=== PATIENT | female | born 1950 | race Caucasian/White ===

== ENCOUNTER 2022-04-29 16:12 | Inpatient (IN) | payer OTHER ==
--- OUTSIDE RECORDS SUMMARY | 2022-04-29 16:15 | XMS REPORT | Continuity of Care Document ---
:1950 Author Organization [facility] t Address [address] [place] [address] Care Team Providers Name Role Phone ZORAIDA FAM Primary Care Physician Unavailable Lab, Ang - Db Attending Clinician Unavailable Zoraida Fam MD Attending Clinician ZORAIDA FAM Attending Clinician Unavailable KARRI MATTA Attending Clinician Unavailable Karri Matta MD Attending Clinician SARINA Attending Clinician Unavailable Matti Cormier MD Attending Clinician MATTI CORMIER Attending Clinician Unavailable ELDER ROMERO Attending Clinician Unavailable YVETTE HANKS Attending Clinician Unavailable A_Bywilbur Attending Clinician Unavailable KARRI MATTA Admitting Clinician Unavailable SARINA Admitting Clinician Unavailable YVETTE HANKS Admitting Clinician Unavailable A_Santo Admitting Clinician Unavailable Payers Payer Name Policy Type Policy Number Effective Date Expiration Date S roberto [employer] MEDICARE PPO [id number] 00:00:00 [employer] (MEDICARE [id number] REPLACEMENT PPO) 00:00:00 Problems Condition Condition Condition Status Onset Resolution Last Treating Co mments Source Name Details Category Date Date Treatment Clinician Date Hip pain Hip Pain Problem Active 2018-04 [place] 0-15 da 00:00: Medical 00 Group No known No known Disease Unive rs active active ity of problems problems [facility] Allergies, Adverse Reactions, Alerts Allergy Allergy Status Severity Reaction(s) Onset Inactive Treating Comm ents Source Name Type Date Date Clinician Vidyai Propensi Active Unknown - 2020-04 Uni vers l ty to See comments 2-14 ity of adverse 00:00: [place] reaction 00 Medical s Branch Codeine Propensi Active Unknown - 2020-04 Univ ers ty to See comments 2-14 ity of adverse 00:00: [place] reaction 00 Medical s Branch QUINAPRI DRUG Active Low Unknown-Cmnt 2020-04 Un juno L INGREDI 2-14 ity of 00:00: [place] 00 Medical Branch CODEINE DRUG Active Low Unknown-Cmnt 2020-04 Uni vers INGREDI 2-14 ity of 00:00: [place] 00 Medical Branch Amlodipi Allergy Active [place] to da substanc Medical e Group Budesoni Allergy Active [place] to da [facility] Codeine Allergy Active [place] to [facility] e [facility] Formoter Allergy Active [place] to da substanc Medical e Group Hydrochl Allergy Active [place] orothiaz to da arianna substanc Medical e Group Olmesart Allergy Active [place] an to da substanc Medical e Group Quinapri Allergy Active [place] l to da substanc Medical e Group Social History Social Habit Start Date Stop Date Quantity Comments Source Exposure to 2022-03-28 2022-04-07 Not sure [facility]-CoV-2 00:00:00 15:11:00 [facility] (event) [place] Alcohol intake 2022-03-27 2022-03-27 Ex-drinker [facility] 00:00:00 00:00:00 (finding) [facility] Tobacco use and 2021-03-31 2021-03-31 Smokeless tobacco Un iversity of exposure 00:00:00 00:00:00 non-user [facility] History of 2001-03-31 Cigarette Smoker Universi ty of tobacco use 00:00:00 [facility] Sex Ass[birth year] At [birth year] Universit y of 00:00:00 00:00:00 [facility] Smoking Status Start Date Stop Date Source Ex-smoker 2021-03-31 00:00:00 2021-03-31 00:00:00 Universi [facility] [place] Medications Ordered Filled Start Stop Current Ordering Indication Dosage Frequency Signature Comments Components Source Medication Medication Date Date Medication? Clinician (SIG) Name Name cefTRIAXone 2021-04- No 1000mg 1,000 mg, Univers (ROCEPHIN) 2-10 12-10 IV ity of 1,000 mg in 23:00: 23:15 [place], [place] NaCl 0.9% 00 :00 ONCE, 1 Medical (NS) 50 mL dose, On Branc h MINI-BAG 03/27/22 at 1700, Administer over 30 Minutes, 50 mL
Reas on for Anti-Infec tive: Documented Infection< br>Documen eduardo Infection Site: Urine<br&g t;Duration of Therapy: Other (see Comments) KCL 20 2021-04- No 40meq 40 mEq, Univer s mEq/15 mL 2-10 12-10 Oral, ity of solution 40 22:30: 21:33 [place] 1 [place] mEq 00 :00 dose, On Medical Sat Branch 03/27/22 at 1630, Routine ondansetron 2021-04- No 4mg 4 mg, Slow Univers (ZOFRAN 2-10 12-10 IV Push, ity of (PF)) 21:00: 21:20 ONCE, 1 [place] injection 4 00 :00 dose, On Medi nick mg [facility] Branch 03/27/22 at 1500, FANI cefdinir 2021-04 Yes [id number] 300mg Take 1 Un juno 300 mg 2-10 capsule by ity of capsule 00:00: mouth in [place] 00 the Medical morning Branch and 1 capsule in the evening. cefdinir 2021-04- No [id number] 300mg Take 1 U nivers 300 mg 2-10 12-21 capsule by ity of capsule 00:00: 00:00 mouth in [place] 00 :00 the Medical morning Branch and 1 capsule in the evening. cefdinir 2021-04- No [id number] 300mg Take 1 U nivers 300 mg 2-10 12-21 capsule by ity of capsule 00:00: 00:00 mouth in [place] 00 :00 the Medical morning Branch and 1 capsule in the evening. Armodafinil 2020-04 Yes 250mg 250 mg Uni vers 250 mg Tab 2-14 daily. ity of 13:42: [address] potassium 2020-04 Yes 10meq 10 mEq Unive rs chloride 10 2-14 daily. ity of mEq CR 13:42: [address] Armodafinil 2020-04 Yes 250mg 250 mg Uni vers 250 mg Tab 2-14 daily. ity of 13:42: [address] potassium 2020-04 Yes 10meq 10 mEq Unive rs chloride 10 2-14 daily. ity of mEq CR 13:42: [address] Armodafinil 2020-04 Yes 250mg 250 mg Uni vers 250 mg Tab 2-14 daily. ity of 13:42: [address] potassium 2020-04 Yes 10meq 10 mEq Unive rs chloride 10 2-14 daily. ity of mEq CR 13:42: [address] Armodafinil 2020-04 Yes 250mg 250 mg Uni vers 250 mg Tab 2-14 daily. ity of 13:42: [address] potassium 2020-04 Yes 10meq 10 mEq Unive rs chloride 10 2-14 daily. ity of mEq CR 13:42: [address] Armodafinil 2020-04 Yes 250mg 250 mg Uni vers 250 mg Tab 2-14 daily. ity of 13:42: [address] potassium 2020-04 Yes 10meq 10 mEq Unive rs chloride 10 2-14 daily. ity of mEq CR 13:42: [address] Armodafinil 2020-04 Yes 250mg 250 mg Uni vers 250 mg Tab 2-14 daily. ity of 13:42: [address] potassium 2020-04 Yes 10meq 10 mEq Unive rs chloride 10 2-14 daily. ity of mEq CR 13:42: [address] amLODIPine 2020-04 Yes 5mg 5 mg Univers 5 mg tablet 2-05 daily. ity of 00:00: [facility] atorvastati 2020-04 Yes 80mg Take 80 mg Univers n 80 mg 2-05 by mouth ity of tablet 00:00: daily. [facility] buPROPion 2020-04 Yes 300mg Take 300 Uni vers XL 300 mg 2-05 mg by ity of 24 hr 00:00: mouth [place] tablet 00 daily. [facility] Branch ezetimibe 2020-04 Yes 10mg Take 10 mg Un juno 10 mg 2-05 by mouth. ity of tablet 00:00: [place] [facility] famotidine 2020-04 Yes 20mg 20 mg Univer s 20 mg 2-05 daily. ity of tablet 00:00: [place] [facility] furosemide 2020-04 Yes 40mg Take 40 mg U nivers 40 mg 2-05 by mouth ity of tablet 00:00: daily. [place] [address] Medical Branch OLANZapine 2020-04 Yes 10mg Take 10 mg U nivers 10 mg 2-05 by mouth ity of tablet 00:00: daily. [place] [address] Medical Branch amLODIPine 2020-04 Yes 5mg 5 mg Univers 5 mg tablet 2-05 daily. ity of 00:00: [place] [facility] atorvastati 2020-04 Yes 80mg Take 80 mg Univers n 80 mg 2-05 by mouth ity of tablet 00:00: daily. [place] [address] Medical Branch buPROPion 2020-04 Yes 300mg Take 300 Uni vers XL 300 mg 2-05 mg by ity of 24 hr 00:00: mouth [place] tablet 00 daily. Medical Branch ezetimibe 2020-04 Yes 10mg Take 10 mg Un juno 10 mg 2-05 by mouth. ity of tablet 00:00: [place] [facility] famotidine 2020-04 Yes 20mg 20 mg Univer s 20 mg 2-05 daily. ity of tablet 00:00: [place] [address] Medical Branch furosemide 2020-04 Yes 40mg Take 40 mg U nivers 40 mg 2-05 by mouth ity of tablet 00:00: daily. [place] [address] Medical Branch OLANZapine 2020-04 Yes 10mg Take 10 mg U nivers 10 mg 2-05 by mouth ity of tablet 00:00: daily. [place] [address] Medical Branch amLODIPine 2020-04 Yes 5mg 5 mg Univers 5 mg tablet 2-05 daily. ity of 00:00: [place] [address] Medical Branch atorvastati 2020-04 Yes 80mg Take 80 mg Univers n 80 mg 2-05 by mouth ity of tablet 00:00: daily. [place] [address] Medical Branch buPROPion 2020-04 Yes 300mg Take 300 Uni vers XL 300 mg 2-05 mg by ity of 24 hr 00:00: mouth [place] tablet 00 daily. Medical Branch ezetimibe 2020-04 Yes 10mg Take 10 mg Un juno 10 mg 2-05 by mouth. ity of tablet 00:00: [place] [facility] famotidine 2020-04 Yes 20mg 20 mg Univer s 20 mg 2-05 daily. ity of tablet 00:00: [place] [facility] furosemide 2020-04 Yes 40mg Take 40 mg U nivers 40 mg 2-05 by mouth ity of tablet 00:00: daily. [address] Branch OLANZapine 2020-04 Yes 10mg Take 10 mg U nivers 10 mg 2-05 by mouth ity of tablet 00:00: daily. [address] Branch amLODIPine 2020-04 Yes 5mg 5 mg Univers 5 mg tablet 2-05 daily. ity of 00:00: [place] [facility] atorvastati 2020-04 Yes 80mg Take 80 mg Univers n 80 mg 2-05 by mouth ity of tablet 00:00: daily. [address] Branch buPROPion 2020-04 Yes 300mg Take 300 Uni vers XL 300 mg 2-05 mg by ity of 24 hr 00:00: mouth [place] tablet 00 daily. Medical Branch ezetimibe 2020-04 Yes 10mg Take 10 mg Un juno 10 mg 2-05 by mouth. ity of tablet 00:00: [address] Branch famotidine 2020-04 Yes 20mg 20 mg Univer s 20 mg 2-05 daily. ity of tablet 00:00: [place] [address] Medical Branch furosemide 2020-04 Yes 40mg Take 40 mg U nivers 40 mg 2-05 by mouth ity of tablet 00:00: daily. [address] Branch OLANZapine 2020-04 Yes 10mg Take 10 mg U nivers 10 mg 2-05 by mouth ity of tablet 00:00: daily. [address] Branch amLODIPine 2020-04 Yes 5mg 5 mg Univers 5 mg tablet 2-05 daily. ity of 00:00: [place] [address] Medical Branch atorvastati 2020-04 Yes 80mg Take 80 mg Univers n 80 mg 2-05 by mouth ity of tablet 00:00: daily. [address] Branch buPROPion 2020-04 Yes 300mg Take 300 Uni vers XL 300 mg 2-05 mg by ity of 24 hr 00:00: mouth [place] tablet 00 daily. Medical Branch ezetimibe 2020-04 Yes 10mg Take 10 mg Un juno 10 mg 2-05 by mouth. ity of tablet 00:00: [address] Branch famotidine 2020-04 Yes 20mg 20 mg Univer s 20 mg 2-05 daily. ity of tablet 00:00: [address] Branch furosemide 2020-04 Yes 40mg Take 40 mg U nivers 40 mg 2-05 by mouth ity of tablet 00:00: daily. [address] OLANZapine 2020-04 Yes 10mg Take 10 mg U nivers 10 mg 2-05 by mouth ity of tablet 00:00: daily. [address] Branch amLODIPine 2020-04 Yes 5mg 5 mg Univers 5 mg tablet 2-05 daily. ity of 00:00: [address] Branch atorvastati 2020-04 Yes 80mg Take 80 mg Univers n 80 mg 2-05 by mouth ity of tablet 00:00: daily. [address] buPROPion 2020-04 Yes 300mg Take 300 Uni vers XL 300 mg 2-05 mg by ity of 24 hr 00:00: mouth [place] tablet 00 daily. Medical Branch ezetimibe 2020-04 Yes 10mg Take 10 mg Un juno 10 mg 2-05 by mouth. ity of tablet 00:00: [address] famotidine 2020-04 Yes 20mg 20 mg Univer s 20 mg 2-05 daily. ity of tablet 00:00: [address] furosemide 2020-04 Yes 40mg Take 40 mg U nivers 40 mg 2-05 by mouth ity of tablet 00:00: daily. [address] OLANZapine 2020-04 Yes 10mg Take 10 mg U nivers 10 mg 2-05 by mouth ity of tablet 00:00: daily. [address] Advil 200 Advil 200 No 1 Q6H Advil 200 [place] mg tablet mg tablet mg tablet da Take 1 Take 1 Take 1 Medical tablet tablet tablet Group every 6 every 6 every 6 hours by hours by hours by oral route. oral route. oral route. Nicole-Chade Nicole-Seltze No Nicole-Selalfonzo [place] [facility] amlodipine amlodipine No amlodipine [place] 5mg 5mg 5mg da Medical Group armodafinil armodafinil No 1 Q1D armodafini [place] 250 mg 250 mg l 250 mg da tablet Take tablet Take tablet Medical 1 tablet 1 tablet Take 1 Group every day every day tablet by oral by oral every day route. route. by oral route. Azo Azo No Azo [place] B12 5000mg B12 5000mg No B12 5000mg [facility] bupropion bupropion No bupropion [place] HBr 300mg HBr 300mg HBr 300mg da Medical Group famotidine famotidine No famotidine [place] 40mg 40mg 40mg da Medical Group furosemide furosemide No 1 Q1D furosemide [place] 40 mg 40 mg 40 mg da tablet Take tablet Take tablet Medical 1 tablet 1 tablet Take 1 Group every day every day tablet by oral by oral every day route. route. by oral route. gabapentin gabapentin No gabapentin [place] 800mg bid 800mg bid 800mg bid da Medical Group Gaviscon Gaviscon No Gaviscon [place] [facility] hydrocodone hydrocodone No 1 Q12H hydrocodon [place] 5 5 e 5 da mg-acetamin mg-acetamin mg-acetami Medical ophen 325 ophen 325 nophen 325 Group mg tablet mg tablet mg tablet Take 1 Take 1 Take 1 tablet tablet tablet every 12 every 12 every 12 hours by hours by hours by oral route. oral route. oral take as take as route. needed for needed for take as pain pain needed for pain olanzapine olanzapine No olanzapine [place] 5mg 5mg 5mg da Medical Group Senokot Senokot No Senokot [place] [facility] Vitamin D Vitamin D No Vitamin D [place] vitamin d vitamin d vitamin d da 12 weekly 12 weekly 12 weekly Medical Group Zantac 150 Zantac 150 No 1 BID Zantac 150 [place] mg tablet mg tablet mg tablet da Take 1 Take 1 Take 1 Medical tablet tablet tablet Group twice a day twice a day twice a by oral by oral day by route. route. oral route. zolpidem 5 zolpidem 5 No 1 Q1D zolpidem 5 [place] mg tablet mg tablet mg tablet da Take 1 Take 1 Take 1 Medical tablet tablet tablet Group every day every day every day by oral by oral by oral route. route. route. Immunizations Ordered Filled Immunization Date Status Comments [facility] e Immunization Name Name Influenza Virus 2022-04-07 Completed Universit y of Vaccine,quad 00:00:00 [place] [facility],preserve Free Branch 65+ Influenza Virus 2022-04-07 Completed Universit y of Vaccine,quad 00:00:00 [place] [facility] Im,preserve Free Branch 65+ Influenza Virus 2022-04-07 Completed Universit y of Vaccine,quad 00:00:00 [place] [facility] Im,preserve Free Branch 65+ Vital Signs Vital Name Observation Time Observation Value Comments Source Systolic blood 2022-04-07 21:25:00 110 mm[Hg] Univer sity of pressure [place] [facility] [place] Diastolic blood 2022-04-07 21:25:00 67 mm[Hg] Unive rsity of pressure [facility] Heart rate 2022-04-07 21:25:00 90 /min Universi ty of [facility] Body temperature 2022-04-07 21:25:00 36.56 Erin Univ ersity of [place] [facility] [place] Body height 2022-04-07 21:25:00 162.6 cm Universi ty of [place] [facility] [place] Body weight 2022-04-07 21:25:00 74.39 kg Universi ty of [place] [facility] BMI 2022-04-07 21:25:00 28.15 kg/m2 Universi ty of [place] [facility] Oxygen saturation in 2022-04-07 21:25:00 98 /min University of Arterial blood by [place] [employer] nick Pulse oximetry Branch Systolic blood 2022-03-27 23:00:00 118 mm[Hg] Univer sity of pressure [place] [facility] [place] Diastolic blood 2022-03-27 23:00:00 68 mm[Hg] Unive rsity of pressure [place] [facility] [place] Heart rate 2022-03-27 23:00:00 82 /min Universi ty of [place] [facility] Respiratory rate 2022-03-27 23:00:00 16 /min Univ ersity of [facility] Oxygen saturation in 2022-03-27 23:00:00 99 /min University of Arterial blood by [place] [employer] Pulse oximetry Branch Body temperature 2022-03-27 20:11:00 36.56 Erin Univ ersity of [place] [facility] Body height 2022-03-27 20:11:00 162.6 cm Universi ty of [place] [facility] [place] Body weight 2022-03-27 20:11:00 72.576 kg Universi ty of [facility] BMI 2022-03-27 20:11:00 27.46 kg/m2 Universi [facility] Systolic blood 2021-03-31 19:39:00 115 mm[Hg] Univer sity pressure [facility] Diastolic blood 2021-03-31 19:39:00 76 mm[Hg] Unive [facility] Heart rate 2021-03-31 19:39:00 85 /min [facility] Body height 2021-03-31 19:39:00 162.6 cm [facility] Body weight 2021-03-31 19:39:00 77.565 kg [facility] BMI 2021-03-31 19:39:00 29.35 kg/m2 [facility] BP Diastolic 2019-01-30 00:00:00 71 mm[Hg] [facility] Height 2019-01-30 00:00:00 64 [facility]_i[facility] BMI (Body Mass 2019-01-30 00:00:00 35.7 kg/m2 [facility] fulfillment 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 (NA, K, CL, CO2, Medical Branch GLUCOSE, BUN, CREATININE, CA) CBC WITH DIFF 2022-04-07 21:58:00 Zoraida Fam darrion [facility] FLU 2022-04-07 21:38:[facility] VACC([id number]),65+YR,0 Medical Branch .5 ML,IM,ADJUVANTED,QUAD(F LUAD) CT ABDOMEN PELVIS WO 2022-03-27 22:24:15 Karri Matta [facility] CONTRAST [facility] Branch XR CHEST 1 VW 2022-03-27 21:31:00 Karri Matta [facility] URINALYSIS 2022-03-27 21:15:00 Karri Matta [facility] MAGNESIUM 2022-03-27 21:01:00 Karri Matta [facility] TROPONIN I 2022-03-27 21:01:00 Karri Matta [facility] COMP. METABOLIC PANEL 2022-03-27 21:01:00 Karri Matta [facility] ([id number]) [facility] CBC WITH DIFF 2022-03-27 21:01:00 Karri Matta [facility] N-TERMINAL PRO-BNP 2022-03-27 21:01:00 Karri Matta [facility] XR KNEE 3 VW LEFT 2021-04-08 20:08:00 Matti Cormier [facility] XR, hip, unilateral 2019-01-30 00:00:00 [facility] K[facility] Procedure on Wrist [facility] Hysterectomy [facility] Encounters Start End Encounter Admission Attending Care Care Encounter Source Date/Time Date/Time Type Type Clinicians Facility Department ID 2021-10-26 Outpatient [facility] [id number] [place] 06:31:51 [id number] [facility] 2021-10-14 Outpatient [facility] [id number] PA 10:31:44 [id number] [facility] 2022-04-07 2022-04-07 Safety Scientist Lab, Ang - [place] [facility] [id number] Univers 15:45:00 16:00:00 Visit Zroaida Fam [facility] [id number] [facility] [id number] Miguel as BILLIE?BLEA [id number] [address] MEDICAL OFFICE BUILDING 2022-04-07 2022-04-07 Outpatient R [facility] [id number] [facility] 15:15:00 15:47:59 ZORAIDA [facility] 2022-04-07 2022-04-07 [facility] [id number] Univers 15:15:00 15:47:59 Visit [facility] [id number] it y of Oscar MEZA [id number] Miguel as BILLIE?BLEA [id number] Mn karoline ALAMO 044 [place] MEDICAL OFFICE [facility] 2022-03-27 2022-03-27 Emergency [facility] [id number] Univers 14:09:00 17:18:00 KARRI ity [facility] 2022-03-27 2022-03-27 Emergency [facility] [id number] Univers 14:09:00 17:18:00 Nhomid Adali [place] [id number] ity of [facility] [id number] [place] [facility] [id number] [facility] 084 [place] 2021-11-19 2021-11-19 Outpatient SADIQ_MICHELET PAELIEZER [facility] [id number] [place] 00:00:00 00:00:00 _CORINE 0804 da [facility] Outreac h Program 2021-04-08 2021-04-08 [facility] [id number] Univers 13:58:04 23:59:00 Encounter [facility] [id number] ity moses [place] [id number] Miguel as BILLIE?BLEA [id number] Mn nicolabrooklyn ALAMO 809 [place] MEDICAL OFFICE [facility] 2021-04-08 2021-04-08 [facility] [id number] Univers 13:30:00 14:30:16 MATTI patricia [facility] 2021-04-08 2021-04-08 Outpatient R [facility] [id number] Univers 14:00:00 14:00:00 MATTI [id number] [facility] 2021-04-02 2021-04-02 Outpatient [facility] [id number] Univers 09:45:00 09:45:00 ELDER [id number] [facility] 2021-04-02 2021-04-02 [facility]patient [facility] [id number] Univers 09:45:00 09:45:00 ELDER urias [facility] 2021-03-31 2021-03-31 Outpatient R [facility] [id number] Univers 13:30:00 13:58:43 ZORAIDA urias [facility] 2021-03-31 2021-03-31 Office Marylin [facility] [id number] Univers 13:21:58 13:51:58 Visit [facility] [id number] it y of Oscar [facility] [id number] Miguel as BILLIE?BLEA [id number] [address] MEDICAL OFFICE [facility] 2020-12-29 2020-12-30 Outpatient E [facility]ON[facility] [id number] [facility] 16:13:00 12:27:00 YVETTE 2020-03-05 2020-03-05 Outpatient Phan [facility] [id number] [place] 02:19:00 02:19:00 1118 Medical Group 2019-01-30 2019-01-30 You Melendrez [facility] [place] - [id number] M at[place] 00:00:00 00:00:00 MD Santo: [address] Group [facility] - [address], [facility] [address] , Ph. Results Test Description Test Time Test Comments Results Result Comments Source BASIC METABOLIC PANEL (NA, K, CL, CO2, GLUCOSE, BUN, 2022-03 08:56:09 CREATININE, CA) Test Item Value Reference Range Interpretation Comme nts NA (test code = 7683693533) 138 mmol/L 135-145 K (test code = 5629810373) 4.0 mmol/L 3.5-5.0 CL (test code = 6611788344) 99 mmol/L 98-108 CO2 TOTAL (test code = 6477429743) 29 mmol/L 23-31 AGAP (test code = 8628386201) 2-16 BUN (test code = 7281400862) 22 mg/dL 7-23 GLUCOSE (test code = 3762528311) 101 mg/dL 70-110 CREATININE (test code = 2.00 mg/dL 0.50-1.04 H 7094654536) CALCIUM (test code = 1554367270) 9.4 mg/dL 8.6-10.6 eGFR (test code = 1219369258) mL/min/1.73m2 LINDA (test code = LINDA) Association of Glomerular Filtration Rate (GFR) and Staging of Kidney Disease* + +-------- + ------+| GFR (mL/min/1.73 m2) ?| With Kidney Damage ?| ?Without Kidney Damage+ +-- + +| ?>90 ?| ?Stage one ?| ? Normal ?+ +------- + -------+| ?60-89 ?| ?Stage two ?| ? Decreased GFR ? + +-------- + ------+| ?30-59 ?| ?Stage three ?| ? Stage three ? + +-------- + ------+| ?15-29 ?| ?Stage four ? | ? Stage four ?+ +------- + -------+| ?<15 (or dialysis) ? ?| ?Stage five ? | ? Stage five ?+ +------- + -------+ *Each stage assumes the associated GFR level has been in effect for at least three months. ?Stages 1 to 5, with or without kidney disease, indicate chronic kidney disease. Notes: Determination of stages one and two (with eGFR >59mL/min/1.73 m2) requires estimation of kidney damage for at least three months as defined by structural or functional abnormalities of the kidney, manifested by either:Pathological abnormalities or Markers of kidney damage (including abnormalities in the composition of the blood or urine or abnormalities in imaging tests). Lab Interpretation (test code = Abnormal 58345-9) [facility] METABOLIC PANEL (NA, K, CL, CO2, GLUCOSE, BUN, CREATININE, CA)2022-04-08 08:56:09 Test Item Value Reference Range Interpretation Comments NA (test code = 138 mmol/L 135-145 [id number]) K (test code = 4.0 mmol/L 3.5-5.0 5805798217) CL (test code = 99 mmol/L 98-108 3270968151) CO2 TOTAL (test code = 29 mmol/L 23-31 4184039291) AGAP (test code = 2-16 4860590292) BUN (test code = 22 mg/dL 7-23 5705623504) GLUCOSE (test code = 101 mg/dL 70-110 3690352280) CREATININE (test code = 2.00 mg/dL 0.50-1.04 H 6186176114) CALCIUM (test code = 9.4 mg/dL 8.6-10.6 2741771611) eGFR (test code = mL/min/1.73m2 [id number]) LINDA (test code = LINDA) Association of Glomerular Filtration Rate (GFR) and Staging of Kidney Disease* + --+ --+ ------+| GFR (mL/min/1.73 m2) ?| With Kidney Damage ?| ?Without Kidney Damage+ --------+ --------+ +| ?>90 ?| ?Stage one ?| ? Normal ?+ ---+ ---+ -------+| ?60-89 ?| ?Stage two ?| ? Decreased GFR ? + --+ --+ ------+| ?30-59 ?| ?Stage three ?| ? Stage three ? + --+ --+ ------+| ?15-29 ?| ?Stage four ? | ? Stage four ?+ ---+ ---+ -------+| ?<15 (or dialysis) ? ?| ?Stage five ? | ? Stage five ?+ ---+ ---+ -------+ *Each stage assumes the associated GFR level has been in effect for at least three months. ?Stages 1 to 5, with or without kidney disease, indicate chronic kidney disease. Notes: Determination of stages one and two (with eGFR >59mL/min/1.73 m2) requires estimation of kidney damage for at least three months as defined by structural or functional abnormalities of the kidney, manifested by either:Pathological abnormalities or Markers of kidney damage (including abnormalities in the composition of the blood or urine or abnormalities in imaging tests). Lab Interpretation Abnormal (test code = 52995-8) [facility] WITH [id number] 08:15:22 Test Item Value Reference Range Interpretation Comments WBC (test code = See_Comment [Automated 1090-2) message] The sy stem which generated this result transmitted reference range : 4.30 - 11.10 10*3/?L. The reference range was not used to interpret this result as normal/abnormal . RBC (test code = See_Comment [Automated 789-8) message] The sy stem which generated this result transmitted reference range : 3.93 - 5.25 10*6/?L. The reference range was not used to interpret this result as normal/abnormal . HGB (test code = 11.7 g/dL 11.6-15.0 718-7) HCT (test code = 37.4 % 35.7-45.2 4544-3) MCV (test code = 95.2 fL 80.6-95.5 787-2) MCH (test code = 29.8 pg 25.9-32.8 785-6) MCHC (test code = 31.3 g/dL 31.6-35.1 L 786-4) RDW-SD (test code = 49.2 fL 39.0-49.9 86941-5) RDW-CV (test code = 14.4 % 12.0-15.5 788-0) PLT (test code = See_Comment [Automated 777-3) message] The sy stem which generated this result transmitted reference range : 166 - 358 10*3/ ?L. The reference r paty was not used to interpret this result as normal/abnormal . MPV (test code = 9.4 fL 9.5-12.9 L 69743-8) NRBC/100 WBC (test See_Comment [Automat ed code = 5752549023) message] The system which generated this result transmitted reference range : 0.0 - 10.0 /100 WBCs. The refer ence range was not u sed to interpret th is result as normal/abnormal . NRBC x10^3 (test code See_Comment [Auto mated = 1737505714) message] The s ystem which generated this result transmitted reference range : 10*3/?L. The reference range was not used to interpret this result as normal/abnormal . GRAN MAT (NEUT) % 80.0 % (test code = 770-8) IMM GRAN % (test code 0.20 % = 3343433139) LYMPH % (test code = 13.9 % 736-9) MONO % (test code = 5.4 % 5905-5) EOS % (test code = 0.2 % 713-8) BASO % (test code = 0.3 % 706-2) GRAN MAT x10^3(ANC) 4.89 10*3/uL 1.88-7.09 (test code = 6411677595) IMM GRAN x10^3 (test 0.00-0.06 code = 6702637758) LYMPH x10^3 (test code 0.85 10*3/uL 1.32-3.29 L = 731-0) MONO x10^3 (test code 0.33 10*3/uL 0.33-0.92 = 742-7) EOS x10^3 (test code = 0.03-0.39 L 711-2) BASO x10^3 (test code 0.01-0.07 = 704-7) Lab Interpretation Abnormal (test code = 29269-4) [facility] WITH [id number] 08:15:22 Test Item Value Reference Range Interpretation Comments WBC (test code = See_Comment [Automated 6690-2) message] The sy stem which generated this result transmitted reference range : 4.30 - 11.10 10*3/?L. The reference range was not used to interpret this result as normal/abnormal . RBC (test code = See_Comment [Automated 789-8) message] The sy stem which generated this result transmitted reference range : 3.93 - 5.25 10*6/?L. The reference range was not used to interpret this result as normal/abnormal . HGB (test code = 11.7 g/dL 11.6-15.0 718-7) HCT (test code = 37.4 % 35.7-45.2 4544-3) MCV (test code = 95.2 fL 80.6-95.5 787-2) MCH (test code = 29.8 pg 25.9-32.8 785-6) MCHC (test code = 31.3 g/dL 31.6-35.1 L 786-4) RDW-SD (test code = 49.2 fL 39.0-49.9 13384-1) RDW-CV (test code = 14.4 % 12.0-15.5 788-0) PLT (test code = See_Comment [Automated 777-3) message] The sy stem which generated this result transmitted reference range : 166 - 358 10*3/ ?L. The reference r apty was not used to interpret this result as normal/abnormal . MPV (test code = 9.4 fL 9.5-12.9 L 86919-5) NRBC/100 WBC (test See_Comment [Automat ed code = 1992160108) message] The system which generated this result transmitted reference range : 0.0 - 10.0 /100 WBCs. The refer ence range was not u sed to interpret th is result as normal/abnormal . NRBC x10^3 (test code See_Comment [Auto mated = 2415256369) message] The s ystem which generated this result transmitted reference range : 10*3/?L. The reference range was not used to interpret this result as normal/abnormal . GRAN MAT (NEUT) % 80.0 % (test code = 770-8) IMM GRAN % (test code 0.20 % = 0689649289) LYMPH % (test code = 13.9 % 736-9) MONO % (test code = 5.4 % 5905-5) EOS % (test code = 0.2 % 713-8) BASO % (test code = 0.3 % 706-2) GRAN MAT x10^3(ANC) 4.89 10*3/uL 1.88-7.09 (test code = 3653302320) IMM GRAN x10^3 (test 0.00-0.06 code = 8751787940) LYMPH x10^3 (test code 0.85 10*3/uL 1.32-3.29 L = 731-0) MONO x10^3 (test code 0.33 10*3/uL 0.33-0.92 = 742-7) EOS x10^3 (test code = 0.03-0.39 L 711-2) BASO x10^3 (test code 0.01-0.07 = 704-7) Lab Interpretation Abnormal (test code = 44175-2) [id number] Test Item Value Reference Interpretation Comments Range TROPONIN I (test 0.005 ng/mL See_Comment [Automated code = 9356167768) message] The system which generated this result transmitted reference range : <=0.034. The reference range was not used to interpret this result as normal/abnormal . LINDA (test code = Reference (Normal) LINDA) Range (defined by the 99th percentile reference limit): <= 0.034 ng/mL Note: Cardiac troponin begins to rise 3-4 hours after the onset of ischemia. Repeat in 4-6 hours if the sample was drawn within 3-4 hours of the onset of the symptom and found normal. Diagnosis of myocardial injury is made with acute changes in cTn concentrations with at least one serial sample above the 99th percentile upper reference limit (URL), taken together with the patient's clinical presentation. Biotin has been reported to cause a negative bias, interpret results relative to patient's use of biotin. Lab Interpretation Normal (test code = 61619-5) [id number] 21:52:11 Test Item Value Reference Range Interpretation Comments NT-proBNP (test code 122 pg/mL See_Comment [Autom ated = 0801785031) message] The system which generated this result transmitted reference range : <=125. The reference range was not used to interpret this result as normal/abnormal . LINDA (test code = LINDA) Biotin has been reported to cause a negative bias, interpret results relative to patient's use of biotin. Lab Interpretation Normal (test code = 31441-0) [facility] ([id number] 21:29:29 Test Item Value Reference Range Interpretation Comments NA (test code = 136 mmol/L 135-145 1655763136) K (test code = 3.1 mmol/L 3.5-5.0 L 6292186541) CL (test code = 96 mmol/L 98-108 L 2933694966) CO2 TOTAL (test code = 20 mmol/L 23-31 L 4991499527) AGAP (test code = 2-16 H 1405516995) BUN (test code = 31 mg/dL 7-23 H 7234976974) GLUCOSE (test code = 129 mg/dL 70-110 H 1624185874) CREATININE (test code = 1.93 mg/dL 0.50-1.04 H 7060894022) TOTAL BILI (test code = 1.0 mg/dL 0.1-1.4 6925914177) CALCIUM (test code = 9.4 mg/dL 8.6-10.6 2287709360) T PROTEIN (test code = 6.6 g/dL 6.3-8.2 1996451255) ALBUMIN (test code = 4.6 g/dL 3.5-5.0 9787140661) ALK PHOS (test code = 96 U/L 34-122 5473738806) ALTv (test code = 36 U/L 5-35 H 1742-6) AST(SGOT) (test code = 36 U/L 13-40 0876389024) eGFR (test code = mL/min/1.73m2 3265224023) LINDA (test code = LINDA) Association of Glomerular Filtration Rate (GFR) and Staging of Kidney Disease* + --+ --+ ------+| GFR (mL/min/1.73 m2) ?| With Kidney Damage ?| ?Without Kidney Damage+ --------+ --------+ +| ?>90 ?| ?Stage one ?| ? Normal ?+ ---+ ---+ -------+| ?60-89 ?| ?Stage two ?| ? Decreased GFR ? + --+ --+ ------+| ?30-59 ?| ?Stage three ?| ? Stage three ? + --+ --+ ------+| ?15-29 ?| ?Stage four ? | ? Stage four ?+ ---+ ---+ -------+| ?<15 (or dialysis) ? ?| ?Stage five ? | ? Stage five ?+ ---+ ---+ -------+ *Each stage assumes the associated GFR level has been in effect for at least three months. ?Stages 1 to 5, with or without kidney disease, indicate chronic kidney disease. Notes: Determination of stages one and two (with eGFR >59mL/min/1.73 m2) requires estimation of kidney damage for at least three months as defined by structural or functional abnormalities of the kidney, manifested by either:Pathological abnormalities or Markers of kidney damage (including abnormalities in the composition of the blood or urine or abnormalities in imaging tests). Lab Interpretation Abnormal (test code = 64323-2) [facility]:23[facility]30 Test Item Value Reference Range Interpretation Comments MAGNESIUM (test code = 3206955936) 2.0 mg/dL 1.7-2.4 Lab Interpretation (test code = Normal 31641-8) [facility] WITH [id number] 21:11:09 Test Item Value Reference Range Interpretation Comments WBC (test code = See_Comment [Automated 6690-2) message] The sy stem which generated this result transmitted reference range : 4.30 - 11.10 10*3/?L. The reference range was not used to interpret this result as normal/abnormal . RBC (test code = See_Comment L [Automated 789-8) message] The sy stem which generated this result transmitted reference range : 3.93 - 5.25 10*6/?L. The reference range was not used to interpret this result as normal/abnormal . HGB (test code = 11.5 g/dL 11.6-15.0 L 718-7) HCT (test code = 36.3 % 35.7-45.2 4544-3) MCV (test code = 94.8 fL 80.6-95.5 787-2) MCH (test code = 30.0 pg 25.9-32.8 785-6) MCHC (test code = 31.7 g/dL 31.6-35.1 786-4) RDW-SD (test code = 46.5 fL 39.0-49.9 36532-9) RDW-CV (test code = 13.6 % 12.0-15.5 788-0) PLT (test code = See_Comment [Automated 777-3) message] The sy stem which generated this result transmitted reference range : 166 - 358 10*3/ ?L. The reference r paty was not used to interpret this result as normal/abnormal . MPV (test code = 8.8 fL 9.5-12.9 L 16054-4) NRBC/100 WBC (test See_Comment [Automat ed code = 3274489946) message] The system which generated this result transmitted reference range : 0.0 - 10.0 /100 WBCs. The refer ence range was not u sed to interpret th is result as normal/abnormal . NRBC x10^3 (test code See_Comment [Auto mated = 1160138653) message] The s ystem which generated this result transmitted reference range : 10*3/?L. The reference range was not used to interpret this result as normal/abnormal . GRAN MAT (NEUT) % 88.6 % (test code = 770-8) IMM GRAN % (test code 0.40 % = 9265670305) LYMPH % (test code = 6.4 % 736-9) MONO % (test code = 4.4 % 5905-5) EOS % (test code = 0.0 % 713-8) BASO % (test code = 0.2 % 706-2) GRAN MAT x10^3(ANC) 9.53 10*3/uL 1.88-7.09 H (test code = 8757373149) IMM GRAN x10^3 (test 0.04 10*3/uL 0.00-0.06 code = 1707207651) LYMPH x10^3 (test code 0.69 10*3/uL 1.32-3.29 L = 731-0) MONO x10^3 (test code 0.47 10*3/uL 0.33-0.92 = 742-7) EOS x10^3 (test code = 0.03-0.39 L 711-2) BASO x10^3 (test code 0.01-0.07 = 704-7) Lab Interpretation Abnormal (test code = 59829-5) [facility]"
[2022-04-29 17:14] LABS: Urine Blood Negative (Negative); Urine Glucose Negative (Negative); Urine Protein Negative (Negative)
[2022-04-29 17:29] LABS: Urine Bacteria <20 /HPF (<20); Urine Mucus Slight /HPF (None Seen)
[2022-04-29 17:39] LABS: Absolute Lymphocytes (CBC) 0.8 K/uL (0.7-4.9); Hematocrit 32.9 % (36.0-45.0); Lymphocytes % 12.7 % (15.3-44.8); MCV 90.5 fL (80-100); MPV 8.2 fL (7.6-11.3); RBC Red Blood Cell Count 3.64 M/uL (3.86-4.86)
[2022-04-29 17:42] LABS: Albumin 3.5 g/dL (3.4-5.0); Bilirubin Total 0.7 mg/dL (0.2-1.0); Potassium 3.1 mmol/L (3.5-5.1); Protein, Total 6.2 g/dL (6.4-8.2)
[2022-04-29 17:45] LABS: SARS-COV-2 RT PCR NEGATIVE (NEGATIVE)
[2022-04-29] MEDS ORDERED: POTASSIUM CL SA 10 MEQ TAB PO ONE (18:04)
--- NOTE | 2022-04-29 18:38 | RAD REPORT ---
EXAM DESCRIPTION: CTAbdomen Pelvis Wo Contrast - 04/29/2022 6:17 pm CLINICAL HISTORY: decreased appetite COMPARISON: No comparisons TECHNIQUE: CT of the abdomen and pelvis was performed. All CT scans are performed using dose optimization technique as appropriate and may include automated exposure control or mA/KV adjustment according to patient size. FINDINGS: Lower chest: Calcified nodule in the right lower lobe. Mild circumferential thickened dist al esophagus. This could reflect esophagitis. Endoscopy could confirm. Liver: No acute abnormality or suspicious lesions. Biliary: No biliary ductal dilatation. Stomach: No significant focal abnormality. Duodenum: No significant focal abnormality. Pancreas: No significant abnormality. Spleen: No significant abnormality. Adrenal: No suspicious lesions. Kidney/ureter: No hydronephrosis. No renal calculi. Retroperitoneum: No retroperitoneal adenopathy. Vascular: No aneurysm. Atherosclerosis Bowel: Moderate formed stool within the ascending and transverse colon which could indicate constipat ion.. Diverticulosis without diverticulitis. Peritoneum: No ascites or free air. Bladder: Grossly unremarkable. Reproductive: No adnexal masses. Hysterectomy. Bones: No acute fracture. Grade 1 anterolisthesis of L3 on L4. Remote appearing T12 and L2 compressio n fractures. Intramedullary aravind in the right femur. Other: n/a IMPRESSION: No acute intra-abdominal or pelvic finding. Incidental findings as noted above.
--- NOTE | 2022-04-29 18:50 | EDPHYS ---
Physician Documentation [facility] Name: Joyce Saha Age: 72 yrs Sex: Female : 1950 Arrival Date: 04/29/2022 Time: 16:16 Bed 16 Private MD: ED Physician Redd Miranda HPI: 04/29 17:27 This 72 yrs old Female presents to ER via EMS with complaints of decreaseda ppetite. kb 17:27 Pt reports decreased appetite for 4 days, now having weakness. Onset: The kb symptoms/episode began/occurred 4 day(s) ago. Severity of symptoms: At their worst the symptoms were moderate in the emergency department the symptoms are unchanged. The patient has not experienced similar symptoms in the past. The patient has not recently seen a physician. Historical: - Allergies: 16:19 Codeine; ld1 16:19 acutane; ld1 - PMHx: 16:19 Hypertensive disorder; Osteoarthritis; ld1 - PSHx: 16:19 None; ld1 - Immunization history:: Adult Immunizations up to date, Client reports receiving the 2nd dose of the Covid vaccine. - Social history:: Smoking status: Patient denies any tobacco usage or history of. Patient/guardian denies using alcohol. ROS: 17:27 Cardiovascular: Negative for chest pain, palpitations, and edema. kb 17:27 Constitutional: Positive for poor PO intake. 17:27 Neuro: Positive for weakness. 17:27 All other systems are negative. Exam: 17:27 Constitutional: This is a well developed, well nourished patient who is awake, alert, kb and in no acute distress. Head/Face: Normocephalic, atraumatic. ENT: Moist Mucous membranes Cardiovascular: Regular rate and rhythm with a normal S1 and S2. No gallops, murmurs, or rubs. No pulse deficits. Respiratory: Respirations even and unlabored. No increased work of breathing. Talking in full sentences Abdomen/GI: Soft, non-tender. No distention Skin: Warm, dry with normal turgor. Normal color. MS/ Extremity: Pulses equal, no cyanosis. Neurovascular intact. Full, normal range of motion. Neuro: Awake and alert, GCS 15, oriented to person, place, time, and situation. Moves all extremities. Normal gait. Vital Signs: 16:17 BP 130 / 68; Pulse 75; Resp 18; Temp 97.6(A); Pulse Ox 99% on R/A; Weight 72.57 kg; ld1 Height 5 ft. 2 in. (157.48 cm); Pain 0/10; 17:14 BP 100 / 67; Pulse 69; Resp 18; Pulse Ox 100% on R/A; Pain 0/10; ld1 18:06 BP 120 / 63; Pulse 83; Resp 18; Pulse Ox 100% on R/A; Pain 0/10; ld1 18:39 BP 106 / 90; Pulse 80; Resp 18; Pulse Ox 100% on R/A; Pain 0/10; ld1 04/30 20:29 BP 116 / 92; Pulse 18; Temp 97.7; tw5 04/29 16:17 Body Mass Index 29.26 (72.57 kg, 157.48 cm) ld1 MDM: 04/29 16:17 Patient medically screened. kb 17:30 Data reviewed: vital signs, nurses notes. Historians other than the Patient: EMS: [facility]. 17:30 Differential Diagnosis flu, covid, UTI. kb 18:47 Management of patient was discussed with the following: Hospitalist: Jen LEVIN accepts kb pt for admission under Dr Joya. Counseling: I had a detailed discussion with the patient and/or guardian regarding: the historical points, exam findings, and any diagnostic results supporting the discharge/admit diagnosis, lab results, radiology results, the need for further work-up and treatment in the hospital. ED course: Discussed case with DR Miranda, recommends admission. 04/29 16:18 Order name: CBC with Diff; Complete Time: 17:44 kb 04/29 16:18 Order name: CMP; Complete Time: 17:44 kb 04/29 16:18 Order name: Lipase; Complete Time: 17:44 kb 04/29 16:18 Order name: Urine Microscopic Only; Complete Time: 17:30 kb 04/29 16:18 Order name: COVID-19/FLU A+B; Complete Time: 17:46 kb 04/29 17:14 Order name: Urine Dipstick-Ancillary; Complete Time: 17:17 EDMS 04/29 17:34 Order name: Urine Culture EDMS 04/30 02:50 Order name: CBC with Automated Diff; Complete Time: 18:35 EDMS 04/30 03:26 Order name: Comprehensive Metabolic Panel; Complete Time: 18:35 EDMS 04/30 03:26 Order name: Phosphorus; Complete Time: 18:36 EDMS 04/30 03:26 Order name: Lipid Profile; Complete Time: 18:36 EDMS 04/30 03:26 Order name: Magnesium; Complete Time: 18:36 EDMS 04/30 03:26 Order name: Thyroid Stimulating Hormone; Complete Time: 18:36 EDMS 04/30 03:26 Order name: Transferrin Sat/Iron Binding; Complete Time: 18:36 EDMS 04/29 16:18 Order name: IV Saline Lock; Complete Time: 17:14 kb 04/29 16:18 Order name: Labs collected and sent; Complete Time: 17:14 kb 04/29 16:18 Order name: Urine Dipstick-Ancillary (obtain specimen); Complete Time: 17:14 kb 04/29 17:47 Order name: CT Abd/Pelvis - Without Contrast; Complete Time: 18:39 kb 04/30 04:24 Order name: Vitamin B12 Level; Complete Time: 18:36 EDMS Administered Medications: 17:14 Drug: NS 0.9% 1000 ml Route: IV; Rate: 1 bolus; Site: right antecubital; ld1 18:06 Follow up: Response: No adverse reaction; IV Status: Completed infusion; IV Intake: ld1 1000ml 18:05 Drug: Potassium Chloride 40 mEq Route: PO; ld1 18:06 Follow up: Response: No adverse reaction ld1 18:59 Drug: NS 0.9% 1000 ml Route: IV; Rate: 75 ml/hr; Site: right antecubital; ld1 Disposition Summary: 04/29/22 18:49 Hospitalization Ordered Hospitalization Status: Observation kb Provider: Joel Joya Condition: Stable kb Problem: new kb Symptoms: are unchanged kb Bed/Room Type: Standard kb Location: Telemetry/MedSurg (observation)(04/30/22 19:44) Room Assignment: 204(04/30/22 19:57) Diagnosis - Dehydration kb - Weakness kb Forms: - Medication Reconciliation Form kb - SBAR form kb Signatures: Dispatcher [employer] EDMS Krystle Zamora, Lilibeth Rodgesr RN RN mw Woody, Diana, RN RN dw Ashleigh Elmoer, RN RN ld1 Elizabeth Villela, PAKandis PAKandis sb4 Corrections: (The following items were deleted from the chart) 18:49 Telemetry/MedSurg (observation) kb 18:49 kb dw 04/30 19:44 04/29 19:31 [facility] ER HOLD [facility] 04/30 19:44 04/29 19:31 [facility]- [facility] 04/30 19:57 19:44 mw mw
--- NOTE | 2022-04-29 18:50 | ER ---
Nurse's Notes [facility] Name: Joyce Saha Age: 72 yrs Sex: Female : 1950 Arrival Date: 04/29/2022 Time: 16:16 Bed 16 Private MD: Diagnosis: Dehydration;Weakness Presentation: 04/29 16:17 Chief complaint: EMS states: toned out to decreased appetite. Coronavirus screen: At ld1 this time, the client does not indicate any symptoms associated with coronavirus-19. Ebola Screen: No symptoms or risks identified at this time. Initial Sepsis Screen: Does the patient meet any 2 criteria? No. Patient's initial sepsis screen is negative. Does the patient have a suspected source of infection? No. Patient's initial sepsis screen is negative. Risk Assessment: Do you want to hurt yourself or someone else? Patient reports no desire to harm self or others. Onset of symptoms. 16:17 Method Of Arrival: EMS: [facility] ld1 16:17 Acuity: VALERIY 3 ld1 Triage Assessment: 16:19 General: Appears in no apparent distress. comfortable, Behavior is calm, cooperative, ld1 appropriate for age. Pain: Denies pain. EENT: No signs and/or symptoms were reported regarding the EENT system. Neuro: Level of Consciousness is awake, alert, obeys commands, Oriented to person, place, time, situation. Cardiovascular: Capillary refill < 3 seconds Patient's skin is warm and dry. Respiratory: Airway is patent Respiratory effort is even, unlabored. GI: Abdomen is flat, non-distended. GI: Reports intolerance of food. : No signs and/or symptoms were reported regarding the genitourinary system. Derm: No signs and/or symptoms reported regarding the dermatologic system. Musculoskeletal: No signs and/or symptoms reported regarding the musculoskeletal system. Historical: - Allergies: 16:19 Codeine; ld1 16:19 acutane; ld1 - PMHx: 16:19 Hypertensive disorder; Osteoarthritis; ld1 - PSHx: 16:19 None; ld1 - Immunization history:: Adult Immunizations up to date, Client reports receiving the 2nd dose of the Covid vaccine. - Social history:: Smoking status: Patient denies any tobacco usage or history of. Patient/guardian denies using alcohol. Screenin:[facility] ED Fall Risk Assessment (Adult) History of falling in the last 3 months, ld1 including since admission No falls in past 3 months (0 pts). Abuse screen: Denies threats or abuse. Denies injuries from another. Nutritional screening: No deficits noted. Tuberculosis screening: No symptoms or risk factors identified. Assessment: 16:22 Reassessment: See triage assessment. ld1 17:14 Reassessment: Patient appears in no apparent distress at this time. Patient and/or ld1 family updated on plan of care and expected duration. Pain level reassessed. Patient is alert, oriented x 3, equal unlabored respirations, skin warm/dry/pink. 18:06 Reassessment: Patient appears in no apparent distress at this time. Patient and/or ld1 family updated on plan of care and expected duration. Pain level reassessed. Patient is alert, oriented x 3, equal unlabored respirations, skin warm/dry/pink. Patient denies pain at this time. 04/30 20:15 General: Appears in no apparent distress. Behavior is calm, cooperative, appropriate tw5 for age, weak. General: Patient states " I have not had an appetite for the past three months." Patient struggles with getting out of bed without assistance. Weak and wobbly when standing. . Vital Signs: 04/29 16:17 BP 130 / 68; Pulse 75; Resp 18; Temp 97.6(A); Pulse Ox 99% on R/A; Weight 72.57 kg; ld1 Height 5 ft. 2 in. (157.48 cm); Pain 0/10; 17:14 BP 100 / 67; Pulse 69; Resp 18; Pulse Ox 100% on R/A; Pain 0/10; ld1 18:06 BP 120 / 63; Pulse 83; Resp 18; Pulse Ox 100% on R/A; Pain 0/10; ld1 18:39 BP 106 / 90; Pulse 80; Resp 18; Pulse Ox 100% on R/A; Pain 0/10; ld1 04/30 20:29 BP 116 / 92; Pulse 18; Temp 97.7; tw5 04/29 16:17 Body Mass Index 29.26 (72.57 kg, 157.48 cm) ld1 ED Course: 04/29 16:16 Patient arrived in ED. ld1 16:16 Maintain EMS IV. Dressing intact. Good blood return noted. Site clean \\T\\ dry. Gauge \\T\\ ld 1 site: 20G RAC. 16:17 [facility] Zam[facility]C [facility]. kb 16:17 Redd Miranda MD is Attending Physician. kb 16:19 Triage completed. ld1 16:19 Arm band placed on right wrist. ld1 16:22 No provider procedures requiring assistance completed. ld1 16:22 Patient has correct armband on for positive identification. Placed in gown. Bed in low ld1 position. Call light in reach. Side rails up X2. Pulse ox on. NIBP on. Door closed. Noise minimized. Warm blanket given. 16:46 COVID-19/FLU A+B Sent. ld1 17:14 Ashleigh Emlore, RED is Primary Nurse. ld1 17:14 COVID-19/FLU A+B Sent. ld1 17:14 Urine Microscopic Only Sent. ld1 18:19 CT Abd/Pelvis - Without Contrast In Process Unspecified. EDMS 18:48 Joel Joya is Hospitalizing Provider. kb 04/30 20:15 Patient admitted, IV remains in place. tw5 Administered Medications: 04/29 17:14 Drug: NS 0.9% 1000 ml Route: IV; Rate: 1 bolus; Site: right antecubital; ld1 18:06 Follow up: Response: No adverse reaction; IV Status: Completed infusion; IV Intake: ld1 1000ml 18:05 Drug: Potassium Chloride 40 mEq Route: PO; ld1 18:06 Follow up: Response: No adverse reaction ld1 18:59 Drug: NS 0.9% 1000 ml Route: IV; Rate: 75 ml/hr; Site: right antecubital; ld1 Medication: 16:22 VIS not applicable for this client. ld1 Intake: 18:06 IV: 1000ml; Total: 1000ml. ld1 Outcome: 18:49 Decision to Hospitalize by Provider. kb 04/30 20:14 Admitted to Med/surg Report called to Attempted to call report. Was told that Myrtle coleen will be the receiving nurse. She is currently busy at the moment and will have to call back. Condition: stable Instructed on the need for admit. 20:34 Admitted to Med/surg tw5 20:37 Admitted to Med/surg Report called to Attempted to call report to Tala MOON. Placed tw5 on hold for 4 min. 20:54 Admitted to Med/surg tw5 20:54 Condition: stable 20:54 Instructed on 20:55 Patient left the ED. tw5 Signatures: Dispatcher [employer] EDKrystle Banerjee, MANUFACTURING ENGINEER MACHINING-C MANUFACTURING ENGINEER MACHINING-Ashleigh Spears, RN RN ld1 Abigail Lozoya tw5 Corrections: (The following items were deleted from the chart) 04/29 19:03 18:39 BP 106 / 9; Pulse 80bpm; Resp 18bpm; Pulse Ox 100% RA; Pain 0/10; ld1 ld1
[2022-04-29] MEDS ORDERED: NA CHLORIDE 0.9% 1,000 ML ONE (18:54)
--- NOTE | 2022-04-29 19:54 | P.HP ---
Certification for Inpatient Patient admitted to: Observation With expected LOS: <2 Midnights Patient will require the following post-hospital care: None Practitioner: I am a practitioner with admitting privileges, knowledge of patient current condition, hospital course, and medical plan of care. Services: Services provided to patient in accordance with Admission requirements found in Title 42 Section 412.3 of the Code of Federal Regulations Patient History Date of Service: 04/29/22 Primary Care Provider: Cristel Reason for admission: Dehydration, Weakness History of Present Illness: Patient is a 72 year old female with past medical history of hypertension and osteoperosis who presented to the emergency department via EMS with complaints of generalized weakness. Patient reports that she has had little to no appetite over the past 4 days and has not been eating or drinking. She denies abdominal pain, nausea, vomiting, medication/major life changes. Her labs are significant for hgb 11, hct 32, sodium 133, potassium 3.1, chloride 96, BUN 20, Cr 1.5, glucose 73. CT abdomen pelvis negative. covid/flu negative. She received 2L fluid and 40 meq potassium in the ED. ED provider wishes to admit patient for observation. Home medications list reviewed: Yes - Past Medical/Surgical History Diabetic: No -: Hypertension -: Osteoperosis -: Total hysterectomy -: Right Femur Psychosocial/ Personal History: Patient lives at home alone. - Family History Father -: Heart disease - Social History Smoking Status: Former smoker Alcohol use: No CD- Drugs: No Caffeine use: Yes Place of Residence: Home Review of Systems General: Weakness, Other (Decreased appetite) Physical Examination - Vital Signs Temperature: 97.6 F Blood Pressure: 106/90 Pulse: 80 Respirations: 18 Pulse Ox (%): 100 - Physical Exam General: Alert, In no apparent distress HEENT: Atraumatic, PERRLA, Other (Dry mucous membranes ), EOMI Neck: Supple, 2+ carotid pulse no bruit Respiratory: Clear to auscultation bilaterally, Normal air movement Cardiovascular: Regular rate/rhythm, Normal S1 S2 Gastrointestinal: Normal bowel sounds, No tenderness Musculoskeletal: No tenderness Integumentary: No rashes Neurological: Normal speech, Sensation intact, Normal affect - Studies Laboratory Data (last 24 hrs) 04/29/22 17:07: Sodium 133 L, Potassium 3.1 L, BUN 20 H, Creatinine 1.50 H, Glucose 73 L, Total Bilirubin 0.7, AST 36, ALT 26, Alkaline Phosphatase 81, Lipase 106 04/29/22 17:07: WBC 6.10, Hgb 11.0 L, Hct 32.9 L, Plt Count 210 Assessment and Plan - Problems (Diagnosis) (1) Dehydration Current Visit: Yes Status: Acute (2) Generalized weakness Current Visit: Yes Status: Acute (3) Hypertension Current Visit: Yes Status: Chronic Qualifiers: Hypertension type: primary hypertension Qualified Code(s): I10 - Essential (primary) hypertension (4) Age related osteoporosis Current Visit: Yes Status: Chronic Qualifiers: Presence of current pathological fracture: without current pathological fracture Qualified Code(s): M81.0 - Age-related osteoporosis without current pathological fracture - Plan Patient is admitted for observation for further treatment of dehydration and generalized weakness. Continue IV hydration with D51/2 + KCl as patient is borderline hypoglycemia and hypokalemic. Encourage PO intake. Dietitian & physical therapy consult. Labs/electrolytes suggestive of dehydration. Continue with treatment and recheck in morning. Patient lives at home alone. She may need placement on dispo. It appears that she has some mild undiagnosed dementia. Check lipid panel, TSH, iron panel, folic acid. Monitor and replete electrolytes per protocol. Reconcile and continue home medications. VTE prophylaxis. Full code. Discharge Plan: Home Plan to discharge in: 24 Hours - Advance Directives Does patient have a Living Will: No Does patient have a Durable POA for Healthcare: No - Code Status/Comfort Care Code Status Assessed: Yes Code Status: Full Code Critical Care: No Time Spent Managing Pts Care (In Minutes): 50
[2022-04-29] MEDS ORDERED: ACETAMINOPHEN 500 MG TAB PO PRN (22:41)
[2022-04-29] MEDS ORDERED: ONDANSETRON 4 MG/2 ML VIAL IV PRN (22:41)
[2022-04-29 22:49] VITALS: BMI 29.2
[2022-04-29] MEDS: D5.45NS W/KCL 20MEQ 1,000 ML IV SCH (23:00)
[2022-04-30 02:44] LABS: Absolute Lymphocytes (CBC) 0.5 K/uL (0.7-4.9); Hematocrit 29.5 % (36.0-45.0); Lymphocytes % 10.5 % (15.3-44.8); MCV 90.7 fL (80-100); MPV 8.1 fL (7.6-11.3); RBC Red Blood Cell Count 3.26 M/uL (3.86-4.86)
[2022-04-30 03:22] LABS: ALT/SGPT 22 U/L (13-56); AST/SGOT 31 U/L (15-37); Alkaline Phosphatase 68 U/L (45-117); BUN Blood Urea Nitrogen 17 mg/dL (7-18); Bicarbonate 20 mmol/L (21-32); Bilirubin Total 0.5 mg/dL (0.2-1.0); Glomerular Filtration Rate 49 ml/min (=/>90); Glucose Level 57 mg/dL (74-106); HDL Cholesterol 61 mg/dL (40-60); LDL Cholesterol, Calculated 65 mg/dL (<130); Magnesium 1.6 mg/dL (1.6-2.4); Phosphorus 1.8 mg/dL (2.5-4.9); Potassium 3.5 mmol/L (3.5-5.1); Protein, Total 5.3 g/dL (6.4-8.2); Sodium Level 138 mmol/L (136-145); Transferrin 121 mg/dL (200-360)
[2022-04-30] MEDS: CEFTRIAXONE 1,000 MG in NA CHLORIDE 0.9% 50 ML IVPB SCH ×2 (05:00→09:00)
[2022-04-30] MEDS ORDERED: NA CHLORIDE 0.9% 100 ML IV ONE (05:42)
[2022-04-30] MEDS ORDERED: CEFTRIAXONE 1000 MG/VIAL ONE (05:42)
[2022-04-30] MEDS ORDERED: D5.45NS W/KCL 20MEQ 1,000 ML IV ONE ×2 (05:43→15:53)
[2022-04-30] MEDS: D5.45NS W/KCL 20MEQ 1,000 ML IV SCH ×2 (08:41→18:41)
--- NOTE | 2022-04-30 20:00 | P.PN ---
Subjective Date of Service: 04/30/22 Primary Care Provider: Cristel Chief Complaint: Dehydration, Weakness Patient reports loss of appetite. She did not eat any of her meals today. She only drank Ensure. She has no other complaint. Physical Examination - Vital Signs Temperature: 97.4 F Blood Pressure: 116/69 Pulse: 66 Respirations: 16 Pulse Ox (%): 97 Assessment And Plan - Current Problems (Diagnosis) (1) Acute renal failure Current Visit: Yes Status: Acute (2) Anorexia Current Visit: Yes Status: Acute (3) Dehydration Current Visit: Yes Status: Acute (4) Generalized weakness Current Visit: Yes Status: Acute - Plan Physical Exam General: Alert, In no apparent distress Neck: Supple, 2+ carotid pulse no bruit Respiratory: Clear to auscultation bilaterally, Normal air movement Cardiovascular: Regular rate/rhythm, Normal S1 S2 Gastrointestinal: Normal bowel sounds, No tenderness Musculoskeletal: No tenderness Integumentary: No rashes Neurological: Normal speech, Sensation intact, Normal affect. Plan: Patient with poor oral intake. She was slightly hypoglycemic today. Urine culture shows no growth. Cause of anorexia is unclear. Trial of antacid for possible gastritis. Nutritional supplementation. Diet as tolerated. Renal function is improved with IV fluid Continue D5 IV She could only sidestep during PT. Continue PT Monitor renal function. Anticipating disposition to SNF
[2022-05-01] MEDS: D5.45NS W/KCL 20MEQ 1,000 ML IV SCH ×2 (05:19→15:35)
[2022-05-01] MEDS: CEFTRIAXONE 1,000 MG in NA CHLORIDE 0.9% 50 ML IVPB SCH (08:16)
--- NOTE | 2022-05-01 11:48 | P.PN ---
Subjective Date of Service: 05/01/22 Primary Care Provider: Cristel Chief Complaint: Dehydration, Weakness Patient has no new complaint. She is awake and alert. She was seen eating yogurt. She stated she is able to eat soft diet better. Physical Examination - Vital Signs Temperature: 98.0 F Blood Pressure: 109/49 Pulse: 66 Respirations: 16 Pulse Ox (%): 99 - Studies Microbiology Data (last 24 hrs): 04/29/22 16:18 Clean Catch Urine [place] Count - Final No growth. 04/29/22 16:18 Clean Catch Urine - Final No growth. Assessment And Plan - Current Problems (Diagnosis) (1) Acute renal failure Current Visit: Yes Status: Acute (2) Anorexia Current Visit: Yes Status: Acute (3) Dehydration Current Visit: Yes Status: Acute (4) Generalized weakness Current Visit: Yes Status: Acute - Plan Physical Exam General: Alert, In no apparent distress Neck: Supple Respiratory: Clear to auscultation bilaterally, Normal air movement Cardiovascular: Regular rate/rhythm, Normal S1 S2 Gastrointestinal: Normal bowel sounds, No tenderness Musculoskeletal: No tenderness Integumentary: No rashes Neurological: No focal motor deficit Plan: Patient with poor oral intake. Urine culture shows no growth. Cause of anorexia is unclear. Antacid for possible gastritis. Nutritional supplementation. Diet as tolerated. Continue D5 IV. Change diet to soft consistency. She could only sidestep during PT. Continue PT Monitor renal function. Anticipating disposition to SNF
[2022-05-01 13:25] LABS: Hematocrit 29.3 % (36.0-45.0); MCV 90.2 fL (80-100); RBC Red Blood Cell Count 3.25 M/uL (3.86-4.86)
[2022-05-01 13:26] LABS: Absolute Lymphocytes (CBC) 0.4 K/uL (0.7-4.9); Lymphocytes % 8.1 % (15.3-44.8); MPV 7.8 fL (7.6-11.3)
[2022-05-01 14:00] LABS: Blood Morphology Comment NOT SEEN (NOT SEEN); Platelet Estimate DECR; White Blood Cell Scan OK (OK)
[2022-05-01 15:28] LABS: Potassium 3.1 mmol/L (3.5-5.1)
[2022-05-02] MEDS: D5.45NS W/KCL 20MEQ 1,000 ML IV SCH ×2 (04:16→14:46)
[2022-05-02 04:33] LABS: Absolute Lymphocytes (CBC) 0.6 K/uL (0.7-4.9); Hematocrit 28.7 % (36.0-45.0); Lymphocytes % 21.5 % (15.3-44.8); MCV 91.4 fL (80-100); MPV 8.1 fL (7.6-11.3); RBC Red Blood Cell Count 3.14 M/uL (3.86-4.86)
[2022-05-02 04:48] LABS: Potassium 3.3 mmol/L (3.5-5.1)
[2022-05-02] MEDS ORDERED: POTASSIUM 25 MEQ EFFERV TAB PO ONE (05:07)
[2022-05-02 05:26] LABS: Magnesium 1.6 mg/dL (1.6-2.4); Phosphorus 1.3 mg/dL (2.5-4.9)
[2022-05-02] MEDS ORDERED: MAGNESIUM SULFATE 1 gm IVPB 1 GM/100 ML BAG IV ONE (06:29)
[2022-05-02] MEDS: POTASS/SODIUM PHOSPHATE 1 PKT POWD.PACK PO SCH ×3 (06:40→09:19)
--- NOTE | 2022-05-02 12:05 | P.PN ---
Subjective Date of Service: 05/02/22 Primary Care Provider: Cristel Chief Complaint: Dehydration, Weakness Patient has no new complaint. She is awake and alert. She was seen eating yogurt. She is not eating much apart from yogurt. Physical Examination - Vital Signs Temperature: 97.3 F Blood Pressure: 101/52 Pulse: 73 Respirations: 16 Pulse Ox (%): 96 - Studies Laboratory Data (last 24 hrs) 05/01/22 12:56: Sodium 139, Potassium 3.1 L, BUN 9, Creatinine 1.10 H, Glucose 137 H 05/01/22 12:56: WBC 4.50, Hgb 10.0 L, Hct 29.3 L, Plt Count 142 L Microbiology Data (last 24 hrs): 04/29/22 16:18 Clean Catch Urine [place] Count - Final No growth. 04/29/22 16:18 Clean Catch Urine - Final No growth. Assessment And Plan - Current Problems (Diagnosis) (1) Acute renal failure Current Visit: Yes Status: Acute (2) Anorexia Current Visit: Yes Status: Acute (3) Dehydration Current Visit: Yes Status: Acute (4) Generalized weakness Current Visit: Yes Status: Acute - Plan Physical Exam General: Alert, In no apparent distress Neck: Supple Respiratory: Clear to auscultation bilaterally, Normal air movement Cardiovascular: Regular rate/rhythm, Normal S1 S2 Gastrointestinal: Normal bowel sounds, No tenderness Musculoskeletal: No tenderness Integumentary: No rashes Neurological: No focal motor deficit Plan: Patient with poor oral intake. Urine culture shows no growth. Cause of anorexia is unclear. Antacid for possible gastritis. Nutritional supplementation. Diet as tolerated. She is no longer hypoglycemic. Continue D5 IV. Change diet to soft consistency. Patient with generalized weakness and impaired mobility. Continue PT. Acute renal failure resolved. Anticipating disposition to SNF
[2022-05-02] MEDS: FAMOTIDINE 20 MG TAB PO SCH (19:52)
[2022-05-03] MEDS: D5.45NS W/KCL 20MEQ 1,000 ML IV SCH ×2 (02:14→06:41)
[2022-05-03 03:45] LABS: Absolute Lymphocytes (CBC) 0.6 K/uL (0.7-4.9); Hematocrit 26.2 % (36.0-45.0); Lymphocytes % 21.7 % (15.3-44.8); MCV 90.9 fL (80-100); RBC Red Blood Cell Count 2.88 M/uL (3.86-4.86)
[2022-05-03 04:06] LABS: Potassium 4.4 mmol/L (3.5-5.1)
[2022-05-03 04:55] LABS: Magnesium 1.8 mg/dL (1.6-2.4); Phosphorus 1.8 mg/dL (2.5-4.9)
[2022-05-03] MEDS ORDERED: MAGNESIUM SULFATE 1 gm IVPB 1 GM/100 ML BAG IV ONE (05:05)
[2022-05-03] MEDS: POTASS/SODIUM PHOSPHATE 1 PKT POWD.PACK PO SCH ×3 (06:25→09:22)
[2022-05-03] MEDS: FAMOTIDINE 20 MG TAB PO SCH ×2 (08:42→20:12)
--- NOTE | 2022-05-03 12:42 | P.PN ---
Subjective Date of Service: 05/03/22 Primary Care Provider: Cristel Chief Complaint: Dehydration, Weakness Patient states she is eating better today. She is awake and alert. Physical Examination - Vital Signs Temperature: 97.5 F Blood Pressure: 118/64 Pulse: 78 Respirations: 14 Pulse Ox (%): 99 Assessment And Plan - Current Problems (Diagnosis) (1) Acute renal failure Current Visit: Yes Status: Acute (2) Anorexia Current Visit: Yes Status: Acute (3) Dehydration Current Visit: Yes Status: Acute (4) Generalized weakness Current Visit: Yes Status: Acute - Plan Physical Exam General: Alert, In no apparent distress Neck: Supple Respiratory: Clear to auscultation bilaterally, Normal air movement Cardiovascular: Regular rate/rhythm, Normal S1 S2 Gastrointestinal: Normal bowel sounds, No tenderness Musculoskeletal: No tenderness Integumentary: No rashes Neurological: No focal motor deficit Plan: Oral intake is improving Urine culture shows no growth. Cause of anorexia is unclear. Trial of antacid for possible gastritis-seems to be helping. Nutritional supplementation. Diet as tolerated. She is no longer hypoglycemic. Acute renal failure resolved. Discontinue D5 IV. Patient with generalized weakness and impaired mobility. Continue PT. Anticipating disposition to SNF
--- NOTE | 2022-05-03 18:29 | P.PN ---
Date of Service: 05/04/22 Subjective: ROS: A complete review of systems was performed and is negative except as mentioned above Physical Exam: Gen: NAD, AOx3 HEENT: normal conjunctiva, sclera anicteric CV: regular rate & rhythm, no edema Pulm: non-labored respirations, clear bilaterally Abd: soft, non-tender, non-distended Skin: no rashes, no lesions Neuro: normal speech, normal affect, moves all extremities vitals reviewed Problem List LEAH secondary to dehydration; prerenal Anorexia, dehydration; moderate protein calorie malnutrition Generalized weakness HTN Gastritis / Esophagitis LEAH resolved with IVF - now dc'd PO intake improving possibly gastritis/esophagitis that lead to anorexia CT on admission noted possible esophagitis findings continue pepcid continue ensure per exercise equipment repair technician recommendations diet as tolerated Patient with generalized weakness and impaired mobility. Continue PT awaiting disposition to SNF VTE: ambulatory Code: Full Dispo: SNF, pending auth/approval initiated 05/03
[2022-05-03] MEDS: ENSURE ENLIVE 237 ML CAN PO SCH (20:14)
[2022-05-04 03:59] VITALS: O2SAT 98
[2022-05-04 06:12] LABS: Magnesium 2.1 mg/dL (1.6-2.4); Potassium 4.4 mmol/L (3.5-5.1)
[2022-05-04] MEDS: ENSURE ENLIVE 237 ML CAN PO SCH (09:31)
[2022-05-04] MEDS: FAMOTIDINE 20 MG TAB PO SCH (09:31)
[2022-05-04 12:53] VITALS: TEMP 98.2
--- NOTE | 2022-05-04 15:49 | P.DS ---
Admission Date: 05/01/22 Discharge Date: 05/04/22 Primary Care Provider: Cristel Disposition: TRANSFER TO SNF - REHAB Discharge Condition: GOOD Reason for Admission: Dehydration, Weakness Brief History of Present Illness: 72yo F, PMH: HTN, Osteoporosis Presented to the emergency department via EMS with complaints of generalized weakness. Patient reports that she has had little to no appetite over the past 4 days and has not been eating or drinking. She denies abdominal pain, nausea, vomiting, medication/major life changes. CT abdomen pelvis negative. covid/flu negative. She received 2L fluid and 40 meq potassium in the ED. Hospital Course: Problem List LEAH secondary to dehydration; prerenal Anorexia, dehydration; moderate protein calorie malnutrition Generalized weakness HTN Gastritis / Esophagitis Patient presented to ER with dehydration and decreased oral intake. CT abd/pelvis on admission noted some local changes concerning for possible esophagitis / gastritis. Patient had improvement of her symptoms with IV fluids and pepcid. Suspected that her symptoms were secondary to esophagitis. She did continue with some generalized weakness and some slight unsteadiness. For these reasons, patient was discharged to SNF for further physical therapy prior to discharge home. Continue pepcid, and diet as tolerated. Supplement with Ensure. Vital Signs/Physical Exam: Temp Pulse Resp BP Pulse Ox 98.2 F 72 16 103/62 99 05/04/22 12:00 05/04/22 12:00 05/04/22 12:00 05/04/22 12:00 05/04/22 12:00 Physical Exam: Gen: NAD, AOx3 HEENT: normal conjunctiva, sclera anicteric CV: regular rate & rhythm, no edema Pulm: non-labored respirations, clear bilaterally Abd: soft, non-tender, non-distended Neuro: normal speech, normal affect, generalized weakness Laboratory Data at Discharge: WBC 3.00 K/uL (4.3-10.9) L 05/03/22 02:48 Hgb 8.7 g/dL (12.0-15.0) L 05/03/22 02:48 Hct 26.2 % (36.0-45.0) L 05/03/22 02:48 Plt Count 119 K/uL (152-406) L 05/03/22 02:48 Sodium 142 mmol/L (136-145) 05/04/22 05:47 Potassium 4.4 mmol/L (3.5-5.1) 05/04/22 05:47 BUN 4 mg/dL (7-18) L 05/04/22 05:47 Creatinine 0.78 mg/dL (0.55-1.02) 05/04/22 05:47 Glucose 104 mg/dL (74-106) 05/04/22 05:47 Phosphorus 1.8 mg/dL (2.5-4.9) L 05/03/22 02:48 Magnesium 2.1 mg/dL (1.6-2.4) 05/04/22 05:47 Total Bilirubin 0.5 mg/dL (0.2-1.0) 04/30/22 02:28 AST 31 U/L (15-37) 04/30/22 02:28 ALT 22 U/L (13-56) 04/30/22 02:28 Alkaline Phosphatase 68 U/L (45-117) 04/30/22 02:28 Triglycerides 59 mg/dL (<150) 04/30/22 02:28 Cholesterol 138 mg/dL (<200) 04/30/22 02:28 HDL Cholesterol 61 mg/dL (40-60) H 04/30/22 02:28 Cholesterol/HDL Ratio 2.26 04/30/22 02:28 Lipase 106 U/L (73-393) 04/29/22 17:07 Home Medications: Ensure Enlive 237 ml PO BID can 05/04/22 Famotidine [Pepcid*] 20 mg PO BID tab 05/04/22 Physician Discharge Instructions: Patient presented to ER with dehydration and decreased oral intake. CT abd/pelvis on admission noted some local changes concerning for possible esophagitis / gastritis. Patient had improvement of her symptoms with IV fluids and pepcid. Suspected that her symptoms were secondary to esophagitis. She did continue with some generalized weakness and some slight unsteadiness. For these reasons, patient was discharged to SNF for further physical therapy prior to discharge home. Continue pepcid, and diet as tolerated. Supplement with Ensure. Followup: NONE,NONE [Primary Care Provider] - Time spent managing pt's care (in minutes): 45
[2022-05-04 16:48] VITALS: BP 128/67
== END 2022-05-04 20:10 | DRG 683 ==
LOC: ER 16:12 → ERHOLD 19:50 → 2ND 04-30 20:13 → OBSVTOIN 05-01 14:03
PROVIDERS: ADMIT Internal Medicine; ATTEND Hospitalist
DX: N17.9 Acute kidney failure, unspecified (principal); E44.0 Moderate protein-calorie malnutrition; K20.90 Esophagitis, unspecified without bleeding; E86.0 Dehydration; E16.2 Hypoglycemia, unspecified; I10 Essential (primary) hypertension; E87.6 Hypokalemia; K29.70 Gastritis, unspecified, without bleeding; M81.0 Age-related osteoporosis without current pathological fracture; M19.90 Unspecified osteoarthritis, unspecified site; F03.90 Unspecified dementia, unspecified severity, without behavioral disturbance, psychotic disturbance, mood disturbance, and anxiety; R63.0 Anorexia; Z60.2 Problems related to living alone; Z88.5 Allergy status to narcotic agent; Z88.8 Allergy status to other drugs, medicaments and biological substances; Z68.29 Body mass index [BMI] 29.0-29.9, adult; Z90.710 Acquired absence of both cervix and uterus; Z87.891 Personal history of nicotine dependence; Z20.822 Contact with and (suspected) exposure to COVID-19
CPT/HCPCS: 0240U; 36415; 74176; 80048; 80053; 80061; 81003; 81015; 82607; 82747; 83540; 83690; 83735; 84100; 84132; 84443; 84466; 85025; 87086; 87088; 96360; 97110; 97116; 97161; 97530; 99285; G0378; J3475; J7030

== ENCOUNTER 2023-12-06 09:59 | Emergency (ER) | payer OTHER ==
--- NOTE | 2023-12-06 10:42 | RAD REPORT ---
EXAM DESCRIPTION: CT - Head C Spine Cap Wo Con - 12/06/2023 10:24 am CLINICAL HISTORY: Trauma, head and neck injury. Chest, abdomen and pelvis pain. fall, head injury, back pain COMPARISON: Abdomen Pelvis Wo Contrast dated 04/29/2022 TECHNIQUE: CT head without contrast. CT cervical spine without contrast with coronal and sagittal reformatted images. CT chest, abdomen and pelvis without contrast with coronal and sagittal reformatted images of the spi ne. All CT scans are performed using dose optimization technique as appropriate and may include automated exposure control or mA/KV adjustment according to patient size. FINDINGS: CT HEAD WITHOUT CONTRAST: No intracranial hemorrhage, hydrocephalus or extra-axial fluid collection. Mild brain atrophy. No are as of brain edema or midline shift. The paranasal sinuses and mastoids are clear. The calvarium is intact. CT CERVICAL SPINE WITHOUT CONTRAST: No fracture or subluxation. Moderate upper cervical degenerative changes. The prevertebral soft tissu es are normal in thickness. CT CHEST, ABDOMEN, PELVIS WITHOUT CONTRAST: NOTE: Lack of contrast is a significant limitation in the assessment of trauma related findings. Spec ifically, solid organ, vascular and bowel evaluation is significantly limited. Vague ill-defined opacity is seen superior segment left lower, nonspecific. No aggressive pulmonary a bnormality seen. No pneumothorax or pericardial/pleural fluid. No evidence of intra-abdominal visceral injury, free fluid or free air is seen within the above detai led limitations. Prominent stool is present throughout the colon. The appendix is not identified as a discrete structure, however, no secondary findings of appendicitis are identified. Compression deformity is seen T12 vertebral body, chronic in appearance. There is prominent lower lum bar degenerative vacuum disc degeneration posterior bulging of disc material. No acute spinal fractur e seen. No fractures. Hardware is present right femur. IMPRESSION: Negative for acute traumatic findings within the above detailed limitations.
--- NOTE | 2023-12-06 10:53 | EDPHYS ---
Physician Documentation [facility] Name: Joyce Saha Age: 73 yrs Sex: Female : 1950 Arrival Date: 12/06/2023 Time: 09:59 Bed 6 Private MD: ED Physician John Brooks HPI: 12/05 10:49 This 73 yrs old Female presents to ER via EMS with complaints of Fall Injury. rn 10:49 Details of fall: The patient fell from an upright position. Onset: The symptoms/episode rn began/occurred just prior to arrival. Associated injuries: The patient sustained injury to the head, upper back injury, injury to the low back. Severity of symptoms: At their worst the symptoms were mild, in the emergency department the symptoms are unchanged. The patient has experienced similar episodes in the past. The patient has not recently seen a physician. Historical: - Allergies: 10:14 acutane; tm6 10:14 Codeine; tm6 10:14 Allopurinol; tm6 - PMHx: 10:14 Hypertensive disorder; osteoarthritis; Osteoporosis; Hypertensive disorder; Congestive tm6 heart failure; Hypercholesterolemia; Depressive disorder; Gastroesophageal reflux disease; - PSHx: 10:14 wrist surgery; knee surgery; shoulder surergy; tm6 - Immunization history:: Client reports receiving the 2nd dose of the Covid vaccine. - Infectious Disease History:: Denies. - Social history:: Smoking status: Patient/guardian denies using tobacco, the patient reports quitting approximately 22 years ago, Patient uses alcohol, occasionally. - Family history:: not pertinent. - Hospitalizations: : No recent hospitalization is reported. ROS: 10:49 Constitutional: Negative for fever, chills, and weight loss, Neck: Negative for injury, rn pain, and swelling, Cardiovascular: Negative for chest pain, palpitations, and edema, Respiratory: Negative for shortness of breath, cough, wheezing, and pleuritic chest pain, Abdomen/GI: Negative for abdominal pain, nausea, vomiting, diarrhea, and constipation, Back: Positive for back pain MS/Extremity: Negative for injury and deformity, Skin: Negative for injury, rash, and discoloration, Neuro: Positive for mild headache, negative for focal neurological complaint Exam: 10:49 Constitutional: This is a well developed, well nourished patient who is awake, alert, rn and in no acute distress. Head/Face: Normocephalic, atraumatic. Neck: No midline cervical tenderness Chest/axilla: No rib tenderness or crepitus Cardiovascular: Regular rate and rhythm. No pulse deficits. Respiratory: No increased work of breathing, no retractions or nasal flaring. Abdomen/GI: Soft, non-tender Back: No midline spinal tenderness MS/ Extremity: Pulses equal, no cyanosis. Neurovascular intact. Full, normal range of motion. Equal circumference. Neuro: Awake and alert, GCS 15, oriented to person, place, time, and situation. Cranial nerves II-XII grossly intact. Motor strength 5/5 in all extremities. Sensory grossly intact. Cerebellar exam normal. Vital Signs: 10:12 BP 109 / 70; Pulse 77; Resp 19; Temp 97.8(O); Pulse Ox 97% on R/A; Weight 79.83 kg; tm6 Height 5 ft. 4 in. ; Pain 0/10; 11:09 BP 136 / 71; Pulse 67; Resp 19; Temp 97.8; Pulse Ox 96% on R/A; Pain 0/10; tm6 10:12 Body Mass Index 30.21 (79.83 kg, 162.56 cm) tm6 10:12 Pain Scale: Adult tm6 11:09 Pain Scale: Adult tm6 MDM: 10:03 Patient medically screened. rn 10:49 Differential diagnosis: closed head injury, contusion, fracture, sprain, strain. Data rn reviewed: vital signs, nurses notes, radiologic studies, CT scan, and as a result, I will discharge patient. Counseling: I had a detailed discussion with the patient and/or guardian regarding the historical points, exam findings, and any diagnostic results supporting the discharge/admit diagnosis, radiology results, the need for outpatient follow up, to return to the emergency department if symptoms worsen or persist or if there are any questions or concerns that arise at home. Special discussion: I discussed with the patient/guardian in detail that at this point there is no indication for admission to the hospital. It is understood, however, that if the symptoms persist or worsen the patient needs to return immediately for re-evaluation. 12/05 10:04 Order name: CT Traumagram (Head C Spine CAP wo con); Complete Time: 10:48 rn Administered Medications: No medications were administered Disposition Summary: 12/06/23 10:52 Discharge Ordered Notes: Location: Home rn Problem: new rn Symptoms: have improved rn Condition: Stable rn Diagnosis - Fall on same level, unspecified rn - Unspecified injury of head, initial encounter rn - Contusion of lower back and pelvis rn - Contusion of back wall of thorax rn Followup: rn - With: Private Physician - When: As needed - Reason: Recheck today's complaints, Re-evaluation by your physician Discharge Instructions: - Discharge Summary Sheet rn - Contusion rn - Head Injury, Adult rn - Fall Prevention in the Home, Adult rn Forms: - Medication Reconciliation Form rn - Antibiotic e learning developer - Prescription Opioid Use rn - Patient Portal Instructions rn - Leadership Thank You Letter rn Signatures: Dispatcher [employer] EDJohn Pimentel MD MD rn Zabrina Marin RN RN tm6 Corrections: (The following items were deleted from the chart) 10:04 10:04 Head C Spine Cap Wo Con+CT.RAD.BRZ ordered. EDMS EDMS
--- NOTE | 2023-12-06 10:53 | ER ---
Nurse's Notes [facility] Name: Joyce Saha Age: 73 yrs Sex: Female : 1950 Arrival Date: 12/06/2023 Time: 09:59 Bed 6 Private MD: Diagnosis: Fall on same level, unspecified;Unspecified injury of head, initial encounter;Contusion of lower back and pelvis;Contusion of back wall of thorax Presentation: 12/05 10:12 Chief complaint: EMS states: fell in the bathroom, as she missed the grab bar. Patient tm6 states she hit her head, but did not pass out. Patient complaining of back pain. 30mg toradol IM given by EMS. Patient states she does not have pain if she lies still. Coronavirus screen: Vaccine status: Patient reports receiving the 2nd dose of the covid vaccine. Ebola Screen: Patient negative for fever greater than or equal to 101.5 degrees Fahrenheit, and additional compatible Ebola Virus Disease symptoms Patient denies exposure to infectious person. Patient denies travel to an Ebola-affected area in the 21 days before illness onset. No symptoms or risks identified at this time. Initial Sepsis Screen: Does the patient meet any 2 criteria? No. Patient's initial sepsis screen is negative. Does the patient have a suspected source of infection? No. Patient's initial sepsis screen is negative. Risk Assessment: Do you want to hurt yourself or someone else? Patient reports no desire to harm self or others. Onset of symptoms was December 06, 2023 at 09:15. Care prior to arrival: Medication(s) given: Toradol 30mg IM. 10:12 Method Of Arrival: EMS: [facility] tm6 10:12 Acuity: VALERIY 3 tm6 Triage Assessment: 10:14 General: Appears uncomfortable, Behavior is calm, cooperative. Pain: Complains of pain tm6 in back Pain does not radiate. Pain currently is 0 out of 10 on a pain scale. at worst was 10 out of 10 on a pain scale. Pain began 1 hour ago. Aggravated by increased activity, repositioning. EENT: No signs and/or symptoms were reported regarding the EENT system. Neuro: Level of Consciousness is awake, alert, obeys commands, Oriented to person, place, time, situation. Cardiovascular: Patient's skin is warm and dry. Respiratory: Airway is patent Respiratory effort is even, unlabored, Respiratory pattern is regular, symmetrical. GI: No signs and/or symptoms were reported involving the gastrointestinal system. Abdomen is round non-distended. : No signs and/or symptoms were reported regarding the genitourinary system. Derm: No signs and/or symptoms reported regarding the dermatologic system. Musculoskeletal: Reports pain in back since one hour ago after fall. Historical: - Allergies: 10:14 acutane; tm6 10:14 Codeine; tm6 10:14 Allopurinol; tm6 - PMHx: 10:14 Hypertensive disorder; osteoarthritis; Osteoporosis; Hypertensive disorder; Congestive tm6 heart failure; Hypercholesterolemia; Depressive disorder; Gastroesophageal reflux disease; - PSHx: 10:14 wrist surgery; knee surgery; shoulder surergy; tm6 - Immunization history:: Client reports receiving the 2nd dose of the Covid vaccine. - Infectious Disease History:: Denies. - Social history:: Smoking status: Patient/guardian denies using tobacco, the patient reports quitting approximately 22 years ago, Patient uses alcohol, occasionally. - Family history:: not pertinent. - Hospitalizations: : No recent hospitalization is reported. Screenin:19 [facility] ED Fall Risk Assessment (Adult) History of falling in the last 3 months, tm6 including since admission Yes- fall prone (multiple falls) (3 pts) Confusion or Disorientation No (0 pts) Intoxicated or Sedated No (0 pts) Impaired Gait No (0 pts) Mobility Assist Device Used No (0 pt) Altered Elimination No (0 pt) Score/Fall Risk Level 3 or more points = High Risk Oriented to surroundings, Maintained a safe environment, Educated pt \T\ family on fall prevention, incl call for assistance when getting out of bed, Assessed \T\ reinforced patient's understanding of fall precautions, Provided non-skid footwear. Abuse screen: Denies threats or abuse. Denies injuries from another. Nutritional screening: No deficits noted. Tuberculosis screening: No symptoms or risk factors identified. Assessment: :19 Reassessment: see triage assessment. tm6 11:10 Reassessment: Patient appears in no apparent distress at this time. Patient and/or tm6 family updated on plan of care and expected duration. Pain level reassessed. Patient is alert, oriented x 3, equal unlabored respirations, skin warm/dry/pink. Vital Signs: 10:12 BP 109 / 70; Pulse 77; Resp 19; Temp 97.8(O); Pulse Ox 97% on R/A; Weight 79.83 kg; tm6 Height 5 ft. 4 in. ; Pain 0/10; 11:09 BP 136 / 71; Pulse 67; Resp 19; Temp 97.8; Pulse Ox 96% on R/A; Pain 0/10; tm6 10:12 Body Mass Index 30.21 (79.83 kg, 162.56 cm) tm6 10:12 Pain Scale: Adult tm6 11:09 Pain Scale: Adult tm6 ED Course: 10:03 Patient arrived in ED. rn 10:03 John Brooks MD is Attending Physician. rn 10:11 Zabrina Marin RN is Primary Nurse. tm6 10:14 Triage completed. tm6 10:14 Arm band placed on. tm6 10:19 Patient has correct armband on for positive identification. Bed in low position. Call tm6 light in reach. Side rails up X2. Provided Education on: use of call guy. Client placed on continuous cardiac and pulse oximetry monitoring. NIBP monitoring applied. Pulse ox on. NIBP on. Door closed. Noise minimized. Warm blanket given. Pillow given. 10:26 CT Traumagram (Head C Spine CAP wo con) In Process Unspecified. EDMS 11:10 No provider procedures requiring assistance completed. Patient did not have IV access tm6 during this emergency room visit. Administered Medications: No medications were administered Medication: 10:19 VIS not applicable for this client. tm6 Outcome: 10:52 Discharge ordered by . rn 11:10 Discharged to home via wheelchair, tm6 11:10 Condition: stable 11:10 Discharge instructions given to patient, Instructed on discharge instructions, follow up and referral plans. Demonstrated understanding of instructions, follow-up care, 11:10 Patient left the ED. tm6 Signatures: Dispatcher [employer] EDMS John Brooks MD MD rn Masterson, Tawney, RN RN tm6
[2023-12-06 11:22] VITALS: BP 136/71; TEMP 97.8; O2SAT 96
--- OUTSIDE RECORDS SUMMARY | 2023-12-06 14:43 | XMS REPORT | Continuity of Care Document ---
Author Name Unknown Address [address] [facility] [address] [place] [address] [facility] [address] [facility] [address] [place] [address] Care Team Providers Care [employer] Name Role Phone Zoraida Coulter MD Primary Care Physician Zoraida Coulter MD Attending Clinician + [phone] ARIELA SAMANO Attending Clinician Unavailable Ariela Samano DO Attending Clinician [phone] TIMMY_VIVEK_Yonathan_Aquilino Attending Clinician Unavailable Doctor Unassigned, [place] Attending Clinician U navailable Lab, Ang - Db Attending Clinician Unavailable ZORAIDA COULTER Attending Clinician UnaKARRI Farley Attending Clinician Unavailable Karri Levin MD Attending Clinician [phone] SARINA Attending Clinician UnavailMatti Higginbotham MD Attending Clinician [phone] MATTI CEE Attending Clinician UnavailELDER Medina Attending Clinician Unavailable Jackson_Santo Attending Clinician Unavailable ARIELA SAMANO Admitting Clinician Unavailable KAYLAN_Duyen Admitting Clinician Unavailable KARRI LEVIN Admitting Clinician Unavailable SARINA Admitting Clinician Unavailjackson Chisholm Admitting Clinician Unavailable Payers Payer Name Policy Type Policy Number Effective Date Expirati on Date Source [employer]ET[employer] MEDICARE PPO [id number] 00:00:00 AETNA (PPO) [id number] 2022 00:00:00 [employer] (MEDICARE REPLACEMENT PPO) [id number] 2015 00:00:00 Problems Condition Name Condition Details Condition Category Status Onset Date Resolution Date Last Treatment Date Treating Clinician Comments Source Seen in shelter Seen in [facility] Problem Active 205 00:00: 00 [facility] Hypercoagu lability state Hypercoagu lability State Problem Active 05-18 00:00: 00 [facility] Seasonal allergy Seasonal Allergy Problem Active 05-18 00:00: 00 [facility] Hypomagnes emia Hypomagnes emia Problem Active 05-18 00:00: 00 [facility] Anemia Anemia Problem Active 05-18 00:00: 00 [facility] Peripheral vascular disease Peripheral Vascular Disease Problem Active 05-12 00:00: 00 [facility] Recurrent falls Recurrent Falls Problem Active 05-12 00:00: 00 [facility] Decline in functional status Decline in Functional Status Problem Active 05-12 00:00: 00 [facility] Hyperlipid emia Hyperlipid emia Problem Active 05-07 00:00: 00 [facility] Hypertensi ve heart disease Hypertensi ve Heart Disease Problem Active 05-07 00:00: 00 [facility] Cardiac arrhythmia Cardiac Arrhythmia Problem Active 05-07 00:00: 00 [facility] Gastro-eso phageal reflux disease with esophagiti s Gastro-eso phageal Reflux Disease with Esophagiti s Problem Active 05-07 00:00: 00 [facility] Muscle weakness Muscle Weakness Problem Active 05-07 00:00: 00 [facility] Loss of appetite Loss of Appetite Problem Active 05-07 00:00: 00 [facility] History of fall History of Fall Problem Active 05-07 00:00: 00 [facility] Dementia Dementia Problem Active 05-07 00:00: 00 [facility] Hypoalbumi nemia due to protein calorie malnutriti on Hypoalbumi nemia Due to Protein Calorie Malnutriti on Problem Active 05-07 00:00: 00 [facility] Hip pain Hip Pain Problem Active 2018-04 0-15 00:00: 00 [facility] No known active problems No known active problems Disease [facility] Allergies, Adverse Reactions, Alerts Allergy Name Allergy Type Status Severity Reaction(s) Onset Date Inactive Date Treating Clinician Comments Source Quinapri l Propensi ty to adverse reaction s Active Unknown - See comments 2020-04 00:00: 00 [facility] Codeine Propensi ty to adverse reaction s Active Unknown - See comments 2020-04 00:00: 00 [facility] QUINAPRI L DRUG INGREDI Active Low Unknown-Cmnt 2020-04 00:00: 00 [facility] CODEINE DRUG INGREDI Active Low Unknown-Cmnt 2020-04 00:00: 00 [facility] Budesoni de Allergy to substanc e Active [facility] Codeine Allergy to substanc e Active [facility] Formoter ol Allergy to substanc e Active [facility] Hydrochl orothiaz arianna Allergy to substanc e Active [facility] [place] an Allergy to substanc e Active [facility] Quinapri l Allergy to substanc e Active [facility] Amlodipi ne Allergy to substanc e Active [facility] Social History Social Habit Start Date Stop Date Quantity Comments [facility] 2022-09-04 00:00:00 2022-09-04 00:00:00 Ex-drinker (finding) [facility] Exposure to SARS-CoV-2 (event) 2022-08-23 00:00:00 2022-09-02 18:16:00 Not sure [facility] History of Social function 2022-04-07 00:00:00 2022-04-07 00:00:00 [facility] Tobacco use and exposure 2021-03-31 00:00:00 2021-03-31 00:00:00 Smokeless tobacco non-user [facility] History of tobacco use 2001-03-31 00:00:00 Cigarette Smoker [facility] Sex Assigned At 1950 00:00:00 1950 00:00:00 [facility] Smoking Status Start Date Stop Date Source Never Smoker [facility] Ex-smoker 2021-03-31 00:00:00 2021-03-31 00:00:00 U [facility] Medications Ordered Medication Name Filled Medication Name Start Date Stop Date Current Medication? Ordering Clinician Indication Dosage Frequency Signature (SIG) Comments Components Source amLODIPine 5 mg tablet 2022-04 00:00: 00 Yes [id number] TAKE ONE TABLET BY MOUTH DAILY IN THE MORNING [facility] famotidine 20 mg tablet 2022-04 00:00: 00 Yes [id number] TAKE ONE TABLET BY MOUTH TWICE DAILY IN THE MORNING AND IN THE EVENING [facility] famotidine 20 mg tablet 2022-04 00:00: 00 Yes [id number] TAKE ONE TABLET BY MOUTH TWICE DAILY IN THE MORNING AND IN THE EVENING [facility] amLODIPine 5 mg tablet 2022-04 00:00: 00 Yes [id number] TAKE ONE TABLET BY MOUTH DAILY IN THE MORNING [facility] iopamidol (ISOVUE 370-500 mL) injection 85 mL 09-03 01:00: 00 09-03 01:00 :00 No [id number] 85mL 85 mL, Intravenou s, ONCE, 1 dose, On [facility] 09/02/22 at 2000, Routine [facility] FENTanyl PF (SUBLIMAZE (PF)) injection 50 mcg 09-02 23:30: 00 09-03 00:02 :00 No 50ug 50 mcg, Slow IV Push, ONCE, 1 dose, On [facility] 09/02/22 at 1830, Routine [facility] lidocaine 5 % (700 mg/patch) patch 09-02 00:00: 00 09-03 04:59 :00 No [id number] 1{patch } Apply 1 Patch to area(s) once now for 1 dose. [facility] potassium chloride 10 mEq CR capsule 05-31 08:50: 16 05-31 00:00 :00 No 10meq 10 mEq daily. [facility] atorvastati n 80 mg tablet 05-31 00:00: 00 Yes [id number] 80mg Take 1 tablet by mouth in the morning. [facility] ezetimibe 10 mg tablet 05-31 00:00: 00 Yes [id number] 10mg Take 1 tablet by mouth in the morning. [facility] potassium chloride 10 mEq CR capsule 05-31 00:00: 00 Yes [id number] 10meq Take 1 capsule by mouth in the morning. [facility] OLANZapine 10 mg tablet 05-31 00:00: 00 Yes [id number] 10mg Take 1 tablet by mouth in the morning. [facility] furosemide 40 mg tablet 05-31 00:00: 00 Yes [id number] 40mg Take 1 tablet by mouth in the morning. [facility] buPROPion XL 300 mg 24 hr tablet 05-31 00:00: 00 Yes [id number] 300mg Take 1 tablet by mouth in the morning. [facility] amLODIPine 5 mg tablet 05-31 00:00: 00 01-28 00:00 :00 No [id number] 5mg Take 1 tablet by mouth in the morning. [facility] famotidine 20 mg tablet 05-31 00:00: 00 01-28 00:00 :00 No [id number] 20mg Take 1 tablet by mouth in the morning and 1 tablet in the evening. [facility] famotidine 20 mg tablet 05-27 00:00: 00 Yes [id number] 20mg Take 1 tablet by mouth in the morning and 1 tablet in the evening. [facility] atorvastati n 80 mg tablet 05-27 00:00: 00 Yes [id number] 80mg Take 1 tablet by mouth in the morning. [facility] amLODIPine 5 mg tablet 05-27 00:00: 00 Yes [id number] 5mg Take 1 tablet by mouth in the morning. [facility] cefTRIAXone (ROCEPHIN) 1,000 mg in NaCl 0.9% (NS) 50 mL MINI-BAG 2021-04 23:00: 00 03-27 23:15 :00 No 1000mg 1,000 mg, IV Piggyback, ONCE, 1 dose, On 03/27/22 at 1700, Administer over 30 Minutes, 50 mL
Reas on for Anti-Infec tive: Documented Infection< br>Documen eduardo Infection Site: Urine
D uration of Therapy: Other (see Comments) [facility] KCL 20 mEq/15 mL solution 40 mEq 2021-04 22:30: 00 03-27 21:33 :00 No 40meq 40 mEq, Oral, ONCE, 1 dose, On 03/27/22 at 1630, Routine [facility] ondansetron (ZOFRAN (PF)) injection 4 mg 2021-04 21:00: 00 03-27 21:20 :00 No 4mg 4 mg, Slow IV Push, ONCE, 1 dose, On 03/27/22 at 1500, FANI [facility] cefdinir 300 mg capsule 2021-04 00:00: 00 04-07 00:00 :00 No [id number] 300mg Take 1 capsule by mouth in the morning and 1 capsule in the evening. [facility] Armodafinil 250 mg Tab 2020-04 13:42: 27 Yes 250mg 250 mg daily. [facility] potassium chloride 10 mEq CR capsule 2020-04 13:42: 27 Yes 10meq 10 mEq daily. [facility] buPROPion XL 300 mg 24 hr tablet 2020-04 00:00: 00 05-31 00:00 :00 No 300mg Take 300 mg by mouth daily. [facility] furosemide 40 mg tablet 2020-04 00:00: 00 05-31 00:00 :00 No 40mg Take 40 mg by mouth daily. [facility] OLANZapine 10 mg tablet 2020-04 00:00: 00 05-31 00:00 :00 No 10mg Take 10 mg by mouth daily. [facility] amLODIPine 5 mg tablet 2020-04 00:00: 00 05-27 00:00 :00 No 5mg 5 mg daily. [facility] atorvastati n 80 mg tablet 2020-04 00:00: 00 05-27 00:00 :00 No 80mg Take 80 mg by mouth daily. [facility] famotidine 20 mg tablet 2020-04 00:00: 00 05-27 00:00 :00 No 20mg 20 mg daily. [facility] Adult Low Dose Aspirin 81 mg tablet,zoila yed release Take 1 tablet every day by oral route. Adult Low Dose Aspirin 81 mg tablet,zoila yed release Take 1 tablet every day by oral route. No 1 Q1D Adult Low Dose Aspirin 81 mg tablet,del ayed release Take 1 tablet every day by oral route. [facility] alendronate 70 mg tablet TAKE ONE TABLET BY MOUTH EVERY WEEK DIRECTED alendronate 70 mg tablet TAKE ONE TABLET BY MOUTH EVERY WEEK DIRECTED No alendronat e 70 mg tablet TAKE ONE TABLET BY MOUTH EVERY WEEK DIRECTED [facility] atorvastati n 80 mg tablet Take 1 tablet every day by oral route. atorvastati n 80 mg tablet Take 1 tablet every day by oral route. No 1 Q1D atorvastat in 80 mg tablet Take 1 tablet every day by oral route. [facility] Ensure Give 237 ml by mouth twice a day. Ensure Give 237 ml by mouth twice a day. No Ensure Give 237 ml by mouth twice a day. [facility] Iron (ferrous sulfate) 325 mg (65 mg iron) tablet Take 1 tablet every day by oral route. Iron (ferrous sulfate) 325 mg (65 mg iron) tablet Take 1 tablet every day by oral route. No 1 Q1D Iron (ferrous sulfate) 325 mg (65 mg iron) tablet Take 1 tablet every day by oral route. [facility] magnesium 200 mg (as magnesium oxide) tablet Take 1 tablet twice a day by oral route. magnesium 200 mg (as magnesium oxide) tablet Take 1 tablet twice a day by oral route. No 1 BID magnesium 200 mg (as magnesium oxide) tablet Take 1 tablet twice a day by oral route. [facility] Adult Low Dose Aspirin 81 mg tablet,zoila yed release Take 1 tablet every day by oral route. Adult Low Dose Aspirin 81 mg tablet,zoila yed release Take 1 tablet every day by oral route. No 1 Q1D Adult Low Dose Aspirin 81 mg tablet,del ayed release Take 1 tablet every day by oral route. [facility] alendronate 70 mg tablet TAKE ONE TABLET BY MOUTH EVERY WEEK DIRECTED alendronate 70 mg tablet TAKE ONE TABLET BY MOUTH EVERY WEEK DIRECTED No alendronat e 70 mg tablet TAKE ONE TABLET BY MOUTH EVERY WEEK DIRECTED [facility] atorvastati n 80 mg tablet Take 1 tablet every day by oral route. atorvastati n 80 mg tablet Take 1 tablet every day by oral route. No 1 Q1D atorvastat in 80 mg tablet Take 1 tablet every day by oral route. [facility] Ensure Give 237 ml by mouth twice a day. Ensure Give 237 ml by mouth twice a day. No Ensure Give 237 ml by mouth twice a day. [facility] ezetimibe 10 mg tablet TAKE 1 TABLET BY MOUTH EVERY DAY ezetimibe 10 mg tablet TAKE 1 TABLET BY MOUTH EVERY DAY No ezetimibe 10 mg tablet TAKE 1 TABLET BY MOUTH EVERY DAY [facility] Iron (ferrous sulfate) 325 mg (65 mg iron) tablet Take 1 tablet every day by oral route. Iron (ferrous sulfate) 325 mg (65 mg iron) tablet Take 1 tablet every day by oral route. No 1 Q1D Iron (ferrous sulfate) 325 mg (65 mg iron) tablet Take 1 tablet every day by oral route. [facility] magnesium 200 mg (as magnesium oxide) tablet Take 1 tablet twice a day by oral route. magnesium 200 mg (as magnesium oxide) tablet Take 1 tablet twice a day by oral route. No 1 BID magnesium 200 mg (as magnesium oxide) tablet Take 1 tablet twice a day by oral route. [facility] Adult Low Dose Aspirin 81 mg tablet,zoila yed release Take 1 tablet every day by oral route. Adult Low Dose Aspirin 81 mg tablet,zoila yed release Take 1 tablet every day by oral route. No 1 Q1D Adult Low Dose Aspirin 81 mg tablet,del ayed release Take 1 tablet every day by oral route. [facility] alendronate 70 mg tablet TAKE ONE TABLET BY MOUTH EVERY WEEK DIRECTED alendronate 70 mg tablet TAKE ONE TABLET BY MOUTH EVERY WEEK DIRECTED No alendronat e 70 mg tablet TAKE ONE TABLET BY MOUTH EVERY WEEK DIRECTED [facility] atorvastati n 80 mg tablet Take 1 tablet every day by oral route. atorvastati n 80 mg tablet Take 1 tablet every day by oral route. No 1 Q1D atorvastat in 80 mg tablet Take 1 tablet every day by oral route. [facility] Ensure Give 237 ml by mouth twice a day. Ensure Give 237 ml by mouth twice a day. No Ensure Give 237 ml by mouth twice a day. [facility] ezetimibe 10 mg tablet TAKE 1 TABLET BY MOUTH EVERY DAY ezetimibe 10 mg tablet TAKE 1 TABLET BY MOUTH EVERY DAY No ezetimibe 10 mg tablet TAKE 1 TABLET BY MOUTH EVERY DAY [facility] Adult Low Dose Aspirin 81 mg tablet,zoila yed release Take 1 tablet every day by oral route. Adult Low Dose Aspirin 81 mg tablet,zoila yed release Take 1 tablet every day by oral route. No 1 Q1D Adult Low Dose Aspirin 81 mg tablet,del ayed release Take 1 tablet every day by oral route. [facility] alendronate 70 mg tablet TAKE ONE TABLET BY MOUTH EVERY WEEK DIRECTED alendronate 70 mg tablet TAKE ONE TABLET BY MOUTH EVERY WEEK DIRECTED No alendronat e 70 mg tablet TAKE ONE TABLET BY MOUTH EVERY WEEK DIRECTED [facility] atorvastati n 80 mg tablet Take 1 tablet every day by oral route. atorvastati n 80 mg tablet Take 1 tablet every day by oral route. No 1 Q1D atorvastat in 80 mg tablet Take 1 tablet every day by oral route. [facility] Ensure Give 237 ml by mouth twice a day. Ensure Give 237 ml by mouth twice a day. No Ensure Give 237 ml by mouth twice a day. [facility] ezetimibe 10 mg tablet TAKE 1 TABLET BY MOUTH EVERY DAY ezetimibe 10 mg tablet TAKE 1 TABLET BY MOUTH EVERY DAY No ezetimibe 10 mg tablet TAKE 1 TABLET BY MOUTH EVERY DAY [facility] Advil 200 mg tablet Take 1 tablet every 6 hours by oral route. Advil 200 mg tablet Take 1 tablet every 6 hours by oral route. No 1 Q6H Advil 200 mg tablet Take 1 tablet every 6 hours by oral route. [facility] Nicole-Seltze r Heartburn Nicole-Seltze r Heartburn No Nicole-Seltz er Heartburn [facility] amlodipine 5mg amlodipine 5mg No amlodipine 5mg [facility] armodafinil 250 mg tablet Take 1 tablet every day by oral route. armodafinil 250 mg tablet Take 1 tablet every day by oral route. No 1 Q1D armodafini l 250 mg tablet Take 1 tablet every day by oral route. [facility] Azo Azo No Azo [facility] B12 5000mg B12 5000mg No B12 5000mg [facility] bupropion HBr 300mg bupropion HBr 300mg No bupropion HBr 300mg [facility] famotidine 40mg famotidine 40mg No famotidine 40mg [facility] furosemide 40 mg tablet Take 1 tablet every day by oral route. furosemide 40 mg tablet Take 1 tablet every day by oral route. No 1 Q1D furosemide 40 mg tablet Take 1 tablet every day by oral route. [facility] gabapentin 800mg bid gabapentin 800mg bid No gabapentin 800mg bid [facility] Gaviscon Gaviscon No Gaviscon [facility] hydrocodone 5 mg-acetamin ophen 325 mg tablet Take 1 tablet every 12 hours by oral route. take as needed for pain hydrocodone 5 mg-acetamin ophen 325 mg tablet Take 1 tablet every 12 hours by oral route. take as needed for pain No 1 Q12H hydrocodon e 5 mg-acetami nophen 325 mg tablet Take 1 tablet every 12 hours by oral route. take as needed for pain [facility] olanzapine 5mg olanzapine 5mg No olanzapine 5mg [facility] Senokot Senokot No Senokot [facility] Vitamin D vitamin d 12 weekly Vitamin D vitamin d 12 weekly No Vitamin D vitamin d 12 weekly [facility] Zantac 150 mg tablet Take 1 tablet twice a day by oral route. Zantac 150 mg tablet Take 1 tablet twice a day by oral route. No 1 BID Zantac 150 mg tablet Take 1 tablet twice a day by oral route. [facility] zolpidem 5 mg tablet Take 1 tablet every day by oral route. zolpidem 5 mg tablet Take 1 tablet every day by oral route. No 1 Q1D zolpidem 5 mg tablet Take 1 tablet every day by oral route. [facility] Immunizations Ordered Immunization Name Filled Immunization Name Date Status Comments Source Influenza vaccine, quadrivalent, adjuvanted Influenza vaccine, quadrivalent, adjuvanted 2022-04-07 00:00:00 Completed [facility] influenza nasal, unspecified formulation influenza nasal, unspecified formulation 2022-04-07 00:00:00 Completed [facility] Influenza vaccine, quadrivalent, adjuvanted Influenza vaccine, quadrivalent, adjuvanted 2022-04-07 00:00:00 Completed [facility] influenza nasal, unspecified formulation influenza nasal, unspecified formulation 2022-04-07 00:00:00 Completed [facility] Influenza vaccine, quadrivalent, adjuvanted Influenza vaccine, quadrivalent, adjuvanted 2022-04-07 00:00:00 Completed [facility] influenza nasal, unspecified formulation influenza nasal, unspecified formulation 2022-04-07 00:00:00 Completed [facility] Influenza vaccine, quadrivalent, adjuvanted Influenza vaccine, quadrivalent, adjuvanted 2022-04-07 00:00:00 Completed [facility] influenza nasal, unspecified formulation influenza nasal, unspecified formulation 2022-04-07 00:00:00 Completed [facility] Influenza Virus Vaccine,quad Im,preserve Free 65+ 2022-04-07 00:00:00 Completed [facility] Influenza Virus Vaccine,quad Im,preserve Free 65+ 2022-04-07 00:00:00 Completed [facility] Influenza Virus Vaccine,quad Im,preserve Free 65+ 2022-04-07 00:00:00 Completed [facility] Influenza Virus Vaccine,quad Im,preserve Free 65+ 2022-04-07 00:00:00 Completed [facility] Influenza Virus Vaccine,quad Im,preserve Free 65+ 2022-04-07 00:00:00 Completed [facility] Influenza Virus Vaccine,quad Im,preserve Free 65+ 2022-04-07 00:00:00 Completed [facility] Influenza Virus Vaccine,quad Im,preserve Free 65+ 2022-04-07 00:00:00 Completed [facility] Influenza Virus Vaccine,quad Im,preserve Free 65+ 2022-04-07 00:00:00 Completed [facility] Influenza Virus Vaccine,quad Im,preserve Free 65+ (FLUAD) Unknown Completed [facility] Influenza Virus Vaccine,quad Im,preserve Free 65+ (FLUAD) Unknown Completed [facility] Influenza Virus Vaccine,quad Im,preserve Free 65+ (FLUAD) Unknown Completed [facility] Influenza Virus Vaccine,quad Im,preserve Free 65+ (FLUAD) Unknown Completed [facility] Vital Signs Vital Name Observation Time Observation Value Comments Adali mejia Systolic blood pressure 2022-09-03 02:00:00 133 mm[Hg] [facility] Diastolic blood pressure 2022-09-03 02:00:00 75 mm[Hg] [facility] Heart rate 2022-09-03 02:00:00 70 /min [facility] Body temperature 2022-09-03 02:00:00 36.22 Erin [facility] Respiratory rate 2022-09-03 02:00:00 20 /min [facility] Oxygen saturation in Arterial blood by Pulse oximetry 2022-09-03 02:00:00 98 /min [facility] Body height 2022-09-02 23:17:00 162.6 cm [facility] Body weight 2022-09-02 23:17:00 75.297 kg [facility] BMI 2022-09-02 23:17:00 28.49 kg/m2 [facility] BP Diastolic 2022-05-18 00:00:00 78 mm[Hg] [facility] Height 2022-05-18 00:00:00 62 [in_i] [facility] BMI (Body Mass Index) 2022-05-18 00:00:00 28.7 kg/m2 [facility] BP Systolic 2022-05-18 00:00:00 134 mm[Hg] [facility] Body Weight 2022-05-18 00:00:00 2512 [oz_av] [facility] BP Diastolic 2022-05-12 00:00:00 69 mm[Hg] [facility] Height 2022-05-12 00:00:00 62 [in_i] [facility] BMI (Body Mass Index) 2022-05-12 00:00:00 28.7 kg/m2 [facility] BP Systolic 2022-05-12 00:00:00 115 mm[Hg] [facility] Body Weight 2022-05-12 00:00:00 2512 [oz_av] [facility] BP Diastolic 2022-05-07 00:00:00 74 mm[Hg] [facility] Height 2022-05-07 00:00:00 62 [in_i] [facility] BMI (Body Mass Index) 2022-05-07 00:00:00 28.9 kg/m2 [facility] BP Systolic 2022-05-07 00:00:00 134 mm[Hg] [facility] Body Weight 2022-05-07 00:00:00 2528 [oz_av] [facility] Systolic blood pressure 2022-04-07 21:25:00 110 mm[Hg] [facility] Diastolic blood pressure 2022-04-07 21:25:00 67 mm[Hg] [facility] hospital Heart rate 2022-04-07 21:25:00 90 /min [facility] Body temperature 2022-04-07 21:25:00 36.56 Erin [facility] Body height 2022-04-07 21:25:00 162.6 cm [facility] Body weight 2022-04-07 21:25:00 74.39 kg [facility] BMI 2022-04-07 21:25:00 28.15 kg/m2 [facility] Oxygen saturation in Arterial blood by Pulse oximetry 2022-04-07 21:25:00 98 /min [facility] Systolic blood pressure 2022-03-27 23:00:00 118 mm[Hg] [facility] Diastolic blood pressure 2022-03-27 23:00:00 68 mm[Hg] [facility] Heart rate 2022-03-27 23:00:00 82 /min [facility] Respiratory rate 2022-03-27 23:00:00 16 /min [facility] Oxygen saturation in Arterial blood by Pulse oximetry 2022-03-27 23:00:00 99 /min [facility] Body temperature 2022-03-27 20:11:00 36.56 Erin [facility] Body height 2022-03-27 20:11:00 162.6 cm [facility] Body weight 2022-03-27 20:11:00 72.576 kg [facility] BMI 2022-03-27 20:11:00 27.46 kg/m2 [facility] Systolic blood pressure 2021-03-31 19:39:00 115 mm[Hg] [facility] hospital Diastolic blood pressure 2021-03-31 19:39:00 76 mm[Hg] [facility] hospital Heart rate 2021-03-31 19:39:00 85 /min [facility] Body height 2021-03-31 19:39:00 162.6 cm [facility] [facility] Body weight 2021-03-31 19:39:00 77.565 kg [facility] BMI 2021-03-31 19:39:00 29.35 kg/m2 [facility] BP Diastolic 2019-01-30 00:00:00 71 mm[Hg] [facility] Height 2019-01-30 00:00:00 64 [in_i] [facility] BMI (Body Mass Index) 2019-01-30 00:00:00 35.7 kg/m2 [facility] BP Systolic 2019-01-30 00:00:00 109 mm[Hg] [facility] Body Weight 2019-01-30 00:00:00 3328 [oz_av] [facility] Procedures Procedure Date / Time Performed Performing Clinician Source NOTICE OF PRIVACY PRACTICES 2022-09-03 00:53:01 Doctor Unassigned, [place] [facility] CONSENT/REFUSAL FOR DIAGNOSIS AND TREATMENT 2022-09-03 00:52:28 Doctor Unassigned, [place] [facility] XR CHEST 1 VW 2022-09-03 00:06:19 Ariela Samano [facility] COMP. METABOLIC PANEL ([id number]) 2022-09-02 23:25:00 Ariela Samano [facility] CBC WITH DIFF 2022-09-02 23:25:00 Ariela Samano [facility] LACTIC ACID WHOLE BLOOD 2022-09-02 23:25:00 Waqar Samano [facility] MEDICATION CORRESPONDENCE 2022-05-26 06:01:00 Do ctor Unassigned, [place] [facility] BASIC METABOLIC PANEL (NA, K, CL, CO2, GLUCOSE, BUN, CREATININE, CA) 2022-04-07 21:58:00 Zoraida Coulter [facility] CBC WITH DIFF 2022-04-07 21:58:00 Amrit Coulter darrion [facility] FLU VACC(),65+YR,0.5 ML,IM,ADJUVANTED,QUAD(FLU AD) 2022-04-07 21:38:51 Zoraida Coulter [facility] CT ABDOMEN PELVIS WO CONTRAST 2022-03-27 22:24:15 Karri Levin [facility] XR CHEST 1 VW 2022-03-27 21:31:00 Karri Levin [facility] URINALYSIS 2022-03-27 21:15:00 Karri Levin [facility] MAGNESIUM 2022-03-27 21:01[facility]00 [facility] 2022-03-27 21:01:00 Karri Levin [facility] COMP. METABOLIC PANEL (77220) 2022-03-27 21:01:00 Karri Levin [facility] CBC WITH DIFF 2022-03-27 21:01:00 Karri Levin [facility] N-TERMINAL PRO-BNP 2022-03-27 21:01:00 Karri Levin [facility] XR KNEE 3 VW LEFT 2021-04-08 20:08:00 Matti Cee [facility] XR, hip, unilateral 2019-01-30 00:00:00 [facility] Open Reduction of Fracture of Femur [facility] Knee Surgery [facility] Procedure on Wrist [facility] Encounters Start Date/Time End Date/Time Encounter Type Admission Type Attending Clinicians Care Facility Care Department Encounter ID Source 2022-06-09 15:26:16 Outpatient [facility] [id number] [facility] 2021-10-26 06:31:51 Outpatient [facility] [id number] [facility] 2021-10-14 10:31:44 Outpatient [facility] [id number] [facility] 2023-06-22 00:00:00 2023-06-22 00:00:00 [facility] 1..840.114 350.1.13.10 4.2.7.2.686 [id number] [facility] 2023-06-01 00:00:00 2023-06-01 00:00:00 [facility]ill [facility] 1..840.114 350.1.13.10 4.2.7.2.686 [id number] [facility] 2023-03-19 00:00:00 2023-03-19 00:00:00 [facility] 1.840.114 350.1.13.10 4.2.7.2.686 [id number] [facility] 2023-01-28 00:00:00 2023-01-28 00:00:00 [facility] 1.2840.114 350.1.13.10 4.2.7.2.686 [id number] [facility] 2022-09-02 18:18:00 2022-09-02 22:00:00 Emergency X ARIELA SAMANO [facility] ERT [id number] [facility] 2022-09-02 18:18:00 2022-09-02 22:00:00 Emergency Ariela Samano [facility] 1.840.114 350.1.13.10 4.2.7.2.686 [id number] [facility] 2022-06-07 00:00:00 2022-06-07 00:00:00 Outpatient GC_BAHC_Tod d_J [facility] [id number] [facility] 2022-05-27 00:00:00 2022-05-27 00:00:00 Refill Cristel [facility] 1.2.840.114 350.1.13.10 4.2.7.2.686 [id number] [facility] 2022-05-27 00:00:00 2022-05-27 00:00:00 Telephone Cristel [facility] 1.2.840.114 350.1.13.10 4.2.7.2.686 [id number] [facility] 2022-05-26 00:00:00 2022-05-26 00:00:00 Telephone Cristel [facility] 1..840.114 350.1.13.10 4.2.7.2.686 [id number] [facility] 2022-05-26 00:00:00 2022-05-26 00:00:00 Orders Only Doctor Unassigned, [place] [facility] 1.2.840.114 350.1.13.10 4.2.7.2.686 [id number] [facility] 2022-05-19 00:00:00 2022-05-19 00:00:00 Outpatient GC_BAHC_Tod d_J [facility] PRIV [id number] [facility] 2022-05-19 00:00:00 2022-05-19 00:00:00 Outpatient GC_BAHC_Tod d_J [facility] [id number] [facility] 2022-05-19 00:00:00 2022-05-19 00:00:00 Outpatient GC_BAHC_Tod d_J PRIV PRIV [id number] [facility] 2022-05-19 00:00:00 2022-05-19 00:00:00 Outpatient GC_BAHC_Tod d_J PRIV PRIV [id number] [facility] 2022-05-19 00:00:00 2022-05-19 00:00:00 Outpatient GC_BAHC_Tod d_J PRIV PRIV [id number] [facility] 2022-05-19 00:00:00 2022-05-19 00:00:00 Outpatient GC_BAHC_Tod d_J PRIV PRIV [id number] [facility] 2022-05-19 00:00:00 2022-05-19 00:00:00 Outpatient GC_BAHC_Tod d_J PRIV PRIV [id number] [facility] 2022-05-19 00:00:00 2022-05-19 00:00:00 Outpatient GC_BAHC_Tod d_J PRIV PRIV [id number] [facility] 2022-05-19 00:00:00 2022-05-19 00:00:00 Outpatient GC_BAHC_Tod d_J PRIV PRIV [id number] [facility] 2022-05-19 00:00:00 2022-05-19 00:00:00 Outpatient GC_BAHC_Tod d_J PRIV PRIV [id number] [facility] 2022-05-19 00:00:00 2022-05-19 00:00:00 Outpatient GC_BAHC_Tod d_J PRIV PRIV [id number] [facility] 2022-05-19 00:00:00 2022-05-19 00:00:00 Outpatient GC_BAHC_Tod d_J PRIV PRIV [id number] [facility] 2022-05-19 00:00:00 2022-05-19 00:00:00 Outpatient GC_BAHC_Tod d_J PRIV PRIV [id number] [facility] 2022-05-19 00:00:00 2022-05-19 00:00:00 Outpatient GC_BAHC_Tod d_J PRIV PRIV [id number] [facility] 2022-05-19 00:00:00 2022-05-19 00:00:00 Outpatient GC_BAHC_Tod d_J [facility] [id number] [facility] 2022-05-18 00:00:00 2022-05-18 00:00:00 Jeffry Parrish MD: [address] [place] [phone] , Ph. [facility] GC_BAHC_Lak [facility] [id number] [facility] 2022-05-12 00:00:00 2022-05-12 00:00:00 POONAM Anderson: [address] [place] [phone] , Ph. [facility] GC_BAHC_Lak [facility] [id number] [facility] 2022-05-07 00:00:00 2022-05-07 00:00:00 Outpatient GC_BAHC_Tod d_J [facility] [id number] [facility] 2022-05-07 00:00:00 2022-05-07 00:00:00 Outpatient GC_BAHC_Tod d_J [facility] [id number] [facility] 2022-05-07 00:00:00 2022-05-07 00:00:00 Outpatient GC_BAHC_Tod d_J [facility] [id number] [facility] 2022-05-07 00:00:00 2022-05-07 00:00:00 POONAM Anderson: [address] [place] [phone] , Ph. [facility] GC_BAHC_Lak [facility] [id number] [facility] 2022-05-06 00:00:00 2022-05-06 00:00:00 Outpatient GC_BAHC_Tod d_J PRIV [facility] [id number] [facility] 2022-04-07 15:45:00 2022-04-07 16:00:00 Cant Gang Sawyer Visit Lab, Kiko Coulter [facility] 1..840.114 350.1.13.10 4.2.7.2.686 [id number] [facility] 2022-04-07 15:15:00 2022-04-07 15:47:59 Outpatient R OXANABASIM [facility] [id number] [facility] 2022-04-07 15:15:00 2022-04-07 15:47:59 Office Visit Oxanabasim [facility] 1..840.114 350.1.13.10 4.2.7.2.686 [id number] [facility] 2022-03-27 14:09:00 2022-03-27 17:18:00 Emergency X KARRI LEVIN [facility] ERT [id number] [facility] 2022-03-27 14:09:00 2022-03-27 17:18:00 Emergency Karri Levin S [facility] ..840.114 350.1.13.10 4.2.7.2.686 [id number] [facility] 2021-11-19 00:00:00 2021-11-19 00:00:00 Outpatient ANIL MCCOLLUM NMELIEZER [id number] Viral clemons [facility] 2021-04-08 13:58:04 2021-04-08 23:59:00 Hospital Encounter Matti Cee [facility] 1..840.114 350.1.13.10 4.2.7.2.686 [id number] [facility] 2021-04-08 13:30:00 2021-04-08 14:30:16 Outpatient MATTI GOMEZ [facility] [id number] [facility] 2021-04-08 14:00:00 2021-04-08 14:00:00 Outpatient MATTI GOMEZ [facility] [id number] [facility] 2021-04-02 09:45:00 2021-04-02 09:45:00 Outpatient Bernadine ROMERO ELDER [facility] [id number] [facility] 2021-04-02 09:45:00 2021-04-02 09:45:00 Outpatient Bernadine ROMERO ELDER [facility] [id number] [facility] 2021-03-31 13:30:00 2021-03-31 13:58:43 Outpatient ZORAIDA AYOUB [facility] [id number] [facility] 2021-03-31 13:21:58 2021-03-31 13:51:58 Office Visit Zoraida Coulter [facility] 1.2.840.114 350.1.13.10 4.2.7.2.686 [id number] [facility] 2020-03-05 02:19:00 2020-03-05 02:19:00 Outpatient Phan [facility] 8 [facility] 2019-01-30 00:00:00 2019-01-30 00:00:00 You Blanchard MD: [address] [place] [address] [address], [place] [address] , Ph. [facility] [id number] [facility] Results Test Description Test Time Test Comments Results Result Co mments Source [facility] (58552)2022-09-02 23:55:53* Test Item Value Reference Range Interpretation Comme nts NA (test code = 9398416514) 127 mmol/L 135-145 L K (test code = 2961701440) 3.9 mmol/L 3.5-5.0 CL (test code = 1140889635) 90 mmol/L 98-108 L CO2 TOTAL (test code = 3637602573) 27 mmol/L 23-31 AGAP (test code = 8413322445) 10 2-16 BUN (test code = 9789040213) 16 mg/dL 7-23 GLUCOSE (test code = 1294392059) 103 mg/dL 70-110 CREATININE (test code = 4814907265) 1.20 mg/dL 0.50-1.04 H TOTAL BILI (test code = 6148354925) 0.6 mg/dL 0.1-1.1 CALCIUM (test code = 3591774146) 8.8 mg/dL 8.6-10.6 T PROTEIN (test code = 6759863688) 6.2 g/dL 6.3-8.2 L ALBUMIN (test code = 7480966970) 4.0 g/dL 3.5-5.0 ALK PHOS (test code = 9065319543) 72 U/L 34-122 ALTv (test code = 1742-6) 22 U/L 5-35 AST(SGOT) (test code = 4830179585) 29 U/L 13-40 eGFR (test code = 1851002556) 44.0 mL/min/1.73m2 LINDA (test code = LINDA) Association [...] imaging tests). Lab Interpretation (test code = 62853-7) Abnormal [facility] Whole [id number] 23:38:13* Test Item Value Reference Range Interpretation Comme nts LACTIC ACID (test code = 6050793956) 1.80 mmol/L 0.50-2.20 Lab Interpretation (test cod e = 84712-0) Normal [facility] (NA, K, CL, CO2, GLUCOSE, BUN, CREATININE, CA)2022-04-08 08:56:09* Test Item Value Reference Range Interpretation Comme nts NA (test code = 1791298456) 138 mmol/L 135-145 K (test code = 7093283099) 4.0 mmol/L 3.5-5.0 CL (test code = 9750597038) 99 mmol/L 98-108 CO2 TOTAL (test code = 3299146621) 29 mmol/L 23-31 AGAP (test code = 3719334493) 2-16 BUN (test code = 3855009863) 22 mg/dL 7-23 GLUCOSE (test code = 6724183413) 101 mg/dL 70-110 CREATININE (test code = 5155195087) 2.00 mg/dL 0.50-1.04 H CALCIUM (test code = 0428678556) 9.4 mg/dL 8.6-10.6 eGFR (test code = 3769492944) mL/min/1.73m2 LINDA (test code = LINDA) Association [...] imaging tests). Lab Interpretation (test code = 02920-7) Abnormal [facility] METABOLIC PANEL (NA, K, CL, CO2, GLUCOSE, BUN, CREATININE, CA)2022-04-08 08:56:09* Test Item Value Reference Range Interpretation Comme nts NA (test code = 3435917068) 138 mmol/L 135-145 K (test code = 8470075932) 4.0 mmol/L 3.5-5.0 CL (test code = 8063087703) 99 mmol/L 98-108 CO2 TOTAL (test code = 0455867459) 29 mmol/L 23-31 AGAP (test code = 9301002454) 2-16 BUN (test code = 2535516487) 22 mg/dL 7-23 GLUCOSE (test code = 9362238303) 101 mg/dL 70-110 CREATININE (test code = 9335764454) 2.00 mg/dL 0.50-1.04 H CALCIUM (test code = 6346568089) 9.4 mg/dL 8.6-10.6 eGFR (test code = 7663518949) mL/min/1.73m2 LINDA (test code = LINDA) Association [...] imaging tests). Lab Interpretation (test code = 96729-8) Abnormal [facility] WITH [id number] 08:15:22* Test Item Value Reference Range Interpretation Comme nts WBC (test code = 6690-2) See_Comment [Automated [employer]] The system which generated this result transmitted reference range: 4.30 - 11.10 10*3/?L. The reference range was not used to interpret this result as normal/abnormal. RBC (test code = 789-8) See_Comment [Automated [employer]] The system which generated this result transmitted reference range: 3.93 - 5.25 10*6/?L. The reference range was not used to interpret this result as normal/abnormal. HGB (test code = 718-7) 11.7 g/dL 11.6-15.0 HCT (test code = 4544-3) 37.4 % 35.7-45.2 MCV (test code = 787-2) 95.2 fL 80.6-95.5 MCH (test code = 785-6) 29.8 pg 25.9-32.8 MCHC (test code = 786-4) 31.3 g/dL 31.6-35.1 L RDW-SD (test code = 81041-8) 49.2 fL 39.0-49.9 RDW-CV (test code = 788-0) 14.4 % 12.0-15.5 PLT (test code = 777-3) See_Comment [Automated messa ge] The system which generated this result transmitted reference range: 166 - 358 10*3/?L. The reference range was not used to interpret this result as normal/abnormal. MPV (test code = 91937-2) 9.4 fL 9.5-12.9 L NRBC/100 WBC (test code = 1046652686) See_Comment [Automated [employer]] The system which generated this result transmitted reference range: 0.0 - 10.0 /100 WBCs. The reference range was not used to interpret this result as normal/abnormal. NRBC x10^3 (test code = 8991517428) See_Comment [Automated [employer]] The system which generated this result transmitted reference range: 10*3/?L. The reference range was not used to interpret this result as normal/abnormal. GRAN MAT (NEUT) % (test code = 770-8) 80.0 % IMM GRAN % (test code = 2704650785) 0.20 % LYMPH % (test code = 736-9) 13.9 % MONO % (test code = 5905-5) 5.4 % EOS % (test code = 713-8) 0.2 % BASO % (test code = 706-2) 0.3 % GRAN MAT x10^3(ANC) (test code = 2427180289) 4.89 10*3/uL 1.88-7.09 IMM GRAN x10^3 (test code = 7139635025) 0.00-0.06 LYMPH x10^3 (test code = 731-0) 0.85 10*3/uL 1.32-3.29 L MONO x10^3 (test code = 742-7) 0.33 10*3/uL 0.33-0.92 EOS x10^3 (test code = 711-2) 0.03-0.39 L BASO x10^3 (test code = 704-7) 0.01-0.07 Lab Interpretation (test code = 73967-9) Abnormal [facility] WITH [id number] 08:15:22* Test Item Value Reference Range Interpretation Comme nts WBC (test code = 6690-2) See_Comment [Automated [employer]] The system which generated this result transmitted reference range: 4.30 - 11.10 10*3/?L. The reference range was not used to interpret this result as normal/abnormal. RBC (test code = 789-8) See_Comment [Automated [employer]] The system which generated this result transmitted reference range: 3.93 - 5.25 10*6/?L. The reference range was not used to interpret this result as normal/abnormal. HGB (test code = 718-7) 11.7 g/dL 11.6-15.0 HCT (test code = 4544-3) 37.4 % 35.7-45.2 MCV (test code = 787-2) 95.2 fL 80.6-95.5 MCH (test code = 785-6) 29.8 pg 25.9-32.8 MCHC (test code = 786-4) 31.3 g/dL 31.6-35.1 L RDW-SD (test code = 87194-3) 49.2 fL 39.0-49.9 RDW-CV (test code = 788-0) 14.4 % 12.0-15.5 PLT (test code = 777-3) See_Comment [Automated [employer]] The system which generated this result transmitted reference range: 166 - 358 10*3/?L. The reference range was not used to interpret this result as normal/abnormal. MPV (test code = 71009-7) 9.4 fL 9.5-12.9 L NRBC/100 WBC (test code = 3653027227) See_Comment [Automated me ssage] The system which generated this result transmitted reference range: 0.0 - 10.0 /100 WBCs. The reference range was not used to interpret this result as normal/abnormal. NRBC x10^3 (test code = 0876005124) See_Comment [Automated messa ge] The system which generated this result transmitted reference range: 10*3/?L. The reference range was not used to interpret this result as normal/abnormal. GRAN MAT (NEUT) % (test code = 770-8) 80.0 % IMM GRAN % (test code = 0753526427) 0.20 % LYMPH % (test code = 736-9) 13.9 % MONO % (test code = 5905-5) 5.4 % EOS % (test code = 713-8) 0.2 % BASO % (test code = 706-2) 0.3 % GRAN MAT x10^3(ANC) (test code = 0152681065) 4.89 10*3/uL 1.88-7.09 IMM GRAN x10^3 (test code = 5259358182) 0.00-0.06 LYMPH x10^3 (test code = 731-0) 0.85 10*3/uL 1.32-3.29 L MONO x10^3 (test code = 742-7) 0.33 10*3/uL 0.33-0.92 EOS x10^3 (test code = 711-2) 0.03-0.39 L BASO x10^3 (test code = 704-7) 0.01-0.07 Lab Interpretation (test code = 56013-3) Abnormal [facility] [id number] 21:55:12* Test Item Value Reference Range Interpretation Comments TROPONIN I (test code = 1118399096) 0.005 ng/mL See_Comment [Automated message] The system which generated this result transmitted reference range: <=0.034. The reference range was not used to interpret this result as normal/abnormal. LINDA (test code = LINDA) Reference (Normal) Range (defined by the 99th percentile reference [...] to patient's use of biotin. Lab Interpretation (test code = 03978-2) Normal [facility] [id number] 21:52:11* Test Item Value Reference Range Interpretation Comme nts NT-proBNP (test code = 1793727311) 122 pg/mL See_Comment [Automated message] The system which generated this result transmitted reference range: <=125. The reference range was not used to interpret this result as normal/abnormal. LINDA (test code = LINDA) Biotin has been reported to cause a negative bias, interpret results relative to patient's use of biotin. Lab Interpretation (test code = 90819-1) Normal [facility]OLIC PAN[facility] (06540)2022-03-27 21:29:29* Test Item Value Reference Range Interpretation Comme nts NA (test code = 2440439407) 136 mmol/L 135-145 K (test code = 8127759565) 3.1 mmol/L 3.5-5.0 L CL (test code = 5872839000) 96 mmol/L 98-108 L CO2 TOTAL (test code = 8520565251) 20 mmol/L 23-31 L AGAP (test code = 1445888490) 2-16 H BUN (test code = 8748140907) 31 mg/dL 7-23 H GLUCOSE (test code = 0249528157) 129 mg/dL 70-110 H CREATININE (test code = 7392468874) 1.93 mg/dL 0.50-1.04 H TOTAL BILI (test code = 7789470561) 1.0 mg/dL 0.1-1.1 CALCIUM (test code = 1077051674) 9.4 mg/dL 8.6-10.6 T PROTEIN (test code = 9906221900) 6.6 g/dL 6.3-8.2 ALBUMIN (test code = 4368310784) 4.6 g/dL 3.5-5.0 ALK PHOS (test code = 7004930104) 96 U/L 34-122 ALTv (test code = 1742-6) 36 U/L 5-35 H AST(SGOT) (test code = 2500723432) 36 U/L 13-40 eGFR (test code = 0196475131) mL/min/1.73m2 LINDA (test code = LINDA) Association [...] imaging tests). Lab Interpretation (test code = 56404-8) Abnormal [facility] 21:23:30* Test Item Value Reference Range Interpretation Comme nts MAGNESIUM (test code = 9530601601) 2.0 mg/dL 1.7-2.4 Lab Interpretation (test cod e = 48769-7) Normal [facility] WITH [id number] 21:11:09* Test Item Value Reference Range Interpretation Comme nts WBC (test code = 6690-2) See_Comment [Automated messa ge] The system which generated this result transmitted reference range: 4.30 - 11.10 10*3/?L. The reference range was not used to interpret this result as normal/abnormal. RBC (test code = 789-8) See_Comment L [Automated messa ge] The system which generated this result transmitted reference range: 3.93 - 5.25 10*6/?L. The reference range was not used to interpret this result as normal/abnormal. HGB (test code = 718-7) 11.5 g/dL 11.6-15.0 L HCT (test code = 4544-3) 36.3 % 35.7-45.2 MCV (test code = 787-2) 94.8 fL 80.6-95.5 MCH (test code = 785-6) 30.0 pg 25.9-32.8 MCHC (test code = 786-4) 31.7 g/dL 31.6-35.1 RDW-SD (test code = 24865-6) 46.5 fL 39.0-49.9 RDW-CV (test code = 788-0) 13.6 % 12.0-15.5 PLT (test code = 777-3) See_Comment [Automated messa ge] The system which generated this result transmitted reference range: 166 - 358 10*3/?L. The reference range was not used to interpret this result as normal/abnormal. MPV (test code = 24780-6) 8.8 fL 9.5-12.9 L NRBC/100 WBC (test code = 7001547680) See_Comment [Automated [employer]] The system which generated this result transmitted reference range: 0.0 - 10.0 /100 WBCs. The reference range was not used to interpret this result as normal/abnormal. NRBC x10^3 (test code = 0369457953) See_Comment [Automated messa ge] The system which generated this result transmitted reference range: 10*3/?L. The reference range was not used to interpret this result as normal/abnormal. GRAN MAT (NEUT) % (test code = 770-8) 88.6 % IMM GRAN % (test code = [id number]) 0.40 % LYMPH % (test code = 736-9) 6.4 % MONO % (test code = 5905-5) 4.4 % EOS % (test code = 713-8) 0.0 % BASO % (test code = 706-2) 0.2 % GRAN MAT x10^3(ANC) (test code = [id number]) 9.53 10*3/uL 1.88-7.09 H IMM GRAN x10^3 (test code = [id number]) 0.04 10*3/uL 0.00-0.06 LYMPH x10^3 (test code = 731-0) 0.69 10*3/uL 1.32-3.29 L MONO x10^3 (test code = 742-7) 0.47 10*3/uL 0.33-0.92 EOS x10^3 (test code = 711-2) 0.03-0.39 L BASO x10^3 (test code = 704-7) 0.01-0.07 Lab Interpretation (test code = 15276-6) Abnormal [facility]"
== END 2023-12-06 11:10 | disposition home or self-care (01) ==
LOC: ER 09:59
DX: S09.90XA Unspecified injury of head, initial encounter (principal); S20.229A Contusion of unspecified back wall of thorax, initial encounter; S30.0XXA Contusion of lower back and pelvis, initial encounter; W18.30XA Fall on same level, unspecified, initial encounter; I10 Essential (primary) hypertension; I50.9 Heart failure, unspecified
CPT/HCPCS: 70450; 71250; 72125

== ENCOUNTER 2024-01-20 13:07 | Inpatient (IN) | payer OTHER ==
--- OUTSIDE RECORDS SUMMARY | 2024-01-20 13:10 | XMS REPORT | Continuity of Care Document ---
Author Name Unknown Address [address] [facility] [address] [place] [address] [facility] Address [address] [facility] 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 Name Role Phone Zoraida Coulter MD Primary Care Physician Zoraida Coulter MD Attending Clinician + [phone] ARIELA SAMANO Attending Clinician Unavailable Ariela Samano DO Attending Clinician [phone] Frances Attending Clinician Unavailable Doctor Unassigned, [place] Attending Clinician U navailable Lab, Ang - Db Attending Clinician Unavailable ZORAIDA COULTER Attending Clinician UnaKARRI Farley Attending Clinician Unavailable Karri Levin MD Attending Clinician [phone] SARINA Attending Clinician UnavailMatti Higginbotham MD Attending Clinician [phone] MATTI CEE Attending Clinician UnavailELDER Medina Attending Clinician Unavailable YVETTE HANKS Attending Clinician Unav ailable A_Byrd Attending Clinician Unavailable ARIELA SAMANO Admitting Clinician Unavailable Frances Admitting Clinician Unavailable KARRI LEVIN Admitting Clinician Unavailable SARINA Admitting Clinician UnavailYVETTE Calhoun Admitting Clinician Unav ailable A_Byrd Admitting Clinician Unavailable Payers Payer Name Policy Type Policy Number Effective Date Expirati on Date Source AET[employer] MEDICARE PPO [id number] 00:00:00 AETNA (PPO) [id number] 2022 00:00:00 [employer]ET[employer] (MEDICARE REPLACEMENT PPO) [id number] 2015 00:00:00 Problems Condition Name Condition Details Condition Category Status Onset Date Resolution Date Last Treatment Date Treating Clinician Comments Source Seen in intermediate Seen in Group Home Problem Active 205 00:00: 00 [facility] [...] Pain Problem Active 2018-04 0-15 00:00: 00 [facility] No known active problems No known active problems Disease [facility] Allergies, Adverse Reactions, Alerts Allergy Name Allergy Type Status Severity Reaction(s) Onset Date Inactive Date Treating Clinician Comments Source Quinapri l Propensi ty to adverse reaction s Active Unknown - See comments 2020-04 00:00: 00 [facility] Codeine Propensi ty to adverse reaction s Active Unknown - See comments 2020-04 00:00: 00 [facility] QUINAPRI L DRUG INGREDI Active Low Unknown-Cmnt 2020-04 00:00: 00 [facility] CODEINE DRUG INGREDI Active Low Unknown-Cmnt 2020-04 00:00: 00 [facility] Amlodipi ne Allergy to substanc e Active [facility] Budesoni de Allergy to substanc e Active [facility] Codeine Allergy to substanc e Active [facility] Formoter ol Allergy to substanc e Active [facility] Hydrochl orothiaz arianna Allergy to substanc e Active [facility] [place] an Allergy to substanc e Active [facility] Quinapri l Allergy to substanc e Active [facility] Social History Social Habit Start Date Stop Date Quantity Comments Source [facility] 2022-09-04 00:00:00 2022-09-04 00:00:00 Ex-drinker (finding) [facility] Exposure to SARS-CoV-2 (event) 2022-08-23 00:00:00 2022-09-02 18:16:00 Not sure [facility] History of Social function 2022-04-07 00:00:00 2022-04-07 00:00:00 [facility] Tobacco use and exposure 2021-03-31 00:00:00 2021-03-31 00:00:00 Smokeless tobacco non-user [facility] History of tobacco use 2001-03-31 00:00:00 Cigarette Smoker [facility] Sex Assigned At 1950 00:00:00 1950 00:00:00 [facility] Smoking Status Start Date Stop Date Source Never Smoker [facility] Ex-smoker 2021-03-31 00:00:00 2021-03-31 00:00:[address] [facility]ations Ordered Medication Name Filled Medication Name Start Date Stop Date Current Medication? Ordering Clinician Indication Dosage Frequency Signature (SIG) Comments Components Source amLODIPine 5 mg tablet 2022-04 00:00: 00 Yes [id number] TAKE ONE TABLET BY MOUTH DAILY IN THE MORNING [facility] famotidine 20 mg tablet 2022-04 00:00: 00 Yes [id number] TAKE ONE TABLET BY MOUTH TWICE DAILY IN THE MORNING AND IN THE EVENING [facility] famotidine 20 mg tablet 2022-04 00:00: 00 Yes [id number] TAKE ONE TABLET BY MOUTH TWICE DAILY IN THE MORNING AND IN THE EVENING [facility] amLODIPine 5 mg tablet 2022-04 00:00: 00 Yes [id number] TAKE ONE TABLET BY MOUTH DAILY IN THE MORNING [facility] iopamidol (ISOVUE 370-500 mL) injection 85 mL 09-03 01:00: 00 09-03 01:00 :00 No [id number] 85mL 85 mL, Intravenou s, ONCE, 1 dose, On Tue09/02/22 at 2000, Routine [facility] FENTanyl PF (SUBLIMAZE (PF)) injection 50 mcg 09-02 23:30: 00 09-03 00:02 :00 No 50ug 50 mcg, Slow IV Push, ONCE, 1 dose, On Tue09/02/22 at 1830, Routine [facility] lidocaine 5 % (700 mg/patch) patch 09-02 00:00: 00 09-03 04:59 :00 No [id number] 1{patch } Apply 1 Patch to area(s) once now for 1 dose. [facility] potassium chloride 10 mEq CR capsule 05-31 08:50: 16 05-31 00:00 :00 No 10meq 10 mEq daily. [facility] atorvastati n 80 mg tablet 05-31 00:00: 00 Yes [id number] 80mg Take 1 tablet by mouth in the morning. [facility] ezetimibe 10 mg tablet 05-31 00:00: 00 Yes [id number] 10mg Take 1 tablet by mouth in the morning. [facility] potassium chloride 10 mEq CR capsule 05-31 00:00: 00 Yes [id number] 10meq Take 1 capsule by mouth in the morning. [facility] OLANZapine 10 mg tablet 05-31 00:00: 00 Yes [id number] 10mg Take 1 tablet by mouth in the morning. [facility] furosemide 40 mg tablet 05-31 00:00: 00 Yes [id number] 40mg Take 1 tablet by mouth in the morning. [facility] buPROPion XL 300 mg 24 hr tablet 05-31 00:00: 00 Yes [id number] 300mg Take 1 tablet by mouth in the morning. [facility] amLODIPine 5 mg tablet 05-31 00:00: 00 01-28 00:00 :00 No [id number] 5mg Take 1 tablet by mouth in the morning. [facility] famotidine 20 mg tablet 05-31 00:00: 00 01-28 00:00 :00 No [id number] 20mg Take 1 tablet by mouth in the morning and 1 tablet in the evening. [facility] famotidine 20 mg tablet 05-27 00:00: 00 Yes [id number] 20mg Take 1 tablet by mouth in the morning and 1 tablet in the evening. [facility] atorvastati n 80 mg tablet 05-27 00:00: 00 Yes [id number] 80mg Take 1 tablet by mouth in the morning. [facility] amLODIPine 5 mg tablet 2023-0 2-09 00:00: 00 Yes [id number] 5mg Take 1 tablet by mouth in the morning. [facility] cefTRIAXone (ROCEPHIN) 1,000 mg in NaCl 0.9% (NS) 50 mL MINI-BAG 2021-04 23:00: 00 03-27 23:15 :00 No 1000mg 1,000 mg, IV Piggyback, ONCE, 1 dose, On 03/27/22 at 1700, Administer over 30 Minutes, 50 mL
Reas on for Anti-Infec tive: Documented Infection< br>Documen eduardo Infection Site: Urine
D uration of Therapy: Other (see Comments) [facility] KCL 20 mEq/15 mL solution 40 mEq 2021-04 22:30: 00 03-27 21:33 :00 No 40meq 40 mEq, Oral, ONCE, 1 dose, On 03/27/22 at 1630, Routine [facility] ondansetron (ZOFRAN (PF)) injection 4 mg 2021-04 21:00: 00 03-27 21:20 :00 No 4mg 4 mg, Slow IV Push, ONCE, 1 dose, On 03/27/22 at 1500, FANI [facility] cefdinir 300 mg capsule 2021-04 00:00: 00 04-07 00:00 :00 No [id number] 300mg Take 1 capsule by mouth in the morning and 1 capsule in the evening. [facility] Armodafinil 250 mg Tab 2020-04 13:42: 27 Yes 250mg 250 mg daily. [facility] potassium chloride 10 mEq CR capsule 2020-04 13:42: 27 Yes 10meq 10 mEq daily. [facility] buPROPion XL 300 mg 24 hr tablet 2020-04 00:00: 00 05-31 00:00 :00 No 300mg Take 300 mg by mouth daily. [facility] furosemide 40 mg tablet 2020-04 00:00: 00 05-31 00:00 :00 No 40mg Take 40 mg by mouth daily. [facility] OLANZapine 10 mg tablet 2020-04 2 00:00: 00 05-31 00:00 :00 No 10mg Take 10 mg by mouth daily. [facility] amLODIPine 5 mg tablet 2020-04 00:00: 00 05-27 00:00 :00 No 5mg 5 mg daily. [facility] atorvastati n 80 mg tablet 2020-04 00:00: 00 05-27 00:00 :00 No 80mg Take 80 mg by mouth daily. [facility] famotidine 20 mg tablet 2020-04 00:00: 05-27 00:00 :00 No 20mg 20 mg daily. [facility] Adult Low Dose Aspirin 81 mg tablet,zoila yed release Take 1 tablet every day by oral route. Adult Low Dose Aspirin 81 mg tablet,zoila yed release Take 1 tablet every day by oral route. No 1 Q1D Adult Low Dose Aspirin 81 mg tablet,del ayed release Take 1 tablet every day by oral route. [facility] alendronate 70 mg tablet TAKE ONE TABLET BY MOUTH EVERY WEEK DIRECTED alendronate 70 mg tablet TAKE ONE TABLET BY MOUTH EVERY WEEK DIRECTED No alendronat e 70 mg tablet TAKE ONE TABLET BY MOUTH EVERY WEEK DIRECTED [facility] atorvastati n 80 mg tablet Take 1 tablet every day by oral route. atorvastati n 80 mg tablet Take 1 tablet every day by oral route. No 1 Q1D atorvastat in 80 mg tablet Take 1 tablet every day by oral route. [facility] Ensure Give 237 ml by mouth twice a day. Ensure Give 237 ml by mouth twice a day. No Ensure Give 237 ml by mouth twice a day. [facility] Iron (ferrous sulfate) 325 mg (65 mg iron) tablet Take 1 tablet every day by oral route. Iron (ferrous sulfate) 325 mg (65 mg iron) tablet Take 1 tablet every day by oral route. No 1 Q1D Iron (ferrous sulfate) 325 mg (65 mg iron) tablet Take 1 tablet every day by oral route. [facility] magnesium 200 mg (as magnesium oxide) tablet Take 1 tablet twice a day by oral route. magnesium 200 mg (as magnesium oxide) tablet Take 1 tablet twice a day by oral route. No 1 BID magnesium 200 mg (as magnesium oxide) tablet Take 1 tablet twice a day by oral route. [facility] Adult Low Dose Aspirin 81 mg tablet,zoila yed release Take 1 tablet every day by oral route. Adult Low Dose Aspirin 81 mg tablet,zoila yed release Take 1 tablet every day by oral route. No 1 Q1D Adult Low Dose Aspirin 81 mg tablet,del ayed release Take 1 tablet every day by oral route. [facility] alendronate 70 mg tablet TAKE ONE TABLET BY MOUTH EVERY WEEK DIRECTED alendronate 70 mg tablet TAKE ONE TABLET BY MOUTH EVERY WEEK DIRECTED No alendronat e 70 mg tablet TAKE ONE TABLET BY MOUTH EVERY WEEK DIRECTED [facility] atorvastati n 80 mg tablet Take 1 tablet every day by oral route. atorvastati n 80 mg tablet Take 1 tablet every day by oral route. No 1 Q1D atorvastat in 80 mg tablet Take 1 tablet every day by oral route. [facility] Ensure Give 237 ml by mouth twice a day. Ensure Give 237 ml by mouth twice a day. No Ensure Give 237 ml by mouth twice a day. [facility] ezetimibe 10 mg tablet TAKE 1 TABLET BY MOUTH EVERY DAY ezetimibe 10 mg tablet TAKE 1 TABLET BY MOUTH EVERY DAY No ezetimibe 10 mg tablet TAKE 1 TABLET BY MOUTH EVERY DAY [facility] Iron (ferrous sulfate) 325 mg (65 mg iron) tablet Take 1 tablet every day by oral route. Iron (ferrous sulfate) 325 mg (65 mg iron) tablet Take 1 tablet every day by oral route. No 1 Q1D Iron (ferrous sulfate) 325 mg (65 mg iron) tablet Take 1 tablet every day by oral route. [facility] magnesium 200 mg (as magnesium oxide) tablet Take 1 tablet twice a day by oral route. magnesium 200 mg (as magnesium oxide) tablet Take 1 tablet twice a day by oral route. No 1 BID magnesium 200 mg (as magnesium oxide) tablet Take 1 tablet twice a day by oral route. [facility] Adult Low Dose Aspirin 81 mg [...] ONE TABLET BY MOUTH EVERY WEEK DIRECTED [facility] atorvastati n 80 mg tablet Take 1 tablet every day by oral route. atorvastati n 80 mg tablet Take 1 tablet every day by oral route. No 1 Q1D atorvastat in 80 mg tablet Take 1 tablet every day by oral route. [facility] Ensure Give 237 ml by mouth twice a day. Ensure Give 237 ml by mouth twice a day. No Ensure Give 237 ml by mouth twice a day. [facility] ezetimibe 10 mg tablet TAKE 1 TABLET BY MOUTH EVERY DAY ezetimibe 10 mg tablet TAKE 1 TABLET BY MOUTH EVERY DAY No ezetimibe 10 mg tablet TAKE 1 TABLET BY MOUTH EVERY DAY [facility] Adult Low Dose Aspirin 81 mg tablet,zoila yed release Take 1 tablet every day by oral route. Adult Low Dose Aspirin 81 mg tablet,zoila yed release Take 1 tablet every day by oral route. No 1 Q1D Adult Low Dose Aspirin 81 mg tablet,del ayed release Take 1 tablet every day by oral route. [facility] alendronate 70 mg tablet TAKE ONE TABLET BY MOUTH EVERY WEEK DIRECTED alendronate 70 mg tablet TAKE ONE TABLET BY MOUTH EVERY WEEK DIRECTED No alendronat e 70 mg tablet TAKE ONE TABLET BY MOUTH EVERY WEEK DIRECTED [facility] atorvastati n 80 mg tablet Take 1 tablet every day by oral route. atorvastati n 80 mg tablet Take 1 tablet every day by oral route. No 1 Q1D atorvastat in 80 mg tablet Take 1 tablet every day by oral route. [facility] Ensure Give 237 ml by mouth twice a day. Ensure Give 237 ml by mouth twice a day. No Ensure Give 237 ml by mouth twice a day. [facility] ezetimibe 10 mg tablet TAKE 1 TABLET BY MOUTH EVERY DAY ezetimibe 10 mg tablet TAKE 1 TABLET BY MOUTH EVERY DAY No ezetimibe 10 mg tablet TAKE 1 TABLET BY MOUTH EVERY DAY [facility] Advil 200 mg tablet Take 1 tablet every 6 hours by oral route. Advil 200 mg tablet Take 1 tablet every 6 hours by oral route. No 1 Q6H Advil 200 mg tablet Take 1 tablet every 6 hours by oral route. [facility] Nicole-Seltze r Heartburn Nicole-Seltze r Heartburn No Nicole-Seltz er Heartburn [facility] amlodipine 5mg amlodipine 5mg No amlodipine 5mg [facility] armodafinil 250 mg tablet Take 1 tablet every day by oral route. armodafinil 250 mg tablet Take 1 tablet every day by oral route. No 1 Q1D armodafini l 250 mg tablet Take 1 tablet every day by oral route. [facility] Azo Azo No Azo [facility] B12 5000mg B12 5000mg No B12 5000mg [facility] bupropion HBr 300mg bupropion HBr 300mg No bupropion HBr 300mg [facility] famotidine 40mg famotidine 40mg No famotidine 40mg [facility] furosemide 40 mg tablet Take 1 tablet every day by oral route. furosemide 40 mg tablet Take 1 tablet every day by oral route. No 1 Q1D furosemide 40 mg tablet Take 1 tablet every day by oral route. [facility] gabapentin 800mg bid gabapentin 800mg bid No gabapentin 800mg bid [facility] Gaviscon Gaviscon No Gaviscon [facility] hydrocodone 5 mg-acetamin ophen 325 mg tablet [...] oral route. take as needed for pain [facility] olanzapine 5mg olanzapine 5mg No olanzapine 5mg [facility] Senokot Senokot No Senokot [facility] Vitamin D vitamin d 12 weekly Vitamin D vitamin d 12 weekly No Vitamin D vitamin d 12 weekly [facility] Zantac 150 mg tablet Take 1 tablet twice a day by oral route. Zantac 150 mg tablet Take 1 tablet twice a day by oral route. No 1 BID Zantac 150 mg tablet Take 1 tablet twice a day by oral route. [facility] zolpidem 5 mg tablet Take 1 tablet every day by oral route. zolpidem 5 mg tablet Take 1 tablet every day by oral route. No 1 Q1D zolpidem 5 mg tablet Take 1 tablet every day by oral route. [facility] Immunizations Ordered Immunization Name Filled Immunization Name [...] influenza nasal, unspecified formulation 2022-04-07 00:00:00 Completed [facility] Influenza Virus Vaccine,quad Im,preserve Free 65+ 2022-04-07 00:00:00 Completed [facility] Influenza Virus Vaccine,quad Im,preserve Free 65+ 2022-04-07 00:00:00 Completed [facility] Influenza Virus Vaccine,quad Im,preserve Free 65+ 2022-04-07 00:00:00 Completed [facility] Influenza Virus Vaccine,quad Im,preserve Free 65+ 2022-04-07 00:00:00 Completed [facility] Influenza Virus Vaccine,quad Im,preserve Free 65+ 2022-04-07 00:00:00 Completed [facility] Influenza Virus Vaccine,quad Im,preserve Free 65+ 2022-04-07 00:00:00 Completed [facility] Influenza Virus Vaccine,quad Im,preserve Free 65+ 2022-04-07 00:00:00 Completed [facility] Influenza Virus Vaccine,quad Im,preserve Free 65+ (FLUAD) Unknown Completed [facility] Influenza Virus Vaccine,quad Im,preserve Free 65+ (FLUAD) Unknown Completed [facility] Influenza Virus Vaccine,quad Im,preserve Free 65+ (FLUAD) Unknown Completed [facility] Influenza Virus Vaccine,quad Im,preserve Free 65+ (FLUAD) Unknown Completed [facility] Vital Signs Vital Name Observation Time Observation Value Comments S ource Systolic blood pressure 2022-09-03 02:00:00 133 mm[Hg] [facility] Diastolic blood pressure 2022-09-03 02:00:00 75 mm[Hg] [facility] Heart rate 2022-09-03 02:00:00 70 /min [facility] Body temperature 2022-09-03 02:00:00 36.22 Erin [facility] Respiratory rate 2022-09-03 02:00:00 20 /min [facility] Oxygen saturation in Arterial blood by Pulse oximetry 2022-09-03 02:00:00 98 /min [facility] Body height 2022-09-02 23:17:00 162.6 cm [facility] Body weight 2022-09-02 23:17:00 75.297 kg [facility] BMI 2022-09-02 23:17:00 28.49 kg/m2 [facility] BP Diastolic 2022-05-18 00:00:00 78 mm[Hg] Caty [...] Systolic blood pressure 2022-04-07 21:25:00 110 mm[Hg] [facility] Diastolic blood pressure 2022-04-07 21:25:00 67 mm[Hg] [facility] Heart rate 2022-04-07 21:25:00 90 /min [facility] Body temperature 2022-04-07 21:25:00 36.56 Erin [facility] Body height 2022-04-07 21:25:00 162.6 cm [facility] Body weight 2022-04-07 21:25:00 74.39 kg [facility] BMI 2022-04-07 21:25:00 28.15 kg/m2 [facility] Oxygen saturation in Arterial blood by Pulse oximetry 2022-04-07 21:25:00 98 /min [facility] Systolic blood pressure 2022-03-27 23:00:00 118 mm[Hg] [facility] Diastolic blood pressure 2022-03-27 23:00:00 68 mm[Hg] [facility] Heart rate 2022-03-27 23:00:00 82 /min [facility] Respiratory rate 2022-03-27 23:00:00 16 /min [facility] Oxygen saturation in Arterial blood by Pulse oximetry 2022-03-27 23:00:00 99 /min [facility] Body temperature 2022-03-27 20:11:00 36.56 Erin [facility] Body height 2022-03-27 20:11:00 162.6 cm [facility] Body weight 2022-03-27 20:11:00 72.576 kg [facility] BMI 2022-03-27 20:11:00 27.46 kg/m2 [facility] Systolic blood pressure 2021-03-31 19:39:00 115 mm[Hg] [facility] Diastolic blood pressure 2021-03-31 19:39:00 76 mm[Hg] [facility] Heart rate 2021-03-31 19:39:00 85 /min [facility] Body height 2021-03-31 19:39:00 162.6 cm [facility] Body weight 2021-03-31 19:39:00 77.565 kg [facility] BMI 2021-03-31 19:39:00 29.35 kg/m2 [facility] BP Diastolic 2019-01-30 00:00:00 71 mm[Hg] [facility] Height 2019-01-30 00:00:00 64 [in_i] [facility] BMI (Body Mass Index) 2019-01-30 00:00:00 35.7 kg/m2 [facility] BP Systolic 2019-01-30 00:00:00 109 mm[Hg] [facility] Body Weight 2019-01-30 00:00:00 3328 [oz_av] [facility] Procedures Procedure Date / Time Performed Performing Clinician Source NOTICE OF PRIVACY PRACTICES 2022-09-03 00:53:01 Doctor Unassigned, [place] [facility] CONSENT/REFUSAL FOR DIAGNOSIS AND TREATMENT 2022-09-03 00:52:28 Doctor Unassigned, [place] [facility] XR CHEST 1 VW 2022-09-03 00:06:19 Ariela Samano [facility] COMP. METABOLIC PANEL ([id number]) 2022-09-02 23:25:00 Ariela Samano [facility] CBC WITH DIFF 2022-09-02 23:25:00 Ariela Samano [facility] LACTIC ACID WHOLE BLOOD 2022-09-02 23:25:00 Waqar Samano [facility] MEDICATION CORRESPONDENCE 2022-05-26 06:01:00 Do ctor Unassigned, [place] [facility] BASIC METABOLIC PANEL (NA, K, CL, CO2, GLUCOSE, BUN, CREATININE, CA) 2022-04-07 21:58:00 Zoraida Coulter [facility] CBC WITH DIFF 2022-04-07 21:58:00 Amrit Coulter darrion [facility] FLU VACC(),65+YR,0.5 ML,IM,ADJUVANTED,QUAD(FLU AD) 2022-04-07 21:38:51 Zoraida Coulter [facility] CT ABDOMEN PELVIS WO CONTRAST 2022-03-27 22:24:15 Karri Levin [facility] XR CHEST 1 VW 2022-03-27 21:31:00 Karri Levin [facility] URINALYSIS 2022-03-27 21:15:00 Karri Levin [facility] MAGNESIUM 2022-03-27 21:01[facility] 2022-03-27 21:01:00 Karri Levin [facility] COMP. METABOLIC PANEL ([id number]) 2022-03-27 21:01:00 Karri Levin [facility] CBC WITH DIFF 2022-03-27 21:01:00 Karri Levin [facility] N-TERMINAL PRO-BNP 2022-03-27 21:01:00 Karri Levin [facility] XR KNEE 3 VW LEFT 2021-04-08 20:08:00 Matti Cee [facility] XR, hip, unilateral 2019-01-30 00:00:00 [facility] Open Reduction of Fracture of Femur [facility] Hyste[facility] Oophorectomy [facility] Knee Surgery [facility] Procedure on Wrist [facility] Encounters Start Date/Time End Date/Time Encounter Type Admission Type Attending Clinicians Care Facility Care Department Encounter ID Source 2022-06-09 15:26:[address] [facility] [id number] [facility] 2021-10-26 06:31:[address] [facility] [id number] [facility] 2021-10-14 10:31:[address] [facility] [id number] [facility] 2023-06-22 00:00:00 2023-06-22 00:00:00 RefZoraida King [facility] BILLIE?[facility] [id number] [facility] 2023-06-01 00:00:00 2023-06-01 00:00:00 Refrisa Coulter [facility] BILLIE?[facility] [id number] [facility] 2023-03-19 00:00:00 2023-03-19 00:00:00 RefZoraida King [facility] BILLIE?[facility] [id number] [facility] 2023-01-28 00:00:00 2023-01-28 00:00:00 Refill [facility] [facility] BILLIE?[facility] BUILD[facility] 1.2.840.114 350.1.13.10 4.2.7.2.686 [id number] [facility] 2022-09-02 18:18:00 2022-09-02 22:00:00 Emergency X ARIELA SAMANO [facility] ERT [id number] [facility] 2022-09-02 18:18:00 2022-09-02 22:00:00 Emergency Ariela Samano [facility] 1.2840.114 350.1.13.10 4.2.7.2.686 [id number] [facility] 2022-06-07 00:00:00 2022-06-07 00:00:00 Outpatient GC_BAHC_Tod d_J PRIV PRIV [id number] [facility] 2022-05-27 00:00:00 2022-05-27 00:00:00 Refill Marylin [facility] MEDICAL OFFICE [facility] 1.2.840.114 350.1.13.10 4.2.7.2.686 [id number] [facility] 2022-05-27 00:00:00 2022-05-27 00:00:00 Telephone Marylin [facility] MEDICAL OFFICE [facility] 1.2840.114 350.1.13.10 4.2.7.2.686 [id number] [facility] 2022-05-26 00:00:00 2022-05-26 00:00:00 Telephone Marylin [facility] 1.2840.114 350.1.13.10 4.2.7.2.686 [id number] [facility] 2022-05-26 00:00:00 2022-05-26 00:00:00 Orders Only Doctor Unassigned, [place] [facility] 1.2840.114 350.1.13.10 4.2.7.2.686 [id number] [facility] 2022-05-19 00:00:00 2022-05-19 00:00:00 Outpatient GC_BAHC_Tod d_J PRIV PRIV [id number] [facility] 2022-05-19 00:00:00 2022-05-19 00:00:00 Outpatient GC_BAHC_Tod d_J PRIV PRIV [id number] [facility] 2022-05-19 00:00:00 2022-05-19 00:00:00 Outpatient GC_BAHC_Tod d_J PRIV PRIV [id number] [facility] 2022-05-19 00:00:00 2022-05-19 00:00:00 Outpatient GC_BAHC_Tod d_J PRIV PRIV [id number] [facility] 2022-05-19 00:00:00 2022-05-19 00:00:00 Outpatient GC_BAHC_Tod d_J PRIV PRIV [id number] [facility] 2022-05-19 00:00:00 2022-05-19 00:00:00 Outpatient GC_BAHC_Tod d_J PRIV PRIV [id number] [facility] 2022-05-19 00:00:00 2022-05-19 00:00:00 Outpatient GC_BAHC_Tod d_J PRIV PRIV [id number] [facility] 2022-05-19 00:00:00 2022-05-19 00:00:00 Outpatient GC_BAHC_Tod d_J PRIV PRIV [id number] [facility] 2022-05-19 00:00:00 2022-05-19 00:00:00 Outpatient GC_BAHC_Tod d_J PRIV PRIV [id number] [facility] 2022-05-19 00:00:00 2022-05-19 00:00:00 Outpatient GC_BAHC_Tod d_J PRIV PRIV [id number] [facility] 2022-05-19 00:00:00 2022-05-19 00:00:00 Outpatient GC_BAHC_Tod d_J PRIV PRIV [id number] [facility] 2022-05-19 00:00:00 2022-05-19 00:00:00 Outpatient GC_BAHC_Tod d_J PRIV PRIV [id number] [facility] 2022-05-19 00:00:00 2022-05-19 00:00:00 Outpatient GC_BAHC_Tod d_J PRIV PRIV [id number] [facility] 2022-05-19 00:00:00 2022-05-19 00:00:00 Outpatient GC_BAHC_Tod d_J PRIV PRIV [id number] [facility] 2022-05-19 00:00:00 2022-05-19 00:00:00 Outpatient GC_BAHC_Tod d_J PRIV PRIV [id number] [facility] 2022-05-18 00:00:00 2022-05-18 00:00:00 Jeffry Parrish MD: [address] [place] [phone] , Ph. [facility] GC_BAHC_[facility] [id number] [facility] 2022-05-12 00:00:00 2022-05-12 00:00:00 POONAM Anderson: [address] [place] [phone] , Ph. [facility] GC[facility] [id number] [facility] 2022-05-07 00:00:00 2022-05-07 00:00:00 Outpatient GC_BAHC_Tod d_J [facility] [id number] [facility] 2022-05-07 00:00:00 2022-05-07 00:00:00 Outpatient GC_BAHC_Tod d_J [facility] [id number] [facility] 2022-05-07 00:00:00 2022-05-07 00:00:00 Outpatient GC_BAHC_Tod d_J [facility] [id number] [facility] 2022-05-07 00:00:00 2022-05-07 00:00:00 POONAM Anderson: [address] [place] [phone] , Ph. [facility] - GC_BAHC_[facility] [id number] [facility] 2022-05-06 00:00:00 2022-05-06 00:00:00 Outpatient GC_BAHC_Tod d_J [facility] [id number] [facility] 2022-04-07 15:45:00 2022-04-07 16:00:00 Lining Printer Visit Lab, K[facility] - [place] [facility] OFF[facility] BUILD[facility] 1.2.840.114 350.1.13.10 4.2.7.2.686 [id number] [facility] 2022-04-07 15:15:00 2022-04-07 15:47:59 Outpatient R [facility] [id number] [facility] 2022-04-07 15:15:00 2022-04-07 15:47:59 Office Visit Maryiln [facility]ILD[facility] 1.2.840.114 350.1.13.10 4.2.7.2.686 [id number] [facility] 2022-03-27 14:09:00 2022-03-27 17:18:00 Emergency X CLARISSARUPERTOLIANAKARRI [facility] ERT [id number] [facility] 2022-03-27 14:09:00 2022-03-27 17:18:00 Emergency Karri Levin S [facility] 1.2.840.114 350.1.13.10 4.2.7.2.686 [id number] [facility] 2021-11-19 00:00:00 2021-11-19 00:00:00 Outpatient ANIL MCCOLLUM [facility] [id number] [facility] 2021-04-08 13:58:04 2021-04-08 23:59:00 Hospital Encounter Matti Cee [facility] 1.2.840.114 350.1.13.10 4.2.7.2.686 [id number] [facility] 2021-04-08 13:30:00 2021-04-08 14:30:16 Outpatient R MATTI CEE [facility] [id number] [facility] 2021-04-08 14:00:00 2021-04-08 14:00:00 Outpatient R MATTI CEE [facility] [id number] [facility] 2021-04-02 09:45:00 2021-04-02 09:45:00 Outpatient Bernadine ROMERO ELDER [facility] [id number] [facility] 2021-04-02 09:45:00 2021-04-02 09:45:00 Outpatient ELDER BRANTLEY [facility] [id number] [facility] 2021-03-31 13:30:00 2021-03-31 13:58:43 Outpatient ZORAIDA AYOUB [facility] [id number] [facility] 2021-03-31 13:21:58 2021-03-31 13:51:58 Office Visit Marylin Zoraida Oscar [facility] 1.2.840.114 350.1.13.10 4.2.7.2.686 [id number] [facility] 2020-12-29 16:13:00 2020-12-30 12:27:00 Outpatient YVETTE DEYR [facility] [id number] [facility] 2020-03-05 02:19:00 2020-03-05 02:19:00 Outpatient Phan ARAGON [facility] [id number] [facility] 2019-01-30 00:00:00 2019-01-30 00:00:00 You Blanchard MD: [address] [place] [address] [place] [address], [place] [address] , Ph. [facility] [place] [facility] [id number] [facility] Results Test Description Test Time Test Comments Results Result Co mments Source [facility]. METABOLIC PANEL (89851)2022-09-02 23:55:53* Test Item Value Reference Range Interpretation Comme nts NA (test code = 3652540295) 127 mmol/L 135-145 L K (test code = 6094168657) 3.9 mmol/L 3.5-5.0 CL (test code = 2129788713) 90 mmol/L 98-108 L CO2 TOTAL (test code = 7026304285) 27 mmol/L 23-31 AGAP (test code = 2695746816) 10 2-16 BUN (test code = 8397120485) 16 mg/dL 7-23 GLUCOSE (test code = 3585171693) 103 mg/dL 70-110 CREATININE (test code = 1047796485) 1.20 mg/dL 0.50-1.04 H TOTAL BILI (test code = 0386525981) 0.6 mg/dL 0.1-1.1 CALCIUM (test code = 3058412815) 8.8 mg/dL 8.6-10.6 T PROTEIN (test code = 7375693072) 6.2 g/dL 6.3-8.2 L ALBUMIN (test code = 8045678491) 4.0 g/dL 3.5-5.0 ALK PHOS (test code = 9727223384) 72 U/L 34-122 ALTv (test code = 1742-6) 22 U/L 5-35 AST(SGOT) (test code = 0393830298) 29 U/L 13-40 eGFR (test code = 9479503314) 44.0 mL/min/1.73m2 LINDA (test code = LINDA) [...] imaging tests). Lab Interpretation (test code = 72967-1) [facility] [id number] 23:38:13* Test Item Value Reference Range Interpretation Comme nts LACTIC ACID (test code = 6526563995) 1.80 mmol/L 0.50-2.20 Lab Interpretation (test cod e = 43939-2) Normal [facility] (NA, K, CL, CO2, GLUCOSE, BUN, CREATININE, CA)2022-04-08 08:56:09* Test Item Value Reference Range Interpretation Comme nts NA (test code = 1629377683) 138 mmol/L 135-145 K (test code = 2779700305) 4.0 mmol/L 3.5-5.0 CL (test code = 9106651894) 99 mmol/L 98-108 CO2 TOTAL (test code = 1797113923) 29 mmol/L 23-31 AGAP (test code = 9631923376) 2-16 BUN (test code = 0837026992) 22 mg/dL 7-23 GLUCOSE (test code = 7261534419) 101 mg/dL 70-110 CREATININE (test code = 2669025959) 2.00 mg/dL 0.50-1.04 H CALCIUM (test code = 7506121961) 9.4 mg/dL 8.6-10.6 eGFR (test code = 9933416400) mL/min/1.73m2 LINDA (test code = LINDA) Association [...] imaging tests). Lab Interpretation (test code = 49826-2) [facility]normal [facility] (NA, K, CL, CO2, GLUCOSE, BUN, CREATININE, CA)2022-04-08 08:56:09* Test Item Value Reference Range Interpretation Comme nts NA (test code = 2546494334) 138 mmol/L 135-145 K (test code = 9880652082) 4.0 mmol/L 3.5-5.0 CL (test code = 6045209153) 99 mmol/L 98-108 CO2 TOTAL (test code = 5489867575) 29 mmol/L 23-31 AGAP (test code = 1814418141) 2-16 BUN (test code = 8178626083) 22 mg/dL 7-23 GLUCOSE (test code = 5594693671) 101 mg/dL 70-110 CREATININE (test code = 2917165298) 2.00 mg/dL 0.50-1.04 H CALCIUM (test code = 2727121340) 9.4 mg/dL 8.6-10.6 eGFR (test code = 2903763867) mL/min/1.73m2 LINDA (test code = LINDA) Association [...] imaging tests). Lab Interpretation (test code = 68052-7) Abnormal [facility] WITH [id number] 08:15:22* Test Item Value Reference Range Interpretation Comme nts WBC (test code = 6690-2) See_Comment [Automated [employer]inx] The system which generated this result transmitted reference range: 4.30 - 11.10 10*3/?L. The reference range was not used to interpret this result as normal/abnormal. RBC (test code = 789-8) See_Comment [Automated messa ge] The system which [...] g/dL 31.6-35.1 L RDW-SD (test code = 96109-8) 49.2 fL 39.0-49.9 RDW-CV (test code = 788-0) 14.4 % 12.0-15.5 PLT (test code = 777-3) See_Comment [Automated messa ge] The system which generated this result transmitted reference range: 166 - 358 10*3/?L. The reference range was not used to interpret this result as normal/abnormal. MPV (test code = 96212-1) 9.4 fL 9.5-12.9 L NRBC/100 WBC (test code = 6770743962) See_Comment [Automated [employer] ssage] The system which generated this result transmitted reference range: 0.0 - 10.0 /100 WBCs. The reference range was not used to interpret this result as normal/abnormal. NRBC x10^3 (test code = 1416967972) See_Comment [Automated messa ge] The system which generated this result transmitted reference range: 10*3/?L. The reference range was not used to interpret this result as normal/abnormal. GRAN MAT (NEUT) % (test code = 770-8) 80.0 % IMM GRAN % (test code = 8674746742) 0.20 % LYMPH % (test code = 736-9) 13.9 % MONO % (test code = 5905-5) 5.4 % EOS % (test code = 713-8) 0.2 % BASO % (test code = 706-2) 0.3 % GRAN MAT x10^3(ANC) (test code = 8349757753) 4.89 10*3/uL 1.88-7.09 IMM GRAN x10^3 (test code = 4838996021) 0.00-0.06 LYMPH x10^3 (test code = 731-0) 0.85 10*3/uL 1.32-3.29 L MONO x10^3 (test code = 742-7) 0.33 10*3/uL 0.33-0.92 EOS x10^3 (test code = 711-2) 0.03-0.39 L BASO x10^3 (test code = 704-7) 0.01-0.07 Lab Interpretation (test code = 14290-9) Abnormal [facility] WITH [id number] 08:15:22* Test Item Value Reference Range Interpretation Comme nts WBC (test code = 6690-2) See_Comment [Automated [employer] ge] The system which generated this result transmitted reference range: 4.30 - 11.10 10*3/?L. The reference range was not used to interpret this result as normal/abnormal. RBC (test code = 789-8) See_Comment [Automated [employer]] The system which generated this result [...] g/dL 31.6-35.1 L RDW-SD (test code = 82755-2) 49.2 fL 39.0-49.9 RDW-CV (test code = 788-0) 14.4 % 12.0-15.5 PLT (test code = 777-3) See_Comment [Automated messa ge] The system which generated this result transmitted reference range: 166 - 358 10*3/?L. The reference range was not used to interpret this result as normal/abnormal. MPV (test code = 57187-1) 9.4 fL 9.5-12.9 L NRBC/100 WBC (test code = 5747610823) See_Comment [Automated me ssage] The system which generated this result transmitted reference range: 0.0 - 10.0 /100 WBCs. The reference range was not used to interpret this result as normal/abnormal. NRBC x10^3 (test code = 3552601991) See_Comment [Automated messa ge] The system which generated this result transmitted reference range: 10*3/?L. The reference range was not used to interpret this result as normal/abnormal. GRAN MAT (NEUT) % (test code = 770-8) 80.0 % IMM GRAN % (test code = 6394507919) 0.20 % LYMPH % (test code = 736-9) 13.9 % MONO % (test code = 5905-5) 5.4 % EOS % (test code = 713-8) 0.2 % BASO % (test code = 706-2) 0.3 % GRAN MAT x10^3(ANC) (test code = 0189896265) 4.89 10*3/uL 1.88-7.09 IMM GRAN x10^3 (test code = 9013430862) 0.00-0.06 LYMPH x10^3 (test code = 731-0) 0.85 10*3/uL 1.32-3.29 L MONO x10^3 (test code = 742-7) 0.33 10*3/uL 0.33-0.92 EOS x10^3 (test code = 711-2) 0.03-0.39 L BASO x10^3 (test code = 704-7) 0.01-0.07 Lab Interpretation (test code = 00944-4) Abnormal [facility] [id number] 21:55:12* Test Item Value Reference Range Interpretation Comments TROPONIN I (test code = 2235028137) 0.005 ng/mL See_Comment [Automated message] The system [...] of biotin. Lab Interpretation (test code = 51020-3) Normal [facility]-[id number] 21:52:11* Test Item Value Reference Range Interpretation Comme nts NT-proBNP (test code = 3664686176) 122 pg/mL See_Comment [Automated message] The system which generated this result transmitted reference range: <=125. The reference range was not used to interpret this result as normal/abnormal. LINDA (test code = LINDA) Biotin has been reported to cause a negative bias, interpret results relative to patient's use of biotin. Lab Interpretation (test code = 06131-2) Normal [facility]OLIC PANEL (97214)2022-03-27 21:29:29* Test Item Value Reference Range Interpretation Comme nts NA (test code = 5375803162) 136 mmol/L 135-145 K (test code = 2248663920) 3.1 mmol/L 3.5-5.0 L CL (test code = 7993079664) 96 mmol/L 98-108 L CO2 TOTAL (test code = 3529003579) 20 mmol/L 23-31 L AGAP (test code = 2424244532) 2-16 H BUN (test code = 6874995068) 31 mg/dL 7-23 H GLUCOSE (test code = 2342980975) 129 mg/dL 70-110 H CREATININE (test code = 9140549131) 1.93 mg/dL 0.50-1.04 H TOTAL BILI (test code = 5260710833) 1.0 mg/dL 0.1-1.1 CALCIUM (test code = 3350143829) 9.4 mg/dL 8.6-10.6 T PROTEIN (test code = 8513669968) 6.6 g/dL 6.3-8.2 ALBUMIN (test code = 4273857224) 4.6 g/dL 3.5-5.0 ALK PHOS (test code = 8957891486) 96 U/L 34-122 ALTv (test code = 1742-6) 36 U/L 5-35 H AST(SGOT) (test code = 4571346239) 36 U/L 13-40 eGFR (test code = 3634456674) mL/min/1.73m2 LINDA (test code = LINDA) Association [...] imaging tests). Lab Interpretation (test code = 04560-8) [facility] 21:23:30* Test Item Value Reference Range Interpretation Comme nts MAGNESIUM (test code = 6800519859) 2.0 mg/dL 1.7-2.4 Lab Interpretation (test cod e = 83081-0) Normal [facility] WITH [id number] 21:11:09* Test Item Value Reference Range Interpretation [...] 31.7 g/dL 31.6-35.1 RDW-SD (test code = 55145-5) 46.5 fL 39.0-49.9 RDW-CV (test code = 788-0) 13.6 % 12.0-15.5 PLT (test code = 777-3) See_Comment [Automated messa ge] The system which generated this result transmitted reference range: 166 - 358 10*3/?L. The reference range was not used to interpret this result as normal/abnormal. MPV (test code = 27184-6) 8.8 fL 9.5-12.9 L NRBC/100 WBC (test code = 5719760374) See_Comment [Automated [employer] ssage] The system which generated this result transmitted reference range: 0.0 - 10.0 /100 WBCs. The reference range was not used to interpret this result as normal/abnormal. NRBC x10^3 (test code = 3872279662) See_Comment [Automated messa ge] The system which generated this result transmitted reference range: 10*3/?L. The reference range was not used to interpret this result as normal/abnormal. GRAN MAT (NEUT) % (test code = 770-8) 88.6 % IMM GRAN % (test code = 3813986477) 0.40 % LYMPH % (test code = 736-9) 6.4 % MONO % (test code = 5905-5) 4.4 % EOS % (test code = 713-8) 0.0 % BASO % (test code = 706-2) 0.2 % GRAN MAT x10^3(ANC) (test code = 2611578255) 9.53 10*3/uL 1.88-7.09 H IMM GRAN x10^3 (test code = 0753227581) 0.04 10*3/uL 0.00-0.06 LYMPH x10^3 (test code = 731-0) 0.69 10*3/uL 1.32-3.29 L MONO x10^3 (test code = 742-7) 0.47 10*3/uL 0.33-0.92 EOS x10^3 (test code = 711-2) 0.03-0.39 L BASO x10^3 (test code = 704-7) 0.01-0.07 Lab Interpretation (test code = 06744-3) Abnormal [facility]"
[2024-01-20 13:44] LABS: Absolute Lymphocytes (CBC) 0.4 K/uL (0.7-4.9); Absolute Monocytes 0.4 K/uL (0.1-1.3); Absolute Neutrophil 4.2 K/uL (1.8-8.0); Basophils % 0.6 % (0-1.3); Eosinophils % 0.2 % (0-4.4); Hemoglobin 11.7 g/dL (12.0-15.0); Lymphocytes % 7.6 % (15.3-44.8); MCH 30.7 pg (27.0-35.0); MCHC 33.4 g/dL (32.0-36.0); MPV 7.7 fL (7.6-11.3); Monocytes % 8.7 % (3.3-12.3); Neutrophils % 82.9 % (41.7-73.7); PT Prothrombin Time 11.8 SECONDS (9.4-12.5); Platelets 155 thou/uL (152-406); Protime INR 1.06; Red Cell Distribution Width 14.7 % (12.1-15.2)
[2024-01-20 13:58] LABS: Albumin 3.4 g/dL (3.4-5.0); Albumin/Globulin Ratio 0.9 (1.1-1.8); Anion Gap 11.6 mEq/L (5.0-15.0); Bilirubin Direct 0.5 mg/dL (0-0.2); Bilirubin Indirect, Calculated 0.9 mg/dL (0.2-0.8); Bilirubin Total 1.4 mg/dL (0.2-1.0); Globulin 3.6 g/dL (2.3-3.5); Magnesium 1.9 mg/dL (1.6-2.4); Troponin High Sensitivity 13.7 pg/mL (<58.9)
[2024-01-20 14:00] LABS: Potassium 2.6 mEq/L (3.5-5.1)
[2024-01-20 14:04] LABS: Specific Gravity 1.009 (1.005-1.030); Sqamous Epithelial None Seen /HPF (None Seen); Transitional Epithelial <5 /HPF (None Seen); Urine Bacteria 20-50 /HPF (<20); Urine Bilirubin NEGATIVE (Negative); Urine Blood Negative (Negative); Urine Clarity Extremely Turbid (Clear); Urine Color Light-Yellow (Yellow); Urine Culture Reflex Order REFLEXED; Urine Glucose NEGATIVE (Negative); Urine Ketones NEGATIVE (Negative); Urine Microscopic Reflex YN ORDER UMIC; Urine Mucus Slight /HPF (None Seen); Urine Nitrite NEGATIVE (Negative); Urine Protein TRACE (Negative); Urine RBC <5 /HPF (None Seen); Urine Urobilinogen Normal (Normal); Urine WBC >50 /HPF (<5); Urine pH 7.5 (5.0-7.0)
--- NOTE | 2024-01-20 14:23 | RAD REPORT ---
EXAMINATION: ONE VIEW CHEST XR CLINICAL INDICATION: COUGH TECHNIQUE: Frontal chest projection is submitted. Examination is limited by patient positioning and t echnique. COMPARISON: No prior exam. FINDINGS: The lungs are well inflated and clear. The heart is normal in size. No displaced fractures identified . IMPRESSION: No acute intrathoracic abnormalities.
[2024-01-20] MEDS ORDERED: CEFTRIAXONE 1000 MG/VIAL ONE (14:29)
[2024-01-20] MEDS ORDERED: POTASSIUM 25 MEQ EFFERV TAB ONE (14:30)
--- NOTE | 2024-01-20 14:53 | RAD REPORT ---
EXAM: CT brain without contrast HISTORY: TRAUMA COMPARISON: 12/06/2023 TECHNIQUE: Multiple contiguous axial images were obtained and a CT of the brain without contrast. Sag ittal and coronal reformats were performed. One or more of the following dose reduction techniques were used: Automated exposure control, adjust ment of the mA and/or kV according to patient size, and/or iterative reconstruction. FINDINGS: No evidence of hydrocephalus, intracranial hemorrhage, or extra-axial fluid collection. The brain is normal in morphology. No evidence of midline shift or areas of brain edema. The calvarium is intact. The visualized paranasal sinuses and mastoid air cells are essentially clear . IMPRESSION: No evidence of acute intracranial abnormality. EXAM: CT of the cervical spine without contrast HISTORY: Neck yang, injury [facility] MAIN Y TRAUMA Bed Name: 15 COMPARISON: None TECHNIQUE: Multiple contiguous axial images were obtained in a CT of the cervical spine without contr ast. Sagittal and coronal reformats were performed. FINDINGS: 3 mm degenerative retrolisthesis of C2 on C3 is noted. One MM degenerative retrolisthesis o f C3 on 4 is seen. No evidence of acute fracture or subluxation.. Mild mid and lower calcified disc/osteophyte complexes are present compatible spondylosis. No prevertebral soft tissue swelling i s seen. The posterior facets are well aligned. Normal alignment of the skull base with the cervical spine is seen. Carotid atherosclerosis bilaterally. The lung apices are unremarkable. IMPRESSION: No evidence of acute osseous abnormality of the cervical spine.
--- NOTE | 2024-01-20 15:00 | RAD REPORT ---
EXAM: CT CHEST, ABDOMEN AND PELVIS WITHOUT CONTRAST CLINICAL INDICATION: PAIN TECHNIQUE: CT chest, abdomen and pelvis was performed without contrast, as per department protocol. A xial, sagittal and coronal reconstructions were obtained. One or more of the following dose reduction techniques were used: Automated exposure control, adjustment of the mA and/or kV according to patient size, and/or iterative reconstruction. Unless otherwise specified, incidental findings do not require dedicated imaging follow-up. Examination is limited by the lack of intravenous contrast material. COMPARISON: 04/29/2022, 12/06/2023 FINDINGS: LUNGS: Several benign calcified granulomata noted. No worrisome lung lesion or nodule. No infiltrate seen. PLEURA: No pleural effusion. No pneumothorax. MEDIASTINUM AND LYMPH NODES: No mediastinal mass or fluid collection. Normal size mediastinal, hilar, and axillary lymph nodes. OSSEOUS STRUCTURES AND CHEST WALL: Evidence of healed prior sternal fracture noted with sclerosis. LIVER: Normal in size and contour. No focal lesion or biliary dilatation. PANCREAS: No mass, ductal dilation, or polly-pancreatic fluid. SPLEEN: Normal size. No focal lesion. ADRENALS: Normal; no mass. KIDNEYS: Punctate calculus inferior right kidney. No hydronephrosis bilaterally. URINARY BLADDER: Normal contour. GASTROINTESTINAL TRACT: No bowel obstruction, free air, significant free fluid or abscess. There is mild diverticulosis coli of the sigmoid colon without diverticulitis. APPENDIX: Appendix not visualized, but no inflammatory changes in region of appendix. LYMPH NODES: No lymphadenopathy. MUSCULOSKELETAL: Multiple wedge compression deformities affect the thoracic and lumbar vertebral leve ls with a diffuse pattern of osteopenia. These are probably subacute or chronic in timeframe. OTHER: Aortic atherosclerosis. IMPRESSION: No acute findings demonstrated. Multiple additional findings are fully detailed above.
[2024-01-20] MEDS ORDERED: NS KCL 20MEQ 1,000 ML IV ONE (16:46)
[2024-01-20] MEDS ORDERED: NA CHLORIDE 0.9% 1,000 ML ONE (16:46)
--- NOTE | 2024-01-20 16:52 | EDPHYS ---
Physician Documentation [facility] Name: Joyce Saha Age: 73 yrs Sex: Female : 1950 Arrival Date: 01/20/2024 Time: 13:07 Bed 15 Private MD: ED Physician Redd Miranda HPI: 01/19 16:39 This 73 yrs old Female presents to ER via EMS with complaints of Fall Injury ana - frequent falls. 16:39 Details of fall: The patient fell from an upright position, while walking. Onset: The ana symptoms/episode began/occurred 5 day(s) ago. Associated injuries: The patient sustained no obvious injury. Severity of symptoms: At their worst the symptoms were moderate, in the emergency department the symptoms are unchanged. The patient has experienced similar episodes in the past, multiple times. Historical: - Allergies: 13:14 acutane; ap3 13:14 Allopurinol; ap3 13:14 Codeine; ap3 13:14 amlodipine; ap3 13:14 budesonide; ap3 13:14 Hydrochlorothiazide; ap3 13:14 formoterol fumarate; ap3 - PMHx: 13:14 Congestive heart failure; depressive disorder; Gastroesophageal reflux disease; ap3 Hypercholesterolemia; Hypertensive disorder; Hypertensive disorder; osteoarthritis; Osteoporosis; - Immunization history:: Client reports having NOT received the Covid vaccine. - Infectious Disease History:: Denies. - Social history:: Smoking status: Patient/guardian denies using tobacco. ROS: 16:40 Constitutional: Negative for fever, chills, and weight loss, Eyes: Negative for injury, ana pain, redness, and discharge, ENT: Negative for injury, pain, and discharge, Neck: Negative for injury, pain, and swelling, Cardiovascular: Negative for chest pain, palpitations, and edema, Respiratory: Negative for shortness of breath, cough, wheezing, and pleuritic chest pain, Abdomen/GI: Negative for abdominal pain, nausea, vomiting, diarrhea, and constipation, Back: Negative for injury and pain, : Negative for injury, bleeding, discharge, and swelling, MS/Extremity: Negative for injury and deformity, Skin: Negative for injury, rash, and discoloration, Psych: Negative for depression, anxiety, suicide ideation, homicidal ideation, and hallucinations, Allergy/Immunology: Negative for hives, rash, and allergies, Endocrine: Negative for neck swelling, polydipsia, polyuria, polyphagia, and marked weight changes, Hematologic/Lymphatic: Negative for swollen nodes, abnormal bleeding, and unusual bruising, 16:40 Neuro: Positive for tremor, weakness, Exam: 16:40 Constitutional: This is a well developed, well nourished patient who is awake, alert, ana and in no acute distress. Head/Face: Normocephalic, atraumatic. Eyes: Pupils equal round and reactive to light, extra-ocular motions intact. Lids and lashes normal. Conjunctiva and sclera are non-icteric and not injected. Cornea within normal limits. Periorbital areas with no swelling, redness, or edema. ENT: Nares patent. No nasal discharge, no septal abnormalities noted. Tympanic membranes are normal and external auditory canals are clear. Oropharynx with no redness, swelling, or masses, exudates, or evidence of obstruction, uvula midline. Mucous membranes moist. Neck: Trachea midline, no thyromegaly or masses palpated, and no cervical lymphadenopathy. Supple, full range of motion without nuchal rigidity, or vertebral point tenderness. No Meningismus. Chest/axilla: Normal chest wall appearance and motion. Nontender with no deformity. No lesions are appreciated. Cardiovascular: Regular rate and rhythm with a normal S1 and S2. No gallops, murmurs, or rubs. Normal PMI, no JVD. No pulse deficits. Respiratory: Lungs have equal breath sounds bilaterally, clear to auscultation and percussion. No rales, rhonchi or wheezes noted. No increased work of breathing, no retractions or nasal flaring. Abdomen/GI: Soft, non-tender, with normal bowel sounds. No distension or tympany. No guarding or rebound. No evidence of tenderness throughout. Back: No spinal tenderness. No costovertebral tenderness. Full range of motion. Female : Normal external genitalia. Skin: Warm, dry with normal turgor. Normal color with no rashes, no lesions, and no evidence of cellulitis. MS/ Extremity: Pulses equal, no cyanosis. Neurovascular intact. Full, normal range of motion. Psych: Awake, alert, with orientation to person, place and time. Behavior, mood, and affect are within normal limits. 16:40 ECG was reviewed by the Attending Physician. 16:40 Neuro: Orientation: is normal, appropriate for stated age, no acute changes, Mentation: is normal, appropriate for stated age, no acute changes, Memory: appropriate for stated age, no acute changes, Cranial nerves: grossly normal, is grossly normal based on the patient's age, no acute changes, Cerebellar function: is grossly normal, is grossly normal based on the patient's age, no acute changes, Motor: no acute changes, moves all fours, strength is normal, strength is 5/5 in all extremities, Sensation: is normal, no obvious gross deficits, appropriate no acute changes, Gait: not applicable Babinski testing is normal, seizure activity, is not displayed by the patient, Vital Signs: 13:13 BP 104 / 77; Pulse 87; Resp 17; Temp 97.8(O); Pulse Ox 96% on R/A; Weight 74.84 kg; ap3 Height 5 ft. 4 in. ; 14:55 BP 118 / 69; Pulse 86; Resp 16 S; Pulse Ox 99% on R/A; ss 15:30 BP 109 / 69; Pulse 89; Resp 16 S; Pulse Ox 98% on R/A; aa5 16:30 BP 102 / 68; Pulse 85; Resp 18 S; Temp 98(O); Pulse Ox 99% on R/A; aa5 17:00 BP 131 / 68; Pulse 83; Resp 18 S; Pulse Ox 100% on R/A; aa5 17:30 BP 124 / 72; Pulse 82; Resp 16 S; Pulse Ox 99% on R/A; aa5 18:30 BP 107 / 41; Pulse 81; Resp 18 S; Temp 98(O); Pulse Ox 98% on R/A; aa5 19:28 BP 113 / 68; Pulse 84; Resp 18; Pulse Ox 96% on R/A; kj2 13:13 Body Mass Index 28.32 (74.84 kg, 162.56 cm) ap3 MDM: 13:16 Patient medically screened. ana 16:44 Differential Diagnosis altered mental status, sepsis, flu. Differential diagnosis: ana closed head injury, contusion, fracture, multiple trauma, sprain, strain. Data reviewed: vital signs, nurses notes, lab test result(s), EKG, radiologic studies, plain films. Consideration of Admission/Observation Patient was admitted/placed on observation. Escalation of care including admission/observation considered. I considered the following discharge prescriptions or medication management in the emergency department Medications were administered in the Emergency Department. See MAR. Independent interpretation of the following test(s) in the Emergency Department EKG: See my EKG interpretation above. Test considered but Not performed: MRI: no mri brain. Care significantly affected by the following chronic conditions: Hypertension, Congestive Heart Failure, depression, gerd, high chlesterol. 01/19 13:18 Order name: Basic Metabolic Panel; Complete Time: 14:15 ana 01/19 13:18 Order name: CBC with Diff; Complete Time: 14:15 ana 01/19 13:18 Order name: LFT's; Complete Time: 14:15 ana 01/19 13:18 Order name: Magnesium; Complete Time: 14:15 ana 01/19 13:18 Order name: NT PRO-BNP; Complete Time: 14:15 ana 01/19 13:18 Order name: PT-INR; Complete Time: 14:15 ana 01/19 13:18 Order name: Troponin HS; Complete Time: 14:15 ana 01/19 13:18 Order name: Lipase; Complete Time: 14:15 ana 01/19 13:18 Order name: Urinalysis w/ reflexes; Complete Time: 14:15 ana 01/19 14:07 Order name: Urine Culture EDMS 01/19 17:33 Order name: Basic Metabolic Panel EDMS 01/19 17:33 Order name: Urinalysis w/ reflexes EDMS 01/19 17:33 Order name: Basic Metabolic Panel EDMS 01/19 17:33 Order name: Basic Metabolic Panel EDMS 01/19 17:33 Order name: Basic Metabolic Panel EDMS 01/19 17:33 Order name: Basic Metabolic Panel EDMS 01/19 17:33 Order name: Basic Metabolic Panel EDMS 01/19 17:33 Order name: Basic Metabolic Panel EDMS 01/19 17:33 Order name: CBC with Automated Diff EDMS 01/19 17:33 Order name: CBC with Automated Diff EDMS 01/19 17:33 Order name: CBC with Automated Diff EDMS 01/19 17:33 Order name: CBC with Automated Diff EDMS 01/19 17:33 Order name: CBC with Automated Diff EDMS 01/19 17:33 Order name: CBC with Automated Diff EDMS 01/19 17:33 Order name: Magnesium EDMS 01/19 17:33 Order name: Magnesium EDMS 01/19 17:33 Order name: Magnesium EDMS 01/19 17:33 Order name: Magnesium EDMS 01/19 17:33 Order name: Magnesium EDMS 01/19 17:33 Order name: Magnesium EDMS 01/19 17:33 Order name: Phosphorus EDMS 01/19 17:33 Order name: Phosphorus EDMS 01/19 17:33 Order name: Phosphorus EDMS 01/19 17:33 Order name: Phosphorus EDMS 01/19 17:33 Order name: Phosphorus EDMS 01/19 17:33 Order name: Phosphorus EDMS 01/19 17:33 Order name: Troponin High Sensitivity EDMS 01/19 17:33 Order name: Troponin High Sensitivity EDMS 01/19 17:33 Order name: Troponin High Sensitivity EDMS 01/19 13:18 Order name: XRAY Chest (1 view); Complete Time: 15:46 [facility] [place] 01/19 13:18 Order name: CT Head C Spine; Complete Time: 15:46 [facility] [place] 01/19 13:18 Order name: CT Chest Abdomen Pelvis W/O Contrast; Complete Time: 15:46 [facility] [place] 01/19 17:33 Order name: ERT ORTHOSTATIC V/S EDMS 01/19 17:33 Order name: Physical Therapy Consult EDKY 01/19 13:18 Order name: Cardiac monitoring; Complete Time: 13:24 [facility] [place] 01/19 13:18 Order name: EKG - Nurse/Tech; Complete Time: 13:48 [facility] [place] 01/19 13:18 Order name: IV Saline Lock; Complete Time: 13:27 [facility] [place] 01/19 13:18 Order name: Labs collected and sent; Complete Time: 13:48 [facility] [place] 01/19 13:18 Order name: O2 Per Protocol; Complete Time: 13:19 [facility] [place] 01/19 13:18 Order name: O2 Sat Monitoring; Complete Time: 13:19 [facility] [place] EC:40 Rate is 82 beats/min. Rhythm is regular. QRS [place] is Normal. DC interval is normal. QRS ana interval is normal. QT interval is normal. No Q waves. T waves are Normal. No ST changes noted. Clinical impression: Abnormal EKG without significant change and No evidence of ischemia. Interpreted by me. Reviewed by me. Administered Medications: 14:57 Drug: Potassium PO Effervescent Tablet 50 mEq PO once; dissolve in 4 ounces of water or ss juice Route: PO; 15:30 Follow up: Response: No adverse reaction aa5 14:57 Drug: Rocephin IV 1 grams IV at per protocol once; Given slow IV push per pharmacy ss instructions Route: IV; Rate: per protocol; Site: left antecubital; 15:00 Follow up: IV Status: Completed infusion aa5 15:30 Follow up: Response: No adverse reaction aa5 16:58 Drug: NS 0.9% IV 1000 ml IV at 1 bolus Per protocol; 1000 mL bolus Route: IV; Rate: 1 aa5 bolus; Site: left antecubital; 18:00 Follow up: IV Status: Completed infusion; IV Intake: 1000ml aa5 16:58 Drug: NS 0.9% with KCl IV 20 mEq/L 1000 ml IV at 125 ml/hr continuous Route: IV; Rate: aa5 125 ml/hr; Site: left antecubital; 18:54 Follow up: IV Status: Infusion continued upon admission aa5 Disposition Summary: 01/20/24 16:51 Hospitalization Ordered Notes: Hospitalization Status: Inpatient Admission ana Provider: Shantell Booker cha Location: Telemetry/[facility]Sur (Inpatient) ana Condition: Fair ana Problem: new ana Symptoms: have improved ana Bed/Room Type: Standard ana Room Assignment: 405(01/20/24 18:27) mb4 Diagnosis - Dehydration ana - UTI/ Urinary tract infection, site not specified ana - Hypokalemia ana - Acute kidney failure, unspecified - on chronic ana - Weakness ana - Other specified forms of tremor ana Forms: - Medication Reconciliation Form ana - SBAR form ana - Leadership Thank You Letter ana Signatures: Dispatcher [employer] EDRedd Mcmanus MD MD cha Calderon, Audri, RN RN aa5 Carolina Anton RN RN Lisset Strickland RN RN ap3 Nusrat Argueta mb4 Corrections: (The following items were deleted from the chart) 13:19 13:19 BASIC METABOLIC PANEL+C.LAB.BRZ ordered. EDMS EDMS 13:19 13:19 CBC+H.LAB.BRZ ordered. EDMS EDMS 13:19 13:19 HEPATIC FUNCTION+C.LAB.BRZ ordered. EDMS EDMS 13:19 13:19 MAGNESIUM+C.LAB.BRZ ordered. EDMS EDMS 13:19 13:19 PROBNP+C.LAB.BRZ ordered. EDMS EDMS 13:19 13:19 PROTIME (+INR)+COAG.LAB.BRZ ordered. EDMS EDMS 13:19 13:19 Troponin High Sensitivity+C.LAB.BRZ ordered. EDMS EDMS 13:19 13:19 LIPASE+C.LAB.BRZ ordered. EDMS EDMS 13:19 13:19 Urinalysis+U.LAB.BRZ ordered. EDMS EDMS 13:19 13:19 Chest Single View+RAD.RAD.BRZ ordered. EDMS EDMS 13:19 13:19 Head C Spine MPR Wo Con+CT.RAD.BRZ ordered. EDMS EDMS 13:19 13:19 Chest Abdomen Pelvis Wo Con+CT.RAD.BRZ ordered. EDMS EDMS 17:42 16:51 ana mb4 18:27 17:42 403 mb4 mb4
--- NOTE | 2024-01-20 16:52 | ER ---
Nurse's Notes [facility] Name: Joyce Saha Age: 73 yrs Sex: Female : 1950 Arrival Date: 01/20/2024 Time: 13:07 Bed 15 Private MD: Diagnosis: Dehydration;UTI/ Urinary tract infection, site not specified;Hypokalemia;Acute kidney failure, unspecified-on chronic;Weakness;Other specified forms of tremor Presentation: 01/19 13:13 Chief complaint: EMS states: patient has been having an increase in falls and had ap3 positive orthostatic blood pressures. patient also reports tremors when ambulating. Coronavirus screen: At this time, the client does not indicate any symptoms associated with coronavirus-19. Ebola Screen: No symptoms or risks identified at this time. Initial Sepsis Screen: Does the patient meet any 2 criteria? No. Patient's initial sepsis screen is negative. Does the patient have a suspected source of infection? No. Patient's initial sepsis screen is negative. Risk Assessment: Do you want to hurt yourself or someone else? Patient reports no desire to harm self or others. Onset of symptoms is unknown. 13:13 Method Of Arrival: EMS: [facility] ap3 13:13 Acuity: VALERIY 3 ap3 13:23 Care prior to arrival: Medication(s) given: Normal saline infusion, 500 mL, IV ap3 initiated. 20 GA, in the left antecubital area. Triage Assessment: 13:16 General: Appears in no apparent distress. Behavior is calm, cooperative, appropriate ap3 for age. Pain: Denies pain. Neuro: Level of Consciousness is awake, alert, obeys commands, Oriented to person, place, time, situation, Speech is normal. Neuro: Reports frequent falls. Cardiovascular: Patient's skin is warm and dry. Respiratory: Airway is patent Respiratory effort is even, unlabored, Respiratory pattern is regular, symmetrical. Historical: - Allergies: 13:14 acutane; ap3 13:14 Allopurinol; ap3 13:14 Codeine; ap3 13:14 amlodipine; ap3 13:14 budesonide; ap3 13:14 Hydrochlorothiazide; ap3 13:14 formoterol fumarate; ap3 - PMHx: 13:14 Congestive heart failure; depressive disorder; Gastroesophageal reflux disease; ap3 Hypercholesterolemia; Hypertensive disorder; Hypertensive disorder; osteoarthritis; Osteoporosis; - Immunization history:: Client reports having NOT received the Covid vaccine. - Infectious Disease History:: Denies. - Social history:: Smoking status: Patient/guardian denies using tobacco. Screenin:18 Abuse screen: Denies threats or abuse. Nutritional screening: No deficits noted. ap3 Tuberculosis screening: No symptoms or risk factors identified. 13:49 [facility] ED Fall Risk Assessment (Adult) History of falling in the last 3 months, ss including since admission Yes- fall prone (multiple falls) (3 pts) Confusion or Disorientation No (0 pts) Intoxicated or Sedated No (0 pts) Impaired Gait Yes (1 pt) Mobility Assist Device Used No (0 pt) Altered Elimination No (0 pt) Score/Fall Risk Level 0 - 2 = Low Risk. Assessment: 13:49 General: Appears in no apparent distress. comfortable, Behavior is calm, cooperative. ss Neuro: Level of Consciousness is awake, alert, obeys commands, Oriented to person, place, time, situation. Respiratory: Airway is patent Respiratory effort is even, unlabored, Respiratory pattern is regular, symmetrical. GI: Abdomen is non-distended. : No signs and/or symptoms were reported regarding the genitourinary system. EENT: Oral mucosa is moist. Derm: Skin is pink, warm \T\ dry. normal. 14:38 Reassessment: Pt in radiology . ss 14:55 General: Appears comfortable, Behavior is calm, cooperative. Pain: Denies pain. Neuro: aa5 Level of Consciousness is awake, alert, obeys commands, Oriented to person, place, time, situation, Reports generalized weakness and tremors when ambulating. . Cardiovascular: Heart tones S1 S2 present Rhythm is sinus rhythm. Respiratory: Airway is patent Respiratory effort is even, unlabored, Respiratory pattern is regular, symmetrical. GI: Abdomen is round non-distended, Bowel sounds present X 4 quads. Abd is soft and non tender X 4 quads. : No signs and/or symptoms were reported regarding the genitourinary system. EENT: No signs and/or symptoms were reported regarding the EENT system. Derm: Skin is pink, warm \T\ dry. Musculoskeletal: Reports she ambulates using walker at home. 14:57 Reassessment: Patient is alert, oriented x 3, equal unlabored respirations, skin ss warm/dry/pink. 15:30 Reassessment: Patient is alert, oriented x 3, equal unlabored respirations, skin aa5 warm/dry/pink. 16:18 Reassessment: Dr. Miranda at bedside . aa5 16:30 Reassessment: Patient is alert, oriented x 3, equal unlabored respirations, skin aa5 warm/dry/pink. 17:20 Reassessment: Hospitalist at bedside. . aa5 17:20 Reassessment: Patient is alert, oriented x 3, equal unlabored respirations, skin aa5 warm/dry/pink. 18:30 Reassessment: Patient is alert, oriented x 3, equal unlabored respirations, skin aa5 warm/dry/pink. 18:51 Reassessment: Awaiting room 403 to be clean. . aa5 18:51 Reassessment: Report faxed to admitting nurse . aa5 19:27 Reassessment: Patient appears in no apparent distress at this time. Patient and/or kj2 family updated on plan of care and expected duration. Pain level reassessed. Patient is alert, oriented x 3, equal unlabored respirations, skin warm/dry/pink. 19:28 Reassessment: report received from RED Milligan. kj2 Vital Signs: 13:13 BP 104 / 77; Pulse 87; Resp 17; Temp 97.8(O); Pulse Ox 96% on R/A; Weight 74.84 kg; ap3 Height 5 ft. 4 in. ; 14:55 BP 118 / 69; Pulse 86; Resp 16 S; Pulse Ox 99% on R/A; ss 15:30 BP 109 / 69; Pulse 89; Resp 16 S; Pulse Ox 98% on R/A; aa5 16:30 BP 102 / 68; Pulse 85; Resp 18 S; Temp 98(O); Pulse Ox 99% on R/A; aa5 17:00 BP 131 / 68; Pulse 83; Resp 18 S; Pulse Ox 100% on R/A; aa5 17:30 BP 124 / 72; Pulse 82; Resp 16 S; Pulse Ox 99% on R/A; aa5 18:30 BP 107 / 41; Pulse 81; Resp 18 S; Temp 98(O); Pulse Ox 98% on R/A; aa5 19:28 BP 113 / 68; Pulse 84; Resp 18; Pulse Ox 96% on R/A; kj2 13:13 Body Mass Index 28.32 (74.84 kg, 162.56 cm) ap3 ED Course: 13:13 Patient arrived in ED. ap3 13:14 Triage completed. ap3 13:16 Redd Miranda MD is Attending Physician. [facility] 13:18 Arm band placed on right wrist. ap3 13:18 Patient has correct armband on for positive identification. Bed in low position. Call ap3 light in reach. Side rails up X2. Provided Education on: call light education. 13:24 Farnaz Ritter, RN is Primary Nurse. aa5 13:24 Client placed on continuous cardiac and pulse oximetry monitoring. NIBP monitoring ap3 applied. prosthodontist on. Pulse ox on. NIBP on. 13:25 Maintain EMS IV. Dressing intact. Good blood return noted. Site clean \T\ dry. Gauge \T\ ss site: 20 gauge in L AC. Flushed with 10 mL NS IV is patent, with good blood return. 13:48 Straight cath inserted, using sterile technique, 16 Fr. Specimen obtained. Returned 220 ss mL out. Patient tolerated well. 14:01 Notified ED physician of a critical lab result(s). potassium of 2.6. ap3 14:08 X-ray completed. Patient tolerated procedure well. 1 14:15 XRAY Chest (1 view) In Process Unspecified. EDMS 14:31 CT Head C Spine In Process Unspecified. EDMS 14:31 CT Chest Abdomen Pelvis W/O Contrast In Process Unspecified. EDMS 16:49 Shantell Booker MD is Hospitalizing Provider. [facility] 19:00 Report given to RED Wall. aa5 20:10 No provider procedures requiring assistance completed. Patient admitted, IV remains in kj2 place. Administered Medications: 14:57 Drug: Potassium PO Effervescent Tablet 50 mEq PO once; dissolve in 4 ounces of water or ss juice Route: PO; 15:30 Follow up: Response: No adverse reaction aa5 14:57 Drug: Rocephin IV 1 grams IV at per protocol once; Given slow IV push per pharmacy ss instructions Route: IV; Rate: per protocol; Site: left antecubital; 15:00 Follow up: IV Status: Completed infusion aa5 15:30 Follow up: Response: No adverse reaction aa5 16:58 Drug: NS 0.9% IV 1000 ml IV at 1 bolus Per protocol; 1000 mL bolus Route: IV; Rate: 1 aa5 bolus; Site: left antecubital; 18:00 Follow up: IV Status: Completed infusion; IV Intake: 1000ml aa5 16:58 Drug: NS 0.9% with KCl IV 20 mEq/L 1000 ml IV at 125 ml/hr continuous Route: IV; Rate: aa5 125 ml/hr; Site: left antecubital; 18:54 Follow up: IV Status: Infusion continued upon admission aa5 Medication: 13:49 VIS not applicable for this client. ss Intake: 18:00 IV: 1000ml; Total: 1000ml. aa5 Outcome: 16:51 Decision to Hospitalize by Provider. ana 20:15 Admitted to Med/surg kj2 20:15 Condition: stable 20:15 Instructed on the need for admit, Demonstrated understanding of 20:18 Patient left the ED. ty Signatures: Dispatcher [employer] EDMS Redd Miranda MD MD cha Harvey, Martha 1 Farnaz Ritter, RN RN aa5 Carolina Anton, RN RN Lisset Strickland RN RN dejah3 Liang Quesada Krystal, RN RN kj2 Corrections: (The following items were deleted from the chart) 18:51 18:20 Reassessment: Awaiting room 403 to be clean. . aa5 aa5
[2024-01-20] MEDS ORDERED: ACETAMINOPHEN 325 MG TABLET PO PRN (17:25)
--- NOTE | 2024-01-20 17:34 | P.HP ---
Certification for Inpatient Patient admitted to: Inpatient With expected LOS: >2 Midnights Patient will require the following post-hospital care: None Practitioner: I am a practitioner with admitting privileges, knowledge of patient current condition, hospital course, and medical plan of care. Services: Services provided to patient in accordance with Admission requirements found in Title 42 Section 412.3 of the Code of Federal Regulations Patient History Date of Service: 01/20/24 Reason for admission: UTI, Frequent falls History of Present Illness: Joyce Saha is a 74 year old female with Pmhx CHF, Depressive disorder, GERD, hypercholesterolemia, HTN, osteoarthritis, and osteoporosis who presents to the ED with chief complaint of weakness and frequent falls. She reports intermittent falling for 2-3 weeks. She states she lives alone and uses a walker when she feels like she needs it. She denies LOC and dizziness but feels her legs are weak. Laboratory evaluation, UA is positive for infectious process, BUN/creatinine 28/2.01, GFR 26. On evaluation, she is conversing well, Alert and oriented x3, hemodynamically stable, no abdominal pain, denies fever, chills, and dizziness. Initial vitals BP 104 / 77; Pulse 87; Resp 17; Temp 97.8(O); Pulse Ox 96% on R/A EKG preliminary report " Rate is 82 beats/min. Rhythm is regular. QRS [place] is N ormal. [place] interval is normal. QRS interval is normal. QT interval is normal. No Q waves. T waves are Normal. No ST changes noted. Clinical impression: Abnormal EKG without significant change and No evidence of ischemia." CT brain and cervical spine w/o reports "Brain: No evidence of acute intracranial abnormality. Cervical Spine: 3 mm degenerative retrolisthesis of C2 on C3 is noted. One MM degenerative retrolisthesis of C3 on 4 is seen. No evidence of acute fracture or subluxation. Mild mid and lower calcified disc/osteophyte complexes are present compatible spondylosis. No prevertebral so ft tissue swelling is seen. Impression: No evidence of acute osseous abnormality of the cervical spine, Carotid atherosclerosis bilaterally" Chest xray reports "The lungs are well inflated and clear. The heart is normal in size. No displaced fractures identified. IMPRESSION: No acute intrathoracic abnormalities." CT CAP reports "No acute findings demonstrated. KIDNEYS:Punctate calculus inferior right kidney. No hydronephrosis bilaterally MUSCULOSKELETAL: Multiple wedge compression deformities affect the thoracic and lumbar vertebral levels with a diffuse pattern of osteopenia. These are probably subacute or chronic in timeframe. Aortic atherosclerosis." Joyce will be admitted to hospitalist service for further evaluation and treatment of UTI and frequent falls. Allergies codeine Allergy (Mild, Verified 04/29/22 22:55) Itching formoterol Allergy (Unknown, Verified 04/30/22 05:54) Itching hydrochlorothiazide Allergy (Unknown, Verified 04/30/22 05:54) Itching olmesartan Allergy (Unknown, Verified 04/30/22 05:54) Itching budesonide Allergy (Verified 04/30/22 05:51) Itching quinapril Allergy (Verified 04/30/22 05:54) Itching acutane Allergy (Unknown, Uncoded 04/29/22 22:56) Hives Home Medications: Ensure Enlive 237 ml PO BID can 05/04/22 Famotidine [Pepcid*] 20 mg PO BID tab 05/04/22 - Past Medical/Surgical History Diabetic: No -: Hypertension -: Osteoperosis -: Depressive disorder -: hypercholesterolemia -: GERD -: CHF -: Total hysterectomy -: Right Femur Psychosocial/ Personal History: Patient lives at home alone. - Family History Father -: Heart disease - Social History Smoking Status: Former smoker Alcohol use: No CD- Drugs: No Caffeine use: No Review of Systems General: Weakness Musculoskeletal: Other (Weak legs) Physical Examination - Physical Exam General: Alert, In no apparent distress, Oriented x3 HEENT: Atraumatic, Normocephalic Neck: Supple, 2+ carotid pulse no bruit Respiratory: Clear to auscultation bilaterally, Normal air movement Cardiovascular: No edema, Normal pulses, Regular rate/rhythm, Normal S1 S2 Capillary refill: <2 Seconds Gastrointestinal: Normal bowel sounds, Soft and benign, No tenderness Musculoskeletal: No clubbing Integumentary: No rashes Neurological: Normal speech, Normal tone - Studies Laboratory Data (last 24 hrs) 01/20/24 01/20/24 01/20/24 13:31 13:31 13:31 WBC 5.00 Hgb 11.7 L Hct 35.0 L Plt Count 155 PT 11.8 INR 1.06 Sodium 137 Potassium 2.6 L* BUN 28 H Creatinine 2.01 H Glucose 99 Magnesium 1.9 Total Bilirubin 1.4 H AST 27 ALT 21 Alkaline Phosphatase 104 Lipase 41 Assessment and Plan - Plan Imaging: CT brain and cervical spine w/o reports "FINDINGS: 3 mm degenerative retrolisthesis of C2 on C3 is noted. One MM degenerative retrolisthesis of C3 on 4 is seen. No evidence of acute fracture or subluxation. Mild mid and lower calcified disc/osteophyte complexes are present compatible spondylosis. No prevertebral soft tissue swelling is seen. Impression: No evidence of acute osseous abnormality of the cervical spine, Carotid atherosclerosis bilaterally" Chest xray reports "The lungs are well inflated and clear. The heart is normal in size. No displaced fractures identified. IMPRESSION: No acute intrathoracic abnormalities." CT CAP reports "No acute findings demonstrated. KIDNEYS:Punctate calculus inferior right kidney. No hydronephrosis bilaterally MUSCULOSKELETAL: Multiple wedge compression deformities affect the thoracic and lumbar vertebral levels with a diffuse pattern of osteopenia. These are probably subacute or chronic in timeframe. Aortic atherosclerosis." Assessment and Plan UTI Weakness with frequent falls -EKG preliminary report " Rate is 82 beats/min. Rhythm is regular. QRS [place] is Normal. [place] interval is normal. QRS interval is normal. QT interval is normal. No Q waves. T waves are Normal. No ST changes noted. Clinical impression: Abnormal EKG without significant change and No evidence of ischemia." -Rocephin -Physical therapy -Follow urine culture -orthostatic vitals LEAH suspected 2/2 dehydration Decreased PO intake Hypokalemia -BUN/creatinine 28/2.01, GFR 26, K 2.6 -Replaced in the ED, repeat BMP tonight -IVF -monitor in the AM labs Elevated liver enzymes -Tbili 1.4, D bili 0.5, Indirect Bili 0.9 -IVF -Monitor in AM labs HTN Hypercholesterolemia Depressive disorder osteoporosis osteoarthritis CHF -Conitnue home medications 3 mm degenerative retrolisthesis C2/C3 MM degenerative retrolisthesis C3/C4 Spondylosis Punctate calculus inferior right kidney Aortic atherosclerosis -As seen on CT imaging -Follow up outpatient DVT ppx SCD Full code LOS 2 days Discharge Plan: Home Plan to discharge in: 48 Hours - Advance Directives Does patient have a Living Will: No Does patient have a Durable POA for Healthcare: No
[2024-01-20] MEDS: NA CHLORIDE 0.9% 1,000 ML IV SCH (20:14)
[2024-01-20 21:18] VITALS: BMI 28.3
[2024-01-20 23:21] LABS: Specific Gravity 1.009 (1.005-1.030); Sqamous Epithelial <5 /HPF (None Seen); Urine Bacteria <20 /HPF (<20); Urine Bilirubin NEGATIVE (Negative); Urine Blood Negative (Negative); Urine Clarity Extremely Turbid (Clear); Urine Color Light-Yellow (Yellow); Urine Crystals Unidentified Few /HPF (None Seen); Urine Culture Reflex Order REFLEXED; Urine Glucose NEGATIVE (Negative); Urine Ketones NEGATIVE (Negative); Urine Microscopic Reflex YN ORDER UMIC; Urine Mucus Slight /HPF (None Seen); Urine Nitrite NEGATIVE (Negative); Urine Protein NEGATIVE (Negative); Urine RBC <5 /HPF (None Seen); Urine Urobilinogen Normal (Normal); Urine WBC >50 /HPF (<5)
[2024-01-21 05:46] LABS: Absolute Lymphocytes (CBC) 0.5 K/uL (0.7-4.9); Absolute Monocytes 0.3 K/uL (0.1-1.3); Absolute Neutrophil 2.5 K/uL (1.8-8.0); Eosinophils % 1.4 % (0-4.4); Hematocrit 29.7 % (36.0-45.0); Hemoglobin 10.2 g/dL (12.0-15.0); Lymphocytes % 15.3 % (15.3-44.8); MCH 31.4 pg (27.0-35.0); MCHC 34.5 g/dL (32.0-36.0); MCV 91.1 fL (80-100); MPV 7.3 fL (7.6-11.3); Monocytes % 9.6 % (3.3-12.3); Neutrophils % 72.7 % (41.7-73.7); Nucleated Red Blood Cells % 0.2 % (0-0); Platelets 153 thou/uL (152-406); RBC Red Blood Cell Count 3.26 M/uL (3.86-4.86); Red Cell Distribution Width 14.9 % (12.1-15.2)
[2024-01-21 06:11] LABS: Anion Gap 8.3 mEq/L (5.0-15.0); Magnesium 1.8 mg/dL (1.6-2.4); Phosphorus 2.1 mg/dL (2.5-4.9); Potassium 3.3 mEq/L (3.5-5.1); Troponin High Sensitivity 25.4 pg/mL (<58.9)
[2024-01-21] MEDS: POTASS/SODIUM PHOSPHATE 1 PKT POWD.PACK PO SCH (08:54)
[2024-01-21] MEDS: POTASSIUM 25 MEQ EFFERV TAB PO SCH (08:56)
[2024-01-21] MEDS: MAGNESIUM SULFATE 1 gm IVPB 1 GM/100 ML BAG IV SCH (08:58)
[2024-01-21] MEDS: CEFTRIAXONE 1,000 MG in NA CHLORIDE 0.9% 50 ML IVPB SCH (08:59)
[2024-01-21] MEDS: FUROSEMIDE 40 MG TABLET PO SCH (10:59)
[2024-01-21] MEDS: FAMOTIDINE 20 MG TAB PO SCH (10:59)
[2024-01-21] MEDS: EZETIMIBE 10 MG TAB PO SCH (11:01)
[2024-01-21] MEDS: BUPROPION HCL XL 150 MG TAB PO SCH (11:01)
[2024-01-21] MEDS: NA CHLORIDE 0.9% 1,000 ML IV SCH (11:08)
--- NOTE | 2024-01-21 11:26 | P.PN ---
Date of Service: 01/21/24 Subjective Awake eating breakfast in bed Feeling well this AM no new complaints ROS 10 point ROS as noted above, otherwise negative Physical Exam General: Alert and Oriented x3, NAD HEENT: Atraumatic, Normocephalic Neck: Supple, 2+ carotid pulse no bruit Respiratory: Clear to auscultation bilaterally, Normal air movement, on Room air Cardiovascular: No edema, Normal pulses, RRR, Normal S1 S2 Capillary refill: <2 Seconds Gastrointestinal: Normal bowel sounds, Soft and benign on palpation, No tenderness Musculoskeletal: No clubbing, peripheral pulses present Integumentary: No rashes Neurological: Normal speech, Normal tone Vitals Reviewed Problem list UTI Weakness with frequent falls LEAH suspected 2/2 dehydration Decreased PO intake Hypokalemia Elevated liver enzymes HTN Hypercholesterolemia Depressive disorder osteoporosis osteoarthritis CHF 3 mm degenerative retrolisthesis C2/C3 MM degenerative retrolisthesis C3/C4 Spondylosis Punctate calculus inferior right kidney Aortic atherosclerosis Assessment and Plan UTI Weakness with frequent falls -EKG preliminary report " Rate is 82 beats/min. Rhythm is regular. QRS [place] is Normal. [place] interval is normal. QRS interval is normal. QT interval is normal. No Q waves. T waves are Normal. No ST changes noted. Clinical impression: Abnormal EKG without significant change and No evidence of ischemia." -Continue Rocephin -Physical therapy consulted -Follow urine culture- results pending -orthostatic vitals -In chair for 2h daily LEAH suspected 2/2 dehydration Decreased PO intake Hypokalemia -BUN/creatinine 19/1.52, GFR 26, K 3.3 -Replaced in the ED, repeat BMP tonight -Continue IVF -monitor in the AM labs Elevated liver enzymes -Tbili 1.4, D bili 0.5, Indirect Bili 0.9 -IVF -Monitor in AM labs HTN Hypercholesterolemia Depressive disorder osteoporosis osteoarthritis CHF -Conitnue home medications 3 mm degenerative retrolisthesis C2/C3 MM degenerative retrolisthesis C3/C4 Spondylosis Punctate calculus inferior right kidney Aortic atherosclerosis -As seen on CT imaging -Follow up outpatient DVT ppx SCD Full code LOS 2 days <Krissy Bunn - Last Filed: 01/21/24 10:51> Patient seen and examined. She is complaining of generalized weakness. States she feels better this morning. UA suggest the presence of UTI. IV antibiotics as above. Follow blood cultures and urine culture PT evaluation to assist with disposition. Patient denies any pain. <dennise mayorga - Last Filed: 01/21/24 18:29>
[2024-01-21 13:13] LABS: Albumin 2.9 g/dL (3.4-5.0); Albumin/Globulin Ratio 0.9 (1.1-1.8); Bilirubin Direct 0.3 mg/dL (0-0.2); Bilirubin Indirect, Calculated 0.5 mg/dL (0.2-0.8); Bilirubin Total 0.8 mg/dL (0.2-1.0); Globulin 3.1 g/dL (2.3-3.5)
[2024-01-21] MEDS: OLANZapine 2.5 MG TAB PO SCH (20:41)
[2024-01-21] MEDS: ATORVASTATIN 80 MG TAB PO SCH (20:41)
[2024-01-22 06:26] LABS: Absolute Eosinophils 0.1 K/uL (0-0.5); Absolute Lymphocytes (CBC) 0.5 K/uL (0.7-4.9); Absolute Monocytes 0.3 K/uL (0.1-1.3); Absolute Neutrophil 2.4 K/uL (1.8-8.0); Basophils % 0.6 % (0-1.3); Eosinophils % 1.9 % (0-4.4); Hematocrit 30.1 % (36.0-45.0); Hemoglobin 10.1 g/dL (12.0-15.0); Lymphocytes % 16.2 % (15.3-44.8); MCH 31.2 pg (27.0-35.0); MCHC 33.8 g/dL (32.0-36.0); MCV 92.6 fL (80-100); MPV 7.6 fL (7.6-11.3); Monocytes % 8.2 % (3.3-12.3); Neutrophils % 73.1 % (41.7-73.7); Platelets 131 thou/uL (152-406); RBC Red Blood Cell Count 3.25 M/uL (3.86-4.86); Red Cell Distribution Width 14.8 % (12.1-15.2)
[2024-01-22 06:39] LABS: Anion Gap 9.1 mEq/L (5.0-15.0); Phosphorus 2.4 mg/dL (2.5-4.9); Potassium 3.1 mEq/L (3.5-5.1)
[2024-01-22] MEDS: POTASSIUM PHOS IN 0.9 % NACL 15 MMOL/250 ML BAG IV SCH (08:45)
--- NOTE | 2024-01-22 10:39 | P.PN ---
Date of Service: 01/22/24 Subjective Awake eating breakfast No new complaints afebrile overnight working with therapy ROS 10 point ROS as noted above, otherwise negative Physical Exam General: Awake, Alert and Oriented x3, NAD HEENT: Atraumatic, Normocephalic Neck: Supple, 2+ carotid pulse no bruit Respiratory: Clear to auscultation bilaterally, Normal air movement, on Room air Cardiovascular: Normal pulses, Regular rate and rhythm, Normal S1 S2 Capillary refill: <2 Seconds Gastrointestinal: Normal bowel sounds, Soft and benign on palpation, No tenderness Musculoskeletal: No clubbing, peripheral pulses present Integumentary: No rashes Neurological: Normal speech, Normal tone Vitals Reviewed Problem list UTI Weakness with frequent falls LEAH suspected 2/2 dehydration Decreased PO intake Hypokalemia Elevated liver enzymes HTN Hypercholesterolemia Depressive disorder osteoporosis osteoarthritis CHF 3 mm degenerative retrolisthesis C2/C3 MM degenerative retrolisthesis C3/C4 Spondylosis Punctate calculus inferior right kidney Aortic atherosclerosis Assessment and Plan UTI Weakness with frequent falls -EKG preliminary report " Rate is 82 beats/min. Rhythm is regular. QRS [place] is Normal. [place] interval is normal. QRS interval is normal. QT interval is normal. No Q waves. T waves are Normal. No ST changes noted. Clinical impression: Abnormal EKG without significant change and No evidence of ischemia." -Continue Rocephin (start 01/19) -Physical therapy consulted, recommend continued therapy -Follow urine culture- results remain pending at this time -orthostatic vitals -In chair for 2h daily LEAH suspected 2/2 dehydration Decreased PO intake Hypokalemia -BUN/creatinine 13/1.23, GFR 46, K 3.1 -Stopped IVF -monitor in the AM labs and replace PRN Elevated liver enzymes -Tbili 0.8, D bili 0.3, Indirect Bili 0.5 -stoppe IVF -Monitor in AM labs HTN Hypercholesterolemia Depressive disorder osteoporosis osteoarthritis CHF -Conitnue home medications 3 mm degenerative retrolisthesis C2/C3 MM degenerative retrolisthesis C3/C4 Spondylosis Punctate calculus inferior right kidney Aortic atherosclerosis -As seen on CT imaging -Follow up outpatient DVT ppx SCD Full code LOS 2 days- IRF vs SNF
[2024-01-23 06:56] LABS: Absolute Eosinophils 0.1 K/uL (0-0.5); Absolute Lymphocytes (CBC) 0.7 K/uL (0.7-4.9); Absolute Monocytes 0.2 K/uL (0.1-1.3); Absolute Neutrophil 2.1 K/uL (1.8-8.0); Basophils % 0.8 % (0-1.3); Eosinophils % 3.2 % (0-4.4); Hematocrit 30.7 % (36.0-45.0); Hemoglobin 10.1 g/dL (12.0-15.0); Lymphocytes % 22.2 % (15.3-44.8); MCH 30.4 pg (27.0-35.0); MCHC 32.8 g/dL (32.0-36.0); MCV 92.6 fL (80-100); MPV 7.4 fL (7.6-11.3); Monocytes % 7.7 % (3.3-12.3); Neutrophils % 66.1 % (41.7-73.7); Platelets 144 thou/uL (152-406); RBC Red Blood Cell Count 3.31 M/uL (3.86-4.86); Red Cell Distribution Width 15.4 % (12.1-15.2)
[2024-01-23 07:04] LABS: Magnesium 1.8 mg/dL (1.6-2.4)
--- NOTE | 2024-01-23 12:01 | EKG ---
Test Date: 2024-01-20 Test Time: 14:12:25 Archivist Political History: VICKY MEASUREMENT RESULTS: Intervals: Rate: 82 LA: 144 QRSD: 86 QT: 378 QTc: 441 [place]: P: 229 LA: 144 QRS: -6 T: 42 INTERPRETIVE STATEMENTS: Unusual P axis, possible ectopic atrial rhythm Nonspecific T wave abnormality Abnormal ECG Compared to ECG 07/14/1999 09:58:00 T-wave abnormality now present Sinus bradycardia no longer present Electronically Signed On 01-23-24 11:55:49 CDT by Beka Muñoz
[2024-01-23] MEDS: POTASSIUM CL SA 10 MEQ TAB PO ONE (12:35)
--- NOTE | 2024-01-23 16:34 | P.PN ---
Date of Service: 01/23/24 Subjective Conversing well no new complaints working with therapy ROS 10 point ROS as noted above, otherwise negative Physical Exam General: AAO x3, NAD HEENT: Atraumatic, Normocephalic Neck: Supple, 2+ carotid pulse no bruit Respiratory: Clear to auscultation bilaterally, symmetrical chest wall movement, on Room air Cardiovascular: Normal pulses, NSR, Normal S1 S2 Capillary refill: <2 Seconds Gastrointestinal: Soft and benign on palpation, No tenderness,Normal active bowel sounds Musculoskeletal: No clubbing, peripheral pulses present Integumentary: No rashes Neurological: Normal speech, Normal tone Vitals Reviewed Problem list UTI Weakness with frequent falls LEAH suspected 2/2 dehydration Decreased PO intake Hypokalemia Elevated liver enzymes HTN Hypercholesterolemia Depressive disorder osteoporosis osteoarthritis CHF 3 mm degenerative retrolisthesis C2/C3 MM degenerative retrolisthesis C3/C4 Spondylosis Punctate calculus inferior right kidney Aortic atherosclerosis Assessment and Plan UTI Weakness with frequent falls -EKG preliminary report " Rate is 82 beats/min. Rhythm is regular. QRS [place] is Normal. [place] interval is normal. QRS interval is normal. QT interval is normal. No Q waves. T waves are Normal. No ST changes noted. Clinical impression: Abnormal EKG without significant change and No evidence of ischemia." -Continue Rocephin (start 01/19) -Physical therapy consulted, recommend continued therapy -Follow urine culture- gram negative rods -orthostatic vitals -In chair for 2h daily LEAH suspected 2/2 dehydration Decreased PO intake Hypokalemia -BUN/creatinine 9/1.25, GFR 45, K 3.0 -Continue home dose potassium -Stopped IVF -monitor in the AM labs and replace PRN Elevated liver enzymes -Tbili 0.8, D bili 0.3, Indirect Bili 0.5 -stopped IVF -Monitor in AM labs HTN Hypercholesterolemia Depressive disorder osteoporosis osteoarthritis CHF -Conitnue home medications 3 mm degenerative retrolisthesis C2/C3 MM degenerative retrolisthesis C3/C4 Spondylosis Punctate calculus inferior right kidney Aortic atherosclerosis -As seen on CT imaging -Follow up outpatient DVT ppx SCD Full code LOS 2 days- SNF- [facility] pending
[2024-01-23] MEDS ORDERED: POTASSIUM CL SA 10 MEQ TAB PO SCH (18:00)
[2024-01-24 06:28] LABS: Absolute Eosinophils 0.1 K/uL (0-0.5); Absolute Lymphocytes (CBC) 0.8 K/uL (0.7-4.9); Absolute Monocytes 0.2 K/uL (0.1-1.3); Absolute Neutrophil 2.2 K/uL (1.8-8.0); Basophils % 0.8 % (0-1.3); Eosinophils % 2.5 % (0-4.4); Hematocrit 29.5 % (36.0-45.0); Hemoglobin 9.9 g/dL (12.0-15.0); MCHC 33.5 g/dL (32.0-36.0); MCV 92.5 fL (80-100); MPV 7.1 fL (7.6-11.3); Monocytes % 6.9 % (3.3-12.3); Neutrophils % 66.8 % (41.7-73.7); Platelets 154 thou/uL (152-406); RBC Red Blood Cell Count 3.19 M/uL (3.86-4.86); Red Cell Distribution Width 15.3 % (12.1-15.2)
[2024-01-24 06:44] LABS: Anion Gap 8.3 mEq/L (5.0-15.0); Magnesium 1.7 mg/dL (1.6-2.4); Phosphorus 2.7 mg/dL (2.5-4.9); Potassium 3.3 mEq/L (3.5-5.1)
[2024-01-24] MEDS ORDERED: HOME MED 1 EA UNK (Potassium Chloride [Potassium Chloride] 10 MEQ Capsule.Er) PO SCH (09:00)
[2024-01-24] MEDS: POTASSIUM 25 MEQ EFFERV TAB PO ONE (09:16)
[2024-01-24] MEDS: MAGNESIUM SULFATE 1 gm IVPB 1 GM/100 ML BAG IV ONE (09:17)
[2024-01-24] MEDS: POTASSIUM CL SA 10 MEQ TAB PO SCH (10:08)
--- NOTE | 2024-01-24 12:56 | P.PN ---
Date of Service: 01/24/24 Subjective Conversing well no new complaints overnight working with therapy ROS 10 point ROS as noted above, otherwise negative Physical Exam General: AAO x3, NAD HEENT: Atraumatic, Normocephalic Neck: Supple, 2+ carotid pulse no bruit Respiratory: Clear to auscultation bilaterally, symmetrical chest wall movement, on Room air Cardiovascular: Normal pulses, NSR, Normal S1 S2 Capillary refill: <2 Seconds Gastrointestinal: Soft and benign on palpation, No tenderness,Normal active bowel sounds Musculoskeletal: No clubbing, peripheral pulses present Integumentary: No rashes Neurological: Normal speech, Normal tone Vitals Reviewed Problem list UTI Weakness with frequent falls LEAH suspected 2/2 dehydration Decreased PO intake Hypokalemia Elevated liver enzymes HTN Hypercholesterolemia Depressive disorder osteoporosis osteoarthritis CHF 3 mm degenerative retrolisthesis C2/C3 MM degenerative retrolisthesis C3/C4 Spondylosis Punctate calculus inferior right kidney Aortic atherosclerosis Plan UTI Weakness with frequent falls -EKG preliminary report " Rate is 82 beats/min. Rhythm is regular. QRS [place] is Normal. [place] interval is normal. QRS interval is normal. QT interval is normal. No Q waves. T waves are Normal. No ST changes noted. Clinical impression: Abnormal EKG without significant change and No evidence of ischemia." -Continue Rocephin (start 01/19) -Physical therapy consulted, recommend continued therapy -Follow urine culture-[facility] -Pending SNF placement LEAH suspected 2/2 dehydration Decreased PO intake Hypokalemia -BUN/creatinine 9/1.25, GFR 45, K 3.0 -Continue home dose potassium -Stopped IVF -monitor in the AM labs and replace PRN Elevated liver enzymes -Tbili 0.8, D bili 0.3, Indirect Bili 0.5 -stopped IVF -Monitor in AM labs HTN Hypercholesterolemia Depressive disorder osteoporosis osteoarthritis CHF -Conitnue home medications 3 mm degenerative retrolisthesis C2/C3 MM degenerative retrolisthesis C3/C4 Spondylosis Punctate calculus inferior right kidney Aortic atherosclerosis -As seen on CT imaging -Follow up outpatient DVT ppx SCD Full code LOS 2 days- SNF- [facility] pending
[2024-01-25 07:02] LABS: Absolute Eosinophils 0.1 K/uL (0-0.5); Absolute Lymphocytes (CBC) 0.9 K/uL (0.7-4.9); Absolute Monocytes 0.3 K/uL (0.1-1.3); Absolute Neutrophil 1.9 K/uL (1.8-8.0); Eosinophils % 3.4 % (0-4.4); Hematocrit 30.9 % (36.0-45.0); Hemoglobin 10.3 g/dL (12.0-15.0); Lymphocytes % 28.2 % (15.3-44.8); MCH 31.2 pg (27.0-35.0); MCHC 33.5 g/dL (32.0-36.0); MCV 93.1 fL (80-100); MPV 7.4 fL (7.6-11.3); Monocytes % 8.6 % (3.3-12.3); Neutrophils % 58.8 % (41.7-73.7); Nucleated Red Blood Cells % 0.1 % (0-0); Platelets 166 thou/uL (152-406); RBC Red Blood Cell Count 3.32 M/uL (3.86-4.86)
[2024-01-25 07:05] LABS: Anion Gap 8.7 mEq/L (5.0-15.0); Magnesium 2.2 mg/dL (1.6-2.4); Phosphorus 3.2 mg/dL (2.5-4.9); Potassium 3.7 mEq/L (3.5-5.1)
[2024-01-25] MEDS ORDERED: POTASSIUM CL SA 10 MEQ TAB PO ONE (09:00)
--- NOTE | 2024-01-25 09:31 | P.PN ---
Date of Service: 01/25/24 Subjective Conversing well no new complaints overnight working with therapy-had orthostatic hypotension yesterday ROS 10 point ROS as noted above, otherwise negative Physical Exam General: AAO x3, NAD HEENT: Atraumatic, Normocephalic Neck: Supple, 2+ carotid pulse no bruit Respiratory: Clear to auscultation bilaterally, symmetrical chest wall movement, on Room air Cardiovascular: Normal pulses, NSR, Normal S1 S2 Capillary refill: <2 Seconds Gastrointestinal: Soft and benign on palpation, No tenderness,Normal active bowel sounds Musculoskeletal: No clubbing, peripheral pulses present Integumentary: No rashes Neurological: Normal speech, Normal tone Vitals Reviewed Problem list UTI Weakness with frequent falls LEAH suspected 2/2 dehydration Decreased PO intake Hypokalemia Elevated liver enzymes HTN Hypercholesterolemia Depressive disorder osteoporosis osteoarthritis CHF 3 mm degenerative retrolisthesis C2/C3 MM degenerative retrolisthesis C3/C4 Spondylosis Punctate calculus inferior right kidney Aortic atherosclerosis Plan UTI Weakness with frequent falls Orthostatic hypotension -Continue Rocephin (start 01/19) -Physical therapy consulted, recommend continued therapy -Had orthostatic hypotension 01/23, given IV fluid bolus today -Reevaluation with physical therapy during to determine response -Follow urine culture-[facility] -Pending SNF placement LEAH suspected 2/2 dehydration Decreased PO intake Hypokalemia -BUN/creatinine 9/1.25, GFR 45, K 3.0 -Continue home dose potassium -Stopped IVF -monitor in the AM labs and replace PRN -Encouraged liberal oral intake especially given orthostatic hypotension Elevated liver enzymes -Tbili 0.8, D bili 0.3, Indirect Bili 0.5 -stopped IVF -Monitor in AM labs HTN Hypercholesterolemia Depressive disorder osteoporosis osteoarthritis CHF -Conitnue home medications 3 mm degenerative retrolisthesis C2/C3 MM degenerative retrolisthesis C3/C4 Spondylosis Punctate calculus inferior right kidney Aortic atherosclerosis -As seen on CT imaging -Follow up outpatient DVT ppx SCD Full code LOS 2 days- SNF- [facility] pending
[2024-01-25] MEDS: NA CHLORIDE 0.9% 500 ML IV ONE (09:40)
--- NOTE | 2024-01-26 08:43 | P.CNS ---
Date of Consult: 01/26/24 Reason for Consult: painful toenails Chief Complaint: UTI, Frequent falls Allergies codeine Allergy (Mild, Verified 04/29/22 22:55) Itching formoterol Allergy (Unknown, Verified 04/30/22 05:54) Itching hydrochlorothiazide Allergy (Unknown, Verified 04/30/22 05:54) Itching olmesartan Allergy (Unknown, Verified 04/30/22 05:54) Itching budesonide Allergy (Verified 04/30/22 05:51) Itching quinapril Allergy (Verified 04/30/22 05:54) Itching acutane Allergy (Unknown, Uncoded 04/29/22 22:56) Hives Home Medications: Alendronate Sodium 1 tab PO EVERY 7TH DAY 01/20/24 Amlodipine Besylate 5 mg PO DAILY 01/20/24 Atorvastatin Calcium [Lipitor] 80 mg PO BEDTIME 01/20/24 Ergocalciferol (Vitamin D2) [Vitamin D 50,000 Unit Cap] 50,000 unit PO EVERY 7TH DAY 01/20/24 Ezetimibe 10 mg PO DAILY 01/20/24 Famotidine [Pepcid*] 2 tab PO BID 01/20/24 Furosemide 40 mg PO DAILY 01/20/24 Ibuprofen 200 mg PO DAILY 01/20/24 Olanzapine [Zyprexa] 5 mg PO BEDTIME 01/20/24 Potassium Chloride 10 meq PO DAILY 01/20/24 buPROPion HCL [Bupropion Xl] 300 mg PO DAILY 01/20/24 - Past Medical/Surgical History Diabetic: No -: Hypertension -: Osteoperosis -: Depressive disorder -: hypercholesterolemia -: GERD -: CHF -: Total hysterectomy -: Right Femur Psychosocial/ Personal History: Patient lives at home alone. - Family History Father Medical History: Heart disease - Social History Alcohol use: No CD- Drugs: No Caffeine use: No Place of Residence: Home Review of Systems 10-point ROS is otherwise unremarkable Physical Examination Temp Pulse Resp BP Pulse Ox 96.8 F 68 16 114/56 L 97 01/26/24 04:00 01/26/24 07:50 01/26/24 04:00 01/26/24 07:50 01/26/24 04:00 General: Alert, In no apparent distress, Oriented x3 Cardiovascular: No edema, Abnormal pulses (1/4 dp pulse bilateral, 0/4 pt pulse bilateral) Capillary refill: >2 Seconds Musculoskeletal: No clubbing, No swelling, No contractures, No erythema, No tenderness, No warmth Integumentary: No rashes, No breakdown, No significant lesion, No t enderness/swelling, No erythema, No warmth, No cyanosis, Other (Thickened hypertrophic nails with subungual debris x 10. Absent hair growth bilateral) Neurological: Sensation intact - Problems (1) Generalized atherosclerosis Current Visit: Yes Status: Acute (2) Tinea unguium Current Visit: Yes Status: Acute Conclusions/Impression: Mechanical debridement of nails at bedside
--- NOTE | 2024-01-26 14:27 | P.PN ---
Date of Service: 01/26/24 Subjective Conversing well no new complaints overnight working with therapy, did much better today ROS 10 point ROS as noted above, otherwise negative Physical Exam General: AAO x3, NAD HEENT: Atraumatic, Normocephalic Neck: Supple, 2+ carotid pulse no bruit Respiratory: Clear to auscultation bilaterally, symmetrical chest wall movement, on Room air Cardiovascular: Normal pulses, NSR, Normal S1 S2 Capillary refill: <2 Seconds Gastrointestinal: Soft and benign on palpation, No tenderness,Normal active bowel sounds Musculoskeletal: No clubbing, peripheral pulses present Integumentary: No rashes Neurological: Normal speech, Normal tone Vitals Reviewed Problem list UTI Weakness with frequent falls LEAH suspected 2/2 dehydration Decreased PO intake Hypokalemia Elevated liver enzymes HTN Hypercholesterolemia Depressive disorder osteoporosis osteoarthritis CHF 3 mm degenerative retrolisthesis C2/C3 MM degenerative retrolisthesis C3/C4 Spondylosis Punctate calculus inferior right kidney Aortic atherosclerosis Plan UTI Weakness with frequent falls Orthostatic hypotension -Continue Rocephin (start 01/19)-completed -Physical therapy consulted, recommend continued therapy -Had orthostatic hypotension 01/23, given IV fluid bolus and improved -urine culture-[facility] -Pending SNF placement LEAH suspected 2/2 dehydration Decreased PO intake Hypokalemia -BUN/creatinine 9/1.25, GFR 45, K 3.0 -Continue home dose potassium -Stopped IVF -monitor in the AM labs and replace PRN -Encouraged liberal oral intake especially given orthostatic hypotension Elevated liver enzymes -Tbili 0.8, D bili 0.3, Indirect Bili 0.5 -stopped IVF -Monitor in AM labs HTN Hypercholesterolemia Depressive disorder osteoporosis osteoarthritis CHF -Conitnue home medications 3 mm degenerative retrolisthesis C2/C3 MM degenerative retrolisthesis C3/C4 Spondylosis Punctate calculus inferior right kidney Aortic atherosclerosis -As seen on CT imaging -Follow up outpatient DVT ppx SCD Full code LOS 2 days- SNF- [place] pending
--- NOTE | 2024-01-27 14:58 | P.PN ---
Date of Service: 01/27/24 Subjective Conversing well no new complaints overnight working with therapy ROS 10 point ROS as noted above, otherwise negative Physical Exam General: AAO x3, NAD HEENT: Atraumatic, Normocephalic Neck: Supple, 2+ carotid pulse no bruit Respiratory: Clear to auscultation bilaterally, symmetrical chest wall movement, on Room air Cardiovascular: Normal pulses, NSR, Normal S1 S2 Capillary refill: <2 Seconds Gastrointestinal: Soft and benign on palpation, No tenderness,Normal active bowel sounds Musculoskeletal: No clubbing, peripheral pulses present Integumentary: No rashes Neurological: Normal speech, Normal tone Vitals Reviewed Problem list UTI Weakness with frequent falls LEAH suspected 2/2 dehydration Decreased PO intake Hypokalemia Elevated liver enzymes HTN Hypercholesterolemia Depressive disorder osteoporosis osteoarthritis CHF 3 mm degenerative retrolisthesis C2/C3 MM degenerative retrolisthesis C3/C4 Spondylosis Punctate calculus inferior right kidney Aortic atherosclerosis Plan UTI Weakness with frequent falls Orthostatic hypotension -Continue Rocephin (start 01/19)-completed -Physical therapy consulted, recommend continued therapy -Had orthostatic hypotension 01/23, given IV fluid bolus and improved -urine culture-Proteus -Pending SNF placement LEAH suspected 2/2 dehydration Decreased PO intake Hypokalemia -monitor in the AM labs and replace PRN -Encouraged liberal oral intake especially given orthostatic hypotension Elevated liver enzymes -Tbili 0.8, D bili 0.3, Indirect Bili 0.5 -stopped IVF -Monitor in AM labs HTN Hypercholesterolemia Depressive disorder osteoporosis osteoarthritis CHF -Conitnue home medications 3 mm degenerative retrolisthesis C2/C3 MM degenerative retrolisthesis C3/C4 Spondylosis Punctate calculus inferior right kidney Aortic atherosclerosis -As seen on CT imaging -Follow up outpatient DVT ppx SCD Full code LOS 2 days- SNF- [facility] pending
[2024-01-28 07:11] LABS: Anion Gap 6.4 mEq/L (5.0-15.0); Potassium 3.4 mEq/L (3.5-5.1)
--- NOTE | 2024-01-28 16:13 | P.PN ---
Date of Service: 01/28/24 Subjective Conversing well no new complaints overnight working with therapy ROS 10 point ROS as noted above, otherwise negative Physical Exam General: AAO x3, NAD HEENT: Atraumatic, Normocephalic Neck: Supple, 2+ carotid pulse no bruit Respiratory: Clear to auscultation bilaterally, symmetrical chest wall movement, on Room air Cardiovascular: Normal pulses, NSR, Normal S1 S2 Capillary refill: <2 Seconds Gastrointestinal: Soft and benign on palpation, No tenderness,Normal active bowel sounds Musculoskeletal: No clubbing, peripheral pulses present Integumentary: No rashes Neurological: Normal speech, Normal tone Vitals Reviewed Problem list UTI Weakness with frequent falls LEAH suspected 2/2 dehydration Decreased PO intake Hypokalemia Elevated liver enzymes HTN Hypercholesterolemia Depressive disorder osteoporosis osteoarthritis CHF 3 mm degenerative retrolisthesis C2/C3 MM degenerative retrolisthesis C3/C4 Spondylosis Punctate calculus inferior right kidney Aortic atherosclerosis Plan UTI Weakness with frequent falls Orthostatic hypotension -Continue Rocephin (start 01/19)-completed -Physical therapy consulted, recommend continued therapy -Had orthostatic hypotension 01/23, given IV fluid bolus and improved -urine culture-Proteus -Pending SNF placement -walked 275ft 01/26, talked about HH with SN and PT, patient was agreeable -Working to arrange HH with SN and PT LEAH suspected 2/2 dehydration Decreased PO intake Hypokalemia -monitor in the AM labs and replace PRN -Encouraged liberal oral intake especially given orthostatic hypotension Elevated liver enzymes -Tbili 0.8, D bili 0.3, Indirect Bili 0.5 -stopped IVF -Monitor in AM labs HTN Hypercholesterolemia Depressive disorder osteoporosis osteoarthritis CHF -Conitnue home medications 3 mm degenerative retrolisthesis C2/C3 MM degenerative retrolisthesis C3/C4 Spondylosis Punctate calculus inferior right kidney Aortic atherosclerosis -As seen on CT imaging -Follow up outpatient DVT ppx SCD Full code LOS 2 days- SNF- [facility] pending
[2024-01-29 06:41] LABS: Anion Gap 5.3 mEq/L (5.0-15.0); Potassium 3.3 mEq/L (3.5-5.1)
[2024-01-29] MEDS: POTASSIUM CL SA 10 MEQ TAB PO ONE (08:22)
--- NOTE | 2024-01-29 13:34 | P.PN ---
Date of Service: 01/29/24 Subjective Conversing well no new complaints overnight working with therapy Plan for DC tomorrow with HH/PT ROS 10 point ROS as noted above, otherwise negative Physical Exam General: AAO x3, NAD HEENT: Atraumatic, Normocephalic Neck: Supple, 2+ carotid pulse no bruit Respiratory: Clear to auscultation bilaterally, symmetrical chest wall movement, on Room air Cardiovascular: Normal pulses, NSR, Normal S1 S2 Capillary refill: <2 Seconds Gastrointestinal: Soft and benign on palpation, No tenderness,Normal active bowel sounds Musculoskeletal: No clubbing, peripheral pulses present Integumentary: No rashes Neurological: Normal speech, Normal tone Vitals Reviewed Problem list UTI Weakness with frequent falls LEAH suspected 2/2 dehydration Decreased PO intake Hypokalemia Elevated liver enzymes HTN Hypercholesterolemia Depressive disorder osteoporosis osteoarthritis CHF 3 mm degenerative retrolisthesis C2/C3 MM degenerative retrolisthesis C3/C4 Spondylosis Punctate calculus inferior right kidney Aortic atherosclerosis Plan UTI Weakness with frequent falls Orthostatic hypotension -Continue Rocephin (start 01/19)-completed -Physical therapy consulted, recommend continued therapy -Had orthostatic hypotension 01/23, given IV fluid bolus and improved -urine culture-Proteus -Pending SNF placement -walked 275ft 01/26, talked about HH with SN and PT, patient was agreeable -Working to arrange HH with SN and PT LEAH suspected 2/2 dehydration Decreased PO intake Hypokalemia -monitor in the AM labs and replace PRN -Encouraged liberal oral intake especially given orthostatic hypotension Elevated liver enzymes -Tbili 0.8, D bili 0.3, Indirect Bili 0.5 -stopped IVF -Monitor in AM labs HTN Hypercholesterolemia Depressive disorder osteoporosis osteoarthritis CHF -Conitnue home medications 3 mm degenerative retrolisthesis C2/C3 MM degenerative retrolisthesis C3/C4 Spondylosis Punctate calculus inferior right kidney Aortic atherosclerosis -As seen on CT imaging -Follow up outpatient DVT ppx SCD Full code LOS 2 days- SNF- [facility] pending
[2024-01-30] MEDS: POTASSIUM CL SA 10 MEQ TAB PO SCH (07:47)
[2024-01-30 07:48] VITALS: BP 108/63
[2024-01-30 08:32] VITALS: TEMP 97.5
[2024-01-30 09:21] VITALS: O2SAT 97
--- NOTE | 2024-01-30 10:31 | P.DS ---
Admission Date: 01/20/24 Discharge Date: 01/30/24 Disposition: DC HOME/HOME HEALTH CARE Discharge Condition: GOOD Reason for Admission: UTI, Frequent falls Brief History of Present Illness: Joyce Saha is a 74 year old female with Pmhx CHF, Depressive disorder, GERD, hypercholesterolemia, HTN, osteoarthritis, and osteoporosis who presents to the ED with chief complaint of weakness and frequent falls. She reports intermittent falling for 2-3 weeks. She states she lives alone and uses a walker when she feels like she needs it. She denies LOC and dizziness but feels her legs are weak. Laboratory evaluation, UA is positive for infectious process, BUN/creatinine 28/2.01, GFR 26. On evaluation, she is conversing well, Alert and oriented x3, hemodynamically stable, no abdominal pain, denies fever, chills, and dizziness. Initial vitals BP 104 / 77; Pulse 87; Resp 17; Temp 97.8(O); Pulse Ox 96% on R/A EKG preliminary report " Rate is 82 beats/min. Rhythm is regular. QRS [place] is Normal. MT interval is normal. QRS interval is normal. QT interval is normal. No Q waves. T waves are Normal. No ST changes noted. Clinical impression: Abnormal EKG without significant change and No evidence of ischemia." CT brain and cervical spine w/o reports "Brain: No evidence of acute intracranial abnormality. Cervical Spine: 3 mm degenerative retrolisthesis of C2 on C3 is noted. One MM degenerative retrolisthesis of C3 on 4 is seen. No evidence of acute fracture or subluxation. Mild mid and lower calcified disc/osteophyte complexes are present compatible spondylosis. No prevertebral soft tissue swelling is seen. Impression: No evidence of acute osseous abnormality of the cervical spine, Carotid atherosclerosis bilaterally" Chest xray reports "The lungs are well inflated and clear. The heart is normal in size. No displaced fractures identified. IMPRESSION: No acute intrathoracic abnormalities." CT CAP reports "No acute findings demonstrated. KIDNEYS:Punctate calculus inferior right kidney. No hydronephrosis bilaterally MUSCULOSKELETAL: Multiple wedge compression deformities affect the thoracic and lumbar vertebral levels with a diffuse pattern of osteopenia. These are probably subacute or chronic in timeframe. Aortic atherosclerosis." Joyce will be admitted to hospitalist service for further evaluation and treatment of UTI and frequent falls. Allergies Hospital Course: Problem list UTI Weakness with frequent falls LEAH suspected 2/2 dehydration Decreased PO intake Hypokalemia Elevated liver enzymes HTN Hypercholesterolemia Depressive disorder osteoporosis osteoarthritis CHF 3 mm degenerative retrolisthesis C2/C3 MM degenerative retrolisthesis C3/C4 Spondylosis Punctate calculus inferior right kidney Aortic atherosclerosis Vital Signs/Physical Exam: Temp Pulse Resp BP Pulse Ox 97.5 F 74 16 108/63 97 01/30/24 08:00 01/30/24 08:00 01/30/24 08:00 01/30/24 08:00 01/30/24 08:00 General: Alert, In no apparent distress, Oriented x3 HEENT: Atraumatic, PERRLA Neck: Supple, JVD not distended Respiratory: Clear to auscultation bilaterally, Normal air movement Cardiovascular: Regular rate/rhythm, Normal S1 S2 Gastrointestinal: Normal bowel sounds, No tenderness Musculoskeletal: No tenderness Integumentary: No rashes Neurological: Normal speech, Normal tone Laboratory Data at Discharge: WBC 3.20 thou/uL (4.3-10.9) L 01/25/24 05:21 Hgb 10.3 g/dL (12.0-15.0) L 01/25/24 05:21 Hct 30.9 % (36.0-45.0) L 01/25/24 05:21 Plt Count 166 thou/uL (152-406) 01/25/24 05:21 PT 11.8 SECONDS (9.4-12.5) 01/20/24 13:31 INR 1.06 01/20/24 13:31 Sodium 140 mEq/L (136-145) 01/29/24 05:45 Potassium 4.1 mEq/L (3.5-5.1) D 01/29/24 14:44 BUN 14 mg/dL (7-18) 01/29/24 05:45 Creatinine 1.27 mg/dL (0.55-1.02) H 01/29/24 05:45 Glucose 96 mg/dL (74-106) 01/29/24 05:45 Phosphorus 3.2 mg/dL (2.5-4.9) 01/25/24 05:21 Magnesium 2.2 mg/dL (1.6-2.4) 01/25/24 05:21 Total Bilirubin 0.8 mg/dL (0.2-1.0) 01/21/24 12:28 AST 26 U/L (15-37) 01/21/24 12:28 ALT 18 U/L (13-56) 01/21/24 12:28 Alkaline Phosphatase 89 U/L (45-117) 01/21/24 12:28 Lipase 41 U/L (13-75) 01/20/24 13:31 Home Medications: Alendronate Sodium 1 tab PO EVERY 7TH DAY 01/20/24 Amlodipine Besylate 5 mg PO DAILY 01/20/24 Atorvastatin Calcium [Lipitor] 80 mg PO BEDTIME 01/20/24 Ergocalciferol (Vitamin D2) [Vitamin D 50,000 Unit Cap] 50,000 unit PO EVERY 7TH DAY 01/20/24 Ezetimibe 10 mg PO DAILY 01/20/24 Famotidine [Pepcid*] 2 tab PO BID 01/20/24 Furosemide 40 mg PO DAILY 01/20/24 Olanzapine [Zyprexa] 5 mg PO BEDTIME 01/20/24 Potassium Chloride 10 meq PO DAILY 01/20/24 buPROPion HCL [Bupropion Xl] 300 mg PO DAILY 01/20/24 Physician Discharge Instructions: Patient was admitted to the hospital for UTI, frequent falls. Her urine culture grew Proteus Mirabella's which was sensitive to Rocephin which she received. She completed course of IV Rocephin during hospitalization and her symptoms significantly improved. Initially it was thought that she would need SNF given her level of participation with physical therapy although she continued to improve significantly. 01/26 patient was able to ambulate with a walker 275 feet with contact-guard assist. She has been able to independently use the restroom the last couple days over the weekend and feels that she is prepared to go home and be able to care for herself adequately with home health/PT set up. Also had LEAH on admission with an initial CR of 2.01, now improved to 1.21, has been off IV fluids for 3 days now. Please continue home indications as previously prescribed observe fall precautions in the home, use walker at all times Follow-up with your primary care doctor in 1 to 2 weeks Home Health: [facility] ([facility]) P:[phone] F:[phone] Diet: Regular Activity: Fall precautions Followup: NONE,NONE [Primary Care Provider] - 1-2 Weeks Time spent managing pt's care (in minutes): 45
== END 2024-01-30 14:21 | disposition home health service (06) | DRG 690 ==
LOC: ER 13:07 → 4TH 17:25
PROVIDERS: ADMIT Nurse Practitioner; ATTEND Hospitalist
DX: N39.0 Urinary tract infection, site not specified (principal); N17.9 Acute kidney failure, unspecified; E78.00 Pure hypercholesterolemia, unspecified; E86.0 Dehydration; I11.0 Hypertensive heart disease with heart failure; I50.9 Heart failure, unspecified; E87.6 Hypokalemia; F32.A Depression, unspecified; G25.2 Other specified forms of tremor; I95.1 Orthostatic hypotension; M43.13 Spondylolisthesis, cervicothoracic region; M19.90 Unspecified osteoarthritis, unspecified site; K21.9 Gastro-esophageal reflux disease without esophagitis; M81.0 Age-related osteoporosis without current pathological fracture; I25.10 Atherosclerotic heart disease of native coronary artery without angina pectoris; B35.1 Tinea unguium; B96.4 Proteus (mirabilis) (morganii) as the cause of diseases classified elsewhere; R29.6 Repeated falls; Z88.5 Allergy status to narcotic agent; Z60.2 Problems related to living alone; Z88.8 Allergy status to other drugs, medicaments and biological substances; Z91.81 History of falling; Z28.310 Unvaccinated for COVID-19; Z79.899 Other long term (current) drug therapy; Z90.710 Acquired absence of both cervix and uterus; Z87.891 Personal history of nicotine dependence
CPT/HCPCS: 36415; 51702; 70450; 71045; 71250; 72125; 74176; 80048; 80076; 81001; 83690; 83735; 83880; 84100; 84132; 84484; 85025; 85610; 87077; 87086; 87088; 87186; 93005; 96361; 96374; 97110; 97112; 97116; 97161; 97530; 99285; J0696; J3475; J3480; J7030; J7040

== ENCOUNTER 2024-02-02 17:39 | Emergency (ER) | payer OTHER ==
--- OUTSIDE RECORDS SUMMARY | 2024-02-02 17:42 | XMS REPORT | Continuity of Care Document ---
Author Name Unknown Address [address] [facility] [address] [place] [address] [facility] Address [address] [facility] [address] [place] [address] Care Team Providers Care Bee Breeder Name Role Phone Zoraida Coulter MD Primary Care Physician Zoraida Coulter MD Attending Clinician + [phone] ARIELA SAMANO Attending Clinician Unavailable Ariela Samano DO Attending Clinician [phone] Frances Attending Clinician Unavailable Doctor Unassigned, [place] Attending Clinician U navailable Lab, Ang - Db Attending Clinician Unavailable ZORAIDA COULTER Attending Clinician UnaKARRI Farley Attending Clinician Unavailable Karri Levin MD Attending Clinician [phone] SARINA Attending Clinician UnavailMatti Higginbotham MD Attending Clinician [phone] MATTI CEE Attending Clinician UnavailELDER Medina Attending Clinician Unavailable YVETTE HANKS Attending Clinician Unav ailable A_Byrd Attending Clinician Unavailable ARIELA SAMANO Admitting Clinician Unavailable Frances Admitting Clinician Unavailable KARRI LEVIN Admitting Clinician Unavailable SARINA Admitting Clinician UnavailYVETTE Calhoun Admitting Clinician Unav ailable A_Byrd Admitting Clinician Unavailable Payers Payer Name Policy Type Policy Number Effective Date Expirati on Date Source AET[employer] MEDICARE PPO [id number] 00:00:00 AETNA (PPO) [id number] 2022 00:00:00 AETNA (MEDICARE REPLACEMENT PPO) [id number] 2015 00:00:00 Problems Condition Name Condition Details Condition Category Status Onset Date Resolution Date Last Treatment Date Treating Clinician Comments Source Seen in longterm Seen in Prison Problem Active 205 00:00: 00 [facility] [...] Pain Problem Active 2018-04 0-15 00:00: 00 [facility] No known active problems No known active problems Disease [facility] Allergies, Adverse Reactions, Alerts Allergy Name Allergy Type Status Severity Reaction(s) Onset Date Inactive Date Treating Clinician Comments Source Quinapri l Propensi ty to adverse reaction s Active Unknown - See comments 2020-04 00:00: 00 [facility] Codeine Propensi ty to adverse reaction s Active Unknown - See comments 2020-04 00:00: 00 [facility] QUINAPRI L DRUG INGREDI Active Low Unknown-Cmnt 2020-04 00:00: 00 [facility] CODEINE DRUG INGREDI Active Low Unknown-Cmnt 2020-04 00:00: 00 [facility] Amlodipi ne Allergy to substanc e Active [facility] Budesoni de Allergy to [...] Date Quantity Comments [facility] 2022-09-04 00:00:00 2022-09-04 00:00:00 Ex-drinker (finding) [facility] Exposure to SARS-CoV-2 (event) 2022-08-23 00:00:00 2022-09-02 18:16:00 Not sure [facility] History of Social function 2022-04-07 00:00:00 2022-04-07 00:00:00 [facility] Tobacco use and exposure 2021-03-31 00:00:00 2021-03-31 00:00:00 Smokeless tobacco non-user [facility] History of tobacco use 2001-03-31 00:00:00 Cigarette Smoker [facility] Sex Assigned At 1950 00:00:00 1950 00:00:00 [facility] Smoking Status Start Date Stop Date Source Never Smoker [facility] Ex-smoker 2021-03-31 00:00:00 2021-03-31 [facility] Ordered Medication Name Filled Medication Name Start Date Stop Date Current Medication? Ordering Clinician Indication Dosage Frequency Signature (SIG) Comments Components Source amLODIPine 5 mg tablet 2022-04 00:00: 00 Yes [id number] TAKE ONE TABLET BY MOUTH DAILY IN THE MORNING [facility] famotidine 20 mg tablet 2022-04 00:00: 00 Yes [id number] TAKE ONE TABLET BY MOUTH TWICE DAILY IN THE MORNING AND IN THE EVENING [facility] famotidine 20 mg tablet 2022-04 00:00: 00 Yes [id number] TAKE ONE TABLET BY MOUTH TWICE DAILY IN THE MORNING AND IN THE EVENING [facility] amLODIPine 5 mg tablet 2022-04 00:00: 00 Yes [id number] TAKE ONE TABLET BY MOUTH DAILY IN THE MORNING [facility] iopamidol (ISOVUE 370-500 mL) injection 85 mL 09-03 01:00: 00 09-03 01:00 :00 No [id number] 85mL 85 mL, Intravenou s, ONCE, 1 dose, On Tue09/02/22 at 2000, Routine [facility] FENTanyl PF (SUBLIMAZE (PF)) injection 50 mcg 09-02 23:30: 00 09-03 00:02 :00 No 50ug 50 mcg, Slow IV Push, ONCE, 1 dose, On Tue09/02/22 at 1830, Routine [facility] lidocaine 5 % (700 mg/patch) patch 09-02 00:00: 00 09-03 04:59 :00 No [id number] 1{patch } Apply 1 Patch to area(s) once now for 1 dose. [facility] potassium chloride 10 mEq CR capsule 05-31 08:50: 16 05-31 00:00 :00 No 10meq 10 mEq daily. [facility] atorvastati n 80 mg tablet 05-31 00:00: 00 Yes [id number] 80mg Take 1 tablet by mouth in the morning. [facility] ezetimibe 10 mg tablet 05-31 00:00: 00 Yes [id number] 10mg Take 1 tablet by mouth in the morning. [facility] potassium chloride 10 mEq CR capsule 05-31 00:00: 00 Yes [id number] 10meq Take 1 capsule by mouth in the morning. [facility] OLANZapine 10 mg tablet 05-31 00:00: 00 Yes [id number] 10mg Take 1 tablet by mouth in the morning. [facility] furosemide 40 mg tablet 05-31 00:00: 00 Yes [id number] 40mg Take 1 tablet by mouth in the morning. [facility] buPROPion XL 300 mg 24 hr tablet 05-31 00:00: 00 Yes [id number] 300mg Take 1 tablet by mouth in the morning. [facility] amLODIPine 5 mg tablet 05-31 00:00: 00 01-28 00:00 :00 No [id number] 5mg Take 1 tablet by mouth in the morning. [facility] famotidine 20 mg tablet 05-31 00:00: 00 01-28 00:00 :00 No [id number] 20mg Take 1 tablet by mouth in the morning and 1 tablet in the evening. [facility] famotidine 20 mg tablet 05-27 00:00: 00 Yes [id number] 20mg Take 1 tablet by mouth in the morning and 1 tablet in the evening. [facility] atorvastati n 80 mg tablet 05-27 00:00: 00 Yes [id number] 80mg Take 1 tablet by mouth in the morning. [facility] amLODIPine 5 mg tablet 2023-0 2-09 00:00: 00 Yes [id number] 5mg Take 1 tablet by mouth in the morning. [facility] cefTRIAXone (ROCEPHIN) 1,000 mg in NaCl 0.9% (NS) 50 mL MINI-BAG 2021-04 23:00: 00 03-27 23:15 :00 No 1000mg 1,000 mg, IV Piggyback, ONCE, 1 dose, On 03/27/22 at 1700, Administer over 30 Minutes, 50 mL
Reas on for Anti-Infec tive: Documented Infection< br>Documen eduardo Infection Site: Urine
D uration of Therapy: Other (see Comments) [facility] KCL 20 mEq/15 mL solution 40 mEq 2021-04 22:30: 00 03-27 21:33 :00 No 40meq 40 mEq, Oral, ONCE, 1 dose, On 03/27/22 at 1630, Routine [facility] ondansetron (ZOFRAN (PF)) injection 4 mg 2021-04 21:00: 00 03-27 21:20 :00 No 4mg 4 mg, Slow IV Push, ONCE, 1 dose, On 03/27/22 at 1500, FANI [facility] cefdinir 300 mg capsule 2021-04 00:00: 00 04-07 00:00 :00 No [id number] 300mg Take 1 capsule by mouth in the morning and 1 capsule in the evening. [facility] Armodafinil 250 mg Tab 2020-04 13:42: 27 Yes 250mg 250 mg daily. [facility] potassium chloride 10 mEq CR capsule 2020-04 13:42: 27 Yes 10meq 10 mEq daily. [facility] buPROPion XL 300 mg 24 hr tablet 2020-04 00:00: 00 05-31 00:00 :00 No 300mg Take 300 mg by mouth daily. [facility] furosemide 40 mg tablet 2020-04 00:00: 00 05-31 00:00 :00 No 40mg Take 40 mg by mouth daily. [facility] OLANZapine 10 mg tablet 2020-04 2 00:00: 00 05-31 00:00 :00 No 10mg Take 10 mg by mouth daily. [facility] amLODIPine 5 mg tablet 2020-04 00:00: 00 05-27 00:00 :00 No 5mg 5 mg daily. [facility] atorvastati n 80 mg tablet 2020-04 00:00: 00 05-27 00:00 :00 No 80mg Take 80 mg by mouth daily. [facility] famotidine 20 mg tablet 2020-04 00:00: 05-27 00:00 :00 No 20mg 20 mg daily. [facility] Adult Low Dose Aspirin 81 mg tablet,zoila yed release Take 1 tablet every day by oral route. Adult Low Dose Aspirin 81 mg tablet,zoila yed release Take 1 tablet every day by oral route. No 1 Q1D Adult Low Dose Aspirin 81 mg tablet,del ayed release Take 1 tablet every day by oral route. [facility] alendronate 70 mg tablet TAKE ONE TABLET BY MOUTH EVERY WEEK DIRECTED alendronate 70 mg tablet TAKE ONE TABLET BY MOUTH EVERY WEEK DIRECTED No alendronat e 70 mg tablet TAKE ONE TABLET BY MOUTH EVERY WEEK DIRECTED [facility] atorvastati n 80 mg tablet Take 1 tablet every day by oral route. atorvastati n 80 mg tablet Take 1 tablet every day by oral route. No 1 Q1D atorvastat in 80 mg tablet Take 1 tablet every day by oral route. [facility] Ensure Give 237 ml by mouth twice a day. Ensure Give 237 ml by mouth twice a day. No Ensure Give 237 ml by mouth twice a day. [facility] Iron (ferrous sulfate) 325 mg (65 mg iron) tablet Take 1 tablet every day by oral route. Iron (ferrous sulfate) 325 mg (65 mg iron) tablet Take 1 tablet every day by oral route. No 1 Q1D Iron (ferrous sulfate) 325 mg (65 mg iron) tablet Take 1 tablet every day by oral route. [facility] magnesium 200 mg (as magnesium oxide) tablet Take 1 tablet twice a day by oral route. magnesium 200 mg (as magnesium oxide) tablet Take 1 tablet twice a day by oral route. No 1 BID magnesium 200 mg (as magnesium oxide) tablet Take 1 tablet twice a day by oral route. [facility] Adult Low Dose Aspirin 81 mg tablet,zoila yed release Take 1 tablet every day by oral route. Adult Low Dose Aspirin 81 mg tablet,zoila yed release Take 1 tablet every day by oral route. No 1 Q1D Adult Low Dose Aspirin 81 mg tablet,del ayed release Take 1 tablet every day by oral route. [facility] alendronate 70 mg tablet TAKE ONE TABLET BY MOUTH EVERY WEEK DIRECTED alendronate 70 mg tablet TAKE ONE TABLET BY MOUTH EVERY WEEK DIRECTED No alendronat e 70 mg tablet TAKE ONE TABLET BY MOUTH EVERY WEEK DIRECTED [facility] atorvastati n 80 mg tablet Take 1 tablet every day by oral route. atorvastati n 80 mg tablet Take 1 tablet every day by oral route. No 1 Q1D atorvastat in 80 mg tablet Take 1 tablet every day by oral route. [facility] Ensure Give 237 ml by mouth twice a day. Ensure Give 237 ml by mouth twice a day. No Ensure Give 237 ml by mouth twice a day. [facility] ezetimibe 10 mg tablet TAKE 1 TABLET BY MOUTH EVERY DAY ezetimibe 10 mg tablet TAKE 1 TABLET BY MOUTH EVERY DAY No ezetimibe 10 mg tablet TAKE 1 TABLET BY MOUTH EVERY DAY [facility] Iron (ferrous sulfate) 325 mg (65 mg iron) tablet Take 1 tablet every day by oral route. Iron (ferrous sulfate) 325 mg (65 mg iron) tablet Take 1 tablet every day by oral route. No 1 Q1D Iron (ferrous sulfate) 325 mg (65 mg iron) tablet Take 1 tablet every day by oral route. [facility] magnesium 200 mg (as magnesium oxide) tablet Take 1 tablet twice a day by oral route. magnesium 200 mg (as magnesium oxide) tablet Take 1 tablet twice a day by oral route. No 1 BID magnesium 200 mg (as magnesium oxide) tablet Take 1 tablet twice a day by oral route. [facility] Adult Low Dose Aspirin 81 mg [...] ONE TABLET BY MOUTH EVERY WEEK DIRECTED [facility] atorvastati n 80 mg tablet Take 1 tablet every day by oral route. atorvastati n 80 mg tablet Take 1 tablet every day by oral route. No 1 Q1D atorvastat in 80 mg tablet Take 1 tablet every day by oral route. [facility] Ensure Give 237 ml by mouth twice a day. Ensure Give 237 ml by mouth twice a day. No Ensure Give 237 ml by mouth twice a day. [facility] ezetimibe 10 mg tablet TAKE 1 TABLET BY MOUTH EVERY DAY ezetimibe 10 mg tablet TAKE 1 TABLET BY MOUTH EVERY DAY No ezetimibe 10 mg tablet TAKE 1 TABLET BY MOUTH EVERY DAY [facility] Adult Low Dose Aspirin 81 mg tablet,zoila yed release Take 1 tablet every day by oral route. Adult Low Dose Aspirin 81 mg tablet,zoila yed release Take 1 tablet every day by oral route. No 1 Q1D Adult Low Dose Aspirin 81 mg tablet,del ayed release Take 1 tablet every day by oral route. [facility] alendronate 70 mg tablet TAKE ONE TABLET BY MOUTH EVERY WEEK DIRECTED alendronate 70 mg tablet TAKE ONE TABLET BY MOUTH EVERY WEEK DIRECTED No alendronat e 70 mg tablet TAKE ONE TABLET BY MOUTH EVERY WEEK DIRECTED [facility] atorvastati n 80 mg tablet Take 1 tablet every day by oral route. atorvastati n 80 mg tablet Take 1 tablet every day by oral route. No 1 Q1D atorvastat in 80 mg tablet Take 1 tablet every day by oral route. [facility] Ensure Give 237 ml by mouth twice a day. Ensure Give 237 ml by mouth twice a day. No Ensure Give 237 ml by mouth twice a day. [facility] ezetimibe 10 mg tablet TAKE 1 TABLET BY MOUTH EVERY DAY ezetimibe 10 mg tablet TAKE 1 TABLET BY MOUTH EVERY DAY No ezetimibe 10 mg tablet TAKE 1 TABLET BY MOUTH EVERY DAY [facility] Advil 200 mg tablet Take 1 tablet every 6 hours by oral route. Advil 200 mg tablet Take 1 tablet every 6 hours by oral route. No 1 Q6H Advil 200 mg tablet Take 1 tablet every 6 hours by oral route. [facility] Nicole-Seltze r Heartburn Nicole-Seltze r Heartburn No Nicole-Seltz er Heartburn [facility] amlodipine 5mg amlodipine 5mg No amlodipine 5mg [facility] armodafinil 250 mg tablet Take 1 tablet every day by oral route. armodafinil 250 mg tablet Take 1 tablet every day by oral route. No 1 Q1D armodafini l 250 mg tablet Take 1 tablet every day by oral route. [facility] Azo Azo No Azo [facility] B12 5000mg B12 5000mg No B12 5000mg [facility] bupropion HBr 300mg bupropion HBr 300mg No bupropion HBr 300mg [facility] famotidine 40mg famotidine 40mg No famotidine 40mg [facility] furosemide 40 mg tablet Take 1 tablet every day by oral route. furosemide 40 mg tablet Take 1 tablet every day by oral route. No 1 Q1D furosemide 40 mg tablet Take 1 tablet every day by oral route. [facility] gabapentin 800mg bid gabapentin 800mg bid No gabapentin 800mg bid [facility] Gaviscon Gaviscon No Gaviscon [facility] hydrocodone 5 mg-acetamin ophen 325 mg [...] oral route. take as needed for pain [facility] olanzapine 5mg olanzapine 5mg No olanzapine 5mg [facility] Senokot Senokot No Senokot M [facility] Vitamin D vitamin d 12 weekly Vitamin D vitamin d 12 weekly No Vitamin D vitamin d 12 weekly [facility] Zantac 150 mg tablet Take 1 tablet twice a day by oral route. Zantac 150 mg tablet Take 1 tablet twice a day by oral route. No 1 BID Zantac 150 mg tablet Take 1 tablet twice a day by oral route. [facility] zolpidem 5 mg tablet Take 1 tablet every day by oral route. zolpidem 5 mg tablet Take 1 tablet every day by oral route. No 1 Q1D zolpidem 5 mg tablet Take 1 tablet every day by oral route. [facility] Immunizations Ordered Immunization Name Filled [...] influenza nasal, unspecified formulation 2022-04-07 00:00:00 Completed [facility] Influenza Virus Vaccine,quad Im,preserve Free 65+ 2022-04-07 00:00:00 Completed [facility] Influenza Virus Vaccine,quad Im,preserve Free 65+ 2022-04-07 00:00:00 Completed [facility] Influenza Virus Vaccine,quad Im,preserve Free 65+ 2022-04-07 00:00:00 Completed [facility] Influenza Virus Vaccine,quad Im,preserve Free 65+ 2022-04-07 00:00:00 Completed [facility] Influenza Virus Vaccine,quad Im,preserve Free 65+ 2022-04-07 00:00:00 Completed [facility] Influenza Virus Vaccine,quad Im,preserve Free 65+ 2022-04-07 00:00:00 Completed [facility] Influenza Virus Vaccine,quad Im,preserve Free 65+ 2022-04-07 00:00:00 Completed [facility] Influenza Virus Vaccine,quad Im,preserve Free 65+ (FLUAD) Unknown Completed [facility] Influenza Virus Vaccine,quad Im,preserve Free 65+ (FLUAD) Unknown Completed [facility] Influenza Virus Vaccine,quad Im,preserve Free 65+ (FLUAD) Unknown Completed [facility] Influenza Virus Vaccine,quad Im,preserve Free 65+ (FLUAD) Unknown Completed [facility] Vital Signs Vital Name Observation Time Observation Value Comments S ource Systolic blood pressure 2022-09-03 02:00:00 133 mm[Hg] [facility] Diastolic blood pressure 2022-09-03 02:00:00 75 mm[Hg] [facility] Heart rate 2022-09-03 02:00:00 70 /min [facility] Body temperature 2022-09-03 02:00:00 36.22 Erin [facility] Respiratory rate 2022-09-03 02:00:00 20 /min [facility] Oxygen saturation in Arterial blood by Pulse oximetry 2022-09-03 02:00:00 98 /min [facility] Body height 2022-09-02 23:17:00 162.6 cm [facility] Body weight 2022-09-02 23:17:00 75.297 kg [facility] BMI 2022-09-02 23:17:00 28.49 kg/m2 [facility] BP Diastolic 2022-05-18 00:00:00 78 mm[Hg] [...] Systolic blood pressure 2022-04-07 21:25:00 110 mm[Hg] [facility] Diastolic blood pressure 2022-04-07 21:25:00 67 mm[Hg] [facility] Heart rate 2022-04-07 21:25:00 90 /min [facility] Body temperature 2022-04-07 21:25:00 36.56 Erin [facility] Body height 2022-04-07 21:25:00 162.6 cm [facility] Body weight 2022-04-07 21:25:00 74.39 kg [facility] BMI 2022-04-07 21:25:00 28.15 kg/m2 [facility] Oxygen saturation in Arterial blood by Pulse oximetry 2022-04-07 21:25:00 98 /min [facility] Systolic blood pressure 2022-03-27 23:00:00 118 mm[Hg] [facility] Diastolic blood pressure 2022-03-27 23:00:00 68 mm[Hg] [facility] Heart rate 2022-03-27 23:00:00 82 /min [facility] Respiratory rate 2022-03-27 23:00:00 16 /min [facility] Oxygen saturation in Arterial blood by Pulse oximetry 2022-03-27 23:00:00 99 /min [facility] Body temperature 2022-03-27 20:11:00 36.56 Erin [facility] Body height 2022-03-27 20:11:00 162.6 cm [facility] Body weight 2022-03-27 20:11:00 72.576 kg [facility] BMI 2022-03-27 20:11:00 27.46 kg/m2 [facility] Systolic blood pressure 2021-03-31 19:39:00 115 mm[Hg] [facility] Diastolic blood pressure 2021-03-31 19:39:00 76 mm[Hg] [facility] Heart rate 2021-03-31 19:39:00 85 /min [facility] Body height 2021-03-31 19:39:00 162.6 cm [facility] Body weight 2021-03-31 19:39:00 77.565 kg [facility] BMI 2021-03-31 19:39:00 29.35 kg/m2 [facility] BP Diastolic 2019-01-30 00:00:00 71 mm[Hg] [facility] Height 2019-01-30 00:00:00 64 [in_i[facility] BMI (Body Mass Index) 2019-01-30 00:00:00 35.7 kg/m2 [facility] BP Systolic 2019-01-30 00:00:00 109 mm[Hg] [facility] Body Weight 2019-01-30 00:00:00 3328 [oz_av] [facility] Procedures Procedure Date / Time Performed Performing Clinician Source NOTICE OF PRIVACY PRACTICES 2022-09-03 00:53:01 Doctor Unassigned, Clawson [facility] CONSENT/REFUSAL FOR DIAGNOSIS AND TREATMENT 2022-09-03 00:52:28 Doctor Unassigned, Clawson [facility] XR CHEST 1 VW 2022-09-03 00:06:19 Ariela Samano [facility] COMP. METABOLIC PANEL ([id number]) 2022-09-02 23:25:00 Ariela Samano [facility] CBC WITH DIFF 2022-09-02 23:25:00 Ariela Samano [facility] LACTIC ACID WHOLE BLOOD 2022-09-02 23:25:00 Waqar Samano [facility] MEDICATION CORRESPONDENCE 2022-05-26 06:01:00 Do ctor Unassigned, Clawson [facility] BASIC METABOLIC PANEL (NA, K, CL, CO2, GLUCOSE, BUN, CREATININE, CA) 2022-04-07 21:58:00 Zoraida Coulter [facility] CBC WITH DIFF 2022-04-07 21:58:00 Amrit Coulter darrion [facility] FLU VACC(),65+YR,0.5 ML,IM,ADJUVANTED,QUAD(FLU AD) 2022-04-07 21:38:51 Zoraida Coulter [facility] CT ABDOMEN PELVIS WO CONTRAST 2022-03-27 22:24:15 Karri Levin [facility] XR CHEST 1 VW 2022-03-27 21:31:[address] [facility] URINALYSIS 2022-03-27 21:15:00 Karri Levin [facility] MAGNESIUM 2022-03-27 21:01[facility] 2022-03-27 21:01:00 Karri Levin [facility] COMP. METABOLIC PANEL ([id number]) 2022-03-27 21:01:00 Karri Levin [facility] CBC WITH DIFF 2022-03-27 21:01:[address] [facility] N-TERMINAL PRO-BNP 2022-03-27 21:01:00 Karri Levin [facility] XR KNEE 3 VW LEFT 2021-04-08 20:08:00 Matti Cee [facility] XR, hip, unilateral 2019-01-30 00:00:00 [facility] Open Reduction of Fracture of Femur [facility] Oophorect[facility] Knee Surgery [facility] Procedure on Wrist [facility] Encounters Start Date/Time End Date/Time Encounter Type Admission Type Attending Clinicians Care Facility Care Department Encounter ID Source 2022-06-09 15:26:16 Outpatient [facility] [id number] [facility] 2021-10-26 06:31:51 Outpatient [facility] [id number] [facility] 2021-10-14 10:31:44 Outpatient [facility] [id number] [facility] 2023-06-22 00:00:00 2023-06-22 00:00:00 RefZoraida King Counts include 234 beds at the [facility] BILLIE?[facility] [id number] [facility] 2023-06-01 00:00:00 2023-06-01 00:00:00 Refrisa Coulter [facility] BILLIE?[facility] [id number] [facility] 2023-03-19 00:00:00 2023-03-19 00:00:00 RefZoraida King Counts include 234 beds at the [facility] BILLIE?[facility] [id number] [facility] 2023-01-28 00:00:00 2023-01-28 00:00:00 Refill Marylin [facility] BILLIE?[facility] [id number] [facility] 2022-09-02 18:18:00 2022-09-02 22:00:00 Emergency X ARIELA SAMANO [facility] ERT [id number] [facility] [facility] 20[facility]-02 18:18:00 2022-09-02 22:00:00 Emergency Ariela Samano [facility] 1.2840.114 350.1.13.10 4.2.7.2.686 [id number] [facility] 2022-06-07 00:00:00 2022-06-07 00:00:00 Outpatient GC_BAHC_Tod d_J PRIV PRIV [id number] [facility] 2022-05-27 00:00:00 2022-05-27 00:00:00 Refill [facility] 1.2.840.114 350.1.13.10 4.2.7.2.686 [id number] [facility] 2022-05-27 00:00:00 2022-05-27 00:00:00 Telephone [facility] 1.2840.114 350.1.13.10 4.2.7.2.686 [id number] [facility] 2022-05-26 00:00:00 2022-05-26 00:00:00 Telephone [facility] 1.2840.114 350.1.13.10 4.2.7.2.686 [id number] [facility] 2022-05-26 00:00:00 2022-05-26 00:00:00 Orders Only Doctor Unassigned, [facility] 1.2840.114 350.1.13.10 4.2.7.2.686 [id number] [facility] 2022-05-19 00:00:00 2022-05-19 00:00:00 Outpatient GC_BAHC_Tod d_J PRIV PRIV [id number] [facility] 2022-05-19 00:00:00 2022-05-19 00:00:00 Outpatient GC_BAHC_Tod d_J PRIV PRIV [id number] [facility] 2022-05-19 00:00:00 2022-05-19 00:00:00 Outpatient GC_BAHC_Tod d_J PRIV PRIV [id number] [facility] 2022-05-19 00:00:00 2022-05-19 00:00:00 Outpatient GC_BAHC_Tod d_J PRIV PRIV [id number] [facility] 2022-05-19 00:00:00 2022-05-19 00:00:00 Outpatient GC_BAHC_Tod d_J PRIV PRIV [id number] [facility] 2022-05-19 00:00:00 2022-05-19 00:00:00 Outpatient GC_BAHC_Tod d_J PRIV PRIV [id number] [facility] 2022-05-19 00:00:00 2022-05-19 00:00:00 Outpatient GC_BAHC_Tod d_J PRIV PRIV [id number] [facility] 2022-05-19 00:00:00 2022-05-19 00:00:00 Outpatient GC_BAHC_Tod d_J PRIV PRIV [id number] [facility] 2022-05-19 00:00:00 2022-05-19 00:00:00 Outpatient GC_BAHC_Tod d_J PRIV PRIV [id number] [facility] 2022-05-19 00:00:00 2022-05-19 00:00:00 Outpatient GC_BAHC_Tod d_J PRIV PRIV [id number] [facility] 2022-05-19 00:00:00 2022-05-19 00:00:00 Outpatient GC_BAHC_Tod d_J PRIV PRIV [id number] [facility] 2022-05-19 00:00:00 2022-05-19 00:00:00 Outpatient GC_BAHC_Tod d_J PRIV PRIV [id number] [facility] 2022-05-19 00:00:00 2022-05-19 00:00:00 Outpatient GC_BAHC_Tod d_J PRIV PRIV [id number] [facility] 2022-05-19 00:00:00 2022-05-19 00:00:00 Outpatient GC_BAHC_Tod d_J PRIV PRIV [id number] [facility] 2022-05-19 00:00:00 2022-05-19 00:00:00 Outpatient GC_BAHC_Tod d_J PRIV PRIV [id number] [facility] 2022-05-18 00:00:00 2022-05-18 00:00:00 Jeffry Parrish MD: [address] [place] [phone] , Ph. Formerly [facility] GC_BAHC_[facility] [id number] [facility] 2022-05-12 00:00:00 2022-05-12 00:00:00 POONAM Anderson: [address] [place] [phone] , Ph. [facility] GC_BAHC_[facility] [id number] [facility] 2022-05-07 00:00:00 2022-05-07 00:00:00 Outpatient GC_BAHC_Tod d_J [facility] [id number] [facility] 2022-05-07 00:00:00 2022-05-07 00:00:00 Outpatient GC_BAHC_Tod d_J [facility] [id number] [facility] 2022-05-07 00:00:00 2022-05-07 00:00:00 Outpatient GC_BAHC_Tod d_J [facility] [id number] [facility] 2022-05-07 00:00:00 2022-05-07 00:00:00 POONAM Anderson: [address] [place] [phone] , Ph. 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 Visit Lab, K[facility] - [facility] 1.2.840.114 350.1.13.10 4.2.7.2.686 [id number] [facility] 2022-04-07 15:15:00 2022-04-07 15:47:59 Outpatient R [facility] [id number] [facility] 2022-04-07 15:15:00 2022-04-07 15:47:59 Office Visit [facility] 1.2.840.114 350.1.13.10 4.2.7.2.686 [id number] [facility] 2022-03-27 14:09:00 2022-03-27 17:18:00 Emergency X CLARISSARUPERTOLIANAKARRI [facility] ERT [id number] [facility] 2022-03-27 14:09:00 2022-03-27 17:18:00 Emergency Karri Levin S [facility] 1.2.840.114 350.1.13.10 4.2.7.2.686 [id number] [facility] 2021-11-19 00:00:00 2021-11-19 00:00:00 Outpatient ANIL MCCOLLUM [facility] [id number] Viral da [facility] 2021-04-08 13:58:04 2021-04-08 23:59:00 Hospital Encounter Matti Cee [facility] 1.2.840.114 350.1.13.10 4.2.7.2.686 [id number] [facility] 2021-04-08 13:30:00 2021-04-08 14:30:16 Outpatient R MATTI CEE [facility] [id number] [facility] 2021-04-08 14:00:00 2021-04-08 14:00:00 Outpatient R MATTI CEE [facility] [id number] [facility] 2021-04-02 09:45:00 2021-04-02 09:45:00 Outpatient Bernadine ROMERO ELDER [facility] [id number] [facility] 2021-04-02 09:45:00 2021-04-02 09:45:00 Outpatient ELDER BRANTLEY [facility] [id number] [facility] 2021-03-31 13:30:00 2021-03-31 13:58:43 Outpatient ZORAIDA AYOUB [facility] [id number] [facility] 2021-03-31 13:21:58 2021-03-31 13:51:58 Office Visit Marylin Zoraida Oscar [facility] 1.2.840.114 350.1.13.10 4.2.7.2.686 [id number] [facility] 2020-12-29 16:13:00 2020-12-30 12:27:00 Outpatient YVETTE DYER [facility] [id number] [facility] 2020-03-05 02:19:00 2020-03-05 02:19:00 Outpatient Phan ARAGON [facility] [id number] [facility] 2019-01-30 00:00:00 2019-01-30 00:00:00 You Blanchard MD: [address] [place] [address] [place] [address], [place] [address] , Ph. [facility] [place] [facility] [id number] [facility] Results Test Description Test Time Test Comments Results Result Co mments Source [facility]. METABOLIC PANEL (67065)2022-09-02 23:55:53* Test Item Value Reference Range Interpretation Comme nts NA (test code = 0069453176) 127 mmol/L 135-145 L K (test code = 7290642305) 3.9 mmol/L 3.5-5.0 CL (test code = 6092478717) 90 mmol/L 98-108 L CO2 TOTAL (test code = 6345503003) 27 mmol/L 23-31 AGAP (test code = 9690156733) 10 2-16 BUN (test code = 9231551009) 16 mg/dL 7-23 GLUCOSE (test code = 2990396258) 103 mg/dL 70-110 CREATININE (test code = 2994022652) 1.20 mg/dL 0.50-1.04 H TOTAL BILI (test code = 7025771642) 0.6 mg/dL 0.1-1.1 CALCIUM (test code = 5255833375) 8.8 mg/dL 8.6-10.6 T PROTEIN (test code = 6339782079) 6.2 g/dL 6.3-8.2 L ALBUMIN (test code = 9344226648) 4.0 g/dL 3.5-5.0 ALK PHOS (test code = 1611955071) 72 U/L 34-122 ALTv (test code = 1742-6) 22 U/L 5-35 AST(SGOT) (test code = 9420270167) 29 U/L 13-40 eGFR (test code = 5141242052) 44.0 mL/min/1.73m2 LINDA (test code = LINDA) [...] imaging tests). Lab Interpretation (test code = 51302-7) [facility] [id number] 23:38:13* Test Item Value Reference Range Interpretation Comme nts LACTIC ACID (test code = 3168145566) 1.80 mmol/L 0.50-2.20 Lab Interpretation (test cod e = 28802-1) Normal [facility]OL[facility] (NA, K, CL, CO2, GLUCOSE, BUN, CREATININE, CA)2022-04-08 08:56:09* Test Item Value Reference Range Interpretation Comme nts NA (test code = 2891780857) 138 mmol/L 135-145 K (test code = 8184994562) 4.0 mmol/L 3.5-5.0 CL (test code = 3372631500) 99 mmol/L 98-108 CO2 TOTAL (test code = 5578247249) 29 mmol/L 23-31 AGAP (test code = 0101967342) 2-16 BUN (test code = 7039475587) 22 mg/dL 7-23 GLUCOSE (test code = 4099116362) 101 mg/dL 70-110 CREATININE (test code = 2955289319) 2.00 mg/dL 0.50-1.04 H CALCIUM (test code = 6977552531) 9.4 mg/dL 8.6-10.6 eGFR (test code = 9401919739) mL/min/1.73m2 LINDA (test code = LINDA) Association [...] imaging tests). Lab Interpretation (test code = 90693-7) [facility] (NA, K, CL, CO2, GLUCOSE, BUN, CREATININE, CA)2022-04-08 08:56:09* Test Item Value Reference Range Interpretation Comme nts NA (test code = 9257563381) 138 mmol/L 135-145 K (test code = 6729253301) 4.0 mmol/L 3.5-5.0 CL (test code = 0719967355) 99 mmol/L 98-108 CO2 TOTAL (test code = 9994285902) 29 mmol/L 23-31 AGAP (test code = 4673471599) 2-16 BUN (test code = 0784386073) 22 mg/dL 7-23 GLUCOSE (test code = 3127845193) 101 mg/dL 70-110 CREATININE (test code = 0405416276) 2.00 mg/dL 0.50-1.04 H CALCIUM (test code = 7589252380) 9.4 mg/dL 8.6-10.6 eGFR (test code = 2585059708) mL/min/1.73m2 LINDA (test code = LINDA) Association [...] imaging tests). Lab Interpretation (test code = 86155-7) Abnormal [facility] WITH [id number] 08:15:22* Test Item Value Reference Range Interpretation Comme nts WBC (test code = 6690-2) See_Comment [Automated [employer]] The system which generated this result transmitted [...] g/dL 31.6-35.1 L RDW-SD (test code = 46796-4) 49.2 fL 39.0-49.9 RDW-CV (test code = 788-0) 14.4 % 12.0-15.5 PLT (test code = 777-3) See_Comment [Automated messa ge] The system which generated this result transmitted reference range: 166 - 358 10*3/?L. The reference range was not used to interpret this result as normal/abnormal. MPV (test code = 13525-9) 9.4 fL 9.5-12.9 L NRBC/100 WBC (test code = 0260598453) See_Comment [Automated [employer] ssage] The system which generated this result transmitted reference range: 0.0 - 10.0 /100 WBCs. The reference range was not used to interpret this result as normal/abnormal. NRBC x10^3 (test code = 4166237913) See_Comment [Automated messa ge] The system which generated this result transmitted reference range: 10*3/?L. The reference range was not used to interpret this result as normal/abnormal. GRAN MAT (NEUT) % (test code = 770-8) 80.0 % IMM GRAN % (test code = 1118652601) 0.20 % LYMPH % (test code = 736-9) 13.9 % MONO % (test code = 5905-5) 5.4 % EOS % (test code = 713-8) 0.2 % BASO % (test code = 706-2) 0.3 % GRAN MAT x10^3(ANC) (test code = 5958208517) 4.89 10*3/uL 1.88-7.09 IMM GRAN x10^3 (test code = 4873009258) 0.00-0.06 LYMPH x10^3 (test code = 731-0) 0.85 10*3/uL 1.32-3.29 L MONO x10^3 (test code = 742-7) 0.33 10*3/uL 0.33-0.92 EOS x10^3 (test code = 711-2) 0.03-0.39 L BASO x10^3 (test code = 704-7) 0.01-0.07 Lab Interpretation (test code = 04463-1) Abnormal [facility] WITH [id number] 08:15:22* Test Item Value Reference Range Interpretation Comme nts WBC (test code = 6690-2) See_Comment [Automated [employer]] The system which generated this result transmitted reference range: 4.30 - 11.10 10*3/?L. The reference range was not used to interpret this result as normal/abnormal. RBC (test code = 789-8) See_Comment [Automated [employer]] The system which generated this result [...] g/dL 31.6-35.1 L RDW-SD (test code = 66037-5) 49.2 fL 39.0-49.9 RDW-CV (test code = 788-0) 14.4 % 12.0-15.5 PLT (test code = 777-3) See_Comment [Automated messa ge] The system which generated this result transmitted reference range: 166 - 358 10*3/?L. The reference range was not used to interpret this result as normal/abnormal. MPV (test code = 59555-1) 9.4 fL 9.5-12.9 L NRBC/100 WBC (test code = 1209896311) See_Comment [Automated me ssage] The system which generated this result transmitted reference range: 0.0 - 10.0 /100 WBCs. The reference range was not used to interpret this result as normal/abnormal. NRBC x10^3 (test code = 9149634739) See_Comment [Automated messa ge] The system which generated this result transmitted reference range: 10*3/?L. The reference range was not used to interpret this result as normal/abnormal. GRAN MAT (NEUT) % (test code = 770-8) 80.0 % IMM GRAN % (test code = 7931066671) 0.20 % LYMPH % (test code = 736-9) 13.9 % MONO % (test code = 5905-5) 5.4 % EOS % (test code = 713-8) 0.2 % BASO % (test code = 706-2) 0.3 % GRAN MAT x10^3(ANC) (test code = 2946652421) 4.89 10*3/uL 1.88-7.09 IMM GRAN x10^3 (test code = 9301530839) 0.00-0.06 LYMPH x10^3 (test code = 731-0) 0.85 10*3/uL 1.32-3.29 L MONO x10^3 (test code = 742-7) 0.33 10*3/uL 0.33-0.92 EOS x10^3 (test code = 711-2) 0.03-0.39 L BASO x10^3 (test code = 704-7) 0.01-0.07 Lab Interpretation (test code = 09324-9) Abnormal [facility] [id number] 21:55:12* Test Item Value Reference Range Interpretation Comments TROPONIN I (test code = 2334202059) 0.005 ng/mL See_Comment [Automated message] The system [...] of biotin. Lab Interpretation (test code = 75671-6) Normal [facility] [id number] 21:52:11* Test Item Value Reference Range Interpretation Comme nts NT-proBNP (test code = 4676353357) 122 pg/mL See_Comment [Automated message] The system which generated this result transmitted reference range: <=125. The reference range was not used to interpret this result as normal/abnormal. LINDA (test code = LINDA) Biotin has been reported to cause a negative bias, interpret results relative to patient's use of biotin. Lab Interpretation (test code = 69364-3) [facility] METABOLIC PANEL (24430)2022-03-27 21:29:29* Test Item Value Reference Range Interpretation Comme nts NA (test code = 2128710665) 136 mmol/L 135-145 K (test code = 5887733292) 3.1 mmol/L 3.5-5.0 L CL (test code = 6278261580) 96 mmol/L 98-108 L CO2 TOTAL (test code = 8861151859) 20 mmol/L 23-31 L AGAP (test code = 6027072655) 2-16 H BUN (test code = 6548072755) 31 mg/dL 7-23 H GLUCOSE (test code = 3150739498) 129 mg/dL 70-110 H CREATININE (test code = 7354940632) 1.93 mg/dL 0.50-1.04 H TOTAL BILI (test code = 8510301549) 1.0 mg/dL 0.1-1.1 CALCIUM (test code = 2910940550) 9.4 mg/dL 8.6-10.6 T PROTEIN (test code = 1451769356) 6.6 g/dL 6.3-8.2 ALBUMIN (test code = 7589350307) 4.6 g/dL 3.5-5.0 ALK PHOS (test code = 0461367688) 96 U/L 34-122 ALTv (test code = 1742-6) 36 U/L 5-35 H AST(SGOT) (test code = 5759407487) 36 U/L 13-40 eGFR (test code = 2494723060) mL/min/1.73m2 LINDA (test code = LINDA) Association [...] imaging tests). Lab Interpretation (test code = 74564-7) [facility] 21:23:30* Test Item Value Reference Range Interpretation Comme nts MAGNESIUM (test code = 1558922425) 2.0 mg/dL 1.7-2.4 Lab Interpretation (test cod e = 44504-6) Normal [facility] WITH [id number] 21:11:09* Test Item Value Reference Range Interpretation [...] 31.7 g/dL 31.6-35.1 RDW-SD (test code = 82444-7) 46.5 fL 39.0-49.9 RDW-CV (test code = 788-0) 13.6 % 12.0-15.5 PLT (test code = 777-3) See_Comment [Automated messa ge] The system which generated this result transmitted reference range: 166 - 358 10*3/?L. The reference range was not used to interpret this result as normal/abnormal. MPV (test code = 60450-4) 8.8 fL 9.5-12.9 L NRBC/100 WBC (test code = 5615539659) See_Comment [Automated Motribe ssage] The system which generated this result transmitted reference range: 0.0 - 10.0 /100 WBCs. The reference range was not used to interpret this result as normal/abnormal. NRBC x10^3 (test code = 3315742813) See_Comment [Automated messa ge] The system which generated this result transmitted reference range: 10*3/?L. The reference range was not used to interpret this result as normal/abnormal. GRAN MAT (NEUT) % (test code = 770-8) 88.6 % IMM GRAN % (test code = 5248560446) 0.40 % LYMPH % (test code = 736-9) 6.4 % MONO % (test code = 5905-5) 4.4 % EOS % (test code = 713-8) 0.0 % BASO % (test code = 706-2) 0.2 % GRAN MAT x10^3(ANC) (test code = 5910794425) 9.53 10*3/uL 1.88-7.09 H IMM GRAN x10^3 (test code = 1543767351) 0.04 10*3/uL 0.00-0.06 LYMPH x10^3 (test code = 731-0) 0.69 10*3/uL 1.32-3.29 L MONO x10^3 (test code = 742-7) 0.47 10*3/uL 0.33-0.92 EOS x10^3 (test code = 711-2) 0.03-0.39 L BASO x10^3 (test code = 704-7) 0.01-0.07 Lab Interpretation (test code = 25237-1) Abnormal [facility]"
--- NOTE | 2024-02-02 18:11 | RAD REPORT ---
EXAM: CT brain without contrast HISTORY: frequent falls COMPARISON: None TECHNIQUE: Multiple contiguous axial images were obtained and a CT of the brain without contrast. Sag ittal and coronal reformats were performed. One or more of the following dose reduction techniques were used: Automated exposure control, adjust ment of the mA and/or kV according to patient size, and/or iterative reconstruction. FINDINGS: No evidence of hydrocephalus, intracranial hemorrhage, or extra-axial fluid collection. The brain is normal in morphology. No evidence of midline shift or areas of brain edema. The calvarium is intact. The visualized paranasal sinuses and mastoid air cells are essentially clear . IMPRESSION: No evidence of acute intracranial abnormality.
[2024-02-02 18:43] LABS: Absolute Basophils 0.1 K/uL (0-0.5); Absolute Lymphocytes (CBC) 0.5 K/uL (0.7-4.9); Absolute Monocytes 0.3 K/uL (0.1-1.3); Absolute Neutrophil 4.1 K/uL (1.8-8.0); Basophils % 1.6 % (0-1.3); Eosinophils % 0.8 % (0-4.4); Lymphocytes % 9.1 % (15.3-44.8); MCHC 34.7 g/dL (32.0-36.0); MCV 92.2 fL (80-100); MPV 7.1 fL (7.6-11.3); Monocytes % 5.9 % (3.3-12.3); Neutrophils % 82.6 % (41.7-73.7); Nucleated Red Blood Cells % 0.1 % (0-0); Platelets 191 thou/uL (152-406); RBC Red Blood Cell Count 3.14 M/uL (3.86-4.86); Red Cell Distribution Width 15.4 % (12.1-15.2)
--- NOTE | 2024-02-02 18:53 | RAD REPORT ---
EXAMINATION: ONE VIEW CHEST XR CLINICAL INDICATION: weakness TECHNIQUE: Frontal chest projection is submitted. Examination is limited by patient positioning and t echnique. COMPARISON: 01/20/2024 FINDINGS: The lungs are well inflated and clear. The heart is normal in size. No displaced fractures identified . IMPRESSION: No acute intrathoracic abnormalities.
[2024-02-02 19:03] LABS: Albumin 3.4 g/dL (3.4-5.0); Albumin/Globulin Ratio 1.2 (1.1-1.8); Anion Gap 11.1 mEq/L (5.0-15.0); Bilirubin Direct 0.4 mg/dL (0-0.2); Bilirubin Indirect, Calculated 0.9 mg/dL (0.2-0.8); Bilirubin Total 1.3 mg/dL (0.2-1.0); Globulin 2.8 g/dL (2.3-3.5); Magnesium 1.9 mg/dL (1.6-2.4); Potassium 3.1 mEq/L (3.5-5.1); Protein, Total 6.2 g/dL (6.4-8.2); Troponin High Sensitivity 16.1 pg/mL (<58.9)
[2024-02-02 19:43] LABS: Specific Gravity < 1.005 (1.005-1.030); Sqamous Epithelial <5 /HPF (None Seen); Urine Bacteria <20 /HPF (<20); Urine Bilirubin NEGATIVE (Negative); Urine Blood Negative (Negative); Urine Clarity Turbid (Clear); Urine Color Light-Yellow (Yellow); Urine Crystals Unidentified Few /HPF (None Seen); Urine Culture Reflex Order NOT NEEDED; Urine Glucose NEGATIVE (Negative); Urine Ketones NEGATIVE (Negative); Urine Micro Reflex YN NO BILL MICROSCOPIC; Urine Nitrite NEGATIVE (Negative); Urine Protein NEGATIVE (Negative); Urine RBC <5 /HPF (None Seen); Urine Urobilinogen Normal (Normal); Urine WBC <5 /HPF (<5); Urine WBC Clump Rare /HPF (None Seen); Urine Yeast (Budding) Trace /HPF (None Seen)
--- NOTE | 2024-02-02 19:53 | ER ---
Nurse's Notes [facility] Name: Joyce Saha Age: 73 yrs Sex: Female : 1950 Arrival Date: 02/02/2024 Time: 17:39 Bed 24 Private MD: Diagnosis: Frequent falls;Hypokalemia Presentation: 02/01 17:51 Chief complaint: EMS states: Pt reports general weakness and recent, multiple falls, ph fell 4 times today, denies injury, BP stable, HR increased from 80s to 110s when pt stood up, pt reports feeling weak in her legs. Coronavirus screen: Vaccine status: Patient reports receiving the 2nd dose of the covid vaccine. Ebola Screen: No symptoms or risks identified at this time. Initial Sepsis Screen: Does the patient meet any 2 criteria? No. Patient's initial sepsis screen is negative. Does the patient have a suspected source of infection? No. Patient's initial sepsis screen is negative. Risk Assessment: Do you want to hurt yourself or someone else? Patient reports no desire to harm self or others. Onset of symptoms was February 02, 2024. 17:51 Method Of Arrival: EMS: [facility] ph 17:51 Acuity: VALERIY 3 ph Triage Assessment: 17:55 General: Appears in no apparent distress. Behavior is calm, cooperative. Pain: Denies ph pain. Neuro: Reports weakness in bilateral legs. Derm: Skin is pink, warm \T\ dry. Historical: - Allergies: 17:55 acutane; ph 17:55 Allopurinol; ph 17:55 amlodipine; ph 17:55 budesonide; ph 17:55 Codeine; ph 17:55 formoterol fumarate; ph 17:55 hydrochlorothiazide; ph - PMHx: 17:55 Congestive heart failure; depressive disorder; Gastroesophageal reflux disease; ph Hypercholesterolemia; Hypertensive disorder; osteoarthritis; Osteoporosis; - PSHx: 17:55 knee surgery; shoulder surergy; wrist surgery; ph - Immunization history:: Adult Immunizations unknown. - Infectious Disease History:: Denies. - Social history:: Smoking status: Patient/guardian denies using tobacco, but has a distant history of tobacco abuse. - Family history:: not pertinent. Screenin:00 [facility] ED Fall Risk Assessment (Adult) History of falling in the last 3 months, me1 including since admission Yes- fall prone (multiple falls) (3 pts) Confusion or Disorientation No (0 pts) Intoxicated or Sedated No (0 pts) Impaired Gait Yes (1 pt) Mobility Assist Device Used Yes (1 pt) Altered Elimination No (0 pt) Score/Fall Risk Level 3 or more points = High Risk Maintained a safe environment, Hourly rounding (assess needs \T\ fall precautionary measures) done, Used ambulatory aids as needed (educated on \T\ assisted with). Abuse screen: Denies threats or abuse. Nutritional screening: No deficits noted. Tuberculosis screening: No symptoms or risk factors identified. Assessment: 18:00 General: Appears comfortable, well groomed, well developed, well nourished, Behavior is me1 calm, cooperative, appropriate for age, Reports Pt reports general weakness and recent, multiple falls, fell 4 times today, denies injury, BP stable, HR increased from 80s to 110s when pt stood up, pt reports feeling weak in her legs. Pain: Denies pain. Neuro: Level of Consciousness is awake, alert, obeys commands, Oriented to person, place, time, situation, Appropriate for age. Cardiovascular: Patient's skin is warm and dry. Respiratory: Airway is patent Respiratory effort is even, unlabored, Respiratory pattern is regular, symmetrical. GI: No signs and/or symptoms were reported involving the gastrointestinal system. : No signs and/or symptoms were reported regarding the genitourinary system. EENT: No signs and/or symptoms were reported regarding the EENT system. Derm: Skin is intact, is healthy with good turgor, Skin is pink, warm \T\ dry. Musculoskeletal: Reports Pt reports general weakness and recent, multiple falls, fell 4 times today, denies injury, BP stable, HR increased from 80s to 110s when pt stood up, pt reports feeling weak in her legs. Injury Description: Pt reports general weakness and recent, multiple falls, fell 4 times today, denies injury, BP stable, HR increased from 80s to 110s when pt stood up, pt reports feeling weak in her legs. Vital Signs: 17:51 BP 135 / 83; Pulse 87; Resp 18; Temp 97.7; Pulse Ox 98% on R/A; Weight 73.94 kg; Height ph 5 ft. 4 in. ; Pain 0/10; 18:30 BP 118 / 70; Pulse 84; Resp 16; Pulse Ox 99% ; me1 19:31 BP 123 / 72 Supine; Pulse 82; Resp 16; Pulse Ox 99% ; me1 19:32 BP 115 / 67 Sitting; Pulse 84; me1 19:33 BP 111 / 69 Standing; Pulse 87; me1 17:51 Body Mass Index 27.98 (73.94 kg, 162.56 cm) ph 17:51 Pain Scale: Adult ph ED Course: 17:42 Patient arrived in ED. rt 17:42 Richard Cerda MD is Attending Physician. rt 17:55 Triage completed. ph 17:55 Arm band placed on Patient placed in an exam room, on a stretcher, on court monitor, ph on pulse oximetry. 18:00 Head Brain Wo Cont In Process Unspecified. EDMS 18:00 Patient has correct armband on for positive identification. Bed in low position. Call me1 light in reach. Side rails up X2. Provided Education on: POC. Verbalized understanding.. Client placed on continuous cardiac and pulse oximetry monitoring. NIBP monitoring applied. library monitor on. Pulse ox on. NIBP on. 18:00 No provider procedures requiring assistance completed. me1 18:25 XRAY Chest (1 view) In Process Unspecified. EDMS 18:29 Basic Metabolic Panel Sent. vk 18:29 CBC with Diff Sent. vk 18:29 LFT's Sent. vk 18:29 Magnesium Sent. vk 18:29 Troponin HS Sent. vk 18:29 Maintain EMS IV. Dressing intact. Good blood return noted. Site clean \T\ dry. Gauge \T\ vk site: 20 G Left AC. Flushed with 10 mL NS. 18:32 Initial lab(s) drawn, by la, sent to lab. vk 18:45 Aster Singletary, RN is Primary Nurse. me1 18:45 EKG done, by ED staff, reviewed by Richard Cerda MD. me1 20:20 IV discontinued, intact, bleeding controlled, No redness/swelling at site. Pressure me1 dressing applied. Administered Medications: 19:57 Drug: Potassium PO Effervescent Tablet 50 mEq PO once; dissolve in 4 ounces of water or me1 juice Route: PO; 20:15 Follow up: Response: No adverse reaction me1 Medication: 18:00 VIS not applicable for this client. me1 Outcome: 20:30 Discharge ordered by MD. me1 20:30 Discharged to home via wheelchair, with family, 20:30 Condition: stable 20:30 Discharge instructions given to patient, Instructed on discharge instructions, follow up and referral plans. Demonstrated understanding of instructions, follow-up care, 20:48 Patient left the ED. me1 Signatures: Dispatcher [employer] EDMS Joyce Henderson RN RN ph Richard Cerda MD MD rt Aster Singletary RN RN me1 Marta Nava Corrections: (The following items were deleted from the chart) 20:42 17:51 Chief complaint: EMS states: Pt reports general weakness and recent, multiple me1 falls, fell 4 times today, denies injury, BP stable, HR increased from 80s to 110s when pt stood up, pt reports feeling weak in her legs ph 20:49 19:52 IV discontinued, intact, bleeding controlled, No redness/swelling at site. me1 Pressure dressing applied, me1 20:50 19:52 Discharge ordered by MD. rt me1 20:50 19:52 Discharged to home via wheelchair, with family, me1 me1 20:50 19:52 Condition: stable me1 me1 20:50 19:52 Discharge instructions given to patient, Instructed on discharge instructions, me1 follow up and referral plans. Demonstrated understanding of instructions, follow-up care, la1
--- NOTE | 2024-02-02 19:53 | EDPHYS ---
Physician Documentation [facility] Name: Joyce Saha Age: 73 yrs Sex: Female : 1950 Arrival Date: 02/02/2024 Time: 17:39 Bed 24 Private MD: ED Physician Richard Cerda HPI: 02/01 18:48 This 73 yrs old Female presents to ER via EMS with complaints of General Weakness - rt multiple falls. 18:48 Patient presents to the ED with frequent falls. Patient has had multiple falls this rt week, for today. Patient denies any injury or head trauma associated with these falls. Denies any pain currently. States that she does feel weak and unsteady on her feet. Denies other acute complaints at this time, symptoms are moderate in severity, no other aggravating or alleviating factors. Of note, patient states that she does live alone and does not have anybody help her at home.. Historical: - Allergies: 17:55 acutane; ph 17:55 Allopurinol; ph 17:55 amlodipine; ph 17:55 budesonide; ph 17:55 Codeine; ph 17:55 formoterol fumarate; ph 17:55 hydrochlorothiazide; ph - PMHx: 17:55 Congestive heart failure; depressive disorder; Gastroesophageal reflux disease; ph Hypercholesterolemia; Hypertensive disorder; osteoarthritis; Osteoporosis; - PSHx: 17:55 knee surgery; shoulder surergy; wrist surgery; ph - Immunization history:: Adult Immunizations unknown. - Infectious Disease History:: Denies. - Social history:: Smoking status: Patient/guardian denies using tobacco, but has a distant history of tobacco abuse. - Family history:: not pertinent. ROS: 18:48 Constitutional: Negative for fever, chills, and weight loss, Cardiovascular: Negative rt for chest pain, palpitations, and edema, Respiratory: Negative for shortness of breath, cough, wheezing, and pleuritic chest pain, Abdomen/GI: Negative for abdominal pain, nausea, vomiting, diarrhea, and constipation, Skin: Negative for injury, rash, and discoloration, 18:48 Neuro: Positive for weakness, Negative for loss of consciousness, Exam: 18:48 Constitutional: This is a well developed, well nourished patient who is awake, alert, rt and in no acute distress. Head/Face: Normocephalic, atraumatic. Chest/axilla: Normal chest wall appearance and motion. Nontender with no deformity. No lesions are appreciated. Cardiovascular: Regular rate and rhythm with a normal S1 and S2. No gallops, murmurs, or rubs. Normal PMI, no JVD. No pulse deficits. Respiratory: Lungs have equal breath sounds bilaterally, clear to auscultation and percussion. No rales, rhonchi or wheezes noted. No increased work of breathing, no retractions or nasal flaring. Abdomen/GI: Soft, non-tender, with normal bowel sounds. No distension or tympany. No guarding or rebound. No evidence of tenderness throughout. Skin: Warm, dry with normal turgor. Normal color with no rashes, no lesions, and no evidence of cellulitis. MS/ Extremity: Pulses equal, no cyanosis. Neurovascular intact. Full, normal range of motion. Neuro: Awake and alert, GCS 15, oriented to person, place, time, and situation. Cranial nerves II-XII grossly intact. Motor strength 5/5 in all extremities. Sensory grossly intact. Cerebellar exam normal. Normal gait. 19:07 ECG was reviewed by the Attending Physician. rt Vital Signs: 17:51 BP 135 / 83; Pulse 87; Resp 18; Temp 97.7; Pulse Ox 98% on R/A; Weight 73.94 kg; Height ph 5 ft. 4 in. ; Pain 0/10; 18:30 BP 118 / 70; Pulse 84; Resp 16; Pulse Ox 99% ; me1 19:31 BP 123 / 72 Supine; Pulse 82; Resp 16; Pulse Ox 99% ; me1 19:32 BP 115 / 67 Sitting; Pulse 84; me1 19:33 BP 111 / 69 Standing; Pulse 87; me1 17:51 Body Mass Index 27.98 (73.94 kg, 162.56 cm) ph 17:51 Pain Scale: Adult ph MDM: 17:42 Medical Screening Exam initiated rt 19:53 Differential Diagnosis Falls, electrolyte disturbance, to cranial hemorrhage. Data rt reviewed: vital signs, nurses notes, lab test result(s), EKG, radiologic studies. Consideration of Admission/Observation Escalation of care including admission/observation considered. I discussed findings with the patient. I discussed safety concerns as well, patient states that she wishes to go home. I did offer to admit the patient to the hospital for further care, she declines this stating that she would rather follow-up as an outpatient. I informed the patient that she may return at any time if she changes her mind or if she has worsening of her condition, patient verbalized understanding.. I considered the following discharge prescriptions or medication management in the emergency department Medications were administered in the Emergency Department. See MAR. Independent interpretation of the following test(s) in the Emergency Department CT Scan: My interpretation is No intracranial hemorrhage seen on my interpretation of CT scan images. Care significantly affected by the following chronic conditions: Congestive Heart Failure. Counseling: I had a detailed discussion with the patient and/or guardian regarding the historical points, exam findings, and any diagnostic results supporting the discharge/admit diagnosis, lab results, radiology results, the need for outpatient follow up, to return to the emergency department if symptoms worsen or persist or if there are any questions or concerns that arise at home. Refusal of service: The patient/guardian displays adequate decision making capability and despite a detailed discussion of alternatives, benefits, risks, and consequences refuses: Admission to the hospital for further work-up and treatment. 02/01 17:43 Order name: Basic Metabolic Panel; Complete Time: 19:38 rt 02/01 17:43 Order name: CBC with Diff; Complete Time: 18:54 rt 02/01 17:43 Order name: LFT's; Complete Time: 19:38 rt 02/01 17:43 Order name: Magnesium; Complete Time: 19:38 rt 02/01 17:43 Order name: Troponin HS; Complete Time: 19:38 rt 02/01 17:43 Order name: UAM; Complete Time: 19:44 rt 02/01 17:43 Order name: XRAY Chest (1 view); Complete Time: 18:54 rt 02/01 17:55 Order name: Head Brain Wo Cont; Complete Time: 18:16 EDMS 02/01 17:43 Order name: Cardiac monitoring; Complete Time: 18:45 rt 02/01 17:43 Order name: EKG - Nurse/Tech; Complete Time: 18:45 rt 02/01 17:43 Order name: IV Saline Lock; Complete Time: 18:29 rt 02/01 17:43 Order name: Labs collected and sent; Complete Time: 18:29 rt 02/01 17:43 Order name: O2 Per Protocol; Complete Time: 18:29 rt 02/01 17:43 Order name: O2 Sat Monitoring; Complete Time: 18:29 rt 02/01 17:43 Order name: Orthostatics; Complete Time: 19:46 rt EC:07 Rate is 75 beats/min. Rhythm is regular, Normal Sinus Rhythm with No ectopy. QRS [place] rt is Normal. CO interval is normal. QRS interval is normal. QT interval is normal. No Q waves. T waves are Normal. No ST changes noted. Interpreted by me. Administered Medications: 19:57 Drug: Potassium PO Effervescent Tablet 50 mEq PO once; dissolve in 4 ounces of water or me1 juice Route: PO; 20:15 Follow up: Response: No adverse reaction me1 Disposition Summary: 02/02/24 19:52 Discharge Ordered Notes: Location: Home rt Problem: new rt Symptoms: are unchanged rt Condition: Stable rt Diagnosis - Frequent falls rt - Hypokalemia rt Followup: rt - With: Private Physician - When: 2 - 3 days - Reason: Discharge Instructions: - Discharge Summary Sheet rt - Fall Prevention in the Home, Adult rt - Hypokalemia rt Forms: - Medication Reconciliation Form rt - Antibiotic Education rt - Prescription Opioid Use rt - Patient Portal Instructions rt - Leadership Thank You Letter rt Signatures: Dispatcher [employer] EDJoyce John, RN RN Richard Cerda MD MD rt Aster Singletary RN RN me1 Corrections: (The following items were deleted from the chart) 17:44 17:44 Chest Single View+RAD.RAD.BRZ ordered. EDMS EDMS 17:44 17:44 Head Brain W/ Wo Con+CT.RAD.BRZ ordered. EDMS EDMS
[2024-02-02] MEDS ORDERED: POTASSIUM 25 MEQ EFFERV TAB ONE (19:54)
[2024-02-02 21:29] VITALS: TEMP 97.7
[2024-02-02 21:30] VITALS: O2SAT 99
[2024-02-02 21:32] VITALS: BP 111/69
--- NOTE | 2024-02-07 13:08 | EKG ---
Test Date: 2024-02-02 Test Time: 19:01:03 Director Work: RUDDY MEASUREMENT RESULTS: Intervals: Rate: 75 RI: 148 QRSD: 86 QT: 412 QTc: 460 [place]: P: 56 RI: 148 QRS: 7 T: 58 INTERPRETIVE STATEMENTS: Normal sinus rhythm Normal ECG Compared to ECG 01/20/2024 14:12:25 T-wave abnormality no longer present Electronically Signed On 02-07-24 12:55:54 CDT by Beka Muñoz
== END 2024-02-02 20:48 | disposition home or self-care (01) ==
LOC: ER 17:39
DX: E87.6 Hypokalemia (principal); R29.6 Repeated falls; I10 Essential (primary) hypertension; I50.9 Heart failure, unspecified
CPT/HCPCS: 36415; 70450; 71045; 80048; 80076; 81001; 83735; 84484; 85025; 93005; 99284

== ENCOUNTER 2024-06-08 10:58 | Inpatient (IN) | payer OTHER ==
--- OUTSIDE RECORDS SUMMARY | 2024-06-08 11:01 | XMS REPORT | Continuity of Care Document ---
Author Name Unknown Address [address] [facility] [address] [place] [address] [facility] Address [address] [facility] [address] [place] [address] Care Team Providers Care Grill Chef Name Role Phone Zoraida Coulter MD Primary Care Physician Zoraida Coulter MD Attending Clinician + [phone] ARIELA SAMANO Attending Clinician Unavailable Ariela Samano DO Attending Clinician [phone] Frances Attending Clinician Unavailable Doctor Unassigned, [place] Attending Clinician U navailable Lab, Ang - Db Attending Clinician Unavailable ZORAIDA COULTER Attending Clinician UnaKARRI Farley Attending Clinician Unavailable Karri Levin MD Attending Clinician [phone] SARINA Attending Clinician UnavailMatti Higginbotham MD Attending Clinician [phone] MATTI CEE Attending Clinician UnavailELDER Medina Attending Clinician Unavailable YVETTE HANKS Attending Clinician Unav ailable A_Byrd Attending Clinician Unavailable ARIELA SAMANO Admitting Clinician Unavailable Frances Admitting Clinician Unavailable KARRI LEVIN Admitting Clinician Unavailable SARINA Admitting Clinician UnavailYVETTE Calhoun Admitting Clinician Unav ailable A_Byrd Admitting Clinician Unavailable Payers Payer Name Policy Type Policy Number Effective Date Expirati on Date Source [employer]ET[employer] MEDICARE PPO [id number] 00:00:00 AET[employer] (PPO) [id number] 2022 00:00:00 [employer] (MEDICARE REPLACEMENT PPO) [id number] 2015 00:00:00 Problems Condition Name Condition Details Condition Category Status Onset Date Resolution Date Last Treatment Date Treating Clinician Comments Source Seen in senior care Seen in Skilled Nursing Problem Active 205 00:00: 00 [facility] [...] Pain Problem Active 2018-04 0-15 00:00: 00 [facility] No known active problems No known active problems Disease [facility] Allergies, Adverse Reactions, Alerts Allergy Name Allergy Type Status Severity Reaction(s) Onset Date Inactive Date Treating Clinician Comments Source Quinapri l Propensi ty to adverse reaction s Active Unknown - See comments 2020-04 00:00: 00 [facility] Codeine Propensi ty to adverse reaction s Active Unknown - See comments 2020-04 00:00: 00 [facility] QUINAPRI L DRUG INGREDI Active Low Unknown-Cmnt 2020-04 00:00: 00 [facility] CODEINE DRUG INGREDI Active Low Unknown-Cmnt 2020-04 00:00: 00 [facility] Amlodipi ne Allergy to substanc e [facility] Budesoni de Allergy [...] Date Quantity Comments [facility] 2022-09-04 00:00:00 2022-09-04 00:00:00 Ex-drinker (finding) [facility] Exposure to SARS-CoV-2 (event) 2022-08-23 00:00:00 2022-09-02 18:16:00 Not sure [facility] History of Social function 2022-04-07 00:00:00 2022-04-07 00:00:00 [facility] Tobacco use and exposure 2021-03-31 00:00:00 2021-03-31 00:00:00 Smokeless tobacco non-user [facility] History of tobacco use 2001-03-31 00:00:00 Cigarette Smoker [facility] Sex Assigned At 1950 00:00:00 1950 00:00:00 [facility] Smoking Status Start Date Stop Date Source Never Smoker [facility] Ex-smoker 2021-03-31 00:00:00 2021-03-31 [facility] Ordered Medication Name Filled Medication Name Start Date Stop Date Current Medication? Ordering Clinician Indication Dosage Frequency Signature (SIG) Comments Components Source amLODIPine 5 mg tablet 2022-04 00:00: 00 Yes [id number] TAKE ONE TABLET BY MOUTH DAILY IN THE MORNING [facility] famotidine 20 mg tablet 2022-04 00:00: 00 Yes [id number] TAKE ONE TABLET BY MOUTH TWICE DAILY IN THE MORNING AND IN THE EVENING [facility] famotidine 20 mg tablet 2022-04 00:00: 00 Yes [id number] TAKE ONE TABLET BY MOUTH TWICE DAILY IN THE MORNING AND IN THE EVENING [facility] amLODIPine 5 mg tablet 2022-04 00:00: 00 Yes [id number] TAKE ONE TABLET BY MOUTH DAILY IN THE MORNING [facility] iopamidol (ISOVUE 370-500 mL) injection 85 mL 09-03 01:00: 00 09-03 01:00 :00 No [id number] 85mL 85 mL, Intravenou s, ONCE, 1 dose, On Tue09/02/22 at 2000, Routine [facility] FENTanyl PF (SUBLIMAZE (PF)) injection 50 mcg 09-02 23:30: 00 09-03 00:02 :00 No 50ug 50 mcg, Slow IV Push, ONCE, 1 dose, On Tue09/02/22 at 1830, Routine [facility] lidocaine 5 % (700 mg/patch) patch 09-02 00:00: 00 09-03 04:59 :00 No [id number] 1{patch } Apply 1 Patch to area(s) once now for 1 dose. [facility] potassium chloride 10 mEq CR capsule 05-31 08:50: 16 05-31 00:00 :00 No 10meq 10 mEq daily. [facility] atorvastati n 80 mg tablet 05-31 00:00: 00 Yes [id number] 80mg Take 1 tablet by mouth in the morning. [facility] ezetimibe 10 mg tablet 05-31 00:00: 00 Yes [id number] 10mg Take 1 tablet by mouth in the morning. [facility] potassium chloride 10 mEq CR capsule 05-31 00:00: 00 Yes [id number] 10meq Take 1 capsule by mouth in the morning. [facility] OLANZapine 10 mg tablet 05-31 00:00: 00 Yes [id number] 10mg Take 1 tablet by mouth in the morning. [facility] furosemide 40 mg tablet 05-31 00:00: 00 Yes [id number] 40mg Take 1 tablet by mouth in the morning. [facility] buPROPion XL 300 mg 24 hr tablet 05-31 00:00: 00 Yes [id number] 300mg Take 1 tablet by mouth in the morning. [facility] amLODIPine 5 mg tablet 05-31 00:00: 00 01-28 00:00 :00 No [id number] 5mg Take 1 tablet by mouth in the morning. [facility] famotidine 20 mg tablet 05-31 00:00: 00 01-28 00:00 :00 No [id number] 20mg Take 1 tablet by mouth in the morning and 1 tablet in the evening. [facility] famotidine 20 mg tablet 05-27 00:00: 00 Yes [id number] 20mg Take 1 tablet by mouth in the morning and 1 tablet in the evening. [facility] atorvastati n 80 mg tablet 05-27 00:00: 00 Yes [id number] 80mg Take 1 tablet by mouth in the morning. [facility] amLODIPine 5 mg tablet 2023-0 2-09 00:00: 00 Yes [id number] 5mg Take 1 tablet by mouth in the morning. [facility] cefTRIAXone (ROCEPHIN) 1,000 mg in NaCl 0.9% (NS) 50 mL MINI-BAG 2021-04 23:00: 00 03-27 23:15 :00 No 1000mg 1,000 mg, IV Piggyback, ONCE, 1 dose, On 03/27/22 at 1700, Administer over 30 Minutes, 50 mL
Reas on for Anti-Infec tive: Documented Infection< br>Documen eduardo Infection Site: Urine
D uration of Therapy: Other (see Comments) [facility] KCL 20 mEq/15 mL solution 40 mEq 2021-04 22:30: 00 03-27 21:33 :00 No 40meq 40 mEq, Oral, ONCE, 1 dose, On 03/27/22 at 1630, Routine [facility] ondansetron (ZOFRAN (PF)) injection 4 mg 2021-04 21:00: 00 03-27 21:20 :00 No 4mg 4 mg, Slow IV Push, ONCE, 1 dose, On 03/27/22 at 1500, FANI [facility] cefdinir 300 mg capsule 2021-04 00:00: 00 04-07 00:00 :00 No [id number] 300mg Take 1 capsule by mouth in the morning and 1 capsule in the evening. [facility] Armodafinil 250 mg Tab 2020-04 13:42: 27 Yes 250mg 250 mg daily. [facility] potassium chloride 10 mEq CR capsule 2020-04 13:42: 27 Yes 10meq 10 mEq daily. [facility] buPROPion XL 300 mg 24 hr tablet 2020-04 00:00: 00 05-31 00:00 :00 No 300mg Take 300 mg by mouth daily. [facility] furosemide 40 mg tablet 2020-04 00:00: 00 05-31 00:00 :00 No 40mg Take 40 mg by mouth daily. [facility] OLANZapine 10 mg tablet 2020-04 2 00:00: 00 05-31 00:00 :00 No 10mg Take 10 mg by mouth daily. [facility] amLODIPine 5 mg tablet 2020-04 00:00: 00 05-27 00:00 :00 No 5mg 5 mg daily. [facility] atorvastati n 80 mg tablet 2020-04 00:00: 00 05-27 00:00 :00 No 80mg Take 80 mg by mouth daily. [facility] famotidine 20 mg tablet 2020-04 00:00: 05-27 00:00 :00 No 20mg 20 mg daily. [facility] Adult Low Dose Aspirin 81 mg tablet,zoila yed release Take 1 tablet every day by oral route. Adult Low Dose Aspirin 81 mg tablet,zoila yed release Take 1 tablet every day by oral route. No 1 Q1D Adult Low Dose Aspirin 81 mg tablet,del ayed release Take 1 tablet every day by oral route. [facility] alendronate 70 mg tablet TAKE ONE TABLET BY MOUTH EVERY WEEK DIRECTED alendronate 70 mg tablet TAKE ONE TABLET BY MOUTH EVERY WEEK DIRECTED No alendronat e 70 mg tablet TAKE ONE TABLET BY MOUTH EVERY WEEK DIRECTED [facility] atorvastati n 80 mg tablet Take 1 tablet every day by oral route. atorvastati n 80 mg tablet Take 1 tablet every day by oral route. No 1 Q1D atorvastat in 80 mg tablet Take 1 tablet every day by oral route. [facility] Ensure Give 237 ml by mouth twice a day. Ensure Give 237 ml by mouth twice a day. No Ensure Give 237 ml by mouth twice a day. [facility] Iron (ferrous sulfate) 325 mg (65 mg iron) tablet Take 1 tablet every day by oral route. Iron (ferrous sulfate) 325 mg (65 mg iron) tablet Take 1 tablet every day by oral route. No 1 Q1D Iron (ferrous sulfate) 325 mg (65 mg iron) tablet Take 1 tablet every day by oral route. [facility] magnesium 200 mg (as magnesium oxide) tablet Take 1 tablet twice a day by oral route. magnesium 200 mg (as magnesium oxide) tablet Take 1 tablet twice a day by oral route. No 1 BID magnesium 200 mg (as magnesium oxide) tablet Take 1 tablet twice a day by oral route. [facility] Adult Low Dose Aspirin 81 mg tablet,zoila yed release Take 1 tablet every day by oral route. Adult Low Dose Aspirin 81 mg tablet,zoila yed release Take 1 tablet every day by oral route. No 1 Q1D Adult Low Dose Aspirin 81 mg tablet,del ayed release Take 1 tablet every day by oral route. [facility] alendronate 70 mg tablet TAKE ONE TABLET BY MOUTH EVERY WEEK DIRECTED alendronate 70 mg tablet TAKE ONE TABLET BY MOUTH EVERY WEEK DIRECTED No alendronat e 70 mg tablet TAKE ONE TABLET BY MOUTH EVERY WEEK DIRECTED [facility] atorvastati n 80 mg tablet Take 1 tablet every day by oral route. atorvastati n 80 mg tablet Take 1 tablet every day by oral route. No 1 Q1D atorvastat in 80 mg tablet Take 1 tablet every day by oral route. [facility] Ensure Give 237 ml by mouth twice a day. Ensure Give 237 ml by mouth twice a day. No Ensure Give 237 ml by mouth twice a day. [facility] ezetimibe 10 mg tablet TAKE 1 TABLET BY MOUTH EVERY DAY ezetimibe 10 mg tablet TAKE 1 TABLET BY MOUTH EVERY DAY No ezetimibe 10 mg tablet TAKE 1 TABLET BY MOUTH EVERY DAY [facility] Iron (ferrous sulfate) 325 mg (65 mg iron) tablet Take 1 tablet every day by oral route. Iron (ferrous sulfate) 325 mg (65 mg iron) tablet Take 1 tablet every day by oral route. No 1 Q1D Iron (ferrous sulfate) 325 mg (65 mg iron) tablet Take 1 tablet every day by oral route. [facility] magnesium 200 mg (as magnesium oxide) tablet Take 1 tablet twice a day by oral route. magnesium 200 mg (as magnesium oxide) tablet Take 1 tablet twice a day by oral route. No 1 BID magnesium 200 mg (as magnesium oxide) tablet Take 1 tablet twice a day by oral route. [facility] Adult Low Dose Aspirin 81 mg [...] ONE TABLET BY MOUTH EVERY WEEK DIRECTED [facility] atorvastati n 80 mg tablet Take 1 tablet every day by oral route. atorvastati n 80 mg tablet Take 1 tablet every day by oral route. No 1 Q1D atorvastat in 80 mg tablet Take 1 tablet every day by oral route. [facility] Ensure Give 237 ml by mouth twice a day. Ensure Give 237 ml by mouth twice a day. No Ensure Give 237 ml by mouth twice a day. [facility] ezetimibe 10 mg tablet TAKE 1 TABLET BY MOUTH EVERY DAY ezetimibe 10 mg tablet TAKE 1 TABLET BY MOUTH EVERY DAY No ezetimibe 10 mg tablet TAKE 1 TABLET BY MOUTH EVERY DAY [facility] Adult Low Dose Aspirin 81 mg tablet,zoila yed release Take 1 tablet every day by oral route. Adult Low Dose Aspirin 81 mg tablet,zoila yed release Take 1 tablet every day by oral route. No 1 Q1D Adult Low Dose Aspirin 81 mg tablet,del ayed release Take 1 tablet every day by oral route. [facility] alendronate 70 mg tablet TAKE ONE TABLET BY MOUTH EVERY WEEK DIRECTED alendronate 70 mg tablet TAKE ONE TABLET BY MOUTH EVERY WEEK DIRECTED No alendronat e 70 mg tablet TAKE ONE TABLET BY MOUTH EVERY WEEK DIRECTED [facility] atorvastati n 80 mg tablet Take 1 tablet every day by oral route. atorvastati n 80 mg tablet Take 1 tablet every day by oral route. No 1 Q1D atorvastat in 80 mg tablet Take 1 tablet every day by oral route. [facility] Ensure Give 237 ml by mouth twice a day. Ensure Give 237 ml by mouth twice a day. No Ensure Give 237 ml by mouth twice a day. [facility] ezetimibe 10 mg tablet TAKE 1 TABLET BY MOUTH EVERY DAY ezetimibe 10 mg tablet TAKE 1 TABLET BY MOUTH EVERY DAY No ezetimibe 10 mg tablet TAKE 1 TABLET BY MOUTH EVERY DAY [facility] Advil 200 mg tablet Take 1 tablet every 6 hours by oral route. Advil 200 mg tablet Take 1 tablet every 6 hours by oral route. No 1 Q6H Advil 200 mg tablet Take 1 tablet every 6 hours by oral route. [facility] Nicole-Seltze r Heartburn Nicole-Seltze r Heartburn No Nicole-Seltz er Heartburn [facility] amlodipine 5mg amlodipine 5mg No amlodipine 5mg [facility] armodafinil 250 mg tablet Take 1 tablet every day by oral route. armodafinil 250 mg tablet Take 1 tablet every day by oral route. No 1 Q1D armodafini l 250 mg tablet Take 1 tablet every day by oral route. [facility] Azo Azo No Azo [facility] B12 5000mg B12 5000mg No B12 5000mg [facility] bupropion HBr 300mg bupropion HBr 300mg No bupropion HBr 300mg [facility] famotidine 40mg famotidine 40mg No famotidine 40mg [facility] furosemide 40 mg tablet Take 1 tablet every day by oral route. furosemide 40 mg tablet Take 1 tablet every day by oral route. No 1 Q1D furosemide 40 mg tablet Take 1 tablet every day by oral route. [facility] gabapentin 800mg bid gabapentin 800mg bid No gabapentin 800mg bid [facility] Gaviscon Gaviscon No Gaviscon [facility] hydrocodone 5 mg-acetamin ophen 325 mg tablet [...] oral route. take as needed for pain [facility] olanzapine 5mg olanzapine 5mg No olanzapine 5mg [facility] Senokot Senokot No Senokot M [facility] Vitamin D vitamin d 12 weekly Vitamin D vitamin d 12 weekly No Vitamin D vitamin d 12 weekly [facility] Zantac 150 mg tablet Take 1 tablet twice a day by oral route. Zantac 150 mg tablet Take 1 tablet twice a day by oral route. No 1 BID Zantac 150 mg tablet Take 1 tablet twice a day by oral route. [facility] zolpidem 5 mg tablet Take 1 tablet every day by oral route. zolpidem 5 mg tablet Take 1 tablet every day by oral route. No 1 Q1D zolpidem 5 mg tablet Take 1 tablet every day by oral route. [facility] Immunizations Ordered Immunization Name Filled Immunization [...] influenza nasal, unspecified formulation 2022-04-07 00:00:00 Completed [facility] Influenza Virus Vaccine,quad Im,preserve Free 65+ 2022-04-07 00:00:00 Completed [facility] Influenza Virus Vaccine,quad Im,preserve Free 65+ 2022-04-07 00:00:00 Completed [facility] Influenza Virus Vaccine,quad Im,preserve Free 65+ 2022-04-07 00:00:00 Completed [facility] Influenza Virus Vaccine,quad Im,preserve Free 65+ 2022-04-07 00:00:00 Completed [facility] Influenza Virus Vaccine,quad Im,preserve Free 65+ 2022-04-07 00:00:00 Completed [facility] Influenza Virus Vaccine,quad Im,preserve Free 65+ 2022-04-07 00:00:00 Completed [facility] Influenza Virus Vaccine,quad Im,preserve Free 65+ 2022-04-07 00:00:00 Completed [facility] Influenza Virus Vaccine,quad Im,preserve Free 65+ (FLUAD) Unknown Completed [facility] Influenza Virus Vaccine,quad Im,preserve Free 65+ (FLUAD) Unknown Completed [facility] Influenza Virus Vaccine,quad Im,preserve Free 65+ (FLUAD) Unknown Completed [facility] Influenza Virus Vaccine,quad Im,preserve Free 65+ (FLUAD) Unknown Completed [facility] Vital Signs Vital Name Observation Time Observation Value Comments S ource Systolic blood pressure 2022-09-03 02:00:00 133 mm[Hg] [facility] Diastolic blood pressure 2022-09-03 02:00:00 75 mm[Hg] [facility] Heart rate 2022-09-03 02:00:00 70 /min [facility] Body temperature 2022-09-03 02:00:00 36.22 Erin [facility] Respiratory rate 2022-09-03 02:00:00 20 /min [facility] Oxygen saturation in Arterial blood by Pulse oximetry 2022-09-03 02:00:00 98 /min [facility] Body height 2022-09-02 23:17:00 162.6 cm [facility] Body weight 2022-09-02 23:17:00 75.297 kg [facility] BMI 2022-09-02 23:17:00 28.49 kg/m2 [facility] BP Diastolic 2022-05-18 00:00:00 [...] Systolic blood pressure 2022-04-07 21:25:00 110 mm[Hg] [facility] Diastolic blood pressure 2022-04-07 21:25:00 67 mm[Hg] [facility] Heart rate 2022-04-07 21:25:00 90 /[facility] Body temperature 2022-04-07 21:25:00 36.56 Erin [facility] Body height 2022-04-07 21:25:00 162.6 cm [facility] Body weight 2022-04-07 21:25:00 74.39 kg [facility] BMI 2022-04-07 21:25:00 28.15 kg/m2 [facility] Oxygen saturation in Arterial blood by Pulse oximetry 2022-04-07 21:25:00 98 /min [facility] Systolic blood pressure 2022-03-27 23:00:00 118 mm[Hg] [facility] Diastolic blood pressure 2022-03-27 23:00:00 68 mm[Hg] [facility] Heart rate 2022-03-27 23:00:00 82 /min [facility] Respiratory rate 2022-03-27 23:00:00 16 /min [facility] Oxygen saturation in Arterial blood by Pulse oximetry 2022-03-27 23:00:00 99 /min [facility] Body temperature 2022-03-27 20:11:00 36.56 Erin [facility] Body height 2022-03-27 20:11:00 162.6 cm [facility] Body weight 2022-03-27 20:11:00 72.576 kg [facility] BMI 2022-03-27 20:11:00 27.46 kg/m2 [facility] Systolic blood pressure 2021-03-31 19:39:00 115 mm[Hg] [facility] Diastolic blood pressure 2021-03-31 19:39:00 76 mm[Hg] [facility] Heart rate 2021-03-31 19:39:00 85 /min [facility] Body height 2021-03-31 19:39:00 162.6 cm [facility] Body weight 2021-03-31 19:39:00 77.565 kg [facility] BMI 2021-03-31 19:39:00 29.35 kg/m2 [facility] BP Diastolic 2019-01-30 00:00:00 71 mm[Hg] [facility] Height 2019-01-30 00:00:00 64 [in_i] [facility] BMI (Body Mass Index) 2019-01-30 00:00:00 35.7 kg/m2 [facility] BP Systolic 2019-01-30 00:00:00 109 mm[Hg] [facility] Body Weight 2019-01-30 00:00:00 3328 [oz_av] [facility] Procedures Procedure Date / Time Performed Performing Clinician Source NOTICE OF PRIVACY PRACTICES 2022-09-03 00:53:01 Doctor Unassigned, [place] [facility] CONSENT/REFUSAL FOR DIAGNOSIS AND TREATMENT 2022-09-03 00:52:28 Doctor Unassigned, [place] [facility] XR CHEST 1 VW 2022-09-03 00:06:19 Ariela Samano [facility] COMP. METABOLIC PANEL ([id number]) 2022-09-02 23:25:00 Ariela Samano [facility] CBC WITH DIFF 2022-09-02 23:25:00 Ariela Samano [facility] LACTIC ACID WHOLE BLOOD 2022-09-02 23:25:00 Waqar Samano [facility] MEDICATION CORRESPONDENCE 2022-05-26 06:01:00 Do ctor Unassigned, [place] [facility] BASIC METABOLIC PANEL (NA, K, CL, CO2, GLUCOSE, BUN, CREATININE, CA) 2022-04-07 21:58:00 Zoraida Coulter [facility] CBC WITH DIFF 2022-04-07 21:58:00 Amrit Coulter darrion [facility] FLU VACC(),65+YR,0.5 ML,IM,ADJUVANTED,QUAD(FLU AD) 2022-04-07 21:38:51 Zoraida Coulter [facility] CT ABDOMEN PELVIS WO CONTRAST 2022-03-27 22:24:15 Karri Levin [facility] XR CHEST 1 VW 2022-03-27 21:31:00 Karri Levin [facility] URINALYSIS 2022-03-27 21:15:00 Karri Levin [facility] MAGNESIUM 2022-03-27 21:01[facility] 2022-03-27 21:01:00 Karri Levin [facility] COMP. METABOLIC PANEL ([id number]) 2022-03-27 21:01:00 Karri Levin [facility] CBC WITH DIFF 2022-03-27 21:01:00 Karri Levin [facility] N-TERMINAL PRO-BNP 2022-03-27 21:01:00 Karri Levin [facility] XR KNEE 3 VW LEFT 2021-04-08 20:08:00 Matti Cee [facility] XR, hip, unilateral 2019-01-30 00:00:00 [facility] Open Reduction of Fracture of Femur [facility] Ooph[facility] Knee Surgery [facility] Procedure on Wrist [facility] Encounters Start Date/Time End Date/Time Encounter Type Admission Type Attending Clinicians Care Facility Care Department Encounter ID Source 2022-06-09 15:26:16 Outpatient [facility] [id number] [facility] 2021-10-26 06:31:51 Outpatient [facility] [id number] [facility] 2021-10-14 10:31:44 Outpatient [facility] [id number] [facility] 2023-06-22 00:00:00 2023-06-22 00:00:00 RefZoraida King [facility] BILLIE[facility] [id number] [facility] 2023-06-01 00:00:00 2023-06-01 00:00:00 Refrisa Coulter [facility] BILLIE?[facility] [id number] [facility] 2023-03-19 00:00:00 2023-03-19 00:00:00 RefZoraida King [facility] BILLIE?[facility] [id number] [facility] 2023-01-28 00:00:00 2023-01-28 00:00:00 Refill Marylin [facility] BILLIE?[facility] [id number] [facility] 2022-09-02 18:18:00 2022-09-02 22:00:00 Emergency X ARIELA SAMANO [facility] ERT [id number] [facility] 2022-09-02 18:18:00 2022-09-02 22:00:00 Emergency Ariela Samano [facility] [id number] [facility] 2022-06-07 00:00:00 2022-06-07 00:00:00 Outpatient [id number] d_J PRIV PRIV [id number] [facility] 2022-05-27 00:00:00 2022-05-27 00:00:[address] [facility] [id number] [facility] 2022-05-27 00:00:00 2022-05-27 00:00:[address] [facility] 1.2840.114 350.1.13.10 4.2.7.2.686 [id number] [facility] 2022-05-26 00:00:00 2022-05-26 00:00:[address] [facility] 1.2840.114 350.1.13.10 4.2.7.2.686 [id number] [facility] 2022-05-26 00:00:00 2022-05-26 00:00:00 Orders Only Doctor Unassigned, [place] [facility] 1.2840.114 350.1.13.10 4.2.7.2.686 [id number] [facility] 2022-05-19 00:00:00 2022-05-19 00:00:00 Outpatient GC_BAHC_Tod d_J PRIV PRIV [id number] [facility] 2022-05-19 00:00:00 2022-05-19 00:00:00 Outpatient GC_BAHC_Tod d_J PRIV PRIV [id number] [facility] 2022-05-19 00:00:00 2022-05-19 00:00:00 Outpatient GC_BAHC_Tod d_J PRIV PRIV [id number] [facility] 2022-05-19 00:00:00 2022-05-19 00:00:00 Outpatient GC_BAHC_Tod d_J PRIV PRIV [id number] [facility] 2022-05-19 00:00:00 2022-05-19 00:00:00 Outpatient GC_BAHC_Tod d_J PRIV PRIV [id number] [facility] 2022-05-19 00:00:00 2022-05-19 00:00:00 Outpatient GC_BAHC_Tod d_J PRIV PRIV [id number] [facility] 2022-05-19 00:00:00 2022-05-19 00:00:00 Outpatient GC_BAHC_Tod d_J PRIV PRIV [id number] [facility] 2022-05-19 00:00:00 2022-05-19 00:00:00 Outpatient GC_BAHC_Tod d_J PRIV PRIV [id number] [facility] 2022-05-19 00:00:00 2022-05-19 00:00:00 Outpatient GC_BAHC_Tod d_J PRIV PRIV [id number] [facility] 2022-05-19 00:00:00 2022-05-19 00:00:00 Outpatient GC_BAHC_Tod d_J PRIV PRIV [id number] [facility] 2022-05-19 00:00:00 2022-05-19 00:00:00 Outpatient GC_BAHC_Tod d_J PRIV PRIV [id number] [facility] 2022-05-19 00:00:00 2022-05-19 00:00:00 Outpatient GC_BAHC_Tod d_J PRIV PRIV [id number] [facility] 2022-05-19 00:00:00 2022-05-19 00:00:00 Outpatient GC_BAHC_Tod d_J PRIV PRIV [id number] [facility] 2022-05-19 00:00:00 2022-05-19 00:00:00 Outpatient GC_BAHC_Tod d_J PRIV PRIV [id number] [facility] 2022-05-19 00:00:00 2022-05-19 00:00:00 Outpatient GC_BAHC_Tod d_J PRIV PRIV [id number] [facility] 2022-05-18 00:00:00 2022-05-18 00:00:00 Jeffry Parrish MD: [address] [place] [phone] , Ph. [facility] GC_BAHC_[facility] [id number] [facility] 2022-05-12 00:00:00 2022-05-12 00:00:00 POONAM Anderson: [address] [place] [phone] , Ph. [facility] GC_BAHC_[facility] [id number] [facility] 2022-05-07 00:00:00 2022-05-07 00:00:00 Outpatient GC_BAHC_Tod d_J [facility] [id number] [facility] 2022-05-07 00:00:00 2022-05-07 00:00:00 Outpatient GC_BAHC_Tod d_J [facility] [id number] [facility] 2022-05-07 00:00:00 2022-05-07 00:00:00 Outpatient GC_BAHC_Tod d_J [facility] [id number] [facility] 2022-05-07 00:00:00 2022-05-07 00:00:00 POONAM Anderson: [address] [place] [phone] , Ph. 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 1.2.840.114 350.1.13.10 4.2.7.2.686 [id number] [facility] 2022-04-07 15:15:00 2022-04-07 15:47:59 Outpatient R [facility] [id number] [facility] 2022-04-07 15:15:00 2022-04-07 15:47:[address] [facility] 1.2.840.114 350.1.13.10 4.2.7.2.686 [id number] [facility] 2022-03-27 14:09:00 2022-03-27 17:18:00 Emergency X CLARISSARUPERTOLIANAKARRI [facility] ERT [id number] [facility] 2022-03-27 14:09:00 2022-03-27 17:18:00 Emergency Karri Levin S [facility] 1.2.840.114 350.1.13.10 4.2.7.2.686 [id number] [facility] 2021-11-19 00:00:00 2021-11-19 00:00:00 Outpatient ANIL MCCOLLUM [facility] [id number] [facility] 2021-04-08 13:58:04 2021-04-08 23:59:00 Hospital Encounter Matti Cee [facility] 1.2.840.114 350.1.13.10 4.2.7.2.686 [id number] [facility] 2021-04-08 13:30:00 2021-04-08 14:30:16 Outpatient R MATTI CEE [facility] [id number] [facility] 2021-04-08 14:00:00 2021-04-08 14:00:00 Outpatient R MATTI CEE [facility] [id number] [facility] 2021-04-02 09:45:00 2021-04-02 09:45:00 Outpatient Bernadine ROMERO ELDER [facility] [id number] [facility] 2021-04-02 09:45:00 2021-04-02 09:45:00 Outpatient ELDER BRANTLEY [facility] [id number] [facility] 2021-03-31 13:30:00 2021-03-31 13:58:43 Outpatient ZORAIDA AYOUB [facility] [id number] [facility] 2021-03-31 13:21:58 2021-03-31 13:51:58 Office Visit Marylin Zoraida Oscar [facility] 1.2.840.114 350.1.13.10 4.2.7.2.686 [id number] [facility] 2020-12-29 16:13:00 2020-12-30 12:27:00 Outpatient YVETTE DYER [facility] [id number] [facility] 2020-03-05 02:19:00 2020-03-05 02:19:00 Outpatient Phan ARAGON [facility] [id number] [facility] 2019-01-30 00:00:00 2019-01-30 00:00:00 You Blanchard MD: [address] [place] [address] [place] [address], [place] [address] , Ph. [facility] [place] [facility] [id number] [facility] Results Test Description Test Time Test Comments Results Result Co mments Source [facility]. METABOLIC PANEL (25342)2022-09-02 23:55:53* Test Item Value Reference Range Interpretation Comme nts NA (test code = 3050483209) 127 mmol/L 135-145 L K (test code = 3239144657) 3.9 mmol/L 3.5-5.0 CL (test code = 0027394806) 90 mmol/L 98-108 L CO2 TOTAL (test code = 9857186423) 27 mmol/L 23-31 AGAP (test code = 9849475788) 10 2-16 BUN (test code = 9119193776) 16 mg/dL 7-23 GLUCOSE (test code = 9090486888) 103 mg/dL 70-110 CREATININE (test code = 5242468412) 1.20 mg/dL 0.50-1.04 H TOTAL BILI (test code = 4039553112) 0.6 mg/dL 0.1-1.1 CALCIUM (test code = 9379939349) 8.8 mg/dL 8.6-10.6 T PROTEIN (test code = 4040136867) 6.2 g/dL 6.3-8.2 L ALBUMIN (test code = 5332717436) 4.0 g/dL 3.5-5.0 ALK PHOS (test code = 5136940804) 72 U/L 34-122 ALTv (test code = 1742-6) 22 U/L 5-35 AST(SGOT) (test code = 0564345605) 29 U/L 13-40 eGFR (test code = 1515554586) 44.0 mL/min/1.73m2 LINDA (test code = LINDA) [...] imaging tests). Lab Interpretation (test code = 17956-1) Abnormal [facility] Whole [id number] 23:38:13* Test Item Value Reference Range Interpretation Comme nts LACTIC ACID (test code = 0867654801) 1.80 mmol/L 0.50-2.20 Lab Interpretation (test cod e = 59438-9) Normal [facility] (NA, K, CL, CO2, GLUCOSE, BUN, CREATININE, CA)2022-04-08 08:56:09* Test Item Value Reference Range Interpretation Comme nts NA (test code = 3825769953) 138 mmol/L 135-145 K (test code = 7502550961) 4.0 mmol/L 3.5-5.0 CL (test code = 8630897728) 99 mmol/L 98-108 CO2 TOTAL (test code = 5766686081) 29 mmol/L 23-31 AGAP (test code = 4637326636) 2-16 BUN (test code = 4301937535) 22 mg/dL 7-23 GLUCOSE (test code = 1009777600) 101 mg/dL 70-110 CREATININE (test code = 8052165770) 2.00 mg/dL 0.50-1.04 H CALCIUM (test code = 1137056170) 9.4 mg/dL 8.6-10.6 eGFR (test code = 5087080437) mL/min/1.73m2 LINDA (test code = LINDA) Association [...] imaging tests). Lab Interpretation (test code = 55808-7) Abnormal [facility] (NA, K, CL, CO2, GLUCOSE, BUN, CREATININE, CA)2022-04-08 08:56:09* Test Item Value Reference Range Interpretation Comme nts NA (test code = 4327521065) 138 mmol/L 135-145 K (test code = 3979538880) 4.0 mmol/L 3.5-5.0 CL (test code = 5464055755) 99 mmol/L 98-108 CO2 TOTAL (test code = 9143776560) 29 mmol/L 23-31 AGAP (test code = 2340240274) 2-16 BUN (test code = 6233059079) 22 mg/dL 7-23 GLUCOSE (test code = 9890028042) 101 mg/dL 70-110 CREATININE (test code = 0250692347) 2.00 mg/dL 0.50-1.04 H CALCIUM (test code = 5282068552) 9.4 mg/dL 8.6-10.6 eGFR (test code = 1246452339) mL/min/1.73m2 LINDA (test code = LINDA) Association [...] imaging tests). Lab Interpretation (test code = 93573-6) Abnormal [facility] WITH [id number] 08:15:22* Test Item Value Reference Range Interpretation Comme nts WBC (test code = 6690-2) See_Comment [Automated Splashup] The system which generated this result transmitted [...] g/dL 31.6-35.1 L RDW-SD (test code = 08221-7) 49.2 fL 39.0-49.9 RDW-CV (test code = 788-0) 14.4 % 12.0-15.5 PLT (test code = 777-3) See_Comment [Automated messa ge] The system which generated this result transmitted reference range: 166 - 358 10*3/?L. The reference range was not used to interpret this result as normal/abnormal. MPV (test code = 50413-3) 9.4 fL 9.5-12.9 L NRBC/100 WBC (test code = 4283618493) See_Comment [Automated 2C2P ssage] The system which generated this result transmitted reference range: 0.0 - 10.0 /100 WBCs. The reference range was not used to interpret this result as normal/abnormal. NRBC x10^3 (test code = 2673597182) See_Comment [Automated messa ge] The system which generated this result transmitted reference range: 10*3/?L. The reference range was not used to interpret this result as normal/abnormal. GRAN MAT (NEUT) % (test code = 770-8) 80.0 % IMM GRAN % (test code = 3316691085) 0.20 % LYMPH % (test code = 736-9) 13.9 % MONO % (test code = 5905-5) 5.4 % EOS % (test code = 713-8) 0.2 % BASO % (test code = 706-2) 0.3 % GRAN MAT x10^3(ANC) (test code = 9789003194) 4.89 10*3/uL 1.88-7.09 IMM GRAN x10^3 (test code = 3034334640) 0.00-0.06 LYMPH x10^3 (test code = 731-0) 0.85 10*3/uL 1.32-3.29 L MONO x10^3 (test code = 742-7) 0.33 10*3/uL 0.33-0.92 EOS x10^3 (test code = 711-2) 0.03-0.39 L BASO x10^3 (test code = 704-7) 0.01-0.07 Lab Interpretation (test code = 17750-0) Abnormal [facility] WITH [id number] 08:15:22* Test Item Value Reference Range Interpretation Comme nts WBC (test code = 6690-2) See_Comment [Automated nivioa ge] The system which generated this result transmitted reference range: 4.30 - 11.10 10*3/?L. The reference range was not used to interpret this result as normal/abnormal. RBC (test code = 789-8) See_Comment [Automated nivioa ge] The system which generated this result [...] g/dL 31.6-35.1 L RDW-SD (test code = 57814-2) 49.2 fL 39.0-49.9 RDW-CV (test code = 788-0) 14.4 % 12.0-15.5 PLT (test code = 777-3) See_Comment [Automated messa ge] The system which generated this result transmitted reference range: 166 - 358 10*3/?L. The reference range was not used to interpret this result as normal/abnormal. MPV (test code = 38693-2) 9.4 fL 9.5-12.9 L NRBC/100 WBC (test code = 8646902154) See_Comment [Automated me ssage] The system which generated this result transmitted reference range: 0.0 - 10.0 /100 WBCs. The reference range was not used to interpret this result as normal/abnormal. NRBC x10^3 (test code = 5952063832) See_Comment [Automated messa ge] The system which generated this result transmitted reference range: 10*3/?L. The reference range was not used to interpret this result as normal/abnormal. GRAN MAT (NEUT) % (test code = 770-8) 80.0 % IMM GRAN % (test code = 7575561541) 0.20 % LYMPH % (test code = 736-9) 13.9 % MONO % (test code = 5905-5) 5.4 % EOS % (test code = 713-8) 0.2 % BASO % (test code = 706-2) 0.3 % GRAN MAT x10^3(ANC) (test code = 9371841551) 4.89 10*3/uL 1.88-7.09 IMM GRAN x10^3 (test code = 9178801838) 0.00-0.06 LYMPH x10^3 (test code = 731-0) 0.85 10*3/uL 1.32-3.29 L MONO x10^3 (test code = 742-7) 0.33 10*3/uL 0.33-0.92 EOS x10^3 (test code = 711-2) 0.03-0.39 L BASO x10^3 (test code = 704-7) 0.01-0.07 Lab Interpretation (test code = 31950-3) Abnormal [facility] [id number] 21:55:12* Test Item Value Reference Range Interpretation Comments TROPONIN I (test code = 7814524629) 0.005 ng/mL See_Comment [Automated message] The system [...] of biotin. Lab Interpretation (test code = 42499-8) Normal [facility]AL [id number] 21:52:11* Test Item Value Reference Range Interpretation Comme nts NT-proBNP (test code = 0217353995) 122 pg/mL See_Comment [Automated message] The system which generated this result transmitted reference range: <=125. The reference range was not used to interpret this result as normal/abnormal. LINDA (test code = LINDA) Biotin has been reported to cause a negative bias, interpret results relative to patient's use of biotin. Lab Interpretation (test code = 74981-3) Normal [facility] METABOLIC PANEL (88255)2022-03-27 21:29:29* Test Item Value Reference Range Interpretation Comme nts NA (test code = 8361552391) 136 mmol/L 135-145 K (test code = 1056312019) 3.1 mmol/L 3.5-5.0 L CL (test code = 1908112270) 96 mmol/L 98-108 L CO2 TOTAL (test code = 6693165139) 20 mmol/L 23-31 L AGAP (test code = 3248336014) 2-16 H BUN (test code = 2562174901) 31 mg/dL 7-23 H GLUCOSE (test code = 6075639678) 129 mg/dL 70-110 H CREATININE (test code = 7133535158) 1.93 mg/dL 0.50-1.04 H TOTAL BILI (test code = 9188316774) 1.0 mg/dL 0.1-1.1 CALCIUM (test code = 9987150035) 9.4 mg/dL 8.6-10.6 T PROTEIN (test code = 7649209280) 6.6 g/dL 6.3-8.2 ALBUMIN (test code = 2096432590) 4.6 g/dL 3.5-5.0 ALK PHOS (test code = 8665553958) 96 U/L 34-122 ALTv (test code = 1742-6) 36 U/L 5-35 H AST(SGOT) (test code = 1833008423) 36 U/L 13-40 eGFR (test code = 5810929646) mL/min/1.73m2 LINDA (test code = LINDA) Association [...] imaging tests). Lab Interpretation (test code = 02269-4) [facility] 21:23:30* Test Item Value Reference Range Interpretation Comme nts MAGNESIUM (test code = 7935759615) 2.0 mg/dL 1.7-2.4 Lab Interpretation (test cod e = 89753-1) Normal [facility] WITH [id number] 21:11:09* Test Item Value Reference Range Interpretation [...] 31.7 g/dL 31.6-35.1 RDW-SD (test code = 26243-3) 46.5 fL 39.0-49.9 RDW-CV (test code = 788-0) 13.6 % 12.0-15.5 PLT (test code = 777-3) See_Comment [Automated messa ge] The system which generated this result transmitted reference range: 166 - 358 10*3/?L. The reference range was not used to interpret this result as normal/abnormal. MPV (test code = 79884-0) 8.8 fL 9.5-12.9 L NRBC/100 WBC (test code = 4302287220) See_Comment [Automated 2C2P ssage] The system which generated this result transmitted reference range: 0.0 - 10.0 /100 WBCs. The reference range was not used to interpret this result as normal/abnormal. NRBC x10^3 (test code = 6007951996) See_Comment [Automated messa ge] The system which generated this result transmitted reference range: 10*3/?L. The reference range was not used to interpret this result as normal/abnormal. GRAN MAT (NEUT) % (test code = 770-8) 88.6 % IMM GRAN % (test code = 4759285302) 0.40 % LYMPH % (test code = 736-9) 6.4 % MONO % (test code = 5905-5) 4.4 % EOS % (test code = 713-8) 0.0 % BASO % (test code = 706-2) 0.2 % GRAN MAT x10^3(ANC) (test code = 8267707461) 9.53 10*3/uL 1.88-7.09 H IMM GRAN x10^3 (test code = 3875907341) 0.04 10*3/uL 0.00-0.06 LYMPH x10^3 (test code = 731-0) 0.69 10*3/uL 1.32-3.29 L MONO x10^3 (test code = 742-7) 0.47 10*3/uL 0.33-0.92 EOS x10^3 (test code = 711-2) 0.03-0.39 L BASO x10^3 (test code = 704-7) 0.01-0.07 Lab Interpretation (test code = 66543-3) Abnormal [facility]"
--- NOTE | 2024-06-08 11:40 | RAD REPORT ---
EXAM: CT CHEST, ABDOMEN AND PELVIS WITHOUT CONTRAST CLINICAL INDICATION: Cough;Pain TECHNIQUE: CT chest, abdomen and pelvis was performed without contrast, as per department protocol. A xial, sagittal and coronal reconstructions were obtained. One or more of the following dose reduction techniques were used: Automated exposure control, adjustment of the mA and/or kV according to patient size, and/or iterative reconstruction. Unless otherwise specified, incidental findings do not require dedicated imaging follow-up. Examination is limited by the lack of intravenous contrast material. COMPARISON: 01/20/2024 FINDINGS: LUNGS: Calcified granulomata noted. Tiny vague areas of nodularity superior segment right lower lobe noted, unchanged. No focal lung infiltrate seen. PLEURA: No pleural effusion. No pneumothorax. MEDIASTINUM AND LYMPH NODES: No mediastinal mass or fluid collection. Normal size mediastinal, hilar, and axillary lymph nodes. OSSEOUS STRUCTURES AND CHEST WALL: Old fracture deformity of the superior sternum. LIVER: Normal in size and contour. No focal lesion or biliary dilatation. Grossly unremarkable gallbl adder. PANCREAS: No mass, ductal dilation, or polly-pancreatic fluid. SPLEEN: Normal size. No focal lesion. ADRENALS: Normal; no mass. KIDNEYS: There is a 7 mm calculus present in the right renal pelvis. Punctate right calyceal calculi present. No significant hydronephrosis. Small left renal cyst. No left renal stone or hydronephrosis. URINARY BLADDER: Small air bubble present. GASTROINTESTINAL TRACT: No bowel obstruction, free air, significant free fluid or abscess. There is mild diverticulosis coli of the sigmoid colon without diverticulitis. APPENDIX: Appendix not visualized, but no inflammatory changes in region of appendix. LYMPH NODES: No lymphadenopathy. MUSCULOSKELETAL: Prominent degenerative changes seen in the spinal column. Moderate compression fract ures with sclerosis noted T9, T12 and L3. These were present on the prior study. 4 mm degenerative anterolisthesis is seen L3 on 4. OTHER: IMPRESSION: 7 mm calculus right renal pelvis. No hydronephrosis. Additional punctate stones in the right kidney s een. No acute intrathoracic abnormality. Tiny air bubble urinary bladder could indicate recent instrumentation or infection.
--- NOTE | 2024-06-08 11:57 | RAD REPORT ---
EXAMINATION: ONE VIEW CHEST XR CLINICAL INDICATION: COUGH TECHNIQUE: Frontal chest projection is submitted. Examination is limited by patient positioning and t echnique. COMPARISON: 02/02/2024 FINDINGS: The lungs are well inflated and clear. The heart is normal in size. No displaced fractures identified . Degenerative changes in both shoulders. IMPRESSION: No acute intrathoracic abnormalities.
[2024-06-08] MEDS ORDERED: FAMOTIDINE 20 MG/2 ML VIAL IV ONE (12:13)
[2024-06-08] MEDS ORDERED: ONDANSETRON 4 MG/2 ML VIAL ONE (12:13)
[2024-06-08] MEDS ORDERED: NA CHLORIDE 0.9% 1,000 ML ONE ×3 (12:14→20:56)
[2024-06-08 12:45] LABS: Absolute Lymphocytes (CBC) 0.6 K/uL (0.7-4.9); Absolute Monocytes 0.2 K/uL (0.1-1.3); Absolute Neutrophil 3.8 K/uL (1.8-8.0); Basophils % 0.8 % (0-1.3); Eosinophils % 0.2 % (0-4.4); Hematocrit 39.4 % (36.0-45.0); Hemoglobin 13.1 g/dL (12.0-15.0); MCH 30.5 pg (27.0-35.0); MCHC 33.3 g/dL (32.0-36.0); MCV 91.6 fL (80-100); MPV 8.7 fL (7.6-11.3); Monocytes % 4.6 % (3.3-12.3); Neutrophils % 82.4 % (41.7-73.7); Nucleated Red Blood Cells % 0.1 % (0-0); Platelets 163 thou/uL (152-406); Red Cell Distribution Width 15.8 % (12.1-15.2)
[2024-06-08 12:48] LABS: PT Prothrombin Time 13.3 SECONDS (9.7-12.7); Protime INR 1.28
[2024-06-08 13:09] LABS: Albumin 3.5 g/dL (3.4-5.0); Albumin/Globulin Ratio 1.1 (1.1-1.8); Anion Gap 14.8 mEq/L (5.0-15.0); Bilirubin Direct 0.6 mg/dL (0-0.2); Bilirubin Indirect, Calculated 0.7 mg/dL (0.2-0.8); Bilirubin Total 1.3 mg/dL (0.2-1.0); Globulin 3.1 g/dL (2.3-3.5); Magnesium 1.6 mg/dL (1.6-2.4); Potassium 2.8 mEq/L (3.5-5.1); Protein, Total 6.6 g/dL (6.4-8.2); Troponin High Sensitivity 16.4 pg/mL (<58.9)
[2024-06-08 13:17] LABS: Influenza A Ag Negative; Influenza B Ag Negative; SARS-CoV-2 Antigen Rapid Res Negative (Negative)
[2024-06-08 14:48] LABS: Specific Gravity 1.013 (1.005-1.030); Sqamous Epithelial <5 /HPF (None Seen); Urine Bacteria >50 /HPF (<20); Urine Bilirubin NEGATIVE (Negative); Urine Blood Trace (Negative); Urine Clarity Extremely Turbid (Clear); Urine Color Yellow (Yellow); Urine Culture Reflex Order REFLEXED; Urine Glucose NEGATIVE (Negative); Urine Ketones TRACE (Negative); Urine Microscopic Reflex YN ORDER UMIC; Urine Mucus Slight /HPF (None Seen); Urine Nitrite NEGATIVE (Negative); Urine Protein TRACE (Negative); Urine Urobilinogen 1+ (Normal); Urine WBC >50 /HPF (<5); Urine WBC Clump Rare /HPF (None Seen); Urine pH 6.5 (5.0-7.0)
--- NOTE | 2024-06-08 15:33 | EDPHYS ---
Physician Documentation [facility] Name: Joyce Saha Age: 74 yrs Sex: Female : 1950 Arrival Date: 06/08/2024 Time: 10:58 Bed 20 Private MD: SASKIA Physician Redd Miranda HPI: 06/08 15:22 This 74 yrs old Female presents to ER via Ambulatory with complaints of ana General Weakness, Decreased Appetite. 15:22 The patient is experiencing matting or discharge, pain, redness. Aggravated by nothing. ana Alleviated by nothing. Associated signs and symptoms: Pertinent positives: chills, fever, runny nose. The patient presents with flank pain, urinary symptoms, dysuria, frequency. Onset: The symptoms/episode began/occurred 3 day(s) ago. Modifying factors: The symptoms are alleviated by remaining still, the symptoms are aggravated by movement, food. Associated signs and symptoms: Pertinent positives: cramping, fever, nausea. Severity of symptoms: At their worst the symptoms were moderate, in the emergency department the symptoms are unchanged. WEAKNESS, ANOREXIA. The patient is not sexually active. The patient reports fever, not measured (subjective). Severity of symptoms: At their worst the symptoms were moderate in the emergency department the symptoms are unchanged. Historical: - Allergies: 11:10 acutane; hb 11:10 Allopurinol; hb 11:10 amlodipine; hb 11:10 budesonide; hb 11:10 Codeine; hb 11:10 formoterol fumarate; hb 11:10 hydrochlorothiazide; hb - PMHx: 11:10 Congestive heart failure; depressive disorder; Gastroesophageal reflux disease; hb Hypercholesterolemia; Hypertensive disorder; Hypertensive disorder; Osteoporosis; osteoarthritis; - PSHx: 11:10 knee surgery; shoulder surergy; wrist surgery; hb - Immunization history:: Adult Immunizations up to date. - Infectious Disease History:: Denies. - Social history:: Smoking status: Patient denies any tobacco usage or history of. ROS: 15:25 Constitutional: Negative for fever, chills, and weight loss, Eyes: Negative for injury, ana pain, redness, and discharge, ENT: Negative for injury, pain, and discharge, Neck: Negative for injury, pain, and swelling, Cardiovascular: Negative for chest pain, palpitations, and edema, Respiratory: Negative for shortness of breath, cough, wheezing, and pleuritic chest pain, Back: Negative for injury and pain, MS/Extremity: Negative for injury and deformity, Skin: Negative for injury, rash, and discoloration, Psych: Negative for depression, anxiety, suicide ideation, homicidal ideation, and hallucinations, Allergy/Immunology: Negative for hives, rash, and allergies, Endocrine: Negative for neck swelling, polydipsia, polyuria, polyphagia, and marked weight changes, Hematologic/Lymphatic: Negative for swollen nodes, abnormal bleeding, and unusual bruising, 15:25 Abdomen/GI: Positive for abdominal pain, nausea and vomiting, 15:25 : Positive for urinary symptoms, urinary frequency, foul smelling urine, 15:25 Neuro: Positive for altered mental status, dizziness, weakness, Exam: 15:25 Constitutional: This is a well developed, well nourished patient who is awake, alert, ana and in no acute distress. Head/Face: Normocephalic, atraumatic. ENT: Nares patent. No nasal discharge, no septal abnormalities noted. Tympanic membranes are normal and external auditory canals are clear. Oropharynx with no redness, swelling, or masses, exudates, or evidence of obstruction, uvula midline. Mucous membranes moist. Neck: Trachea midline, no thyromegaly or masses palpated, and no cervical lymphadenopathy. Supple, full range of motion without nuchal rigidity, or vertebral point tenderness. No Meningismus. Chest/axilla: Normal chest wall appearance and motion. Nontender with no deformity. No lesions are appreciated. Cardiovascular: Regular rate and rhythm with a normal S1 and S2. No gallops, murmurs, or rubs. Normal PMI, no JVD. No pulse deficits. Respiratory: Lungs have equal breath sounds bilaterally, clear to auscultation and percussion. No rales, rhonchi or wheezes noted. No increased work of breathing, no retractions or nasal flaring. Abdomen/GI: Soft, non-tender, with normal bowel sounds. No distension or tympany. No guarding or rebound. No evidence of tenderness throughout. Back: No spinal tenderness. No costovertebral tenderness. Full range of motion. Skin: Warm, dry with normal turgor. Normal color with no rashes, no lesions, and no evidence of cellulitis. MS/ Extremity: Pulses equal, no cyanosis. Neurovascular intact. Full, normal range of motion., bilateral aka Neuro: Awake and alert, GCS 15, oriented to person, place, time, and situation. Cranial nerves II-XII grossly intact. Motor strength 5/5 in all extremities. Sensory grossly intact. Cerebellar exam normal. Normal gait. Psych: Awake, alert, with orientation to person, place and time. Behavior, mood, and affect are within normal limits. 15:25 Eyes: Pupils: no acute changes, equal, round, and reactive to light and accomodation, Extraocular movements: intact throughout, Conjunctiva: normal, no acute changes, Corneas: are normal, Sclera: no appreciated abnormality, Anterior chamber: normal, Nystagmus: is not appreciated, 15:35 ECG was reviewed by the Attending Physician. [facility] Vital Signs: 11:08 BP 130 / 62; Pulse 92; Resp 16; Temp 98.4(O); Pulse Ox 94% on R/A; Weight 68.04 kg; hb Height 5 ft. 4 in. ; Pain 0/10; 12:23 BP 128 / 80; Pulse 84; Resp 16; Pulse Ox 96% ; hb 13:00 BP 134 / 76; Pulse 81; Resp 16; Pulse Ox 97% 3 lpm ; me1 14:00 BP 129 / 77; Pulse 81; Resp 16; Pulse Ox 97% 3 lpm ; me1 15:00 BP 106 / 68; Pulse 76; Resp 17; Pulse Ox 100% 3 lpm ; me1 16:00 BP 105 / 52; Pulse 84; Resp 16; Pulse Ox 100% 3 lpm ; me1 17:00 BP 103 / 79; Pulse 88; Resp 19; Pulse Ox 100% 3 lpm ; me1 18:00 BP 98 / 57; Pulse 76; Resp 14; Pulse Ox 100% 3 lpm ; me1 18:58 BP 104 / 55; Pulse 76; Resp 21; Pulse Ox 100% 3 lpm ; me1 11:08 Body Mass Index 25.75 (68.04 kg, 162.56 cm) hb 11:08 Pain Scale: Adult hb MDM: 11:08 Medical Screening Exam initiated [facility] 15:27 Differential diagnosis: appendicitis, kidney stone, nonspecific abdominal pain, viral ana Infection, bacterial infection, URI, bronchitis, pneumonia UTI, gastroenteritis, urinary tract infection. Differential Diagnosis altered mental status, sepsis, flu. Data reviewed: vital signs, nurses notes, EMS record, lab test result(s), EKG, radiologic studies, CT scan, plain films. Consideration of Admission/Observation Patient was admitted/placed on observation. Escalation of care including admission/observation considered. I considered the following discharge prescriptions or medication management in the emergency department Medications were administered in the Emergency Department. See MAR. Independent interpretation of the following test(s) in the Emergency Department EKG: See my EKG interpretation above. Test considered but Not performed: Ultrasound NO 2 D ECHO. Care significantly affected by the following chronic conditions: Hypertension, Congestive Heart Failure, DEPRESSION, GERD. 06/08 11:15 Order name: Basic Metabolic Panel [facility] 06/08 11:15 Order name: CBC with Diff; Complete Time: 15:06 [facility] 06/08 11:15 Order name: LFT's [facility] 06/08 11:15 Order name: Magnesium [facility] 06/08 11:15 Order name: NT PRO-BNP [facility] 06/08 11:15 Order name: PT-INR; Complete Time: 15:06 [facility] 06/08 11:15 Order name: Troponin HS [facility] 06/08 11:15 Order name: Lipase [facility] 06/08 11:15 Order name: Urinalysis w/ reflexes; Complete Time: 15:06 [facility] 06/08 11:15 Order name: Blood Culture Adult (2) [facility] 06/08 12:44 Order name: COVID-19 Ag + Flu A+B Ag; Complete Time: 15:06 [facility] 06/08 14:53 Order name: Urine Culture [facility] 06/08 15:07 Order name: Lactate w/ 2H reflex if indic. [facility] 06/08 15:26 Order name: Phosphorus [facility] 06/08 16:16 Order name: Potassium [facility] 06/08 16:16 Order name: Basic Metabolic Panel [facility] 06/08 16:16 Order name: Basic Metabolic Panel [facility] 06/08 16:16 Order name: CBC with Automated Diff [facility] 06/08 16:16 Order name: CBC with Automated Diff [facility] 06/08 16:16 Order name: Magnesium [facility] 06/08 16:16 Order name: Magnesium [facility] 06/08 16:16 Order name: Phosphorus [facility] 06/08 16:16 Order name: Phosphorus [facility] 06/08 16:16 Order name: Troponin High Sensitivity [facility] 06/08 16:16 Order name: Troponin High Sensitivity [facility] 06/08 16:16 Order name: Troponin High Sensitivity [facility] 06/08 11:15 Order name: XRAY Chest (1 view); Complete Time: 15:06 [facility] 06/08 11:16 Order name: CT Chest Abdomen Pelvis W/O Contrast; Complete Time: 15:06 [facility] 06/08 16:16 Order name: Physical Therapy Consult [facility] 06/08 16:21 Order name: Dietitian Consult [facility] 06/08 11:15 Order name: EKG - Nurse/Tech; Complete Time: 12:24 [facility] 06/08 11:15 Order name: IV Saline Lock; Complete Time: 12:24 [facility] 06/08 11:15 Order name: Labs collected and sent; Complete Time: 12:30 [facility] 06/08 11:15 Order name: O2 Per Protocol; Complete Time: 12:24 [facility] 06/08 11:15 Order name: O2 Sat Monitoring; Complete Time: 12:24 [facility] 06/08 15:17 Order name: Misc. Order: clean eyes, saline; Complete Time: 15:58 [facility] 06/08 15:19 Order name: IV Saline Lock - Large Bore; Complete Time: 15:21 [facility] EC:35 Rate is 69 beats/min. Rhythm is regular. QRS [place] is Normal. [place] interval is normal. QRS ana interval is normal. QT interval is normal. No Q waves. T waves are Normal. No ST changes noted. Clinical impression: NSR w/ Non-specific ST/T Changes and No evidence of ischemia. Interpreted by me. Reviewed by me. Administered Medications: 12:29 Drug: Famotidine IVP 20 mg IVP once; dilute with 10 mL 0.9% NaCl; give over 2 minutes hb Route: IVP; Site: left forearm; 13:02 Follow up: Response: No adverse reaction me1 12:29 Drug: Ondansetron IVP 4 mg IVP once; over 2 minutes Route: IVP; Site: left forearm; hb 14:09 Follow up: Response: No adverse reaction; Nausea is decreased me1 12:30 Drug: NS 0.9% IV 1000 ml IV at 1000 ml once; to be given as a bolus over 60 minutes hb Route: IV; Rate: 1000 ml; Site: left forearm; 14:41 Follow up: Response: No adverse reaction; IV Status: Completed infusion; IV Intake: me1 1000ml 15:57 Drug: NS 0.9% IV 1000 ml IV at 1 bolus Per protocol; to be given as a bolus over 60 me1 minutes Route: IV; Rate: 1 bolus; Site: left wrist; 16:32 Follow up: Response: No adverse reaction; IV Status: Completed infusion; IV Intake: me1 1000ml 15:58 Drug: Meropenem IV 1 grams IV at per protocol once; (mix in NS 100 mL) Route: IV; Rate: me1 per protocol; Site: left wrist; 16:34 Follow up: Response: No adverse reaction; IV Status: Completed infusion; IV Intake: me1 100ml 15:58 Drug: Tobramycin Ophthalmic Ointment (0.3 %) 1 application Ophthalmic once; each eye, me1 OU Route: Ophthalmic; Site: both eyes; 18:33 Follow up: Response: No adverse reaction me1 15:58 Drug: Potassium PO Effervescent Tablet 50 mEq PO once; dissolve in 4 ounces of water or me1 juice Route: PO; 16:34 Follow up: Response: No adverse reaction me1 15:58 Drug: NS 0.9% with KCl IV 20 mEq/L 1000 ml IV at 125 ml/hr continuous Route: IV; Rate: me1 125 ml/hr; Site: right forearm; 18:58 Follow up: IV Status: Infusion continued upon admission me1 16:33 Drug: Magnesium Sulfate IVPB 2 grams IVPB once over 2 hrs Route: IVPB; Infused Over: 2 me1 hrs; Site: left wrist; 18:33 Follow up: Response: No adverse reaction; IV Status: Completed infusion; IV Intake: [id number] Disposition Summary: 06/08/24 15:32 Hospitalization Ordered Notes: Hospitalization Status: Inpatient Admission ana Provider: Palbo Adair ana Condition: Fair ana Problem: new ana Symptoms: have improved ana Bed/Room Type: Standard ana Location: Telemetry/MedSurg (observation)(06/08/24 20:37) Room Assignment: 214(06/08/24 20:37) Diagnosis - Acute cystitis with hematuria ana - Dehydration ana - Weakness ana - Hypokalemia ana - Other conjunctivitis - BACTERIAL , BILATERAL ana Forms: - Medication Reconciliation Form ana - SBAR form ana - Leadership Thank You Letter ana Signatures: Dispatcher [employer] EDRedd Mcmanus MD MD cha Baxter, Heather, RN RN Yesica Hernández RN RN kb3 Aster Singletary, RED RN me1 Lanette Wright Corrections: (The following items were deleted from the chart) 12:42 11:16 SARS-COV-2 Antigen Rapid+I.LAB.BRZ ordered. EDMS EDMS 12:43 11:16 Influenza Screen (A \T\ B)+BA.LAB.BRZ ordered. EDMS EDMS 15:25 15:18 PHOSPHORUS+C.LAB.BRZ ordered. EDMS EDMS 17:42 15:32 Telemetry/MedSurg (Inpatient) ana kb3 17:42 15:32 ana kb3 20:37 17:42 [facility] ER HOLD kb3 hw 20:37 17:42 ERHOLD- kb3 hw
--- NOTE | 2024-06-08 15:33 | ER ---
Nurse's Notes [facility] Name: Joyce Saha Age: 74 yrs Sex: Female : 1950 Arrival Date: 06/08/2024 Time: 10:58 Bed 20 Private MD: Diagnosis: Acute cystitis with hematuria;Dehydration;Weakness;Hypokalemia;Other conjunctivitis-BACTERIAL , BILATERAL Presentation: 06/08 11:08 Chief complaint: EMS states: Generalized weakness, malaise, and decreased appetite x 1 hb week BP 98/62, HR 82, SpO2 94% on RA, improved to 100% on 2LNC, BGL 82, NSR on 12 lead. NS 300ml administered to 20g LFA MECHANIC SENIOR. Coronavirus screen: Client presents with at least one sign or symptom that may indicate coronavirus-19. Provider contacted for isolation considerations. Ebola Screen: No symptoms or risks identified at this time. Initial Sepsis Screen: Does the patient meet any 2 criteria? No. Patient's initial sepsis screen is negative. Does the patient have a suspected source of infection? No. Patient's initial sepsis screen is negative. Risk Assessment: Do you want to hurt yourself or someone else? Patient reports no desire to harm self or others. Onset of symptoms was June 01, 2024. 11:08 Method Of Arrival: Ambulatory hb 11:08 Acuity: VALERIY 3 hb Triage Assessment: 11:11 General: Appears in no apparent distress. Behavior is calm, cooperative. Pain: Denies hb pain. EENT: No signs and/or symptoms were reported regarding the EENT system. Neuro: Level of Consciousness is awake, alert, obeys commands, Oriented to person, place, time, situation. Cardiovascular: Patient's skin is warm and dry. Respiratory: Respiratory effort is even, unlabored, Respiratory pattern is regular, symmetrical. GI: No signs and/or symptoms were reported involving the gastrointestinal system. : No signs and/or symptoms were reported regarding the genitourinary system. Derm: Skin is pink, warm \T\ dry. Musculoskeletal: Reports generalized weakness. Historical: - Allergies: 11:10 acutane; hb 11:10 Allopurinol; hb 11:10 amlodipine; hb 11:10 budesonide; hb 11:10 Codeine; hb 11:10 formoterol fumarate; hb 11:10 hydrochlorothiazide; hb - PMHx: 11:10 Congestive heart failure; depressive disorder; Gastroesophageal reflux disease; hb Hypercholesterolemia; Hypertensive disorder; Hypertensive disorder; Osteoporosis; osteoarthritis; - PSHx: 11:10 knee surgery; shoulder surergy; wrist surgery; hb - Immunization history:: Adult Immunizations up to date. - Infectious Disease History:: Denies. - Social history:: Smoking status: Patient denies any tobacco usage or history of. Screenin:15 [facility] ED Fall Risk Assessment (Adult) History of falling in the last 3 months, hb including since admission No falls in past 3 months (0 pts) Confusion or Disorientation No (0 pts) Intoxicated or Sedated No (0 pts) Impaired Gait Yes (1 pt) Mobility Assist Device Used Yes (1 pt) Altered Elimination Yes (1 pt) Score/Fall Risk Level 3 or more points = High Risk Oriented to surroundings, Maintained a safe environment, Educated pt \T\ family on fall prevention, incl call for assistance when getting out of bed. Abuse screen: Denies threats or abuse. Denies injuries from another. Nutritional screening: No deficits noted. Tuberculosis screening: No symptoms or risk factors identified. Assessment: 11:12 General: see triage assessment. hb 12:23 Reassessment: Patient appears in no apparent distress at this time. Patient and/or hb family updated on plan of care and expected duration. Pain level reassessed. Patient is alert, oriented x 3, equal unlabored respirations, skin warm/dry/pink. 22:32 Reassessment: Pt alert and oriented, on 2L NC with saturation above 96%, denies pain, ay CP, N/V, SOB. No distress noted. Vital Signs: 11:08 BP 130 / 62; Pulse 92; Resp 16; Temp 98.4(O); Pulse Ox 94% on R/A; Weight 68.04 kg; hb Height 5 ft. 4 in. ; Pain 0/10; 12:23 BP 128 / 80; Pulse 84; Resp 16; Pulse Ox 96% ; hb 13:00 BP 134 / 76; Pulse 81; Resp 16; Pulse Ox 97% 3 lpm ; me1 14:00 BP 129 / 77; Pulse 81; Resp 16; Pulse Ox 97% 3 lpm ; me1 15:00 BP 106 / 68; Pulse 76; Resp 17; Pulse Ox 100% 3 lpm ; me1 16:00 BP 105 / 52; Pulse 84; Resp 16; Pulse Ox 100% 3 lpm ; me1 17:00 BP 103 / 79; Pulse 88; Resp 19; Pulse Ox 100% 3 lpm ; me1 18:00 BP 98 / 57; Pulse 76; Resp 14; Pulse Ox 100% 3 lpm ; me1 18:58 BP 104 / 55; Pulse 76; Resp 21; Pulse Ox 100% 3 lpm ; me1 11:08 Body Mass Index 25.75 (68.04 kg, 162.56 cm) hb 11:08 Pain Scale: Adult hb ED Course: 11:07 Patient arrived in ED. hb 11:08 Redd Miranda MD is Attending Physician. ana 11:10 Triage completed. hb 11:11 Arm band placed on. hb 11:14 Patient has correct armband on for positive identification. Bed in low position. Call hb light in reach. Provided Education on: use of call light . Client placed on continuous cardiac and pulse oximetry monitoring. NIBP monitoring applied. quality assurance monitor on. Pulse ox on. NIBP on. 11:15 Maintain EMS IV. Dressing intact. Good blood return noted. Site clean \T\ dry. Gauge \T\ hb site: 20g LFA. 11:29 CT Chest Abdomen Pelvis W/O Contrast In Process Unspecified. EDMS 11:30 XRAY Chest (1 view) In Process Unspecified. EDMS 12:15 EKG done, by ED staff, reviewed by Redd Miranda MD. hb 12:28 Aster Singletary, RED is Primary Nurse. me1 14:27 Urinalysis w/ reflexes Sent. me1 14:27 Urine collected: clean catch specimen, cloudy, tea colored. me1 15:10 Urine Culture Sent. me1 15:28 Lactate w/ 2H reflex if indic. Sent. me1 15:31 Pablo Adair MD is Hospitalizing Provider. ana 18:14 No provider procedures requiring assistance completed. me1 22:36 Patient admitted, IV remains in place. ay Administered Medications: 12:29 Drug: Famotidine IVP 20 mg IVP once; dilute with 10 mL 0.9% NaCl; give over 2 minutes hb Route: IVP; Site: left forearm; 13:02 Follow up: Response: No adverse reaction me1 12:29 Drug: Ondansetron IVP 4 mg IVP once; over 2 minutes Route: IVP; Site: left forearm; hb 14:09 Follow up: Response: No adverse reaction; Nausea is decreased me1 12:30 Drug: NS 0.9% IV 1000 ml IV at 1000 ml once; to be given as a bolus over 60 minutes hb Route: IV; Rate: 1000 ml; Site: left forearm; 14:41 Follow up: Response: No adverse reaction; IV Status: Completed infusion; IV Intake: me1 1000ml 15:57 Drug: NS 0.9% IV 1000 ml IV at 1 bolus Per protocol; to be given as a bolus over 60 me1 minutes Route: IV; Rate: 1 bolus; Site: left wrist; 16:32 Follow up: Response: No adverse reaction; IV Status: Completed infusion; IV Intake: me1 1000ml 15:58 Drug: Meropenem IV 1 grams IV at per protocol once; (mix in NS 100 mL) Route: IV; Rate: me1 per protocol; Site: left wrist; 16:34 Follow up: Response: No adverse reaction; IV Status: Completed infusion; IV Intake: me1 100ml 15:58 Drug: Tobramycin Ophthalmic Ointment (0.3 %) 1 application Ophthalmic once; each eye, me1 OU Route: Ophthalmic; Site: both eyes; 18:33 Follow up: Response: No adverse reaction me1 15:58 Drug: Potassium PO Effervescent Tablet 50 mEq PO once; dissolve in 4 ounces of water or me1 juice Route: PO; 16:34 Follow up: Response: No adverse reaction me1 15:58 Drug: NS 0.9% with KCl IV 20 mEq/L 1000 ml IV at 125 ml/hr continuous Route: IV; Rate: me1 125 ml/hr; Site: right forearm; 18:58 Follow up: IV Status: Infusion continued upon admission me1 16:33 Drug: Magnesium Sulfate IVPB 2 grams IVPB once over 2 hrs Route: IVPB; Infused Over: 2 me1 hrs; Site: left wrist; 18:33 Follow up: Response: No adverse reaction; IV Status: Completed infusion; IV Intake: [id number] Medication: 11:15 VIS not applicable for this client. hb Intake: 14:41 IV: 1000ml; Total: 1000ml. me1 16:32 IV: 1000ml; Total: 2000ml. me1 16:34 IV: 100ml; Total: 2100ml. me1 18:33 IV: 50ml; Total: 2150ml. me1 Outcome: 15:32 Decision to Hospitalize by Provider. ana 22:36 Admitted to Med/surg accompanied by mallory, phyllis 22:36 Condition: stable 22:36 Instructed on the need for admit, 22:38 Patient left the ED. phyllis Signatures: Dispatcher [employer] EDWI Redd Miranda MD MD cha Baxter, Heather, RN Aster Coe RN RN wv1 Pb Bay RN RN ay Corrections: (The following items were deleted from the chart) 11:14 11:08 Chief complaint: EMS states: Generalized weakness, malaise, and decreased hb appetite x 1 week hb
[2024-06-08] MEDS ORDERED: TOBRAMYCIN SULF 0.3% OPTH OINT ONE (15:41)
[2024-06-08] MEDS ORDERED: NA CHLORIDE 0.9% 100 ML ONE (15:42)
[2024-06-08] MEDS ORDERED: POTASSIUM 25 MEQ EFFERV TAB ONE (15:42)
[2024-06-08] MEDS ORDERED: Meropenem 1000 MG/VIAL IV ONE (15:42)
[2024-06-08] MEDS ORDERED: NS KCL 20MEQ 1,000 ML IV ONE (15:42)
[2024-06-08 15:43] LABS: Phosphorus 2.7 mg/dL (2.5-4.9)
[2024-06-08] MEDS ORDERED: Magnesium Sulfate 2gm IVPB 2 G/50 ML BAG IV ONE (15:43)
[2024-06-08] MEDS ORDERED: ACETAMINOPHEN 325 MG TABLET PO PRN (16:09)
--- NOTE | 2024-06-08 16:18 | P.HP ---
Certification for Inpatient Patient admitted to: Observation With expected LOS: <2 Midnights Practitioner: I am a practitioner with admitting privileges, knowledge of patient current condition, hospital course, and medical plan of care. Services: Services provided to patient in accordance with Admission requirements found in Title 42 Section 412.3 of the Code of Federal Regulations Patient History Date of Service: 06/08/24 Reason for admission: Weakness, hypokalemia History of Present Illness: Joyce Saha is a 74-year-old female with past medical history of Congestive heart failure, depressive disorder, Gastroesophageal reflux disease, Hypercholesterolemia, Hypertensive disorder, Hypertensive disorder, Osteoporosis, osteoarthritis, who presents to the ED with chief complaint of not feeling right. She had woke up early this morning was able to get around then experienced weakness and was not able to get out of the chair. She reports last time she ate was 2 days ago. She states that she orders from [facility] or [employer] delivery and is able to order food that she enjoys. She reports she does not like the taste of food right now and has to force herself to eat. She reports not having a PCP since she moved her approximately 2 years ago. He previous doctor continues to provide her prescriptions. Laboratory evaluation significant for left shift lymphocytes 82.4, potassium 2.8, BUN/creatinine 13/1.41, GFR 39, T. bili 1.3. CT abdomen pelvis report "7 mm calculus right renal pelvis. No hydronephrosis. Additional punctate stones in the right kidney seen. No acute intrathoracic abnormality. Tiny air bubble urinary bladder could indicate recent instrumentation or infection " Chest x-ray report "No acute intrathoracic abnormalities. " Joyce will be admitted to hospitalist service for further evaluation and treatment of weakness and hypokalemia. Allergies codeine Allergy (Mild, Verified 04/29/22 22:55) Itching formoterol Allergy (Unknown, Verified 04/30/22 05:54) Itching hydrochlorothiazide Allergy (Unknown, Verified 04/30/22 05:54) Itching olmesartan Allergy (Unknown, Verified 04/30/22 05:54) Itching budesonide Allergy (Verified 04/30/22 05:51) Itching quinapril Allergy (Verified 04/30/22 05:54) Itching acutane Allergy (Unknown, Uncoded 04/29/22 22:56) Hives Home Medications: Alendronate Sodium 1 tab PO EVERY 7TH DAY 01/20/24 Amlodipine Besylate 5 mg PO DAILY 01/20/24 Atorvastatin Calcium [Lipitor] 80 mg PO BEDTIME 01/20/24 Ergocalciferol (Vitamin D2) [Vitamin D 50,000 Unit Cap] 50,000 unit PO EVERY 7TH DAY 01/20/24 Ezetimibe 10 mg PO DAILY 01/20/24 Famotidine [Pepcid*] 2 tab PO BID 01/20/24 Furosemide 40 mg PO DAILY 01/20/24 Olanzapine [Zyprexa] 5 mg PO BEDTIME 01/20/24 Potassium Chloride 10 meq PO DAILY 01/20/24 buPROPion HCL [Bupropion Xl] 300 mg PO DAILY 01/20/24 - Past Medical/Surgical History Diabetic: No -: Hypertension -: Osteoperosis -: Depressive disorder -: hypercholesterolemia -: GERD -: CHF -: Total hysterectomy -: Right Femur Psychosocial/ Personal History: Patient lives at home alone. - Family History Father -: Heart disease - Social History Alcohol use: No CD- Drugs: No Caffeine use: No Review of Systems Other: per HPI Physical Examination - Physical Exam General: Alert, In no apparent distress, Oriented x3 HEENT: Atraumatic, Normocephalic, Other (bilateral conjuntivitis) Respiratory: Clear to auscultation bilaterally, Normal air movement Cardiovascular: Normal pulses, Regular rate/rhythm, Normal S1 S2 Capillary refill: <2 Seconds Gastrointestinal: Normal bowel sounds, Soft and benign Musculoskeletal: No clubbing Integumentary: No rashes Neurological: Normal speech, Normal tone - Studies Laboratory Data (last 24 hrs) 06/08/24 06/08/24 06/08/24 15:18 12:26 12:26 WBC 4.60 Hgb 13.1 Hct 39.4 Plt Count 163 PT 13.3 H INR 1.28 Sodium Potassium BUN Creatinine Glucose Phosphorus Cancelled Magnesium Total Bilirubin AST ALT Alkaline Phosphatase Lipase 06/08/24 12:26 WBC Hgb Hct Plt Count PT INR Sodium 140 Potassium 2.8 L BUN 13 Creatinine 1.41 H Glucose 89 Phosphorus 2.7 Magnesium 1.6 Total Bilirubin 1.3 H AST 31 ALT 21 Alkaline Phosphatase 89 Lipase 21 Assessment and Plan - Plan Assessment and plan Weakness/debilitated Hypokalemia Decreased p.o. intake Hypotensive -Nutrition consulted, patient reports last food was 2 days ago -Encourage nutritional shakes -IV fluids with potassium -Potassium twice daily x 3 doses -Physical therapy consulted Bilateral bacterial conjunctivitis -Tobramycin ophthalmic ointment in the ED Right renal calculus -CT abdomen pelvis report "7 mm calculus right renal pelvis. No hydronephrosis. Additional punctate stones in the right kidney seen. No acute intrathoracic abnormality. Tiny air bubble urinary bladder could indicate recent instrumentation or infection " -Gentle IVF LEAH 2/2 dehydration -Gentle IV fluid -Monitor kidney function in the a.m. labs Elevated bilirubin -Gentle IV fluid -Monitor morning labs DVT PPx heparin DNR LOS 24-hour OBS Discharge Plan: Home Plan to discharge in: 24 Hours - Advance Directives Does patient have a Living Will: No Does patient have a Durable POA for Healthcare: No
[2024-06-08] MEDS: NA CHLORIDE 0.9% 1,000 ML IV SCH (17:00)
[2024-06-08] MEDS: HEPARIN 5000 UNIT/ML 1 ML VIAL SQ SCH (17:00)
[2024-06-08 18:32] VITALS: BMI 25.7
[2024-06-08 18:51] VITALS: O2SAT 100
[2024-06-08] MEDS ORDERED: HEPARIN 5000 UNIT/ML 1 ML VIAL ONE (20:56)
[2024-06-08] MEDS: POTASSIUM 25 MEQ EFFERV TAB PO SCH (22:48)
[2024-06-08] MEDS: ENSURE HIGH PROTEIN 237 ML CAN PO SCH (22:49)
[2024-06-09 04:51] LABS: Absolute Lymphocytes (CBC) 0.7 K/uL (0.7-4.9); Absolute Monocytes 0.3 K/uL (0.1-1.3); Absolute Neutrophil 3.3 K/uL (1.8-8.0); Basophils % 0.4 % (0-1.3); Eosinophils % 0.7 % (0-4.4); Hemoglobin 10.5 g/dL (12.0-15.0); Lymphocytes % 16.7 % (15.3-44.8); MCHC 33.8 g/dL (32.0-36.0); MCV 91.7 fL (80-100); MPV 8.7 fL (7.6-11.3); Neutrophils % 76.2 % (41.7-73.7); Platelets 122 thou/uL (152-406); RBC Red Blood Cell Count 3.38 M/uL (3.86-4.86); Red Cell Distribution Width 16.3 % (12.1-15.2)
[2024-06-09 05:17] LABS: Anion Gap 8.9 mEq/L (5.0-15.0); Magnesium 2.2 mg/dL (1.6-2.4); Potassium 3.9 mEq/L (3.5-5.1)
[2024-06-09 05:47] LABS: Phosphorus 1.5 mg/dL (2.5-4.9)
[2024-06-09] MEDS: POTASS/SODIUM PHOSPHATE 1 PKT POWD.PACK PO SCH (06:07)
--- NOTE | 2024-06-09 06:30 | P.PN ---
Date of Service: 06/09/24 Subjective: She is seen resting comfortably at bedside. She has yet to eat breakfast. She states she feels much better today. Review of Systems Other: 10 point review of systems otherwise unremarkable Physical Examination - Physical Exam General: Alert, In no apparent distress, Oriented x3 HEENT: Atraumatic, Normocephalic, Other (bilateral conjuntivitis) Respiratory: Clear to auscultation bilaterally, Normal air movement Cardiovascular: Normal pulses, Regular rate/rhythm, Normal S1 S2 Capillary refill: <2 Seconds Gastrointestinal: Normal bowel sounds, Soft and benign Musculoskeletal: No clubbing Integumentary: No rashes Neurological: Normal speech, Normal tone - Studies Laboratory Data (last 24 hrs) 06/08/24 06/08/24 06/08/24 15:18 12:26 12:26 WBC 4.60 Hgb 13.1 Hct 39.4 Plt Count 163 PT 13.3 H INR 1.28 Sodium Potassium BUN Creatinine Glucose Phosphorus Cancelled Magnesium Total Bilirubin AST ALT Alkaline Phosphatase Lipase 06/08/24 12:26 WBC Hgb Hct Plt Count PT INR Sodium 140 Potassium 2.8 L BUN 13 Creatinine 1.41 H Glucose 89 Phosphorus 2.7 Magnesium 1.6 Total Bilirubin 1.3 H AST 31 ALT 21 Alkaline Phosphatase 89 Lipase 21 Assessment and Plan - Plan Assessment and plan Acute cystitis -UA with greater than 50 WBC -Urine culture with greater than 100,000 gram-negative rods. Continue Rocephin Weakness/debilitated Hypokalemia Decreased p.o. intake Hypotensive resolved Hypophosphatemia -Nutrition consulted, patient reports last food was 2 days ago -Encourage nutritional shakes -IV fluids with potassium -Potassium twice daily x 3 doses -Physical therapy consulted Bilateral bacterial conjunctivitis -Improving continue ophthalmic antibiotic -Tobramycin ophthalmic ointment in the ED Right renal calculus without hydronephrosis -CT abdomen pelvis report" -Gentle IVF -Kidney function improving. Follow-up with outpatient urology LEAH 2/2 dehydration -Gentle IV fluid -Improving Elevated bilirubin -Gentle IV fluid -Monitor morning labs DVT PPx heparin DNR LOS 24-hour OBS Discharge Plan: Home Plan to discharge in: 24 Hours - Advance Directives Does patient have a Living Will: No Does patient have a Durable POA for Healthcare: No
[2024-06-09] MEDS: CEFTRIAXONE 2,000 MG in NA CHLORIDE 0.9% 100 ML IV SCH (08:29)
[2024-06-09] MEDS: FLU (Fluarix Triv) TS24-25(6MOS UP)/PF 45 MCG/0.5 ML Syringe IM ONE (12:00)
[2024-06-09] MEDS: SODIUM PHOSPHATE 15 MM in NA CHLORIDE 0.9% 250 ML IV ONE (15:13)
[2024-06-09] MEDS: TOBRAMYCIN SULF 0.3% OPTH OINT EACH EYE SCH (15:13)
[2024-06-10 06:31] LABS: Anion Gap 7.1 mEq/L (5.0-15.0); Phosphorus 3.1 mg/dL (2.5-4.9); Potassium 4.1 mEq/L (3.5-5.1)
[2024-06-10] MEDS ORDERED: CEFTRIAXONE 1,000 MG in NA CHLORIDE 0.9% 50 ML IVPB SCH (09:00)
--- NOTE | 2024-06-10 13:11 | P.PN ---
Date of Service: 06/10/24 Subjective: Improving. She is eating and drinking. She denies any new complaints. She states she lives at home alone. She has not been out of bed much. She has a son and [id number] that live close by. Blood pressures are low overnight Review of Systems Other: 10 point review of systems otherwise unremarkable Physical Examination - Physical Exam General: Alert, In no apparent distress, Oriented x3 HEENT: Atraumatic, Normocephalic, Other (bilateral conjuntivitis) Respiratory: Clear to auscultation bilaterally, Normal air movement Cardiovascular: Normal pulses, Regular rate/rhythm, Normal S1 S2 Capillary refill: <2 Seconds Gastrointestinal: Normal bowel sounds, Soft and benign Musculoskeletal: No clubbing Integumentary: No rashes Neurological: Normal speech, Normal tone - Studies Laboratory Data (last 24 hrs) 06/08/24 06/08/24 06/08/24 15:18 12:26 12:26 WBC 4.60 Hgb 13.1 Hct 39.4 Plt Count 163 PT 13.3 H INR 1.28 Sodium Potassium BUN Creatinine Glucose Phosphorus Cancelled Magnesium Total Bilirubin AST ALT Alkaline Phosphatase Lipase 06/08/24 12:26 WBC Hgb Hct Plt Count PT INR Sodium 140 Potassium 2.8 L BUN 13 Creatinine 1.41 H Glucose 89 Phosphorus 2.7 Magnesium 1.6 Total Bilirubin 1.3 H AST 31 ALT 21 Alkaline Phosphatase 89 Lipase 21 Assessment and Plan - Plan Assessment and plan Acute cystitis -Continue IV Rocephin -UA with greater than 50 WBC -Urine culture with greater than 100,000 gram-negative rods. -Klebsiella oxytoca Hypotension -Bolus 1 L lactated ringer Weakness/debilitated -PT OT evaluation Decreased p.o. intake -Appreciate nutrition/dietitian input Bilateral bacterial conjunctivitis -Improving -continue ophthalmic antibiotic -Tobramycin ophthalmic ointment in the ED Right renal calculus without hydronephrosis -CT abdomen pelvis report" -Gentle IVF -Kidney function improving. Follow-up with outpatient urology LEAH resolved Hypophosphatemia resolved Hypokalemia resolved CBC and CMP in the a.m. DVT PPx heparin DNR LOS 24-hour OBS Discharge Plan: Home Plan to discharge in: 24 Hours - Advance Directives Does patient have a Living Will: No Does patient have a Durable POA for Healthcare: No
[2024-06-10] MEDS: Ringers Lactate 1,000 ML IV SCH (13:45)
[2024-06-11 04:46] LABS: Absolute Eosinophils 0.1 K/uL (0-0.5); Absolute Lymphocytes (CBC) 0.9 K/uL (0.7-4.9); Absolute Monocytes 0.3 K/uL (0.1-1.3); Basophils % 0.3 % (0-1.3); Eosinophils % 3.2 % (0-4.4); Hematocrit 28.7 % (36.0-45.0); Hemoglobin 9.4 g/dL (12.0-15.0); Lymphocytes % 26.7 % (15.3-44.8); MCH 30.3 pg (27.0-35.0); MCHC 32.7 g/dL (32.0-36.0); MCV 92.7 fL (80-100); MPV 8.3 fL (7.6-11.3); Monocytes % 8.3 % (3.3-12.3); Neutrophils % 61.5 % (41.7-73.7); Nucleated Red Blood Cells % 0.1 % (0-0); Platelets 105 thou/uL (152-406); Red Cell Distribution Width 16.2 % (12.1-15.2)
[2024-06-11 05:01] LABS: AST/SGOT 20 U/L (15-37); Albumin/Globulin Ratio 0.9 (1.1-1.8); Alkaline Phosphatase 59 U/L (45-117); Anion Gap 6.2 mEq/L (5.0-15.0); BUN Blood Urea Nitrogen 15 mg/dL (7-18); Bicarbonate 30 mEq/L (21-32); Bilirubin Total 0.3 mg/dL (0.2-1.0); Globulin 2.3 g/dL (2.3-3.5); Glomerular Filtration Rate 62 ml/min (=/>90); Glucose Level 108 mg/dL (74-106); Potassium 4.2 mEq/L (3.5-5.1); Protein, Total 4.3 g/dL (6.4-8.2); Sodium Level 142 mEq/L (136-145)
[2024-06-11 05:02] LABS: ALT/SGPT < 14 U/L (13-56)
[2024-06-11 05:11] LABS: Blood Morphology Comment NOTED (NOT SEEN); Burr Cells 3+; Platelet Estimate ADEQ; White Blood Cell Scan OK (OK)
--- NOTE | 2024-06-11 12:10 | EKG ---
Test Date: 2024-06-08 Test Time: 12:05:28 Ornamental Metalwork Designer: LOLA MEASUREMENT RESULTS: Intervals: Rate: 69 NE: 140 QRSD: 60 QT: 414 QTc: 443 [place]: P: 57 NE: 140 QRS: 12 T: 222 INTERPRETIVE STATEMENTS: Normal sinus rhythm ST & T wave abnormality, consider inferior ischemia Abnormal ECG Compared to ECG 06/08/2024 11:53:51 Short NE interval no longer present Prolonged QT interval no longer present ST (T wave) deviation still present Possible ischemia still present Electronically Signed On 06-11-24 12:10:10 POWERHOUSE OILER by Beka Muñoz
--- NOTE | 2024-06-11 12:11 | EKG ---
Test Date: 2024-06-08 Test Time: 11:53:51 Pack Mule Worker: LOLA MEASUREMENT RESULTS: Intervals: Rate: 73 ID: [id number] QRSD: 60 QT: 440 QTc: 484 [place]: P: ID: [id number] QRS: 16 T: 158 INTERPRETIVE STATEMENTS: Sinus rhythm with short ID ST & T wave abnormality, consider inferolateral ischemia Prolonged QT Abnormal ECG Compared to ECG 02/02/2024 19:01:03 Short ID interval now present ST (T wave) deviation now present Possible ischemia now present Prolonged QT interval now present Electronically Signed On 06-11-24 12:10:13 CAPSULE MACHINE OPERATOR by Beka Muñoz
--- NOTE | 2024-06-11 12:13 | P.PN ---
Date of Service: 06/11/24 Subjective: Improving. No new complaints. Discussed working with physical therapy. Blood pressures are low overnight. Denies fevers and chills. Denies melena and hematochezia Review of Systems Other: 10 point review of systems otherwise unremarkable Physical Examination - Physical Exam General: Alert, In no apparent distress, Oriented x3 HEENT: Atraumatic, Normocephalic, Other (bilateral conjuntivitis), pale conjunctiva Respiratory: Clear to auscultation bilaterally, Normal air movement Cardiovascular: Normal pulses, Regular rate/rhythm, Normal S1 S2 Capillary refill: <2 Seconds Gastrointestinal: Normal bowel sounds, Soft and benign Musculoskeletal: No clubbing Integumentary: No rashes, pale Neurological: Normal speech, Normal tone - Studies Laboratory Data (last 24 hrs) 06/08/24 06/08/24 06/08/24 15:18 12:26 12:26 WBC 4.60 Hgb 13.1 Hct 39.4 Plt Count 163 PT 13.3 H INR 1.28 Sodium Potassium BUN Creatinine Glucose Phosphorus Cancelled Magnesium Total Bilirubin AST ALT Alkaline Phosphatase Lipase 06/08/24 12:26 WBC Hgb Hct Plt Count PT INR Sodium 140 Potassium 2.8 L BUN 13 Creatinine 1.41 H Glucose 89 Phosphorus 2.7 Magnesium 1.6 Total Bilirubin 1.3 H AST 31 ALT 21 Alkaline Phosphatase 89 Lipase 21 Assessment and Plan - Plan Assessment and plan Acute cystitis -Continue IV Rocephin -UA with greater than 50 WBC -Urine culture with greater than 100,000 gram-negative rods. -Klebsiella oxytoca Anemia -Hemoglobin has been dropping since admission -Iron studies pending -Gastric occult blood pending -Stop heparin switch to SCDs Weakness/debilitated -PT / OT evaluation Decreased p.o. intake -Appreciate nutrition/dietitian input Bilateral bacterial conjunctivitis -Improving -continue ophthalmic antibiotic -Tobramycin ophthalmic ointment in the ED Right renal calculus without hydronephrosis -CT abdomen pelvis report" -Gentle IVF -Kidney function improving. Follow-up with outpatient urology LEAH resolved Hypotension resolved Hypophosphatemia resolved Hypokalemia resolved CBC and CMP in the a.m. DVT PPx SCDs DNR LOS 24-hour OBS Discharge Plan: Home Plan to discharge in: 24 Hours - Advance Directives Does patient have a Living Will: No Does patient have a Durable POA for Healthcare: No
[2024-06-11] MEDS: ENSURE ENLIVE 237 ML CAN PO SCH (21:00)
--- NOTE | 2024-06-12 14:19 | P.PN ---
Date of Service: 06/12/24 Subjective: Resting comfortably in bed. She is very weak. She is not able to work with physical therapy. We are discussing possibly going to a [facility] versus going home with home health. Weakness is associated with decreased appetite. blood pressure is stabilized overnight. Denies fevers and chills. Review of Systems Other: 10 point review of systems otherwise unremarkable Musculoskeletal: Positive weakness Physical Examination - Physical Exam General: Alert, In no apparent distress, Oriented x3 HEENT: Atraumatic, Normocephalic, Other (bilateral conjuntivitis), pale conjunctiva Respiratory: Clear to auscultation bilaterally, Normal air movement Cardiovascular: Normal pulses, Regular rate/rhythm, Normal S1 S2 Capillary refill: <2 Seconds Gastrointestinal: Normal bowel sounds, Soft and benign Musculoskeletal: No clubbing Integumentary: No rashes, pale Neurological: Normal speech, Normal tone - Studies Laboratory Data (last 24 hrs) 06/08/24 06/08/24 06/08/24 15:18 12:26 12:26 WBC 4.60 Hgb 13.1 Hct 39.4 Plt Count 163 PT 13.3 H INR 1.28 Sodium Potassium BUN Creatinine Glucose Phosphorus Cancelled Magnesium Total Bilirubin AST ALT Alkaline Phosphatase Lipase 06/08/24 12:26 WBC Hgb Hct Plt Count PT INR Sodium 140 Potassium 2.8 L BUN 13 Creatinine 1.41 H Glucose 89 Phosphorus 2.7 Magnesium 1.6 Total Bilirubin 1.3 H AST 31 ALT 21 Alkaline Phosphatase 89 Lipase 21 Assessment and Plan - Plan Assessment and plan Acute cystitis -Stop Rocephin after today -UA with greater than 50 WBC -Urine culture with greater than 100,000 gram-negative rods. -Klebsiella oxytoca Anemia -Hemoglobin stabilized -Iron studies pending -Gastric occult blood pending -Stop heparin switch to SCDs Weakness/debilitated -PT / OT evaluation -Likely need fdc versus home health Decreased p.o. intake -Appreciate nutrition/dietitian input Right renal calculus without hydronephrosis -CT abdomen pelvis report" -Gentle IVF -Kidney function improving. Follow-up with outpatient urology Bilateral bacterial conjunctivitis resolved LEAH resolved Hypotension resolved Hypophosphatemia resolved Hypokalemia resolved CBC and CMP in the a.m. DVT PPx SCDs DNR LOS 24-hour OBS Discharge Plan: Home Plan to discharge in: 24 Hours - Advance Directives Does patient have a Living Will: No Does patient have a Durable POA for Healthcare: No
--- NOTE | 2024-06-13 14:08 | P.PN ---
Date of Service: 06/13/24 Subjective: No new change. Eating and drinking. Had a bowel movement the other day. No issues with urination. Denies fevers and chills Review of Systems Other: 10 point review of systems otherwise unremarkable Musculoskeletal: Positive weakness Physical Examination - Physical Exam General: Alert, In no apparent distress, Oriented x3 HEENT: Atraumatic, Normocephalic, Other (bilateral conjuntivitis), pale conjunctiva Respiratory: Clear to auscultation bilaterally, Normal air movement Cardiovascular: Normal pulses, Regular rate/rhythm, Normal S1 S2 Capillary refill: <2 Seconds Gastrointestinal: Normal bowel sounds, Soft and benign Musculoskeletal: No clubbing Integumentary: No rashes, pale Neurological: Normal speech, Normal tone - Studies Laboratory Data (last 24 hrs) 06/08/24 06/08/24 06/08/24 15:18 12:26 12:26 WBC 4.60 Hgb 13.1 Hct 39.4 Plt Count 163 PT 13.3 H INR 1.28 Sodium Potassium BUN Creatinine Glucose Phosphorus Cancelled Magnesium Total Bilirubin AST ALT Alkaline Phosphatase Lipase 06/08/24 12:26 WBC Hgb Hct Plt Count PT INR Sodium 140 Potassium 2.8 L BUN 13 Creatinine 1.41 H Glucose 89 Phosphorus 2.7 Magnesium 1.6 Total Bilirubin 1.3 H AST 31 ALT 21 Alkaline Phosphatase 89 Lipase 21 Assessment and Plan - Plan Assessment and plan Acute cystitis -Completed IV antibiotic -UA with greater than 50 WBC -Urine culture with greater than 100,000 gram-negative rods. -Klebsiella oxytoca Anemia -Hemoglobin stabilized -Iron studies pending -Gastric occult blood pending -Stop heparin switch to SCDs Weakness/debilitated -PT / OT evaluation -Likely need senior care versus home health Decreased p.o. intake -Appreciate nutrition/dietitian input -High-calorie diet Right renal calculus without hydronephrosis -CT abdomen pelvis report" -Gentle IVF -Kidney function improving. Follow-up with outpatient urology Bilateral bacterial conjunctivitis resolved LEAH resolved Hypotension resolved Hypophosphatemia resolved Hypokalemia resolved CBC and CMP in the a.m. DVT PPx SCDs DNR LOS 24-hour OBS Discharge Plan: Home Plan to discharge in: 24 Hours - Advance Directives Does patient have a Living Will: No Does patient have a Durable POA for Healthcare: No
[2024-06-14 04:37] LABS: Absolute Eosinophils 0.1 K/uL (0-0.5); Absolute Lymphocytes (CBC) 0.7 K/uL (0.7-4.9); Absolute Monocytes 0.4 K/uL (0.1-1.3); Basophils % 0.5 % (0-1.3); Eosinophils % 4.2 % (0-4.4); Hematocrit 27.9 % (36.0-45.0); Hemoglobin 9.3 g/dL (12.0-15.0); Lymphocytes % 22.7 % (15.3-44.8); MCHC 33.5 g/dL (32.0-36.0); MCV 92.5 fL (80-100); MPV 8.2 fL (7.6-11.3); Neutrophils % 61.6 % (41.7-73.7); Nucleated Red Blood Cells % 0.1 % (0-0); Platelets 153 thou/uL (152-406); RBC Red Blood Cell Count 3.02 M/uL (3.86-4.86); Red Cell Distribution Width 16.5 % (12.1-15.2)
--- NOTE | 2024-06-14 13:52 | P.PN ---
Date of Service: 06/14/24 Subjective: Improving. Having a big breakfast is more. Vitals remain normal overnight. She is voiding regularly. She is having bowel movements. Review of Systems Other: 10 point review of systems otherwise unremarkable Musculoskeletal: Positive weakness Physical Examination - Physical Exam General: Alert, In no apparent distress, Oriented x3 HEENT: Atraumatic, Normocephalic, Other (bilateral conjuntivitis), pale conjunctiva Respiratory: Clear to auscultation bilaterally, Normal air movement Cardiovascular: Normal pulses, Regular rate/rhythm, Normal S1 S2 Capillary refill: <2 Seconds Gastrointestinal: Normal bowel sounds, Soft and benign Musculoskeletal: No clubbing Integumentary: No rashes, pale Neurological: Normal speech, Normal tone - Studies Laboratory Data (last 24 hrs) 06/08/24 06/08/24 06/08/24 15:18 12:26 12:26 WBC 4.60 Hgb 13.1 Hct 39.4 Plt Count 163 PT 13.3 H INR 1.28 Sodium Potassium BUN Creatinine Glucose Phosphorus Cancelled Magnesium Total Bilirubin AST ALT Alkaline Phosphatase Lipase 06/08/24 12:26 WBC Hgb Hct Plt Count PT INR Sodium 140 Potassium 2.8 L BUN 13 Creatinine 1.41 H Glucose 89 Phosphorus 2.7 Magnesium 1.6 Total Bilirubin 1.3 H AST 31 ALT 21 Alkaline Phosphatase 89 Lipase 21 Assessment and Plan Acute cystitis resolved -Completed IV antibiotic -UA with greater than 50 WBC -Urine culture with greater than 100,000 gram-negative rods. -Klebsiella oxytoca Anemia -Hemoglobin stabilized -Iron studies pending -Gastric occult blood pending -Stop heparin switch to SCDs Weakness/debilitated -PT / OT evaluation -Likely need intermediate versus home health Decreased p.o. intake -Appreciate nutrition/dietitian input -High-calorie diet Right renal calculus without hydronephrosis -CT abdomen pelvis report" -Gentle IVF -Kidney function improving. Follow-up with outpatient urology Bilateral bacterial conjunctivitis resolved LEAH resolved Hypotension resolved Hypophosphatemia resolved Hypokalemia resolved Thrombocytopenia resolved DVT PPx SCDs DNR LOS 24-hour OBS Discharge Plan: Home in 1 day Plan to discharge in: 24 Hours - Advance Directives Does patient have a Living Will: No Does patient have a Durable POA for Healthcare: No
[2024-06-15 12:50] VITALS: TEMP 98.5
--- NOTE | 2024-06-15 14:32 | P.DS ---
Admission Date: 06/10/24 Discharge Date: 06/15/24 Disposition: TRANSFER TO SNF - REHAB Discharge Condition: GOOD Reason for Admission: Weakness, hypokalemia Brief History of Present Illness: Joyce Saha is a 74-year-old female with past medical history of Congestive heart failure, depressive disorder, Gastroesophageal reflux disease, Hypercholesterolemia, Hypertensive disorder, Hypertensive disorder, Osteoporosis, osteoarthritis, who presents to the ED with chief complaint of not feeling right. She had woke up early this morning was able to get around then experienced weakness and was not able to get out of the chair. She reports last time she ate was 2 days ago. She states that she orders from [facility] or [facility] and is able to order food that she enjoys. She reports she does not like the taste of food right now and has to force herself to eat. She reports not having a PCP since she moved her approximately 2 years ago. He previous doctor continues to provide her prescriptions. Laboratory evaluation significant for left shift lymphocytes 82.4, potassium 2.8, BUN/creatinine 13/1.41, GFR 39, T. bili 1.3. Hospital Course: Joyce Saha is a 74-year-old female with past medical history of Congestive heart failure, depressive disorder, Gastroesophageal reflux disease, Hypercholesterolemia, Hypertensive disorder, Hypertensive disorder, Osteoporosis, osteoarthritis, who presents to the ED with complaints of weakness. Labs showed marked hypokalemia with potassium of 2.8. UA also positive with subsequent urine cultures positive for Klebsiella oxytoca. Hever colin completed course of IV Rocephin x 5 days in house. Hypokalemia resolved and patient was discharged to assisted facility. Vital Signs/Physical Exam: Temp Pulse Resp BP Pulse Ox 98.5 F 80 16 121/54 L 97 06/15/24 12:00 06/15/24 12:00 06/15/24 12:00 06/15/24 12:00 06/15/24 12:00 General: Alert, Oriented x3 Neck: Supple Respiratory: Clear to auscultation bilaterally Cardiovascular: No edema, Normal pulses, Regular rate/rhythm, Normal S1 S2 Musculoskeletal: No clubbing, No swelling, No erythema Neurological: Normal gait, Normal speech, Normal strength at 5/5 x4 extr Rectal: Normal Laboratory Data at Discharge: WBC 3.30 thou/uL (4.3-10.9) L 06/14/24 04:19 Hgb 9.3 g/dL (12.0-15.0) L 06/14/24 04:19 Hct 27.9 % (36.0-45.0) L 06/14/24 04:19 Plt Count 153 thou/uL (152-406) 06/14/24 04:19 PT 13.3 SECONDS (9.7-12.7) H 06/08/24 12:26 INR 1.28 06/08/24 12:26 Sodium 142 mEq/L (136-145) 06/14/24 04:19 Potassium 4.0 mEq/L (3.5-5.1) 06/14/24 04:19 BUN 21 mg/dL (7-18) H 06/14/24 04:19 Creatinine 0.86 mg/dL (0.55-1.02) 06/14/24 04:19 Glucose 115 mg/dL (74-106) H 06/14/24 04:19 Phosphorus 3.1 mg/dL (2.5-4.9) 06/10/24 06:00 Magnesium 2.2 mg/dL (1.6-2.4) 06/09/24 04:12 Total Bilirubin 0.3 mg/dL (0.2-1.0) 06/11/24 04:23 AST 20 U/L (15-37) 06/11/24 04:23 ALT < 14 U/L (13-56) 06/11/24 04:23 Alkaline Phosphatase 59 U/L (45-117) 06/11/24 04:23 Lipase 21 U/L (13-75) 06/08/24 12:26 Home Medications: Alendronate Sodium 1 tab PO EVERY 7TH DAY 01/20/24 Amlodipine Besylate 5 mg PO DAILY 01/20/24 Atorvastatin Calcium [Lipitor] 80 mg PO BEDTIME 01/20/24 Ergocalciferol (Vitamin D2) [Vitamin D 50,000 Unit Cap] 50,000 unit PO EVERY 7TH DAY 01/20/24 Ezetimibe 10 mg PO DAILY 01/20/24 Famotidine [Pepcid*] 2 tab PO BID 01/20/24 Furosemide 40 mg PO DAILY 01/20/24 Olanzapine [Zyprexa] 5 mg PO BEDTIME 01/20/24 Potassium Chloride 10 meq PO DAILY 01/20/24 buPROPion HCL [Bupropion Xl] 300 mg PO DAILY 01/20/24 Followup: NONE,NONE [Primary Care Provider] -
[2024-06-15 16:38] VITALS: BP 126/65
== END 2024-06-15 18:50 | DRG 641 ==
LOC: ER 10:58 → ERHOLD 16:09 → 2ND 21:18 → OBSVTOIN 06-10 08:57
PROVIDERS: ADMIT Hospitalist; ATTEND Internal Medicine
DX: E87.6 Hypokalemia (principal); N30.01 Acute cystitis with hematuria; E44.0 Moderate protein-calorie malnutrition; N17.9 Acute kidney failure, unspecified; E86.0 Dehydration; I10 Essential (primary) hypertension; N20.0 Calculus of kidney; H10.9 Unspecified conjunctivitis; E83.39 Other disorders of phosphorus metabolism; E78.00 Pure hypercholesterolemia, unspecified; D64.9 Anemia, unspecified; I95.9 Hypotension, unspecified; D69.6 Thrombocytopenia, unspecified; M19.90 Unspecified osteoarthritis, unspecified site; K21.9 Gastro-esophageal reflux disease without esophagitis; B96.1 Klebsiella pneumoniae [K. pneumoniae] as the cause of diseases classified elsewhere; Z60.2 Problems related to living alone; Z88.5 Allergy status to narcotic agent; Z88.8 Allergy status to other drugs, medicaments and biological substances; Z68.25 Body mass index [BMI] 25.0-25.9, adult; Z11.52 Encounter for screening for COVID-19; Z79.899 Other long term (current) drug therapy; Z90.710 Acquired absence of both cervix and uterus
CPT/HCPCS: 36415; 71045; 71250; 74176; 80048; 80053; 80076; 81001; 83540; 83605; 83690; 83735; 83880; 84100; 84132; 84466; 84484; 85018; 85025; 85610; 87040; 87077; 87086; 87088; 87186; 87428; 93005; 96361; 96365; 96366; 96375; 97110; 97112; 97116; 97161; 97530; 99285; G0378; J0696; J1644; J2185; J2405; J3475; J3480; J7030; J7050; J7120